=== PATIENT | female | born 1990 | race Caucasian/White ===

== ENCOUNTER 2021-04-08 14:40 | Emergency (ER) | payer OTHER, SELFPAY ==
--- NOTE | ~2021-04-08 | CT_ITS ---
EXAMINATION: CT HEAD WITHOUT CONTRAST CLINICAL INFORMATION: Headache and hypertension. Evaluate for bleed. COMPARISON: None TECHNIQUE: Contiguous axial imaging was performed from the skull base to vertex without intravenous administration of contrast. This CT examination was performed using dose optimization techniques as appropriate, variously including the following: *Automated exposure control *Adjustment of mA and/or kV according to patient size (this includes techniques or standardized protocols for targeted exams where dose is matched to indication/reason for exam; i.e. extremities or head) *Use of iterative reconstruction technique DLP: 675 mGy-cm FINDINGS: There is a region of encephalomalacia involving the medial aspect of the left parietoccipital lobe, and there appear to be a few punctate foci of calcification, likely dystrophic calcifications, at the periphery of this chronic abnormality. Otherwise, the calderon-white matter differentiation is well preserved. No evidence of an acute major vascular territory infarction. No intracranial hemorrhage, extra-axial fluid collection, focal mass effect or midline shift. The ventricles have normal size and configuration; no hydrocephalus. The brainstem and cerebellum have a normal appearance. The cerebellar tonsils are in normal position. The calvarium is intact. The mastoid air cells and middle ear cavities are well aerated. There are mucous retention cysts of the maxillary and left sphenoid sinuses. No air-fluid levels within paranasal sinuses. The orbits, globes and temporomandibular joints are unremarkable. CT/CT head/brain wo con IMPRESSION: * No hemorrhage or other acute intracranial pathology. * Findings consistent with old infarction in the left ZIP[employer]TER territory. * Incidentally noted are mucous retention cysts within the maxillary and left sphenoid sinuses.
[2021-04-08 14:53] VITALS: BP 210/113; PULSE 72; RESP 16; TEMP 36.7; O2SAT 96; BMI 41.9
--- NOTE | 2021-04-08 16:25 | ECG_ITS ---
Test Reason : HEADACHE Blood Pressure : / mmHG Vent. Rate : 065 BPM Atrial Rate : 065 BPM P-R Int : 166 ms QRS Dur : 106 ms QT Int : 436 ms P-R-T Axes : 040 020 -02 degrees QTc Int : 453 ms Normal sinus rhythm Normal ECG No previous ECGs available Referred By: Yohan Rodriguez Electronically Signed By:YU LEYVA
--- NOTE | 2021-04-08 16:28 | ED_ITS ---
HPI - Headache General Chief Complaint: Headache Stated Complaint: severe head pain, rt arm numb Time Seen by Provider: 04/08/21 16:25 Source: patient Mode of arrival: ambulatory Limitations: no limitations History of Present Illness HPI Narrative: 30-year-old female came in for evaluation of headache. 30-year-old female with history of 3 of border line hypertension, patient used to be on hypertension medication that was discontinued by her PCP after lost its weight, patient described headache as pressure inside her head started this morning while was going out with her family in the morning, patient ate break fast with no relief of her headache patient tried to drink coffee with no effect, patient describes headache as severe 7/10 constant since it started, pain can be relieved by applying pressure on her forehead with her hand, otherwise no aggravating factor, no photophobia, no neck stiffness. Mild nausea but no vomiting. Patient also reported that yesterday she had bright red blood per rectum usually is known to have hemorrhoid, and patient stained her underwear overnight with bright red blood, this morning patient had a bowel movement did not see blood in the stool this morning. Related Data Previous Rx's Medication Instructions Recorded amlodipine 2.5 mg tablet 2.5 mg PO DAILY #30 tab 04/08/21 Allergies Allergy/AdvReac Type Severity Reaction Status Date / Time acetaminophen [From VICODIN] Allergy Unknown UNK Unverified 05/05/20 18:05 codeine [CODEINE] Allergy Unknown UNK Unverified 05/05/20 18:05 hydrocodone [Vicodin] Allergy Unknown Verified 11/10/18 00:00 Sulfa (Sulfonamide Allergy Unknown anaphylaxis Verified 11/10/18 00:00 Antibiotics) Codeine Phosphate Allergy Unknown Uncoded 11/10/18 00:00 DTap vaccine Allergy Unknown Uncoded 11/10/18 00:00 From VICODIN Allergy Unknown UNK Uncoded 05/05/20 18:05 Review of Systems Review of Systems: All other systems are reviewed and are negative Constitutional: Reports as per HPI and Reports no additional constitutional complaints Eyes: Reports as per HPI and Reports no additional eye complaints Reports system reviewed and no additional complaints, except as documented Cardiovascular: Reports as per HPI and Reports no additional cardiovascular complaints Respiratory: Reports as per HPI and Reports no additional respiratory complaints Gastrointestinal: Reports as per HPI and Reports no additional gastrointestinal complaints Genitourinary: Reports no additional female genitourinary complaints Musculoskeletal: Reports no additional musculoskeletal complaints Skin/Breast: Reports system reviewed and no additional complaints, except as docu Psychiatric: Reports no additional psychiatric complaints Endocrine: Reports no additional endocrine complaints Hematologic/Lymphatic: Reports no additional hematologic/lymphatic complaints Allergic/Immunologic: Reports no additional allergic/immunologic complaints Reports system reviewed and no additional complaints, except as documented and Reports Abnormal speech present [facility] Past Medical History Medical History Hypertension Social History Social History Advance Directives: No Advance Directives Information Provided: No Physical Exam Vital Signs: Vital Signs: Last Vital Signs Temp 98.1 F 04/08/21 16:52 Pulse 64 04/08/21 16:52 Resp 16 04/08/21 16:52 BP 154/75 H 04/08/21 16:52 Pulse Ox 98 04/08/21 16:52 Body Mass Index 41.9 Vital signs have been reviewed as appeared to be correct. Blood pressure elevated. Heart rate normal. Respiration rate normal. Temperature normal. Oxygen saturation normal. Appearance: Alert. Oriented X3. No acute distress. Head: Normal external exam. Normocephalic. Atraumatic. No Connolly signs noted. No raccoon eyes noted Eyes: PERRLA. EOMI. Conjunctiva and sclera normal. Eyelids normal. ENT: TM's Normal. Pharynx normal. Uvula midline. Moist mucous membranes. No trismus noted. No drooling noted. No muffled voice noted. Neck: Normal inspection. Neck supple. FROM. No adenopathy. Thyroid Normal. No meningeal signs. No neck mass noted. CVS: Normal heart rate and rhythm. Heart sound normal. No murmurs noted. Pulses normal throughout. Respiratory: No respiratory distress. Painless inspiration. Breath sounds no rmal. No wheezes/rales/rhonchi noted. Chest nontender. No accessory muscle usage noted or decreased air movement noted. Abdomen: Soft and nontender. Bowel sounds normal in all 4 quadrants. No disten tion noted. No organomegaly noted. No visible injury noted. Back: No CVA tenderness. Full range of motion noted. Skin: Skin warm and dry. Normal skin color. Normal skin turgor. No rashes/lesions/lacerations noted. Extremities: No lower extremity edema. Extremities exhibit normal range of mo tion. Extremities nontender. Neuro: Oriented X 3. Cranial nerve exam: II-XII are grossly intact No motor deficit. No sensory deficit. Reflexes normal. NIH Stroke Scale Level of Consciousness: Alert Level of Consciousness Questions: Answers both questions correctly Level of Consciousness Commands: Performs both tasks correctly Best Gaze: Normal Visual: No visual loss Facial Palsy: Normal Motor Arm (Right): No drift Motor Arm (Left): No drift Motor Leg (Right): No drift Motor Leg (Left): No drift Limb Ataxia: Absent Sensory: Normal Best Language: No aphasia Dysarthia: Normal Extinction and Inattention: No abnormality Score: 0 Course Course Course Narrative: Assessment and plan. 30-year-old female came in for evaluation for headache, patient found to be hypertensive while in the emergency department (patient used to be on antihypertensive medication but was discontinued by her primary doctor at some point), patient also stated that she has been going through stressful events in her life and her family that might contribute to her symptoms also. CT of the head showed patient had an old cerebral infarction. Patient's symptoms and headache is unremarkable, no sign of acute stroke with a NIH score of 0 MDM - Headache Lab Data Attestation: I reviewed the patient's lab results. Result diagrams: 04/08/21 16:51 04/08/21 16:51 Labs: Lab Results 04/08/21 04/08/21 04/08/21 Range/Units 16:51 16:51 16:51 WBC 10.3 (4.8-10.8) X10*3/uL RBC 4.51 (4.20-5.50) X10*6/uL Hgb 11.1 L (12.0-16.0) g/dl Hct 35.3 L (37-47) % MCV 78.3 L (80-98) fL MCH 24.6 L (27.0-33.0) pg MCHC 31.4 (31.0-35.0) g/dl RDW 14.6 (11.0-16.0) % Plt Count 410 H (160-400) X10*3/uL MPV 9.3 L (9.4-12.3) fL Immature Gran % (Auto) 0.7 H (0.0-0.4) % Neut % (Auto) 70.3 (45-73) % Lymph % (Auto) 20.2 (20-40) % [place] % (Auto) 6.0 (2-11) % Eos % (Auto) 2.5 (0-4) % Baso % (Auto) 0.3 (0-2) % Lymph # (Auto) 2.1 (1.2-4.9) X10*3/uL [place] # (Auto) 0.6 (0.1-1.2) X10*3/uL Eos # (Auto) 0.3 (0.0-0.4) X10*3/uL Baso # (Auto) 0.0 (0.0-0.2) X10*3/uL Abs Immat Gran (auto) 0.07 H (0.00-0.03) X10*3/uL Absolute Neuts (auto) 7.3 (2.0-8.3) X10*3/uL Absolute Nucleated RBC 0.000 (0.0-0.012) X10*3/uL Nucleated RBC % (auto) 0.0 (0.0-0.2) /100WBC Sodium 140 (135-145) mmol/L Potassium 4.3 (3.3-5.1) mmol/L Chloride 106 (96-108) mmol/L Carbon Dioxide 25 (22-29) mmol/L Anion Gap 13 (12-20) BUN 12 (9-16) mg/dL Creatinine 0.72 (0.5-1.4) mg/dL Estim Creat Clear Calc 146.5 Estimated GFR > 60 Random Glucose 90 (60-115) mg/dL Calcium 8.8 (8.4-10.2) mg/dL Troponin I High Sens < 3.5 (<3.5-17.0) ng/L Urine Color Urine Appearance Urine pH (5.0-8.0) Ur Specific [place] (1.005-1.025) Urine Protein (NEG-TRACE) MG/DL Urine Glucose (UA) (NEG) MG/DL Urine Ketones (NEG) MG/DL Urine Blood (NEG) Urine Nitrite (NEG) Ur Leukocyte Esterase (NEG) Urine Test (NEGATIVE) Stool Occult Blood (NEGATIVE) 04/08/21 04/08/2104/08/21 Range/Units 17:18 17:18 17:18 WBC (4.8-10.8) X10*3/uL RBC (4.20-5.50) X10*6/uL Hgb (12.0-16.0) g/dl Hct (37-47) % MCV (80-98) fL MCH (27.0-33.0) pg MCHC (31.0-35.0) g/dl RDW (11.0-16.0) % Plt Count (160-400) X10*3/uL MPV (9.4-12.3) fL Immature Gran % (Auto) (0.0-0.4) % Neut % (Auto) (45-73) % Lymph % (Auto) (20-40) % [place] % (Auto) (2-11) % Eos % (Auto) (0-4) % Baso % (Auto) (0-2) % Lymph # (Auto) (1.2-4.9) X10*3/uL [place] # (Auto) (0.1-1.2) X10*3/uL Eos # (Auto) (0.0-0.4) X10*3/uL Baso # (Auto) (0.0-0.2) X10*3/uL Abs Immat Gran (auto) (0.00-0.03) X10*3/uL Absolute Neuts (auto) (2.0-8.3) X10*3/uL Absolute Nucleated RBC (0.0-0.012) X10*3/uL Nucleated RBC % (auto) (0.0-0.2) /100WBC Sodium (135-145) mmol/L Potassium (3.3-5.1) mmol/L Chloride (96-108) mmol/L Carbon Dioxide (22-29) mmol/L Anion Gap (12-20) BUN (9-16) mg/dL Creatinine (0.5-1.4) mg/dL Estim Creat Clear Calc Estimated GFR Random Glucose (60-115) mg/dL Calcium (8.4-10.2) mg/dL Troponin I High Sens (<3.5-17.0) ng/L Urine Color YELLOW Urine Appearance CLEAR Urine pH 6.0 (5.0-8.0) Ur Specific [place] 1.015 (1.005-1.025) Urine Protein NEG (NEG-TRACE) MG/DL Urine Glucose (UA) NEG (NEG) MG/DL Urine Ketones NEG (NEG) MG/DL Urine Blood NEG (NEG) Urine Nitrite NEG (NEG) Ur Leukocyte Esterase NEG (NEG) Urine Test NEGATIVE (NEGATIVE) Stool Occult Blood NEGATIVE (NEGATIVE) Imaging Data CT scan - head: Radiologist's impression: *? No hemorrhage or other acute intracranial pathology. *? 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 *? Incidentally noted are mucous retention cysts within the maxillary and left sphenoid sinuses. ECG Data Interpretation: Normal sinus rhythm at 65 beats per minutes, normal axis deviation, normal intervals, no ST-T changes. Discharge Plan Discharge Clinical Impression: Headache, Hypertension Patient Disposition: Home, Self-Care Instructions: Hypertension (ED) Prescriptions: New amlodipine 2.5 mg tablet 2.5 mg PO DAILY Qty: 30 RF: 0 Referrals: Don Mg [Primary Care Provider] - 2 days Naye Bennett MD [Physician] - 2 days
[2021-04-08 16:37] VITALS: BP 183/105
[2021-04-08] MEDS: amLODIPine Besylate 2.5 MG TABLET PO (16:37)
[2021-04-08 16:52] VITALS: BP 154/75; PULSE 64; RESP 16; TEMP 36.7; O2SAT 98
[2021-04-08 16:55] LABS: MANUAL DIFF FLAG NO
[2021-04-08 16:56] LABS: Basophils Percent Auto 0.3 % (0-2); Eosinophils Absolute Auto 0.3 X10*3/uL (0.0-0.4); Eosinophils Percent Auto 2.5 % (0-4); Hematocrit 35.3 % (37-47); Hemoglobin 11.1 g/dl (12.0-16.0); Imm Gran Abs Auto 0.07 X10*3/uL (0.00-0.03); Imm Gran Pct Auto 0.7 % (0.0-0.4); Lymphocytes Absolute Auto 2.1 X10*3/uL (1.2-4.9); Lymphocytes Percent Auto 20.2 % (20-40); Mean Corpuscular HGB Conc 31.4 g/dl (31.0-35.0); Mean Corpuscular Hemoglobin 24.6 pg (27.0-33.0); Mean Corpuscular Volume 78.3 fL (80-98); Mean Platelet Volume 9.3 fL (9.4-12.3); Monocytes Absolute Auto 0.6 X10*3/uL (0.1-1.2); Neutrophils Absolute Auto 7.3 X10*3/uL (2.0-8.3); Neutrophils Percent Auto 70.3 % (45-73); Platelet Count 410 X10*3/uL (160-400); Red Blood Count 4.51 X10*6/uL (4.20-5.50); Red Cell Distribution Width 14.6 % (11.0-16.0); White Blood Count 10.3 X10*3/uL (4.8-10.8)
[2021-04-08 17:19] LABS: Anion Gap 13 (12-20); Blood Urea Nitrogen 12 mg/dL (9-16); Calcium 8.8 mg/dL (8.4-10.2); Carbon Dioxide 25 mmol/L (22-29); Chloride 106 mmol/L (96-108); Creatinine Clr Calc Pharmacy 146.5; Estimated Glomerular Filt Rate > 60; Glucose Random 90 mg/dL (60-115); Potassium 4.3 mmol/L (3.3-5.1); Sodium 140 mmol/L (135-145)
[2021-04-08 17:23] LABS: Troponin-I High Sensitivity < 3.5 ng/L (<3.5-17.0)
[2021-04-08 17:36] LABS: OBS Int Ctl Valid YES; OBS1 NEGATIVE (NEGATIVE)
[2021-04-08 17:37] LABS: Glucose Urine UA NEG (NEG); Leukocyte Esterase Urine NEG (NEG); Nitrite Urine NEG (NEG); Specific Gravity - Urine 1.015 (1.005-1.025); Urine Blood NEG (NEG); Urine Ketones NEG (NEG); Urine Protein NEG (NEG-TRACE)
[2021-04-08 17:39] LABS: Appearance Urine CLEAR; Color Urine YELLOW; UPreg QC Valid YES; Urine Pregnancy NEGATIVE (NEGATIVE)
[2021-04-08] MEDS: oxyCODONE HCl Immed Release 5 MG TABLET PO (19:32)
[2021-04-08 20:24] VITALS: BP 157/80; PULSE 59; RESP 18; O2SAT 98
== END 2021-04-08 20:55 | disposition home or self-care (01) ==
PROVIDERS: Emergency Provider Emergency Medicine; PCP Internal Medicine
DX: R51.9 Headache, unspecified (principal); I10 Essential (primary) hypertension; Z72.89 Other problems related to lifestyle; Z63.79 Other stressful life events affecting family and household
CPT/HCPCS: 36415; 70450; 80048; 81003; 81025; 82272; 84484; 85025; 93005; 99284

== ENCOUNTER 2021-04-13 18:30 | Emergency (ER) | payer OTHER, SELFPAY ==
--- NOTE | ~2021-04-13 | XR_ITS ---
EXAMINATION: XR CERVICAL SPINE CLINICAL INFORMATION: Radicular pain. Suspect possible stenosis. COMPARISON: None TECHNIQUE: 3 views of the cervical spine were obtained. FINDINGS: Bone alignment is normal. No fracture or dislocation is seen. Disc spaces are normal. Prevertebral soft tissues are normal. XR/XR cervical spine 2V IMPRESSION: Unremarkable examination.
[2021-04-13 18:35] VITALS: BP 158/104; PULSE 66; RESP 16; TEMP 36.9; O2SAT 98; BMI 43.5
[2021-04-13 20:32] VITALS: BP 138/71; PULSE 61; RESP 20; TEMP 37.2; O2SAT 100
--- NOTE | 2021-04-13 20:51 | PC.NURSE ---
client mcginnis x 4 with equal and non labored rr. Client speaking in clear and full sentences. Client following commands, neuro intact. Client appears in nad, seen last week for similar symptoms and received full work up. Client hypertensive and stats is on medications. right arm tingling is biggest symptom.
--- NOTE | 2021-04-13 22:05 | ED.NEUROSD ---
HPI - Neuro Symptoms/Deficit General Chief Complaint: Neuro Symptoms/Deficit Stated Complaint: headache, arm tingling Time Seen by Provider: 04/13/21 21:15 Source: patient Mode of arrival: ambulatory History of Present Illness HPI Narrative: 30-year-old female without significant past medical history presents with worsening numbness and tingling in the right upper extremity since Saturday and patient reports that this is exacerbated by excessive writing and repetitive movements of her right upper extremity. She is primarily concerned because she has continued to have headaches that are not associated with fever, chills, neck pain, but patient reports that she has not had the COVID-19 vaccine as she had COVID-19 infection in September/2020. In addition, patient states that she has had some noted weakness of the hand but otherwise denies any visual/auditory/speech dysfunction. Patient reports that the affect is primarily in the ring finger and 5th digit of the right hand and is most prominent distal to the elbow. Related Data Previous Rx's Medication Instructions Recorded amlodipine 2.5 mg tablet 2.5 mg PO DAILY #30 tab 04/08/21 Allergies Allergy/AdvReac Type Severity Reaction Status Date / Time acetaminophen [From VICODIN] Allergy Unknown UNK Unverified 05/05/20 18:05 codeine [CODEINE] Allergy Unknown UNK Unverified 05/05/20 18:05 hydrocodone [Vicodin] Allergy Unknown Verified 11/10/18 00:00 Sulfa (Sulfonamide Allergy Unknown anaphylaxis Verified 11/10/18 00:00 Antibiotics) Codeine Phosphate Allergy Unknown Uncoded 11/10/18 00:00 DTap vaccine Allergy Unknown Uncoded 11/10/18 00:00 From VICODIN Allergy Unknown UNK Uncoded 05/05/20 18:05 Review of Systems Review of Systems: Pertinent positives and negatives as stated in HPI 10 point review of systems is otherwise negative. PMFSH Past Medical History Source: nursing notes reviewed Medical History Hypertension Social History Social History Advance Directives: No Advance Directives Information Provided: No Physical Exam Vital Signs: Vital Signs: Last Vital Signs Temp 98.9 F 04/13/21 20:32 Pulse 61 04/13/21 20:32 Resp 20 04/13/21 20:32 BP 138/71 04/13/21 20:32 Pulse Ox 100 04/13/21 20:32 Body Mass Index 43.5 VITAL SIGNS: Reviewed. GENERAL: Well developed, well nourished, in no acute distress. HEAD: Normocephalic/atraumatic EYES: PERRLA, EOMI OROPHARYNX: no oral lesions noted, posterior pharynx clear NECK: Supple, no adenopathy, no midline cervical spine tenderness LUNGS: Normal breath sounds. No adventitious sounds or accessory muscle use. SpO2<100> CARDIOVASCULAR: Regular rate and rhythm without noted murmurs, no JVD or lower extremity edema. ABDOMEN: Soft, non-tender, non-distended with bowel sounds. MUSCULOSKELETAL: No tenderness, deformities, or effusions noted on gross inspection. EXTREMITIES: No cyanosis, clubbing or edema. SKIN: Inspection of the skin reveals no rashes, ulcerations, jaundice, pallor, or petechiae. NEUROLOGIC: Alert and oriented x 4. Strength and sensation to light touch were grossly intact x 4, no facial asymmetry, no pronator drift, cranial nerves 2-12 are grossly intact, cerebellar function intact Course Course Course Narrative: This is a 30-year-old female with history and clinical presentation most suggestive of radicular or isolated ulnar neuropathy given further questioning. I have reviewed the notes and lab work from Saturday. These alternative possibilities were discussed with the patient at bedside and will test further for evidence elevated inflammatory markers, COVID-19 positivity, and thyroid dysfunction. Patient's NIH score is 0 and low clinical suspicion for central etiology of patient's symptoms. Will provide Fioricet for headache and re-evaluate. Patient was reminded to continue to follow-up with neurology as she was provided with a referral on Saturday. On review of her blood pressure it is much improved when compared to prior. On review of all investigations there is minimal elevation of ESR/CRP and TSH is within normal limits. On re-evaluation patient reports that her headache has significantly improved and she is able to tolerate oral intake. She is otherwise recommended to continue with follow-up with Dr. Bennett and will be treated for suspected ulnar nerve neuropathy with recommendations for [id number] anti-inflammatories. MDM - Neuro Symptoms/Deficit Lab Data Labs: Lab Results 04/13/21 04/13/21 04/13/21 Range/Units 22:36 22:36 22:36 ESR 31 H (0-20) MM/HR C-Reactive Protein 1.18 H (< or = 0.50) mg/dL TSH 2.24 (0.32-4.0) uIU/mL COVID-19 (BRUNO) Negative (Negative) COVID-19 Clin Com See Note NIH Stroke Scale Internal: Initial- Upon Arrival Level of Consciousness: Alert Level of Consciousness Questions: Answers both questions correctly Level of Consciousness Commands: Performs both tasks correctly Best Gaze: Normal Visual: No visual loss Facial Palsy: Normal Motor Arm (Right): No drift Motor Arm (Left): No drift Motor Leg (Right): No drift Motor Leg (Left): No drift Limb Ataxia: Absent Sensory: Normal Best Language: No aphasia Dysarthia: Normal Extinction and Inattention: No abnormality Score: 0 Discharge Plan 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 Resume all prescribed home medications. 2. Follow-up with your primary care provider for re-evaluation and further outpatient management for suspected cubital tunnel syndrome. 3. Ibuprofen 400 mg, orally with milk or food, every 6 hours to improve inflammation. Also, discussed with your primary care provider possible physical therapy or braces typically used to treat this condition. 4. Please continue with the referral that you have been provided previously to follow-up with Dr. Bennett. 5. Tylenol 1000 mg, orally, every 6 hours as needed for headache. Do not exceed 4000 mg within 24 hours. Return to the ER for acute worsening of your symptoms. Prescriptions: No Action amlodipine 2.5 mg tablet 2.5 mg PO DAILY Qty: 30 RF: 0 Referrals: Physician,Unknown [Primary Care Provider] - 2 days
[2021-04-13] MEDS: Butalb/Acetamin/Caff 50/325/40 TABLET 1 TAB PO (22:24)
[2021-04-13 22:56] LABS: IDNOW Serial# 9DD0AD1C
[2021-04-13 22:57] LABS: COVID-19 Test Negative (Negative)
[2021-04-13 23:01] LABS: C Reactive Protein 1.18 mg/dL (< or = 0.50)
[2021-04-13 23:23] LABS: TSH reflex Free T4 2.24 uIU/mL (0.32-4.0)
[2021-04-14 00:03] LABS: Erythrocyte Sedimentation Rate 31 MM/HR (0-20)
[2021-04-14 01:02] VITALS: RESP 16
--- NOTE | 2021-04-14 01:05 | PC.NURSE ---
pt a&o, no n/v, no sign of distress at this time. Reviewed and educated on discharge instructions. pt able to walk with a steady gait. No signs of dizziness and lightheartedness.
== END 2021-04-14 01:07 | disposition home or self-care (01) ==
PROVIDERS: Emergency Provider Student in an Organized Health Care Education/Training Program
DX: G56.21 Lesion of ulnar nerve, right upper limb (principal); R51.9 Headache, unspecified; I10 Essential (primary) hypertension; Z20.822 Contact with and (suspected) exposure to COVID-19
CPT/HCPCS: 36415; 72040; 84443; 85652; 86140; 87635; 99283; 99284

== ENCOUNTER 2021-04-22 10:45 | Emergency (ER) | payer OTHER, SELFPAY ==
--- NOTE | ~2021-04-22 | XR_ITS ---
EXAMINATION: XR KNEE, RIGHT CLINICAL INFORMATION: Fall. Pain. COMPARISON: None TECHNIQUE: Four views of the right knee. FINDINGS: Bones and soft tissues are normal. No fracture or joint effusion. Alignment is anatomic. Joint spaces are well maintained. No abnormal soft tissue calcification. XR/XR knee RT 4V IMPRESSION: Normal right knee.
[2021-04-22 11:56] VITALS: BP 170/95; PULSE 68; RESP 18; TEMP 36.3; O2SAT 99; BMI 41.9
[2021-04-22] MEDS: oxyCODONE HCl Immed Release 5 MG TABLET PO (12:13)
--- NOTE | 2021-04-22 13:02 | ED.LOWEXIN ---
HPI - Extremity Injury (Lower) General Chief Complaint: Extremity Injury, Lower Stated Complaint: fall Time Seen by Provider: 04/22/21 11:58 Source: patient Mode of arrival: ambulatory Limitations: no limitations History of Present Illness MD complaint: knee injury Onset (ago): day(s) (Yesterday) Injury: Right: knee Type of Injury: other (Patient reports she fell in her left leg went backwards in her right leg went forward) Place: home Severity: severe Severity scale (1-10): >10 Relieving factors: nothing Exacerbating factors: weight bearing, movement and palpation Context: fall Associated symptoms: snap/pop sensation, swelling and unable to bear weight Other symptoms: none Treatments prior to arrival: cold therapy, heart therapy and other (Motrin and Tylenol no symptomatic relief) Related Data Previous Rx's Medication Instructions Recorded amlodipine 2.5 mg tablet 2.5 mg PO DAILY #30 tab 04/08/21 lidocaine HCl 4 % topical cream 1 appl TOPICAL BID PRN #120 g 04/22/21 (Aspercreme (lidocaine HCl)) oxycodone 5 mg tablet 5 mg PO BID PRN #10 tab 04/22/21 Allergies Allergy/AdvReac Type Severity Reaction Status Date / Time acetaminophen [From VICODIN] Allergy Unknown UNK Unverified 05/05/20 18:05 codeine [CODEINE] Allergy Unknown UNK Unverified 05/05/20 18:05 hydrocodone [Vicodin] Allergy Unknown Unknown Verified 04/22/21 12:00 Sulfa (Sulfonamide Allergy Unknown anaphylaxis Verified 11/10/18 00:00 Antibiotics) Codeine Phosphate Allergy Unknown Unknown Uncoded 04/22/21 12:00 DTap vaccine Allergy Unknown Unknown Uncoded 04/22/21 12:00 From VICODIN Allergy Unknown UNK Uncoded 05/05/20 18:05 Review of Systems Review of Systems: Constitutional : No changes in activity, No lethargy, No recent prior head injury, No agitation, No increased fussiness ENT/Mouth : No Ear Pain, No Nasal discharge/drainage Eyes: No Eye Pain, No Swelling, No Redness, No Foreign Body, No Vision Changes Cardiovascular : No Chest Pain, No SOB Respiratory : No Cough Gastrointestinal : No Nausea, No Vomiting, No abdominal Pain Genitourinary : No Dysuria, No Urinary Frequency, No Urinary Incontinence, No Urgency, No Flank Pain Musculoskeletal : + joint pain, No neck stiffness, No back pain/injury Skin : No lacerations Neuro : No unsteady gait, No Paresthesias, No Loss of Consciousness, No altered mental status, No Headache Yes all other systems are reviewed and are negative [facility] Past Medical History Attestation statement: The following information was validated with the patient. Medical History Hypertension Social History Social History Alcohol intake: unknown Patient Tobacco Use Status: Tobacco use Unknown Advance Directives: No Advance Directives Information Provided: No Patient : No Physical Exam Vital Signs: Vital Signs: Last Vital Signs Temp 97.4 F 04/22/21 11:56 Pulse 68 04/22/21 11:56 Resp 18 04/22/21 13:11 BP 170/95 H 04/22/21 11:56 Pulse Ox 99 04/22/21 11:56 Body Mass Index 41.9 vital signs have been reviewed as normal and appeared to be correct. Blood pressure hypertensive 170/95 Heart rate normal. Respiration rate normal. Temperature normal. Oxygen saturation normal. Appearance: Alert. Oriented X3. No acute distress. Head: Normal external exam. Normocephalic. Atraumatic. Eyes: PERRLA. EOMI. Conjunctiva and sclera normal. Eyelids normal. ENT: Pharynx normal. Uvula midline. Moist mucous membranes. Neck: Normal inspection. Neck supple. FROM. No adenopathy. No meningeal signs. CVS: Normal heart rate and rhythm. Pulses normal throughout. Respiratory: No respiratory distress. Painless inspiration. Back: Full range of motion noted. Skin: Skin warm and dry. Normal skin color. Normal skin turgor. No rashes/lesions/lacerations noted. Extremities: Patient with moderate to severe tenderness to right knee at the medial aspect and she keeps it extended unable to flex it due to pain per patient. No obvious ligamentous laxity is noted on the medial and lateral aspects. No obvious deformities or signs of infection noted. Gait not tested due to pain per patient. Otherwise all other extremities exhibit normal range of motion and nontender. Neuro: Oriented X 3. No motor deficit. No sensory deficit. Reflexes normal. No focal neuro deficits noted. Vascular: + radial pulses/+ 2 distal pedal pulses/+2 dorsalis pedis b/l. Normal cap refill. No cyanosis noted to upper extremity nails and lower extremity toes nails. Course Course Course Narrative: 30-year-old female presenting to the ED after she had a mechanical fall where she slipped and fell on water at her home and her left knee went forward in her right knee went backward and since then has been having pain to her right knee where she is unable to bend it and ambulate due to pain. On exam no obvious ligamentous laxity although patient does not allow me to perform of thorough exam due to pain. Although no obvious deformities. No muscle injury noted. X-ray obtained and negative for any acute processes. I consulted with orthopedic physician assistant curator [facility] who recommended an outpatient MRI and follow up with them within the next 1-[address] her in a knee immobilizer and crutches and instructed patient to elevate and apply cold compresses as tolerated and to return if any new or worsening symptoms therefore explained to the patient she understands agrees this plan. MDM - Extremity Injury (Lower) Medical Records Attestation: I reviewed the patient's medical records. Imaging Data Right knee x-ray: Attestation: I personally reviewed and interpreted this imaging study as follows: Radiologist's impression: FINDINGS: Bones and soft tissues are normal. No fracture or joint effusion. Alignment is anatomic. Joint spaces are well maintained. No abnormal soft tissue calcification.? XR/XR knee RT 4V IMPRESSION: Normal right knee. Procedures Orthopedic Splinting/Casting Injury #1: Side: right Lower Extremity Injury Location: knee Lower Extremity Immobilizer: knee immobilizer Other Orthopedic Equipment: crutches Discharge Plan Discharge Clinical Impression: Fall, Right knee sprain Patient Disposition: Home, Self-Care Instructions: Knee Sprain (ED), Crutch Instructions (ED), Knee Immobilizer (ED) Prescriptions: New lidocaine HCl [Aspercreme (lidocaine HCl)] 4 % cream 1 appl topical BID PRN (Reason: pain) Qty: 120 RF: 0 oxycodone 5 mg tablet 5 mg PO BID PRN (Reason: pain) Qty: 10 RF: 0 No Action amlodipine 2.5 mg tablet 2.5 mg PO DAILY Qty: 30 RF: 0 Referrals: Zurdo Morgan MD [Physician] - 04/25/21 (To make a follow-up appointment within 1 week) Stand Alone Forms: Work/School Release Print Language: [place]
[2021-04-22 13:11] VITALS: RESP 18
== END 2021-04-22 13:41 | disposition home or self-care (01) ==
PROVIDERS: Emergency Provider Student in an Organized Health Care Education/Training Program; PCP Internal Medicine
DX: S83.91XA Sprain of unspecified site of right knee, initial encounter (principal); W01.0XXA Fall on same level from slipping, tripping and stumbling without subsequent striking against object, initial encounter; Y93.9 Activity, unspecified; Y92.019 Unspecified place in single-family (private) house as the place of occurrence of the external cause; Y99.9 Unspecified external cause status
CPT/HCPCS: 73564; 99283

== ENCOUNTER 2021-04-27 09:29 | Outpatient (REF) | payer OTHER, SELFPAY ==
--- NOTE | ~2021-04-27 | XR_ITS ---
EXAMINATION: SUNRISE VIEW OF THE PATELLA CLINICAL INFORMATION: Pain and unspecified kidney COMPARISON: None TECHNIQUE: [place] view of the patella XR/XR knee RT 1V IMPRESSION: There is mild lateral patellar tilt with subtle lateral patellofemoral joint space narrowing compared to the medial patellofemoral joint space.
== END 2021-04-27 09:30 | disposition home or self-care (01) ==
LOC: HO.HOSX 09:29
PROVIDERS: Visit Provider Physician Assistant
DX: S83.91XA Sprain of unspecified site of right knee, initial encounter (principal)
CPT/HCPCS: 73560; 99202

== ENCOUNTER 2021-05-03 18:15 | Emergency (ER) | payer OTHER, SELFPAY ==
--- NOTE | ~2021-05-03 | US_ITS ---
EXAMINATION: US VENOUS ULTRASOUND WITH DOPPLER LOWER EXTREMITY, RIGHT CLINICAL INFORMATION: Right lower extremity edema and pain COMPARISON: None TECHNIQUE: Ultrasound of the deep veins is performed from the hip to the calf with compression sonography and color and pulse Doppler assessment. Spectral analysis with color-flow imaging is performed. FINDINGS: There is normal venous compression and respiratory variation and augmented flow. The visualized common femoral vein, superficial femoral vein, profunda femoral vein, popliteal vein, and the trifurcation region shows no evidence of deep venous thrombosis. There is no significant popliteal fossa cyst. The contralateral left common femoral vein appears normal. If the patient's symptoms persist, followup ultrasound in 5 days 7 days might be of value to exclude proximal propagation from a non-visualized calf vein. US/US venous duplex LE RT IMPRESSION: No DVT demonstrated in the right lower extremity.
[2021-05-03 20:18] VITALS: BP 206/104; PULSE 69; RESP 17; TEMP 36.5; O2SAT 100; BMI 43.5
[2021-05-03 20:34] VITALS: BP 178/98; PULSE 64; RESP 18; TEMP 36.9; O2SAT 100
[2021-05-03 20:45] LABS: MANUAL DIFF FLAG NO
[2021-05-03 20:48] LABS: Basophils Percent Auto 0.3 % (0-2); Eosinophils Absolute Auto 0.2 X10*3/uL (0.0-0.4); Eosinophils Percent Auto 1.9 % (0-4); Hematocrit 33.7 % (37-47); Hemoglobin 10.9 g/dl (12.0-16.0); Imm Gran Abs Auto 0.04 X10*3/uL (0.00-0.03); Imm Gran Pct Auto 0.4 % (0.0-0.4); Lymphocytes Percent Auto 28.2 % (20-40); Mean Corpuscular HGB Conc 32.3 g/dl (31.0-35.0); Mean Corpuscular Hemoglobin 25.1 pg (27.0-33.0); Mean Corpuscular Volume 77.5 fL (80-98); Mean Platelet Volume 9.6 fL (9.4-12.3); Monocytes Absolute Auto 0.6 X10*3/uL (0.1-1.2); Monocytes Percent Auto 5.3 % (2-11); Neutrophils Absolute Auto 6.9 X10*3/uL (2.0-8.3); Neutrophils Percent Auto 63.9 % (45-73); Platelet Count 418 X10*3/uL (160-400); Red Blood Count 4.35 X10*6/uL (4.20-5.50); Red Cell Distribution Width 14.3 % (11.0-16.0); White Blood Count 10.7 X10*3/uL (4.8-10.8)
[2021-05-03 21:07] LABS: Anion Gap 9 (12-20); Blood Urea Nitrogen 10 mg/dL (9-16); Calcium 8.8 mg/dL (8.4-10.2); Carbon Dioxide 29 mmol/L (22-29); Chloride 105 mmol/L (96-108); Creatinine Clr Calc Pharmacy 143.7; Estimated Glomerular Filt Rate > 60; Glucose Random 80 mg/dL (60-115); Potassium 3.7 mmol/L (3.3-5.1); Sodium 139 mmol/L (135-145)
--- NOTE | 2021-05-03 21:25 | ED_ITS ---
HPI - General Adult General Chief complaint: General Medical Stated complaint: Right knee pain ? Infection S/P fall 2 wks ago Time Seen by Provider: 05/03/21 18:36 Source: patient Mode of arrival: ambulatory Limitations: no limitations History of Present Illness HPI narrative: 30-year-old female he seen here on April 13 after a fall with sprain to her right knee. She was placed in a knee immobilizer at that time and was referred to follow up with Orthopedics. She did have initial x-rays which were unremarkable. She saw orthopedics on April 27 and it was recommended she have an MRI. The patient is pending insurance authorization. For the last few days she has noticed increasing pain to the back of the knee and down the leg with swelling. She also feels like it is warm to touch. No fevers or chi lls. Taking Tylenol with continued symptoms. No previous history of DVT Related Data Previous Rx's Medication Instructions Recorded amlodipine 2.5 mg tablet 2.5 mg PO DAILY #30 tab 04/08/21 lidocaine HCl 4 % topical cream 1 appl TOPICAL BID PRN #120 g 04/22/21 (Aspercreme (lidocaine HCl)) oxycodone 5 mg tablet 5 mg PO BID PRN #10 tab 04/22/21 oxycodone 5 mg tablet 5 mg PO Q8H PRN #8 tab 05/03/21 Allergies Allergy/AdvReac Type Severity Reaction Status Date / Time Sulfa (Sulfonamide Allergy Severe anaphylaxis Verified 05/03/21 20:18 Antibiotics) acetaminophen [From VICODIN] Allergy Intermediate Rash Verified 05/03/21 20:18 codeine [CODEINE] Allergy Intermediate Rash Verified 05/03/21 20:18 hydrocodone [Vicodin] Allergy Intermediate Rash Verified 05/03/21 20:18 Codeine Phosphate Allergy Unknown Rash Uncoded 05/03/21 20:18 DTap vaccine Allergy Unknown Unknown Uncoded 04/22/21 12:00 From VICODIN Allergy Unknown Rash Uncoded 05/03/21 20:18 Review of Systems Review of Systems: Yes all other systems are reviewed and are negative Constitutional: Constitutional: Reports no additional constitutional complaints, Denies body ache(s), Denies chills, Denies fever(s), Denies headache(s) and Denies weakness Eyes: Eyes: Reports no additional eye complaints and Denies change in vision ENT: Reports system reviewed and no additional complaints, except as d ocumented, Denies dizziness, Denies headache(s), Denies nasal congestion, Denies nasal discharge and Denies neck pain Cardiovascular: Cardiovascular: Reports no additional cardiovascular complaints, Denies chest pain, Denies leg edema and Denies dyspnea Respiratory: Respiratory: Reports no additional respiratory complaints, Denies cough and Denies dyspnea Gastrointestinal: Gastrointestinal: Reports no additional gastrointestinal complaints, Denies abdominal pain, Denies diarrhea, Denies nausea and Denies vomiting Genitourinary: Genitourinary: Reports no additional female genitourinary complaints and Denies urinary incontinence Musculoskeletal: Musculoskeletal: Reports no additional musculoskeletal complaints, Denies back pain, Reports arthralgias, Reports joint swelling, Reports limited range of motion, Denies neck pain, Denies numbness and Denies tingling Integumentary/Breasts: Skin/Breast: Reports system reviewed and no additional complaints, except as docu, Reports swelling, Reports erythema and Denies rash Neurologic: Reports system reviewed and no additional complaints, except as documented, Denies Abnormal speech present, Denies dizziness, Denies headache(s), Denies numbness, Denies tingling and Denies weakness PMFSH Past Medical History Attestation statement: The following information was validated with the patient. Source: old records reviewed and nursing notes reviewed Medical History Hypertension Surgical History Delivery by section History of tonsillectomy Social History Social History Alcohol intake: unknown Patient Tobacco Use Status: Tobacco use Unknown Advance Directives: No Advance Directives Information Provided: No Patient : No Physical Exam Vital Signs: Vital Signs: Last Vital Signs Temp 98.4 F 05/03/21 20:34 Pulse 64 05/03/21 20:34 Resp 18 05/03/21 20:34 BP 178/98 H 05/03/21 20:34 Pulse Ox 100 05/03/21 20:34 Body Mass Index 43.5 Const: General: cooperative, healthy appearing, comfortable and no acute distress Orientation/consciousness: patient oriented x3 Limitations: no limitations HENMT: Head: Yes normal to inspection Ears: hearing grossly normal bilate rally General nose exam: Normal external nose present Face and sinus: Yes normal facial exam Mouth: Normal oral and palatal mucosa present Throat: Yes posterior oropharynx normal Eyes: General: appearance normal, both eyes and all related structures Pupils: Equal, round and reactive pupils present Neck: Neck: Yes normal visual inspection Chest: Chest palpation & inspection: normal inspection of the chest Resp: Effort & Inspection: normal respiratory effort Auscultation: clear to auscultation bilaterally Cardio: Rate: regular rate Rhythm: regular rhythm Peripheral pulses: Peripheral pulses 2+ throughout GI: Inspection: Yes normal to inspection Palpation (GI): Soft to palpation and nontender Auscultation: normal bowel sounds Back/Spine/Pelvis: Thoracic/Lumbar Spine: thoracic and lumbar spine normal to inspection Skin: General skin exam: no rashes or lesions noted Neuro: General: patient oriented x3, no focal motor deficits and normal sensation to monofilament Cranial nerves: Yes Equal, round and reactive pupils present Cognition (Neuro): normal cognition Speech: No Abnormal speech present Gait exam (Neuro): Normal gait present Motor exam (neuro): 5/5 motor strength present throughout Extrem: Other: To the right knee there is tenderness to both anterior and posterior aspect. There is some mild erythema over the knee but the patient is able to flex and extend the knee. She does have some scant edema noted to the right lower extremity extending over the ankle with some mild tenderness the right posterior calf. She has ligamental laxity of the medial ligament with a lot of pain over the site on exam General: Yes normal to inspection Course Course Course Narrative: Twisting injury to the right knee several weeks ago now with increasing pain over the last few days more and the posterior knee and down the calf with some edema and tingling and hot sensation. Labs ordered from triage. Will check ultrasound to rule out DVT 2129-ultrasound shows no evidence of DVT. Low concern for septic joint with full range of motion. Labs unremarkable. Will refer patient back to Orthopedics for follow-up. Reviewed worrisome signs and symptoms of when to return to the emergency department. Comfortable discharge home. Medical Decision Making Medical Records Medical records reviewed: Yes I reviewed the patient's medical records. Lab Data Lab results reviewed: Yes I reviewed the patient's lab results. Result diagrams: 05/03/21 20:42 05/03/21 20:42 Labs: Lab Results 05/03/21 05/03/21 Range/Units 20:42 20:42 WBC 10.7 (4.8-10.8) X10*3/uL RBC 4.35 (4.20-5.50) X10*6/uL Hgb 10.9 L (12.0-16.0) g/dl Hct 33.7 L (37-47) % MCV 77.5 L (80-98) fL MCH 25.1 L (27.0-33.0) pg MCHC 32.3 (31.0-35.0) g/dl RDW 14.3 (11.0-16.0) % Plt Count 418 H (160-400) X10*3/uL MPV 9.6 (9.4-12.3) fL Immature Gran % (Auto) 0.4 (0.0-0.4) % Neut % (Auto) 63.9 (45-73) % Lymph % (Auto) 28.2 (20-40) % Atlantic % (Auto) 5.3 (2-11) % Eos % (Auto) 1.9 (0-4) % Baso % (Auto) 0.3 (0-2) % Lymph # (Auto) 3.0 (1.2-4.9) X10*3/uL [place] # (Auto) 0.6 (0.1-1.2) X10*3/uL Eos # (Auto) 0.2 (0.0-0.4) X10*3/uL Baso # (Auto) 0.0 (0.0-0.2) X10*3/uL Abs Immat Gran (auto) 0.04 H (0.00-0.03) X10*3/uL Absolute Neuts (auto) 6.9 (2.0-8.3) X10*3/uL Absolute Nucleated RBC 0.000 (0.0-0.012) X10*3/uL Nucleated RBC % (auto) 0.0 (0.0-0.2) /100WBC Sodium 139 (135-145) mmol/L Potassium 3.7 (3.3-5.1) mmol/L Chloride 105 (96-108) mmol/L Carbon Dioxide 29 (22-29) mmol/L Anion Gap 9 L (12-20) BUN 10 (9-16) mg/dL Creatinine 0.75 (0.5-1.4) mg/dL Estim Creat Clear Calc 143.7 Estimated GFR > 60 Random Glucose 80 (60-115) mg/dL Calcium 8.8 (8.4-10.2) mg/dL Imaging Data Venous US: Attestation: I personally reviewed and interpreted this imaging study as follows: Radiologist's impression: TECHNIQUE: Ultrasound of the deep veins is performed from the hip to the calf with compression sonography and color and pulse Doppler assessment. Spectral analysis with color-flow imaging is performed. FINDINGS: There is normal venous compression and respiratory variation and augmented flow. The visualized common femoral vein, superficial femoral vein, profunda femoral vein, popliteal vein, and the trifurcation region shows no evidence of deep venous thrombosis. ? There is no significant popliteal fossa cyst. The contralateral left common femoral vein appears normal. If the patient's symptoms persist, followup ultrasound in 5 days 7 days might be of value to exclude proximal propagation from a non-visualized calf vein. US/US venous duplex LE RT IMPRESSION: No DVT demonstrated in the right lower extremity. Discharge Plan Discharge Clinical Impression: Right knee sprain Patient Disposition: Home, Self-Care Instructions: Knee Sprain (ED) Additional Instructions: Your ultrasound shows no evidence of a blood clot Continue to use the splint [facility] tomorrow Prescriptions: New oxycodone 5 mg tablet 5 mg PO Q8H PRN (Reason: pain) Qty: 8 RF: 0 No Action amlodipine 2.5 mg tablet 2.5 mg PO DAILY Qty: 30 RF: 0 lidocaine HCl [Aspercreme (lidocaine HCl)] 4 % cream 1 appl topical BID PRN (Reason: pain) Qty: 120 RF: 0 oxycodone 5 mg tablet 5 mg PO BID PRN (Reason: pain) Qty: 10 RF: 0 Referrals: Yogesh Aguiar MD [Physician] - 2 days
== END 2021-05-03 22:21 | disposition home or self-care (01) ==
PROVIDERS: Emergency Provider Emergency Medicine; PCP Internal Medicine
DX: S83.91XA Sprain of unspecified site of right knee, initial encounter (principal); M25.561 Pain in right knee; R60.0 Localized edema; X58.XXXA Exposure to other specified factors, initial encounter; Y93.9 Activity, unspecified; Y92.9 Unspecified place or not applicable; Y99.9 Unspecified external cause status
CPT/HCPCS: 29505; 36415; 80048; 85025; 93971; 99284

== ENCOUNTER 2021-05-12 18:50 | Outpatient (REF) | payer OTHER, SELFPAY ==
--- NOTE | ~2021-05-12 | MR_ITS ---
EXAMINATION: MR KNEE WITHOUT CONTRAST, RIGHT CLINICAL INFORMATION: Right knee pain, swelling, weakness, decreased range of motion and difficulty weightbearing. Fall on 04/21/2021. COMPARISON: Right knee radiographs dated 04/27/2021 and 04/22/2021. TECHNIQUE: MRI of the knee without contrast was performed using routine sequences on a high-field scanner. FINDINGS: MENISCI: Medial Meniscus: Intact. Lateral Meniscus: Minimal focal inner margin fraying of the lateral meniscal body. LIGAMENTS: Cruciate: Intact Collateral: Prominent thickening and abnormal signal associated with the proximal medial collateral ligament with adjacent soft tissue edema, consistent with a grade 2 sprain. EXTENSOR MECHANISM: Intact. ARTICULAR CARTILAGE/BONE: Patellofemoral Compartment: Normal. Medial Compartment: Normal. Lateral Compartment: Normal. JOINT FLUID AND BURSAE: Trace joint effusion. MR/MR knee RT wo con IMPRESSION: 1. Grade 2 sprain of the medial collateral ligament with adjacent soft tissue edema. 2. Minimal focal inner margin fraying of the lateral meniscal body. 3. Trace joint effusion.
== END 2021-05-12 18:51 | disposition home or self-care (01) ==
LOC: HO.MRI 18:50
PROVIDERS: PCP Internal Medicine; Visit Provider Physician Assistant
DX: S83.91XA Sprain of unspecified site of right knee, initial encounter (principal)
CPT/HCPCS: 73721

== ENCOUNTER → 2021-05-18 13:45 | Outpatient (BNVA) | payer OTHER, SELFPAY | PROVIDERS: Visit Provider Physician Assistant | DX: S83.411D Sprain of medial collateral ligament of right knee, subsequent encounter (principal) | CPT/HCPCS: 99212 ==

== ENCOUNTER 2021-06-10 11:16 | Emergency (ER) | payer OTHER, SELFPAY ==
[2021-06-10 11:37] VITALS: BP 164/111; PULSE 79; RESP 18; TEMP 36.8; O2SAT 96; BMI 43.5
--- NOTE | 2021-06-10 12:32 | ED_ITS ---
HPI - General Adult General Chief complaint: General Medical Stated complaint: sore throat Time Seen by Provider: 06/10/21 12:31 Source: patient Mode of arrival: ambulatory Limitations: no limitations History of Present Illness HPI narrative: Patient reports that she woke up 2 days ago with sore throat. Patient denies any subjective fevers. Patient does not have a vaccine against COVID or flu. No other symptoms like SOB, wheezing, dyspnea, dysphagia, odynophagia or dyspepsia. No nausea or vomiting. Mild nasal congestion. No cough no chest pain. Patient denies any body aches Related Data Previous Rx's Medication Instructions Recorded amlodipine 2.5 mg tablet 2.5 mg PO DAILY #30 tab 04/08/21 lidocaine HCl 4 % topical cream 1 appl TOPICAL BID PRN #120 g 04/22/21 (Aspercreme (lidocaine HCl)) oxycodone 5 mg tablet 5 mg PO BID PRN #10 tab 04/22/21 oxycodone 5 mg tablet 5 mg PO Q8H PRN #8 tab 05/03/21 naproxen 500 mg tablet 500 mg PO BID PRN 30 Days #60 tab 05/11/21 amoxicillin 500 mg tablet 500 mg PO BID 10 Days #20 tab 06/10/21 ibuprofen 600 mg tablet 600 mg PO Q8H PRN #20 tab 06/10/21 Allergies Allergy/AdvReac Type Severity Reaction Status Date / Time Sulfa (Sulfonamide Allergy Severe anaphylaxis Verified 06/10/21 11:37 Antibiotics) acetaminophen [From VICODIN] Allergy Intermediate Rash Verified 06/10/21 11:37 codeine [CODEINE] Allergy Intermediate Rash Verified 06/10/21 11:37 hydrocodone [Vicodin] Allergy Intermediate Rash Verified 06/10/21 11:37 Codeine Phosphate Allergy Unknown Rash Uncoded 05/03/21 20:18 DTap vaccine Allergy Unknown Unknown Uncoded 04/22/21 12:00 From VICODIN Allergy Unknown Rash Uncoded 05/03/21 20:18 Review of Systems Review of Systems: Constitutional : No Weight loss, No Fever, No Chills, No Night Sweats, No Fatigue, No Malaise ENT/Mouth : No Hearing loss, No Ear Pain, Nasal Congestion, No Sinus Pain, No Hoarseness, sore throat, No Rhinorrhea, No Swallowing Difficulty Eyes: No Eye Pain, No Swelling, No Redness, No Foreign Body, No Discharge, No Vision Changes Cardiovascular : No Chest Pain, No SOB, No Dyspnea on Exertion, No Orthopnea, No Edema, No Palpitations Respiratory : No Cough, No Sputum, No Wheezing, No Smoke Exposure, No Dyspnea Gastrointestinal : No Nausea, No Vomiting, No Diarrhea, No Constipation, No abdominal Pain, No Hematochezia, No Melena Genitourinary : no irregular bleeding, No Dysuria, No Urinary Frequency, No Hematuria, No Urinary Incontinence, No Urgency, No Flank Pain, No Urinary Flow Changes, No Hesitancy Musculoskeletal : No joint pain, No Myalgias, No Joint Swelling Skin : No Skin Lesions, No rash Neuro : No Weakness, No Numbness, No Paresthesias, No Loss of Consciousness, No Dizziness, No Headache Psych : No Anxiety/Panic, No Depression, No SI/HI/AH/VH, No Social Issues, Yes all other systems are reviewed and are negative PMFSH Past Medical History Medical History Hypertension Surgical History Delivery by section History of tonsillectomy Social History Social History (Updated 05/18/21 @ 14:08 by Genna Monroe) Alcohol intake: unknown Patient Tobacco Use Status: Tobacco use Unknown Advance Directives: No Patient : No Current occupational status: unemployed Current occupation: rt handed Physical Exam Vital Signs: Vital Signs: Last Vital Signs Temp 98.0 F 06/10/21 14:56 Pulse 69 06/10/21 14:56 Resp 18 06/10/21 14:56 BP 181/104 H 06/10/21 14:56 Pulse Ox 98 06/10/21 14:56 Body Mass Index 43.5 Const: General: healthy appearing, no acute distress and well developed Nutritional Appearance: well nourished Orientation/consciousness: patient oriented x3 HENMT: Head: Yes normal to inspection, Yes normocephalic and Yes atraumatic Ears: hearing grossly normal bilaterally and TM's normal bilaterally Face and sinus: Yes normal facial exam Mouth: Normal oral and palatal mucosa present Throat: Yes posterior oropharynx normal and Yes uvula midline Eyes: General: appearance normal, both eyes and all related structures Neck: Neck: Yes normal visual inspection, Yes full ROM and Yes trachea midline Thyroid: Thyroid normal Resp: Effort & Inspection: normal respiratory effort and able to speak in complete sentences Auscultation: clear to auscultation bilaterally Cardio: Rate: regular rate Rhythm: regular rhythm GI: Inspection: Yes normal to inspection and No distended Palpation (GI): No hepatosplenomegaly present Auscultation: normal bowel sounds Skin: General skin exam: elasticity normal, turgor normal and dry skin Neuro: General: patient oriented x3 Course Course Course Narrative: 30-year-old female is here today for complains of sore throat and congestion. Patient reports that symptoms started 2 days ago. No ill contacts with anyone with food or COVID. Patient does not have a COVID or flu vaccine yet. Patient denies any other respiratory symptoms. Will swap her for COVID, flu, RSV and strep. Patient is afebrile denies shortness of breath or respiratory distress. Lung sounds clear Reevaluation(s) Reevaluation #1: Swab negative for COVID, RSV, flu. Throat swab positive for strep A. Will order amoxicillin. Patient will be sent home on amoxicillin. Medical Decision Making Lab Data Labs: Lab Results 06/10/21 06/10/21 Range/Units 12:46 12:47 Coronavirus (PCR) NEGATIVE (Negative) Influenza Type A (PCR) NEGATIVE (Negative) Influenza Type B (PCR) NEGATIVE (Negative) RSV RNA Qual (PCR) NEGATIVE (Negative) S. pyogenes GrpA ERIKA Positive A (Negative) Discharge Plan Discharge Clinical Impression: Sore throat Patient Disposition: Home, Self-Care Instructions: Pharyngitis (ED) Additional Instructions: You were seen here today for sore throat and congestion. Your nasal swab was negative for COVID, RSV, flu. Your throat swab was positive for strep. You were given 1st dose of antibiotic. Please make sure you finish all of the antibiotics. You will be treated for 10 days. You will need to see your primary care physician for follow-up. You may return to emergency department if symptoms will get worse or if you experience any additional concerning s ymptoms. Prescriptions: New ibuprofen 600 mg tablet 600 mg PO Q8H PRN (Reason: fever or pain) Qty: 20 RF: 0 amoxicillin 500 mg tablet 500 mg PO BID 10 Days Qty: 20 RF: 0 No Action naproxen 500 mg tablet 500 mg PO BID PRN (Reason: pain) 30 Days Qty: 60 RF: 0 amlodipine 2.5 mg tablet 2.5 mg PO DAILY Qty: 30 RF: 0 oxycodone 5 mg tablet 5 mg PO Q8H PRN (Reason: pain) Qty: 8 RF: 0 lidocaine HCl [Aspercreme (lidocaine HCl)] 4 % cream 1 appl topical BID PRN (Reason: pain) Qty: 120 RF: 0 oxycodone 5 mg tablet 5 mg PO BID PRN (Reason: pain) Qty: 10 RF: 0 Referrals: [facility]Dn [facility] [Primary Care Provider] - 2 days Stand Alone Forms: Work/School Release Interventions: ED Discharge Assessment Last Done: 06/10/21 15:08 Discharge Date/Time: 06/10/21 15:08
[2021-06-10 13:22] LABS: IDNOW Serial# 08D9AD1C; Strep A Nucleic Acid Positive (Negative)
[2021-06-10 13:54] LABS: Influenza A PCR NEGATIVE (Negative); Influenza B PCR NEGATIVE (Negative); Resp Syncy Virus RNA Qual PCR NEGATIVE (Negative); SARS COV2 PCR INHOUSE NEGATIVE (Negative)
[2021-06-10] MEDS: Amoxicillin 500 MG CAPSULE PO (14:36)
[2021-06-10 14:56] VITALS: BP 181/104; PULSE 69; RESP 18; TEMP 36.7; O2SAT 98
== END 2021-06-10 15:08 | disposition home or self-care (01) ==
PROVIDERS: Nurse Practitioner Family; Emergency Provider Emergency Medicine; PCP Internal Medicine
DX: J02.8 Acute pharyngitis due to other specified organisms (principal); Z20.822 Contact with and (suspected) exposure to COVID-19; Z79.899 Other long term (current) drug therapy
CPT/HCPCS: 0241U; 36415; 87651; 99283; 99284

== ENCOUNTER 2021-07-02 19:18 | Emergency (ER) | payer OTHER, SELFPAY ==
--- NOTE | ~2021-07-02 | CT_ITS ---
EXAMINATION: CT HEAD WITHOUT CONTRAST CLINICAL INFORMATION: Severe headache. Right arm weakness. COMPARISON: CT head 04/08/2021 TECHNIQUE: Contiguous axial imaging was performed from the skull base to vertex without intravenous administration of contrast. Coronal and sagittal reformatted images are performed at the CT scanner This CT examination was performed using dose optimization techniques as appropriate, variously including the following: *Automated exposure control *Adjustment of mA and/or kV according to patient size (this includes techniques or standardized protocols for targeted exams where dose is matched to indication/reason for exam; i.e. extremities or head) *Use of iterative reconstruction technique DLP: 622 mGy-cm FINDINGS: There is no evidence of acute intracranial hemorrhage or acute territorial infarction. Stable old chronic infarct in the left occipital lobe. This is unchanged since CAT scan of 04/08/2021. No abnormal mass effect or midline shift is seen. Berry to white matter differentiation is well preserved. No extra-axial fluid collections are identified. The ventricles are normal in size. There is no abnormal attenuation within the brain parenchyma. The osseous structures and soft tissues are normal. Sinus mucosal disease of the ethmoid and inferior frontal sinuses. There is significant opacification of the inferior left sphenoid sinus. Significant lobular mucosal thickening in the inferior maxillary sinuses bilateral. Mastoid air cells and middle ear cavities are normally aerated. CT/CT head/brain wo con IMPRESSION: 1. No acute intracranial abnormality. Chronic old infarct left occipital lobe. 2. Sinus disease.
--- NOTE | ~2021-07-02 | XR_ITS ---
EXAMINATION: XR CHEST CLINICAL INFORMATION: Cough. Congestion. COMPARISON: None TECHNIQUE: 2 views of the chest were obtained. 8:54 PM FINDINGS: No significant abnormality is noted involving the heart, lungs, mediastinum, bony thorax or soft tissues. XR/XR chest 2V IMPRESSION: Unremarkable examination.
[2021-07-02 19:22] VITALS: BP 153/97; PULSE 76; RESP 18; TEMP 37.1; O2SAT 98; BMI 41.9
[2021-07-02 20:14] LABS: Influenza A PCR NEGATIVE (Negative); Influenza B PCR NEGATIVE (Negative); Resp Syncy Virus RNA Qual PCR NEGATIVE (Negative); SARS COV2 PCR INHOUSE NEGATIVE (Negative)
--- NOTE | 2021-07-02 20:28 | ED_ITS ---
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 She reports being seen here several times for headaches and had a CT scan that showed evidence of an old stroke. She reports ongoing issues with her right upper extremity, including weakness. She is right-hand dominant. She reports intermittent headaches all over her entire head that come and go and are 7/10 in severity. She has not been able to ?take care of herself ?because she is take care of her 2 young children. She is due to see Neurology at the end of this month. She has been taking Tylenol for the headaches with no improvement. She admits to increased stress. She denies any neck pain, photophobia, fevers. No new trauma but she reports a history of a concussion 2 years ago and has had intermittent headaches since then. She also reports recently being treated for strep throat in the middle of May, completed antibiotics with resolution of her symptoms. Few days ago she started having a productive cough and feeling unwell again. She has some sinus pressure and green nasal discharge. She is n ot vaccinated for COVID-19. She denies fever or chills difficulty breathing. MD complaint: Headache and chest congestion. Onset (ago): unknown Location: head and chest Radiation: non-radiation Severity: moderate Severity scale (1-10): 7 Quality: stabbing and aching Pain Consistency: intermittent Relieving factors: none Exacerbating factors: other (Stress) Associated symptoms: cough and headaches Treatments prior to arrival: none Related Data Previous Rx's Medication Instructions Recorded amlodipine 2.5 mg tablet 2.5 mg PO DAILY #30 tab 04/08/21 lidocaine HCl 4 % topical cream 1 appl TOPICAL BID PRN #120 g 04/22/21 (Aspercreme (lidocaine HCl)) oxycodone 5 mg tablet 5 mg PO BID PRN #10 tab 04/22/21 oxycodone 5 mg tablet 5 mg PO Q8H PRN #8 tab 05/03/21 amoxicillin 500 mg tablet 500 mg PO BID 10 Days #20 tab 06/10/21 ibuprofen 600 mg tablet 600 mg PO Q8H PRN #20 tab 06/10/21 naproxen 500 mg tablet 500 mg PO BID PRN #60 tab 06/12/21 amlodipine 10 mg tablet (Norvasc) 10 mg PO DAILY #30 tab 07/02/21 amoxicillin 875 mg-potassium 1 tab PO BID #20 tab 07/02/21 clavulanate 125 mg tablet (Augmentin) [id number]-[id number]-[id number] 1 cap PO Q8H PRN #10 cap 07/02/21 50 mg-300 mg-40 mg capsule (Fioricet) Allergies Allergy/AdvReac Type Severity Reaction Status Date / Time Sulfa (Sulfonamide Allergy Severe anaphylaxis Verified 06/10/21 11:37 Antibiotics) acetaminophen [From VICODIN] Allergy Intermediate Rash Verified 06/10/21 11:37 codeine [CODEINE] Allergy Intermediate Rash Verified 06/10/21 11:37 hydrocodone [Vicodin] Allergy Intermediate Rash Verified 06/10/21 11:37 Codeine Phosphate Allergy Unknown Rash Uncoded 05/03/21 20:18 DTap vaccine Allergy Unknown Unknown Uncoded 04/22/21 12:00 From VICODIN Allergy Unknown Rash Uncoded 05/03/21 20:18 Review of Systems Review of Systems: Constitutional: No Fever, No Chills ENT/Mouth: No sore throat, No Rhinorrhea, No Swallowing Difficulty Eyes: No Eye Pain, No photophobia, no vision changes Cardiovascular: No Chest Pain, No SOB, No Orthopnea, No Edema Respiratory: + Cough, + Sputum, No Wheezing, No dyspnea Gastrointestinal: No Nausea, No Vomiting, No Diarrhea, No abdominal Pain Genitourinary: No Dysuria, No Urinary Frequency, No Hematuria Musculoskeletal: No joint pain, No Myalgias Skin: No Skin Lesions, No rash Neuro: + Weakness (RUE), No Numbness, No Dizziness, + Headache Psych: + Anxiety/Panic, + Depression Heme/Lymph: No Bruising, No Lymphadenopathy PMFSH Past Medical History Medical History Hypertension Surgical History Delivery by section History of tonsillectomy Social History Social History (Updated 05/18/21 @ 14:08 by Genna Cigaran) Alcohol intake: unknown Patient Tobacco Use Status: Tobacco use Unknown Advance Directives: No Advance Directives Information Provided: No Current occupational status: unemployed Current occupation: rt handed Physical Exam Vital Signs: Vital Signs: Last Vital Signs Temp 98.7 F 07/02/21 19:22 Pulse 69 07/02/21 22:45 Resp 16 07/02/21 22:40 BP 182/99 H 07/02/21 22:45 Pulse Ox 99 07/02/21 22:40 Body Mass Index 41.9 Appearance: Alert. Oriented X3. No acute distress. Eyes: Pupils equal, round and reactive to light. ENT: Pharynx normal, no tonsillar swelling or exudate. Neck: Normal inspection. Neck supple. CVS: Normal heart rate and rhythm. Pulses normal. Respiratory: No respiratory distress. Breath sounds normal. Congested cough noted. Lungs are clear. Abdomen: Soft and nontender. +BS x4 Skin: Skin warm and dry. Normal skin color. Normal skin turgor. No rashes. Extremities: No lower extremity edema. Neuro: Oriented X 3. No motor deficit. No sensory deficit. Equal vitreo retinal surgeon strength, no pronator drift, speaking in clear, complete sentences. Nonfocal. 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 She has no fever, chills, neck pain. No meningeal signs. She has an appoint with Neurology at the end of the month. He has no new weakness, numbness, tingling. NIH is 0 at this time. Will get repeat head CT given ongoing headaches and reports of ongoing right upper extremity weakness. Will treat headache with IM Toradol and Fioricet. Will repeat strep throat to ensure medication and check chest x-ray to rule out pneumonia. Reevaluation(s) Reevaluation #1: CT head is unchanged from prior. Chest x-ray is clear. Her blood pressure after taking the Fioricet 1 up to 180 systolic. Her headache is slightly better. She reports her blood pressure has been elevated 160s to 180s at home. She is on Norvasc 5 mg daily she has been trying to get a hold of her primary care doctor to go up on the dose but has been unable to the an appointment. Will plan to increase the Norvasc to 10 mg per day and have her follow-up with her primary care doctor for further management. Will also treat her with Augmentin for acute bronchitis and possible sinusitis. She is in agreement with plan and is stable for discharge home. Medical Decision Making Lab Data Labs: Lab Results 07/02/21 07/02/21 Range/Units 19:26 20:36 Influenza Type A (PCR) NEGATIVE (Negative) Influenza Type B (PCR) NEGATIVE (Negative) RSV RNA Qual (PCR) NEGATIVE (Negative) SARS-CoV-2 RNA (RT-PCR) NEGATIVE (Negative) S. pyogenes GrpA ERIKA Negative (Negative) Critical Care Time Critical Care Time Critical Care Time: No Discharge Plan Discharge Clinical Impression: Bronchitis Headache Qualifiers: Headache type: unspecified Headache chronicity pattern: episodic headache Intractability: not intractable Qualified Code(s): R51.9 - Headache, unspecified Patient Disposition: Home, Self-Care Instructions: Acute Bronchitis (ED), Acute Headache (ED) Additional Instructions: Your CT scan of your head was unchanged from prior. Your chest x-ray was clear. Take the prescribed antibiotic for acute bronchitis. Recommend [id number] cold and flu medications as needed for congestion and cough. Take the prescribed Fioricet medication as needed for headaches. Follow-up with neurology as scheduled at the end of the month. Recommend following up with her primary care doctor for further evaluation management. If you develop new or worsening symptoms call 911 or come back to the ER for further evaluation. Prescriptions: New amoxicillin-pot clavulanate [Augmentin] 875-125 mg tablet 1 tab PO BID Qty: 20 RF: 0 chfvnkmubv-emusxwqmvkwip-uiyn [Fioricet] 50-300-40 mg capsule 1 cap PO Q8H PRN (Reason: pain) Qty: 10 RF: 0 amlodipine [Norvasc] 10 mg tablet 10 mg PO DAILY Qty: 30 RF: 0 No Action naproxen 500 mg tablet 500 mg PO BID PRN (Reason: for pain) Qty: 60 RF: 0 amlodipine 2.5 mg tablet 2.5 mg PO DAILY Qty: 30 RF: 0 oxycodone 5 mg tablet 5 mg PO Q8H PRN (Reason: pain) Qty: 8 RF: 0 lidocaine HCl [Aspercreme (lidocaine HCl)] 4 % cream 1 appl topical BID PRN (Reason: pain) Qty: 120 RF: 0 oxycodone 5 mg tablet 5 mg PO BID PRN (Reason: pain) Qty: 10 RF: 0 ibuprofen 600 mg tablet 600 mg PO Q8H PRN (Reason: fever or pain) Qty: 20 RF: 0 amoxicillin 500 mg tablet 500 mg PO BID 10 Days Qty: 20 RF: 0
[2021-07-02 20:37] VITALS: RESP 16
[2021-07-02 20:49] LABS: IDNOW Serial# 9DD0AD1C; Strep A Nucleic Acid Negative (Negative)
[2021-07-02] MEDS: Ketorolac Tromethamine 15 MG/ML VIAL 30 MG IM (20:51)
[2021-07-02] MEDS: Butalb/Acetamin/Caff 50/325/40 TABLET 1 TAB PO (21:14)
[2021-07-02 22:40] VITALS: BP 182/99; PULSE 69; RESP 16; O2SAT 99
--- NOTE | 2021-07-02 22:41 | PC.NURSE ---
BP 182/99 Provider notified
[2021-07-02 22:45] VITALS: BP 182/99; PULSE 69
[2021-07-02] MEDS: amLODIPine Besylate 5 MG TABLET PO (22:45)
== END 2021-07-02 23:11 | disposition home or self-care (01) ==
PROVIDERS: Physician Assistant; Emergency Provider Student in an Organized Health Care Education/Training Program; PCP Internal Medicine
DX: R51.9 Headache, unspecified (principal); J20.9 Acute bronchitis, unspecified; I10 Essential (primary) hypertension; Z86.73 Personal history of transient ischemic attack (TIA), and cerebral infarction without residual deficits; Z79.899 Other long term (current) drug therapy; Z20.822 Contact with and (suspected) exposure to COVID-19
CPT/HCPCS: 0241U; 36415; 70450; 71046; 87651; 96372; 99284; J1885

== ENCOUNTER 2021-08-25 07:59 | Outpatient (REF) | payer OTHER, SELFPAY ==
--- NOTE | ~2021-08-25 | CT_ITS ---
EXAMINATION: CT ANGIOGRAM BRAIN, HEAD CLINICAL INFORMATION: Chronic daily headaches. COMPARISON: Head CT 07/02/2021. TECHNIQUE: Test bolus sequences followed by intravenous administration 75 mL of Omnipaque 350 intravenous contrast. Helical imaging was performed in the axial plane from the skull base to the vertex. Delayed postcontrast imaging of the head was also performed. The data was processed at the instrument technologist workstation for generation of MIP sequences. Three-dimensional volume rendered reformatted images were also generated at an offline 3-D workstation. The degree of stenosis determined by NASCET criteria. This CT examination was performed using dose optimization techniques as appropriate, variously including the following: *Automated exposure control *Adjustment of mA and/or kV according to patient size (this includes techniques or standardized protocols for targeted exams where dose is matched to indication/reason for exam; i.e. extremities or head) *Use of iterative reconstruction technique FINDINGS: No significant arterial stenoses and no acute arterial occlusions intracranially. No aneurysms and no high flow vascular malformations. Venous system is patent. There is no pathologic enhancement intracranially. Chronic hypoattenuation associated with a few small foci of increased density at the left parieto-occipital lobe junction remains unchanged when compared to head CT studies dated back to 04/08/2021. While this may reflect a chronic infarct, in light of the patient's symptoms, MRI of the brain with and without IV contrast is recommended to exclude alternative etiologies. There is no intracranial hemorrhage, hydrocephalus, extra-axial surface collection, midline shift, or other herniation pattern. Berry to white matter differentiation is diffusely maintained without evidence of an evolved acute territorial infarct. The basilar cisterns are preserved. No significant soft tissue abnormality. No acute osseous abnormality. Large retention cysts within the maxillary sinuses bilaterally and a retention cyst within the left sphenoid sinus. CT/CT angio head IMPRESSION: - Chronic hypoattenuation associated with a few small foci of increased density at the left parieto-occipital lobe junction remains unchanged when compared to head CT studies dated back to 04/08/2021. While this may reflect a chronic infarct, in light of the patient's symptoms, MRI of the brain with and without IV contrast is recommended to exclude alternative etiologies. - Intracranial arterial vasculature is unremarkable. - Large retention cysts within the maxillary sinuses bilaterally and a retention cyst within the left sphenoid sinus.
[2021-08-25] MEDS: iohexoL 350 MG/ML 100 ML INFUS..BTL IV (09:39)
== END 2021-08-25 08:00 | disposition home or self-care (01) ==
LOC: HO.CT 07:59
PROVIDERS: PCP Internal Medicine; Visit Provider Psychiatry & Neurology Neurology
DX: R51.9 Headache, unspecified (principal)
CPT/HCPCS: 70496; Q9967

== ENCOUNTER 2021-08-29 10:05 | Emergency (ER) | payer OTHER, SELFPAY ==
[2021-08-29 10:15] VITALS: BP 142/80; PULSE 72; O2SAT 97
[2021-08-29 10:30] VITALS: BP 170/100; PULSE 67; RESP 18; TEMP 36; O2SAT 99; BMI 45.1
[2021-08-29] MEDS: Ondansetron ODT 4 MG TAB.RAPDIS TRANSLINGU (11:52)
--- NOTE | 2021-08-29 14:37 | ED.HA ---
HPI - Headache General Chief Complaint: Headache Stated Complaint: MIGRAINE X'S 2 DAYS Time Seen by Provider: 08/29/21 14:18 Source: patient and old records reviewed History of Present Illness HPI Narrative: Patient with a history of headache. She states she has been having headaches daily for the past 3 months but much worse since yesterday. She has been worked up by her PCP as well as Neurology. So far she has had a plain CT and CT angiography which showed no causative pathology. No recent illnesses. She states over the past few days she had 1 episode of feeling dizzy as if the room was spinning which lasted 15 minutes. It started after she bent over at the store. Resolved spontaneously. She has no history of vertigo. She states she has been taking her blood pressure at home and systolic ranges between 140 and 180. She takes amlodipine for this but apparently it has not been helping. She is seeing her PCP and having her medications adjusted for this. No recent traumas No recent changes in diet or activity. Positive increase home stressors in that she has a disabled child. She was recently started on topiramate by Neurology but it is not improved her headaches. No specific neck pain. No fevers. She has not vaccinated against COVID. No sick contacts that she knows of. Related Data Previous Rx's Medication Instructions Recorded amlodipine 2.5 mg tablet 2.5 mg PO DAILY #30 tab 04/08/21 lidocaine HCl 4 % topical cream 1 appl TOPICAL BID PRN #120 g 04/22/21 (Aspercreme (lidocaine HCl)) oxycodone 5 mg tablet 5 mg PO BID PRN #10 tab 04/22/21 oxycodone 5 mg tablet 5 mg PO Q8H PRN #8 tab 05/03/21 amoxicillin 500 mg tablet 500 mg PO BID 10 Days #20 tab 06/10/21 ibuprofen 600 mg tablet 600 mg PO Q8H PRN #20 tab 06/10/21 naproxen 500 mg tablet 500 mg PO BID PRN #60 tab 06/12/21 amlodipine 10 mg tablet (Norvasc) 10 mg PO DAILY #30 tab 07/02/21 amoxicillin 875 mg-potassium 1 tab PO BID #20 tab 07/02/21 clavulanate 125 mg tablet (Augmentin) [id number]-cjshufcafvscc-klbldwxq 1 cap PO Q8H PRN #10 cap 07/02/21 50 mg-300 mg-40 mg capsule (Fioricet) Allergies Allergy/AdvReac Type Severity Reaction Status Date / Time Sulfa (Sulfonamide Allergy Severe anaphylaxis Verified 06/10/21 11:37 Antibiotics) acetaminophen [From VICODIN] Allergy Intermediate Rash Verified 06/10/21 11:37 codeine [CODEINE] Allergy Intermediate Rash Verified 06/10/21 11:37 hydrocodone [Vicodin] Allergy Intermediate Rash Verified 06/10/21 11:37 Codeine Phosphate Allergy Unknown Rash Uncoded 05/03/21 20:18 DTap vaccine Allergy Unknown Unknown Uncoded 04/22/21 12:00 From VICODIN Allergy Unknown Rash Uncoded 05/03/21 20:18 Review of Systems Constitutional: Comments: No fevers chills Eyes: Comments: Occasional blurred vision. No diplopia Cardiovascular: Comments: No chest pain Respiratory: Comments: No dyspnea or cough Gastrointestinal: Comments: No nausea vomiting diarrhea or abdominal pain Neurologic: Comments: No focal weakness. Right leg paresthesia yesterday. [facility] Past Medical History Medical History Hypertension Surgical History Delivery by section History of tonsillectomy Social History Social History (Updated 05/18/21 @ 14:08 by Genna Monroe [facility]) Alcohol intake: unknown Patient Tobacco Use Status: Tobacco use Unknown Advance Directives: No Advance Directives Information Provided: Yes Patient : No Current occupational status: unemployed Current occupation: rt handed Physical Exam Vital Signs: Vital Signs: Last Vital Signs Temp 97.6 F 08/29/21 14:47 Pulse 57 08/29/21 14:47 Resp 18 08/29/21 14:47 BP 143/78 H 08/29/21 14:47 Pulse Ox 99 08/29/21 14:47 BMI result Body Mass Index 45.1 Hypertensive. Patient states this is typical rating for her. Const: Other: Awake alert no acute distress HENMT: Other: Normocephalic atraumatic. Head nontender Eyes: Other: Pupils equal round reactive to light. Extraocular muscles intact. Funduscopic exam normal. No photophobia Neck: Other: No meningismus Resp: Other: No respiratory distress Skin: Other: Warm pink and dry without rash Neuro: Other: Awake alert and oriented x3. Pupils equal round reactive to light. No nystagmus. 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 Ambulatory without difficulty. Course Course Course Narrative: Review of old records shows recent CT scan without aneurysm or mass. It is possible that her headache is secondary to hypertension. Otherwise migraine or tension headache are likely. Will treat with another dose of amlodipine. Also IV fluids, Reglan, Toradol. 3:52 p.m.. Patient is feeling better after treatment. Stable for discharge home. She has a follow-up with her PCP in 2 days to readdress her blood pressure. In the meantime will continue current medication MDM - Headache Lab Data Labs: Lab Results 08/29/21 Range/Units 14:49 COVID-19 (BRUNO) Negative (Negative) COVID-19 Clin Com See Note Discharge Plan Discharge Clinical Impression: Headache, Hypertension Patient Disposition: Home, Self-Care Instructions: Acute Headache (ED), Chronic Hypertension (ED) Additional Instructions: See your doctor in 2 days as scheduled. Prescriptions: No Action naproxen 500 mg tablet 500 mg PO BID PRN (Reason: for pain) Qty: 60 RF: 0 amlodipine 2.5 mg tablet 2.5 mg PO DAILY Qty: 30 RF: 0 oxycodone 5 mg tablet 5 mg PO Q8H PRN (Reason: pain) Qty: 8 RF: 0 lidocaine HCl [Aspercreme (lidocaine HCl)] 4 % cream 1 appl topical BID PRN (Reason: pain) Qty: 120 RF: 0 oxycodone 5 mg tablet 5 mg PO BID PRN (Reason: pain) Qty: 10 RF: 0 ibuprofen 600 mg tablet 600 mg PO Q8H PRN (Reason: fever or pain) Qty: 20 RF: 0 amoxicillin 500 mg tablet 500 mg PO BID 10 Days Qty: 20 RF: 0 amoxicillin-pot clavulanate [Augmentin] 875-125 mg tablet 1 tab PO BID Qty: 20 RF: 0 tckhkrkwjs-unsrwzgladvpb-twly [Fioricet] 50-300-40 mg capsule 1 cap PO Q8H PRN (Reason: pain) Qty: 10 RF: 0 amlodipine [Norvasc] 10 mg tablet 10 mg PO DAILY Qty: 30 RF: 0
[2021-08-29 14:47] VITALS: BP 143/78; PULSE 57; RESP 18; TEMP 36.4; O2SAT 99
[2021-08-29] MEDS: Ketorolac Tromethamine 30 MG/ML VIAL IVPUSH (14:52)
[2021-08-29] MEDS: amLODIPine Besylate 10 MG TABLET PO (14:52)
[2021-08-29] MEDS: Metoclopramide HCl 10 MG/2 ML VIAL IVPUSH (14:52)
[2021-08-29] MEDS: 0.9 % Sodium Chloride 1,000 ML 999 ML IV (14:54)
[2021-08-29 15:09] LABS: IDNOW Serial# 9DD0AD1C
[2021-08-29 15:10] LABS: COVID-19 Test Negative (Negative)
[2021-08-29 16:07] VITALS: BP 130/85; PULSE 57; O2SAT 98
--- NOTE | 2021-08-29 16:12 | PC.NURSE ---
pt alert and oriented, vss, she reports 8/10 headache, pt medically cleared for discharge. she reports 8/10 headache, no other complaints.
== END 2021-08-29 16:21 | disposition home or self-care (01) ==
PROVIDERS: Emergency Provider Emergency Medicine; PCP Internal Medicine
DX: G43.909 Migraine, unspecified, not intractable, without status migrainosus (principal); I10 Essential (primary) hypertension; Z20.822 Contact with and (suspected) exposure to COVID-19; Z79.899 Other long term (current) drug therapy
CPT/HCPCS: 87635; 96361; 96374; 96375; 99284; 99285; J1885; J2765

== ENCOUNTER 2022-02-08 11:57 | Emergency (ER) | payer OTHER, SELFPAY ==
--- NOTE | ~2022-02-08 | XR_ITS ---
EXAMINATION: XR CHEST CLINICAL INFORMATION: Chest pain COMPARISON: 07/02/2021 TECHNIQUE: Frontal view of the chest was obtained. FINDINGS: No acute finding. No failure or infiltrate. There is no effusion. Cannot exclude a nodular density in the left midlung. Measuring 5 mm. The cardiac silhouette is comparable to previous. The hilar regions are comparable. XR/XR chest 1V IMPRESSION: No acute finding. Cannot exclude and must consider a nodular density in left midlung zone. Recommend CT to fully evaluate. This may be done on an outpatient basis
[2022-02-08 12:55] VITALS: BP 159/94; PULSE 68; RESP 18; TEMP 36.9; O2SAT 98; BMI 45.1
--- NOTE | 2022-02-08 15:07 | ECG_ITS ---
Test Reason : sob Blood Pressure : / mmHG Vent. Rate : 073 BPM Atrial Rate : 073 BPM P-R Int : 164 ms QRS Dur : 110 ms QT Int : 422 ms P-R-T Axes : 047 011 020 degrees QTc Int : 464 ms Normal sinus rhythm Normal ECG When compared with ECG of 08-APR-2021 16:45, No significant change was found Referred By: Yen Hawthorne Electronically Signed By:CAT RYAN MD
--- NOTE | 2022-02-08 15:10 | ED.GENADULT ---
HPI - General Adult General Chief complaint: General Medical Stated complaint: severe headache, back pain, sob Time Seen by Provider: 02/08/22 15:04 History of Present Illness HPI narrative: patient 31-year-old female presents today with having a generalized headache that is been ongoing. Also complaining of pain to the right scapular area. It is a nagging. It is sharp. It is not associated with respiration. Denies any diet history of diabetes, hypertension, mi, family history of SD. no history of smoking. No coughing or congestion or upper respiratory symptoms. Patient not immunized for COVID. Patient complained that her thyroid may be off as she is gaining weight. Denies being on control pills. No history of blood clots. No travel history. No family history of clots. No orthopedic surgery to the lower extremities. Patient from home. The pain is not made worse with deep breath. It is made worse with certain position. She denies any diaphoresis. She is from home. Also complaining of generalized malaise over the entire body. Patient says is slightly larger in size she is 5 ft 6 and not is 127 kg. Claims that she gained 15 lb within the last month. Is worried about the reason why she gain weight. Patient denies any changes in voice. Any change in sleep pattern. She is from home. Related Data Previous Rx's Medication Instructions Recorded amlodipine 2.5 mg tablet 2.5 mg PO DAILY #30 tabs 04/08/21 lidocaine HCl 4 % topical cream 1 appl topical BID PRN pain #120 04/22/21 (Aspercreme (lidocaine HCl)) grams oxycodone 5 mg tablet 5 mg PO BID PRN pain #10 tabs 04/22/21 oxycodone 5 mg tablet 5 mg PO Q8H PRN pain #8 tabs 05/03/21 amoxicillin 500 mg tablet 500 mg PO BID 10 days #20 tabs 06/10/21 ibuprofen 600 mg tablet 600 mg PO Q8H PRN fever or pain 06/10/21 #20 tabs naproxen 500 mg tablet 500 mg PO BID PRN for pain #60 tabs 06/12/21 amlodipine 10 mg tablet (Norvasc) 10 mg PO DAILY #30 tabs 07/02/21 amoxicillin 875 mg-potassium 1 tab PO BID #20 tabs 07/02/21 clavulanate 125 mg tablet (Augmentin) [id number]-xiglifyikjakq-kycryata 1 cap PO Q8H PRN pain #10 caps 07/02/21 50 mg-300 mg-40 mg capsule (Fioricet) Allergies Allergy/AdvReac Type Severity Reaction Status Date / Time Sulfa (Sulfonamide Allergy Severe anaphylaxis Verified 06/10/21 11:37 Antibiotics) acetaminophen [From VICODIN] Allergy Intermediate Rash Verified 06/10/21 11:37 codeine [CODEINE] Allergy Intermediate Rash Verified 06/10/21 11:37 hydrocodone [Vicodin] Allergy Intermediate Rash Verified 06/10/21 11:37 Codeine Phosphate Allergy Unknown Rash Uncoded 05/03/21 20:18 DTap vaccine Allergy Unknown Unknown Uncoded 04/22/21 12:00 From VICODIN Allergy Unknown Rash Uncoded 05/03/21 20:18 Review of Systems Review of Systems: No fever no chills no cough no congestion or upper respiratory symptoms Yes all other systems are reviewed and are negative [facility] Past Medical History Attestation statement: The following information was validated with the patient. Medical History Hypertension Surgical History Delivery by section History of tonsillectomy Social History Social History (Updated 05/18/21 @ 14:08 by Genna Monroe [facility]) Alcohol intake: unknown Patient Tobacco Use Status: Never used Tobacco Advance Directives: No Advance Directives Information Provided: No Current occupational status: unemployed Current occupation: rt handed Physical Exam ED Vital Signs: Vital Signs - 24 hr 02/08/22 12:55 02/08/22 15:33 Temperature 98.5 F 98.3 F Pulse Rate 68 64 Respiratory Rate 18 16 Blood Pressure 159/94 H 158/82 H Pulse Oximetry 98 97 Oxygen Delivery Method Room Air Room Air BMI result Body Mass Index 45.1 Appearance: Alert. Oriented X3. No acute distress. Eyes: Pupils equal, round and reactive to light. ENT: Pharynx normal. Neck: Normal inspection. Neck supple. No lymph nodes noted. No crepitus CVS: Normal heart rate and rhythm. Pulses normal. Normal S1 and S2 Respiratory: No respiratory distress. Breath sounds normal. No Wheezing. No rales Abdomen: Soft and nontender. No rigidity. No distention. good BS x4 Skin: Skin warm and dry. Normal skin color. Normal skin turgor. Extremities: No lower extremity edema. Neurovascular intact to all extremities. No Lacerations. No Rash Neuro: Oriented X 3. No motor deficit. No sensory deficit. Moving all extermities. No slurred speech Medical Decision Making MDM Narrative Medical decision making narrative: Patient's chest x-ray showed a question nodule. Will require follow-up on an outpatient basis. This finding was discussed with patient. Patient's EKG showed a sinus pattern heart rate was 70 HI QRS QT within normal limits is no acute ST segment elevation. Cardiac enzyme was negative. In light of patient's 31 year age. Atypical history for ACS. No cardiac risk factor on likely secondary to ACS. Heart score is less than 3. Patient had a atypical history for PE. Patient's D-dimer was negative. Making PE unlikely. Patient's TSH was normal. No evidence for hypo or hyperthyroid. Patient well-appearing. Will have patient follow-up on an outpatient basis. Explained to patient's CT scan of the chest needed on an outpatient basis for the nodule. She is in stable condition. Will discharge home. Lab Data Result diagrams: 02/08/22 15:31 02/08/22 15:31 Labs: Lab Results 02/08/22 02/08/22 02/08/22 Range/Units 15:31 15:31 15:31 WBC 11.4 H (4.8-10.8) X10*3/uL RBC 4.63 (4.20-5.50) X10*6/uL Hgb 11.5 L (12.0-16.0) g/dl Hct 35.9 L (37.0-47.0) % MCV 77.5 L (80.0-98.0) fL MCH 24.8 L (27.0-33.0) pg MCHC 32.0 (31.0-35.0) g/dl RDW 14.1 (11.0-16.0) % Plt Count 468 H (160-400) X10*3/uL MPV 9.3 L (9.4-12.3) fL Immature Gran % (Auto) 0.9 H (0.0-0.4) % Neut % (Auto) 66.0 (45-73) % Lymph % (Auto) 25.1 (20-40) % Talbot % (Auto) 5.1 (2-11) % Eos % (Auto) 2.5 (0-4) % Baso % (Auto) 0.4 (0-2) % Lymph # (Auto) 2.9 (1.2-4.9) X10*3/uL Talbot # (Auto) 0.6 (0.1-1.2) X10*3/uL Eos # (Auto) 0.3 (0.0-0.4) X10*3/uL Baso # (Auto) 0.0 (0.0-0.2) X10*3/uL Abs Immat Gran (auto) 0.10 H (0.00-0.03) X10*3/uL Absolute Neuts (auto) 7.5 (2.0-8.3) x10*3/uL Absolute Nucleated RBC 0.000 (0.0-0.012) X10*3/uL Nucleated RBC % (auto) 0.0 (0.0-0.2) /100WBC D-Dimer High Sensitivty < 150 NG/ML Sodium 138 (135-145) mmol/L Potassium 4.6 D (3.3-5.1) mmol/L Chloride 105 (96-108) mmol/L Carbon Dioxide 25 (22-29) mmol/L Anion Gap 13 (12-20) BUN 11 (9-16) mg/dL Creatinine 0.73 (0.5-1.4) mg/dL Estim Creat Clear Calc 149.4 Estimated GFR > 60 Random Glucose 87 (60-115) mg/dL Calcium 9.1 (8.4-10.2) mg/dL Total Bilirubin 0.4 (0.0-1.0) mg/dL Direct Bilirubin < 0.2 (0.0-0.5) mg/dL AST 14 (5-31) U/L ALT 15 (0-31) U/L Alkaline Phosphatase 67 (39-117) U/L Troponin I High Sens (<3.5-17.0) ng/L Total Protein 7.4 (6.5-8.0) g/dL Albumin 4.3 (3.5-5.0) g/dL TSH (0.32-4.0) uIU/mL Beta HCG, Quant < 2 mIU/mL 02/08/22 02/08/22 Range/Units 15:31 15:31 WBC (4.8-10.8) X10*3/uL RBC (4.20-5.50) X10*6/uL Hgb (12.0-16.0) g/dl Hct (37.0-47.0) % MCV (80.0-98.0) fL MCH (27.0-33.0) pg MCHC (31.0-35.0) g/dl RDW (11.0-16.0) % Plt Count (160-400) X10*3/uL MPV (9.4-12.3) fL Immature Gran % (Auto) (0.0-0.4) % Neut % (Auto) (45-73) % Lymph % (Auto) (20-40) % Talbot % (Auto) (2-11) % Eos % (Auto) (0-4) % Baso % (Auto) (0-2) % Lymph # (Auto) (1.2-4.9) X10*3/uL Talbot # (Auto) (0.1-1.2) X10*3/uL Eos # (Auto) (0.0-0.4) X10*3/uL Baso # (Auto) (0.0-0.2) X10*3/uL Abs Immat Gran (auto) (0.00-0.03) X10*3/uL Absolute Neuts (auto) (2.0-8.3) x10*3/uL Absolute Nucleated RBC (0.0-0.012) X10*3/uL Nucleated RBC % (auto) (0.0-0.2) /100WBC D-Dimer High Sensitivty NG/ML Sodium (135-145) mmol/L Potassium (3.3-5.1) mmol/L Chloride (96-108) mmol/L Carbon Dioxide (22-29) mmol/L Anion Gap (12-20) BUN (9-16) mg/dL Creatinine (0.5-1.4) mg/dL Estim Creat Clear Calc Estimated GFR Random Glucose (60-115) mg/dL Calcium (8.4-10.2) mg/dL Total Bilirubin (0.0-1.0) mg/dL Direct Bilirubin (0.0-0.5) mg/dL AST (5-31) U/L ALT (0-31) U/L Alkaline Phosphatase (39-117) U/L Troponin I High Sens < 3.5 (<3.5-17.0) ng/L Total Protein (6.5-8.0) g/dL Albumin (3.5-5.0) g/dL TSH 1.95 (0.32-4.0) uIU/mL Beta HCG, Quant mIU/mL Discharge Plan Discharge Clinical Impression: Chest pain Patient Disposition: Home, Self-Care Instructions: Chest Pain (ED) Additional Instructions: A nodule was found in your lungs. A CT scan of the chest is needed to ensured it is only a nodule. Prescriptions: No Action naproxen 500 mg tablet 500 mg PO BID PRN (Reason: for pain) Qty: 60 0RF amlodipine 2.5 mg tablet 2.5 mg PO DAILY Qty: 30 0RF oxycodone 5 mg tablet 5 mg PO Q8H PRN (Reason: pain) Qty: 8 0RF lidocaine HCl [Aspercreme (lidocaine HCl)] 4 % cream 1 appl topical BID PRN (Reason: pain) Qty: 120 0RF oxycodone 5 mg tablet 5 mg PO BID PRN (Reason: pain) Qty: 10 0RF ibuprofen 600 mg tablet 600 mg PO Q8H PRN (Reason: fever or pain) Qty: 20 0RF amoxicillin 500 mg tablet 500 mg PO BID 10 Days Qty: 20 0RF amoxicillin-pot clavulanate [Augmentin] 875-125 mg tablet 1 tab PO BID Qty: 20 0RF xklwmkacpl-kananqnipsqvh-tgnk [Fioricet] 50-300-40 mg capsule 1 cap PO Q8H PRN (Reason: pain) Qty: 10 0RF amlodipine [Norvasc] 10 mg tablet 10 mg PO DAILY Qty: 30 0RF Referrals: Don Mg [Primary Care Provider] -
[2022-02-08 15:33] VITALS: BP 158/82; PULSE 64; RESP 16; TEMP 36.8; O2SAT 97
[2022-02-08 15:37] LABS: MANUAL DIFF FLAG NO
[2022-02-08 15:40] LABS: Basophils Percent Auto 0.4 % (0-2); Eosinophils Absolute Auto 0.3 X10*3/uL (0.0-0.4); Eosinophils Percent Auto 2.5 % (0-4); Hematocrit 35.9 % (37.0-47.0); Hemoglobin 11.5 g/dl (12.0-16.0); Imm Gran Pct Auto 0.9 % (0.0-0.4); Lymphocytes Absolute Auto 2.9 X10*3/uL (1.2-4.9); Lymphocytes Percent Auto 25.1 % (20-40); Mean Corpuscular Hemoglobin 24.8 pg (27.0-33.0); Mean Corpuscular Volume 77.5 fL (80.0-98.0); Mean Platelet Volume 9.3 fL (9.4-12.3); Monocytes Absolute Auto 0.6 X10*3/uL (0.1-1.2); Monocytes Percent Auto 5.1 % (2-11); Neutrophils Absolute Auto 7.5 x10*3/uL (2.0-8.3); Platelet Count 468 X10*3/uL (160-400); Red Blood Count 4.63 X10*6/uL (4.20-5.50); Red Cell Distribution Width 14.1 % (11.0-16.0); White Blood Count 11.4 X10*3/uL (4.8-10.8)
[2022-02-08 15:59] LABS: Alanine Aminotransferase 15 U/L (0-31); Albumin Level 4.3 g/dL (3.5-5.0); Alkaline Phosphatase 67 U/L (39-117); Anion Gap 13 (12-20); Aspartate Amino Transferase 14 U/L (5-31); Bilirubin Direct < 0.2 mg/dL (0.0-0.5); Bilirubin Total 0.4 mg/dL (0.0-1.0); Blood Urea Nitrogen 11 mg/dL (9-16); Calcium 9.1 mg/dL (8.4-10.2); Carbon Dioxide 25 mmol/L (22-29); Chloride 105 mmol/L (96-108); Creatinine Clr Calc Pharmacy 149.4; Estimated Glomerular Filt Rate > 60; Glucose Random 87 mg/dL (60-115); Potassium 4.6 mmol/L (3.3-5.1); Sodium 138 mmol/L (135-145); Total Protein 7.4 g/dL (6.5-8.0)
[2022-02-08 16:03] LABS: Troponin-I High Sensitivity < 3.5 ng/L (<3.5-17.0)
[2022-02-08 16:05] LABS: D Dimer High Sensitivity < 150 NG/ML; HCG Quantitative < 2 mIU/mL
[2022-02-08 16:17] LABS: TSH reflex Free T4 1.95 uIU/mL (0.32-4.0)
[2022-02-08] MEDS: 0.9 % Sodium Chloride 1,000 ML 999 ML IV (16:22)
[2022-02-08] MEDS: Acetaminophen 325 MG TABLET 975 MG PO (16:27)
== END 2022-02-08 17:26 | disposition home or self-care (01) ==
PROVIDERS: Emergency Provider Emergency Medicine Emergency Medical Services; PCP Internal Medicine
DX: R07.9 Chest pain, unspecified (principal); I10 Essential (primary) hypertension
CPT/HCPCS: 36415; 71045; 80048; 80076; 84443; 84484; 84702; 85025; 85379; 93005; 96361; 96374; 99284

== ENCOUNTER 2022-02-12 16:22 | Observation (INO) | payer OTHER, SELFPAY ==
--- NOTE | ~2022-02-12 | CT_ITS ---
EXAMINATION: CT HEAD WITHOUT CONTRAST (STROKE PROTOCOL) CLINICAL INFORMATION: Stroke protocol. Stroke. Left-sided weakness. COMPARISON: Previous head CT most recent June 2021 and CTA August 2021 TECHNIQUE: Contiguous axial imaging was performed from the skull base to vertex without intravenous administration of contrast. This CT examination was performed using dose optimization techniques as appropriate, variously including the following: *Automated exposure control *Adjustment of mA and/or kV according to patient size (this includes techniques or standardized protocols for targeted exams where dose is matched to indication/reason for exam; i.e. extremities or head) *Use of iterative reconstruction technique DLP: 627 mGy-cm FINDINGS: There is no evidence of an extra-axial collection. There is no evidence of intra-axial or extra-axial hemorrhage. The ventricles and extra-axial CSF spaces are appropriate. Berry-white matter differentiation is normal. There are old small infarcts in the left occipital and left posterior parietal lobes. Appearance unchanged from previous head CT June 2021. No mass mass effect or acute infarct is a. The calvarium appears intact. There is no pneumocephalus or orbital emphysema. There are large polyps or cysts in the maxillary sinuses. The visualized sinuses and middle ears and mastoid air cells are otherwise clear. CT/CT head for stroke IMPRESSION: No acute intracranial findings. Old small infarcts in the left posterior parietal and left occipital lobes that appear unchanged. This critical result was discussed with Dr. Rodriguez at 1638 hours on 02/12/2022. It was ascertained that the content and urgency of the report was understood at the time of direct communication.
--- NOTE | ~2022-02-12 | XR_ITS ---
EXAMINATION: XR CHEST CLINICAL INFORMATION: Chest pain COMPARISON: Chest x-ray 02/08/2022 TECHNIQUE: Frontal view of the chest was obtained. FINDINGS: Small 5 mm nodular density projecting over the left midlung, unchanged. Lungs are otherwise clear. No consolidation, pleural effusion, or pneumothorax. Cardiac silhouette is mildly enlarged. Normal mediastinal contour. No evidence of pulmonary edema. No acute osseous injury identified. XR/XR chest 1V IMPRESSION: 1. No acute pulmonary process. 2. Question 5 mm nodule or vessel view on end in the left midlung, unchanged. Finding can be further assessed with nonemergent low-dose noncontrast chest CT as previously suggested.
--- NOTE | ~2022-02-12 | MR_ITS ---
EXAMINATION: MR BRAIN WITHOUT CONTRAST CLINICAL INFORMATION: Left-sided weakness. COMPARISON: Head CT 02/12/2022. TECHNIQUE: Multiplanar, multisequence imaging of the brain was performed without intravenous contrast. FINDINGS: There is no acute infarction, hemorrhage, mass, or extra-axial fluid collection. Chronic infarcts are seen within the left parietal lobe and occipital lobe crossing the parieto-occipital junction. An additional chronic infarct is seen within the right frontal lobe. The ventricles are normal in size allowing for mild ex vacuo dilatation of the left occipital horn. There is no hydrocephalus. The major arterial flow voids are preserved at the skull base. The orbital contents appear normal. There is lobular paranasal sinus mucosal thickening. MR/MR head/brain wo con IMPRESSION: No acute intracranial abnormality identified. Chronic infarct seen within the left parietal and occipital lobe and smaller chronic infarct in the right frontal lobe.
--- NOTE | 2022-02-12 16:28 | ECG_ITS ---
Test Reason : weakness Blood Pressure : / mmHG Vent. Rate : 063 BPM Atrial Rate : 063 BPM P-R Int : 166 ms QRS Dur : 114 ms QT Int : 436 ms P-R-T Axes : 029 011 005 degrees QTc Int : 446 ms Normal sinus rhythm Normal ECG When compared with ECG of 08-FEB-2022 15:18, No significant change was found Referred By: Yohan Rodriguez Electronically Signed By:JAYANT DOWNS
--- NOTE | 2022-02-12 16:32 | ED_ITS ---
HPI - Neuro Symptoms/Deficit General Chief Complaint: Stroke Stated Complaint: STROKE ALERT, L SIDE WEAK PER EMS Time Seen by Provider: 02/12/22 16:27 Source: patient and EMS Mode of arrival: EMS Limitations: no limitations History of Present Illness HPI Narrative: 31-year-old female came in by EMS for evaluation of sudden onset tingling and numbness to left side of her face with weakness in the left upper extremity. Patient was cleaning the house when she had abrupt onset of numbness and tingling on the left side of her body, felt weak on the left side of her body and left side of her face. Patient decline using contraceptive pills or hormone replacement therapy, patient stated that she had previous 2 minor stroke with no residual neurological deficit. Symptoms started about 3:30 p.m. Patient is complaining of left upper extremity weakness stated that she get left-sided shoulder and chest pain with tingling of the left upper extremities if she try to raise her left upper extremities. Patient also is complaining of left-sided chest pain. Patient is somewhat a vague historian. Related Data Home Medications Medication Instructions Recorded Confirmed buspirone 5 mg tablet 1 tab PO BID 02/12/22 02/12/22 escitalopram oxalate 10 mg tablet 1.5 tab PO DAILY 02/12/22 02/12/22 fluticasone propionate 50 2 spray intranasal DAILY PRN ear 02/12/22 02/12/22 mcg/actuation nasal pressure spray,suspension lisinopril 5 mg tablet 1 tab PO DAILY 02/12/22 02/12/22 topiramate 25 mg tablet 1 tab PO BEDTIME 02/12/22 02/12/22 Previous Rx's Medication Instructions Recorded amlodipine 10 mg tablet (Norvasc) 10 mg PO DAILY #30 tabs 07/02/21 Allergies Allergy/AdvReac Type Severity Reaction Status Date / Time Sulfa (Sulfonamide Allergy Severe anaphylaxis Verified 06/10/21 11:37 Antibiotics) acetaminophen [From VICODIN] Allergy Intermediate Rash Verified 06/10/21 11:37 codeine [CODEINE] Allergy Intermediate Rash Verified 06/10/21 11:37 hydrocodone [Vicodin] Allergy Intermediate Rash Verified 06/10/21 11:37 Codeine Phosphate Allergy Unknown Rash Uncoded 05/03/21 20:18 DTap vaccine Allergy Unknown Unknown Uncoded 04/22/21 12:00 From VICODIN Allergy Unknown Rash Uncoded 05/03/21 20:18 Review of Systems Review of Systems: All other systems are reviewed and are negative Constitutional: Reports as per HPI and Reports no additional constitutional complaints Eyes: Reports as per HPI and Reports no additional eye complaints Reports system reviewed and no additional complaints, except as documented Cardiovascular: Reports as per HPI and Reports no additional cardiovascular complaints Respiratory: Reports as per HPI and Reports no additional respiratory complaints Gastrointestinal: Reports as per HPI and Reports no additional gastrointestinal complaints Genitourinary: Reports no additional female genitourinary complaints Musculoskeletal: Reports no additional musculoskeletal complaints Skin/Breast: Reports system reviewed and no additional complaints, except as docu Psychiatric: Reports no additional psychiatric complaints Endocrine: Reports no additional endocrine complaints Hematologic/Lymphatic: Reports no additional hematologic/lymphatic complaints Allergic/Immunologic: Reports no additional allergic/immunologic complaints Reports system reviewed and no additional complaints, except as documented and Reports Abnormal speech present [facility] Past Medical History Medical History Hypertension Surgical History Delivery by section History of tonsillectomy Social History Social History Alcohol intake: unknown Patient Tobacco Use Status: Never used Tobacco Advance Directives: No Advance Directives Information Provided: No Patient : No Current occupational status: unemployed Current occupation: rt handed Physical Exam Vital Signs: Vital Signs: Last Vital Signs Temp 98.4 F 02/12/22 16:38 Pulse 67 02/12/22 19:32 Resp 14 02/12/22 19:32 BP 159/84 H 02/12/22 19:32 Pulse Ox 98 02/12/22 19:32 O2 Del Method 02/12/22 19:32 BMI result Body Mass Index 47.2 Vital signs have been reviewed as appeared to be correct. Blood pressure normal. Heart rate normal. Respiration rate normal. Temperature normal. Oxygen saturation normal. Appearance: Alert. Oriented X3. No acute distress. Head: Normal external exam. Normocephalic. Atraumatic. No Connolly signs noted. No raccoon eyes noted Eyes: PERRLA. EOMI. Conjunctiva and sclera normal. Eyelids normal. ENT: TM's Normal. Pharynx normal. Uvula midline. Moist mucous membranes. No trismus noted. No drooling noted. No muffled voice noted. Neck: Normal inspection. Neck supple. FROM. No adenopathy. Thyroid Normal. No meningeal signs. No neck mass noted. CVS: Normal heart rate and rhythm. Heart sound normal. No murmurs noted. Pulses normal throughout. Respiratory: No respiratory distress. Painless inspiration. Breath sounds normal. No wheezes/rales/rhonchi noted. Chest nontender. No accessory muscle usage noted or decreased air movement noted. Abdomen: Soft and nontender. Bowel sounds normal in all 4 quadrants. No distention noted. No organomegaly noted. No visible injury noted. Back: No CVA tenderness. Full range of motion noted. Skin: Skin warm and dry. Normal skin color. Normal skin turgor. No rashes/lesions/lacerations noted. Extremities: No lower extremity edema. Extremities exhibit normal range of motion. Extremities nontender. Neuro: Oriented X 3. Cranial nerve exam: II-XII are grossly intact No motor deficit however slight left upper extremities pronator drip secondary to chest pain and tingling when she raises her left arm.. No sensory deficit. Reflexes normal. Course Course Course Narrative: 31-year-old female came in with sudden onset of left-sided weakness and tingling, due to vague history and exam of the patient had CT and MRI of the head which showed no acute stroke, patient's symptoms has resolved. Because the MRI showed chronic old stroke will admit the patient overnight for further neurological evaluation. Case discussed with Dr. Bennett over the phone and to admit the patient for further consultation in the a.m. [facility] - Neuro Symptoms/Deficit Medical Records Attestation: I reviewed the patient's medical records. Lab Data Attestation: I reviewed the patient's lab results. Result diagrams: 02/12/22 19:15 02/12/22 19:15 Labs: Lab Results 02/12/22 02/12/22 02/12/22 Range/Units 16:38 16:39 19:15 WBC 12.4 H (4.8-10.8) X10*3/uL RBC 4.68 (4.20-5.50) X10*6/uL Hgb 11.6 L (12.0-16.0) g/dl Hct 36.2 L (37.0-47.0) % MCV 77.4 L (80.0-98.0) fL MCH 24.8 L (27.0-33.0) pg MCHC 32.0 (31.0-35.0) g/dl RDW 14.2 (11.0-16.0) % Plt Count 406 H (160-400) X10*3/uL MPV 9.6 (9.4-12.3) fL Immature Gran % (Auto) 0.5 H (0.0-0.4) % Neut % (Auto) 75.5 H (45-73) % Lymph % (Auto) 19.1 L (20-40) % [place] % (Auto) 3.2 (2-11) % Eos % (Auto) 1.5 (0-4) % Baso % (Auto) 0.2 (0-2) % Lymph # (Auto) 2.4 (1.2-4.9) X10*3/uL [place] # (Auto) 0.4 (0.1-1.2) X10*3/uL Eos # (Auto) 0.2 (0.0-0.4) X10*3/uL Baso # (Auto) 0.0 (0.0-0.2) X10*3/uL Abs Immat Gran (auto) 0.06 H (0.00-0.03) X10*3/uL Absolute Neuts (auto) 9.4 H (2.0-8.3) x10*3/uL Absolute Nucleated RBC 0.000 (0.0-0.012) X10*3/uL Nucleated RBC % (auto) 0.0 (0.0-0.2) /100WBC PT (9.9-13.0) SEC Whole Blood PT 12.3 (11.1-13.5) sec INR (0.9-1.1) Whole Blood INR 1.0 (0.9-1.1) APTT (24.1-38.0) SEC Sodium (135-145) mmol/L Potassium (3.3-5.1) mmol/L Chloride (96-108) mmol/L Carbon Dioxide (22-29) mmol/L Anion Gap (12-20) BUN (9-16) mg/dL Creatinine (0.5-1.4) mg/dL Estim Creat Clear Calc Estimated GFR POC Glucose 76 (60-115) mg/dL Random Glucose (60-115) mg/dL Calcium (8.4-10.2) mg/dL Total Creatine Kinase (26-140) U/L Troponin I High Sens (<3.5-17.0) ng/L Beta HCG, Quant mIU/mL 02/12/22 02/12/22 02/12/22 Range/Units 19:15 19:15 19:15 WBC (4.8-10.8) X10*3/uL RBC (4.20-5.50) X10*6/uL Hgb (12.0-16.0) g/dl Hct (37.0-47.0) % MCV (80.0-98.0) fL MCH (27.0-33.0) pg MCHC (31.0-35.0) g/dl RDW (11.0-16.0) % Plt Count (160-400) X10*3/uL MPV (9.4-12.3) fL Immature Gran % (Auto) (0.0-0.4) % Neut % (Auto) (45-73) % Lymph % (Auto) (20-40) % [place] % (Auto) (2-11) % Eos % (Auto) (0-4) % Baso % (Auto) (0-2) % Lymph # (Auto) (1.2-4.9) X10*3/uL [place] # (Auto) (0.1-1.2) X10*3/uL Eos # (Auto) (0.0-0.4) X10*3/uL Baso # (Auto) (0.0-0.2) X10*3/uL Abs Immat Gran (auto) (0.00-0.03) X10*3/uL Absolute Neuts (auto) (2.0-8.3) x10*3/uL Absolute Nucleated RBC (0.0-0.012) X10*3/uL Nucleated RBC % (auto) (0.0-0.2) /100WBC PT 12.7 (9.9-13.0) SEC Whole Blood PT (11.1-13.5) sec INR 1.1 (0.9-1.1) Whole Blood INR (0.9-1.1) APTT 30.6 (24.1-38.0) SEC Sodium 139 (135-145) mmol/L Potassium 4.0 (3.3-5.1) mmol/L Chloride 104 (96-108) mmol/L Carbon Dioxide 25 (22-29) mmol/L Anion Gap 14 (12-20) BUN 11 (9-16) mg/dL Creatinine 0.77 (0.5-1.4) mg/dL Estim Creat Clear Calc 145.5 Estimated GFR > 60 POC Glucose (60-115) mg/dL Random Glucose 85 (60-115) mg/dL Calcium 9.0 (8.4-10.2) mg/dL Total Creatine Kinase 180 H (26-140) U/L Troponin I High Sens < 3.5 (<3.5-17.0) ng/L Beta HCG, Quant < 2 mIU/mL Imaging Data Chest x-ray: Attestation: I personally reviewed and interpreted this imaging study as follows: Radiologist's impression: 1. No acute pulmonary process. 2. Question 5 mm nodule or vessel view on end in the left midlung, unchanged. Finding can be further assessed with nonemergent low-dose noncontrast chest CT as previously suggested. ? CT scan - head: Attestation: I personally reviewed and interpreted this imaging study as follows: Radiologist's impression: No acute intracranial findings. Old small infarcts in the left posterior parietal and left occipital lobes that appear unchanged. ? MRI - head: Attestation: I personally reviewed and interpreted this imaging study as follows: Radiologist's impression: No acute intracranial abnormality identified. Chronic infarct seen within the left parietal and occipital lobe and smaller chronic infarct in the right frontal lobe. ECG Data Attestation: I personally reviewed and interpreted this ECG as follows: Interpretation: Normal sinus rhythm at 63 beats per minute, normal intervals, no ST-T changes. NIH Stroke Scale Internal: Initial- Upon Arrival Time: 16:42 Level of Consciousness: Alert Level of Consciousness Questions: Answers both questions correctly Level of Consciousness Commands: Performs both tasks correctly Best Gaze: Normal Visual: No visual loss Facial Palsy: Minor paralyis Motor Arm (Right): No drift Motor Arm (Left): Drift Motor Leg (Right): No drift Motor Leg (Left): No drift Limb Ataxia: Absent Sensory: Mild to moderate sensory loss Best Language: No aphasia Dysarthia: Normal Extinction and Inattention: No abnormality Score: 3 Discharge Plan Discharge Clinical Impression: Transient cerebral ischemia Patient Disposition: Admitted As Inpatient
[2022-02-12 16:38] VITALS: BP 153/87; BP 160/100; PULSE 68; PULSE 80; RESP 16; TEMP 36.9; O2SAT 98; BMI 47.2
[2022-02-12 16:46] LABS: Prothrombin Time Whole Bld POC 12.3 sec (11.1-13.5)
[2022-02-12 16:47] LABS: Glucose, Whole Blood 76 mg/dL (60-115)
[2022-02-12 19:22] LABS: MANUAL DIFF FLAG NO
[2022-02-12 19:32] VITALS: BP 159/84; PULSE 67; RESP 14; O2SAT 98
[2022-02-12 19:32] LABS: Basophils Percent Auto 0.2 % (0-2); Eosinophils Absolute Auto 0.2 X10*3/uL (0.0-0.4); Eosinophils Percent Auto 1.5 % (0-4); Hematocrit 36.2 % (37.0-47.0); Hemoglobin 11.6 g/dl (12.0-16.0); Imm Gran Abs Auto 0.06 X10*3/uL (0.00-0.03); Imm Gran Pct Auto 0.5 % (0.0-0.4); Lymphocytes Absolute Auto 2.4 X10*3/uL (1.2-4.9); Lymphocytes Percent Auto 19.1 % (20-40); Mean Corpuscular Hemoglobin 24.8 pg (27.0-33.0); Mean Corpuscular Volume 77.4 fL (80.0-98.0); Mean Platelet Volume 9.6 fL (9.4-12.3); Monocytes Absolute Auto 0.4 X10*3/uL (0.1-1.2); Monocytes Percent Auto 3.2 % (2-11); Neutrophils Absolute Auto 9.4 x10*3/uL (2.0-8.3); Neutrophils Percent Auto 75.5 % (45-73); Platelet Count 406 X10*3/uL (160-400); Red Blood Count 4.68 X10*6/uL (4.20-5.50); Red Cell Distribution Width 14.2 % (11.0-16.0); White Blood Count 12.4 X10*3/uL (4.8-10.8)
[2022-02-12 19:37] LABS: INTERNATIONAL NORM RATIO 1.1 (0.9-1.1); Prothrombin Time 12.7 SEC (9.9-13.0)
[2022-02-12 19:39] LABS: Partial Thromboplastin Time 30.6 SEC (24.1-38.0)
[2022-02-12 19:41] LABS: Anion Gap 14 (12-20); Blood Urea Nitrogen 11 mg/dL (9-16); Carbon Dioxide 25 mmol/L (22-29); Chloride 104 mmol/L (96-108); Creatinine Clr Calc Pharmacy 145.5; Estimated Glomerular Filt Rate > 60; Glucose Random 85 mg/dL (60-115); Sodium 139 mmol/L (135-145)
[2022-02-12 19:45] LABS: Troponin-I High Sensitivity < 3.5 ng/L (<3.5-17.0)
[2022-02-12 20:42] LABS: HCG Quantitative < 2 mIU/mL
--- NOTE | 2022-02-12 20:42 | PHA.MEDREC ---
Pharmacy Consult ? Medication Reconciliation Pharmacy has completed the medication reconciliation.
[2022-02-12 20:47] LABS: Stroke Lab Use COMPLETE
[2022-02-12 21:32] VITALS: BP 147/88; PULSE 63; RESP 16; TEMP 36.5; O2SAT 97
--- NOTE | 2022-02-12 21:59 | PM.IMHP ---
History of Present Illness Date of Service: 02/12/22 Chief Complaint: Left Upper and lower extremity numbness This is a 31-year-old female past medical history of CVA and hypertension who presents to the hospital with left extremities numbness and tingling as well as face tingling and heavy speech. Patient reports that while she was cleaning her room and putting way laundry she all of a sudden developed dizziness, left leg and arm numbness tingling as well as headache, patient reports that she felt like her face was also tingling, had heavy tongue and had difficulty talking, this lasted few hours and resolved spontaneously. Patient also reports intermittent tachycardia and shortness of breath for the past 3 weeks, as well as sharp stabbing pain in the chest mostly on the right side, intermittent for the past 3 weeks, lasting few days, resolving spontaneously, not associated with exertion. Patient reports she had a history of stroke x2 with no residual deficits. On arrival to the ED patient hemodynamically stable with no significant abnormal vitals Labs are significant for WBC count of 12.4, hemoglobin of 11.6, hematocrit 36.2, BMP unremarkable, troponin negative, BNP negative, EKG showed normal sinus rhythm with no significant abnormality Chest x-ray shows a 5 mm nodule or vessel view on and of the mid left mid lung patient reports that she is aware of this, this is unchanged. No acute pulmonary process Brain MRI showed no acute intracranial abnormality, chronic infarcts seen within the left parietal and occipital lobe and smaller chronic infarct in the right frontal lobe Given patient's history of CVA she is being admitted for observation with neurology consult Review of Systems Review of Systems: Yes all other systems are reviewed and are negative [facility] Medical History Hypertension Family History (Updated 02/13/22 @ 05:45 by Sean Robles MD) Other No family history of cerebrovascular accident (CVA) Surgical History Delivery by section History of tonsillectomy Social History Alcohol intake: unknown Patient Tobacco Use Status: Never used Tobacco Advance Directives: No Advance Directives Information Provided: No Patient : No Current occupational status: unemployed Current occupation: rt handed Meds Allergies Allergy/AdvReac Type Severity Reaction Status Date / Time Sulfa (Sulfonamide Allergy Severe anaphylaxis Verified 06/10/21 11:37 Antibiotics) acetaminophen [From VICODIN] Allergy Intermediate Rash Verified 06/10/21 11:37 codeine [CODEINE] Allergy Intermediate Rash Verified 06/10/21 11:37 hydrocodone [Vicodin] Allergy Intermediate Rash Verified 06/10/21 11:37 Codeine Phosphate Allergy Unknown Rash Uncoded 05/03/21 20:18 DTap vaccine Allergy Unknown Unknown Uncoded 04/22/21 12:00 From VICODIN Allergy Unknown Rash Uncoded 05/03/21 20:18 Active Medications: Current Medications Acetaminophen (Acetaminophen 325 Mg Tablet) 650 mg PO Q6H PRN PRN Reason: Pain, Mild (Pain Scale 1-3) Aspirin (Aspirin 81 Mg Tab.Chew) 81 mg PO DAILY NAYA Atorvastatin Calcium (Atorvastatin Calcium 40 Mg Tablet) 40 mg PO BEDTIME NAYA Docusate Sodium (Docusate Sodium 100 Mg Capsule) 100 mg PO DAILY PRN PRN Reason: Constipation Ondansetron HCl (Ondansetron Hcl 4 Mg/2 Ml Vial) 4 mg IVPUSH Q8H PRN PRN Reason: Nausea and Vomiting Sodium Chloride (0.9 % Sodium Chloride Flush 3 Ml Syringe) 3 ml IVFLUSH [facility] Home Medications Medication Instructions Recorded Confirmed Last Taken Type buspirone 5 mg tablet 1 tab PO BID 02/12/22 02/12/22 02/11/22 History escitalopram oxalate 10 mg tablet 1.5 tab PO DAILY 02/12/22 02/12/22 02/11/22 History fluticasone propionate 50 2 spray intranasal DAILY PRN ear 02/12/22 02/12/22 02/11/22 History mcg/actuation nasal pressure spray,suspension lisinopril 5 mg tablet 1 tab PO DAILY 02/12/22 02/12/22 02/11/22 History topiramate 25 mg tablet 1 tab PO BEDTIME 02/12/22 02/12/22 02/11/22 History Physical Exam Vital Signs and Narrative: Vital Signs: Last Vital Signs Temp 97.7 F 02/12/22 21:32 Pulse 63 02/12/22 21:32 Resp 16 02/12/22 21:32 BP 147/88 H 02/12/22 21:32 Pulse Ox 97 02/12/22 21:32 O2 Del Method 02/12/22 21:32 BMI result Body Mass Index 47.2 Const: General: cooperative and no acute distress Orientation/consciousness: patient oriented x3 Eyes: General: appearance normal, both eyes and all related structures Resp: Effort & Inspection: normal respiratory effort Auscultation: clear to auscultation bilaterally Cardio: Rate: regular rate Rhythm: regular rhythm GI: Palpation (GI): Soft to palpation Auscultation: normal bowel sounds Skin: General skin exam: no rashes or lesions noted Neuro: Other: No neurological deficits, strength 5/5 in all extremities no visual defects General: patient oriented x3 Cognition (Neuro): normal cognition Extrem: General: Yes normal to inspection and Yes no pedal edema Results Labs CBC and Chem 7: 02/12/22 19:15 02/12/22 19:15 Labs: Laboratory Results - last 24 hr 02/12/22 02/12/22 02/12/22 16:38 16:39 19:15 MCV 77.4 L MCH 24.8 L MCHC 32.0 RDW 14.2 Plt Count 406 H MPV 9.6 Immature Gran % (Auto) 0.5 H Neut % (Auto) 75.5 H Lymph % (Auto) 19.1 L [place] % (Auto) 3.2 Eos % (Auto) 1.5 Baso % (Auto) 0.2 Lymph # (Auto) 2.4 [place] # (Auto) 0.4 Eos # (Auto) 0.2 Baso # (Auto) 0.0 Abs Immat Gran (auto) 0.06 H Absolute Neuts (auto) 9.4 H Absolute Nucleated RBC 0.000 Nucleated RBC % (auto) 0.0 PT Whole Blood PT 12.3 INR Whole Blood INR 1.0 APTT Anion Gap Estim Creat Clear Calc Estimated GFR POC Glucose 76 Random Glucose Calcium Total Creatine Kinase Troponin I High Sens Beta HCG, Quant 02/12/22 02/12/22 02/12/22 19:15 19:15 19:15 MCV MCH MCHC RDW Plt Count MPV Immature Gran % (Auto) Neut % (Auto) Lymph % (Auto) [place] % (Auto) Eos % (Auto) Baso % (Auto) Lymph # (Auto) [place] # (Auto) Eos # (Auto) Baso # (Auto) Abs Immat Gran (auto) Absolute Neuts (auto) Absolute Nucleated RBC Nucleated RBC % (auto) PT 12.7 Whole Blood PT INR 1.1 Whole Blood INR APTT 30.6 Anion Gap 14 Estim Creat Clear Calc 145.5 Estimated GFR > 60 POC Glucose Random Glucose 85 Calcium 9.0 Total Creatine Kinase 180 H Troponin I High Sens < 3.5 Beta HCG, Quant < 2 Imaging Radiologist's Impressions: Impressions Head CT 02/12/22 16:32 IMPRESSION: No acute intracranial findings. Old small infarcts in the left posterior parietal and left occipital lobes that appear unchanged. This critical result was discussed with Dr. Rodriguez at 1638 hours on 02/12/2022. It was ascertained that the content and urgency of the report was understood at the time of direct communication. Brain MRI 02/12/22 17:25 IMPRESSION: No acute intracranial abnormality identified. Chronic infarct seen within the left parietal and occipital lobe and smaller chronic infarct in the right frontal lobe. Chest X-Ray 02/12/22 18:42 IMPRESSION: 1. No acute pulmonary process. 2. Question 5 mm nodule or vessel view on end in the left midlung, unchanged. Finding can be further assessed with nonemergent low-dose noncontrast chest CT as previously suggested. Assessment and Plan (1) Transient cerebral ischemia: Status: Acute (2) Palpitations: Status: Acute (3) Shortness of breath: Status: Acute Plan This is a 31-year-old female with past medical history of CVA presents to the hospital with TIA like symptoms # TIA - presenting with numbness of the left upper and lower extremity, facial numbness and tingling - MRI negative but showed chronic multiple strokes - patient being admitted under observation, neurology consult, lipid panel, echocardiogram will be ordered - monitor on telemetry # palpitations - AFib? In the multiple CVA in the past -will admit to telemetry # shortness of breath - chest x-ray negative, BNP negative, no evidence of radiographic abnormality except a 5 mm nodule that was present previously and has not changed - patient has no history of smoking - possibly related to palpitations? - monitor # hypertension - stable - continue home meds DVT prophylaxis: Early ambulation Quality Stroke Does the patient have a stroke diagnosis?: No VTE Prior VTE?: No VTE Risk Level:: Medical - low VTE Device Contraindication: Treatment Not Indicated VTE Drug Contraindication: Treatment Not Indicated
[2022-02-12 22:20] LABS: B Type Natriuretic Peptide 14 pg/mL (<100)
[2022-02-12] MEDS: Atorvastatin Calcium 40 MG TABLET PO (22:35)
--- NOTE | 2022-02-12 22:38 | PC.NURSE ---
Pt given atorvastatan per OCT. Pt refused Aspirin stating that the last time she took it she had a bleed internally. Swallow evaluation done prior to medication administration. Pt passed with no complications. Completed at 22:30
[2022-02-12 22:39] VITALS: BP 138/89; PULSE 65; RESP 16; O2SAT 97
[2022-02-12 23:01] LABS: COVID-19 Test Negative (Negative)
[2022-02-13] VITALS (9 sets, daily range): BP systolic 122–165; BP diastolic 53–95; PULSE 56–72; RESP 13–20; TEMP 36.4–36.5; O2SAT 94–98
[2022-02-13 06:24] LABS: MANUAL DIFF FLAG NO
[2022-02-13 06:26] LABS: Basophils Percent Auto 0.4 % (0-2); Eosinophils Absolute Auto 0.2 X10*3/uL (0.0-0.4); Eosinophils Percent Auto 2.6 % (0-4); Hematocrit 34.7 % (37.0-47.0); Hemoglobin 11.4 g/dl (12.0-16.0); Imm Gran Abs Auto 0.06 X10*3/uL (0.00-0.03); Imm Gran Pct Auto 0.7 % (0.0-0.4); Lymphocytes Absolute Auto 2.6 X10*3/uL (1.2-4.9); Lymphocytes Percent Auto 28.5 % (20-40); Mean Corpuscular HGB Conc 32.9 g/dl (31.0-35.0); Mean Corpuscular Hemoglobin 25.2 pg (27.0-33.0); Mean Corpuscular Volume 76.8 fL (80.0-98.0); Mean Platelet Volume 9.3 fL (9.4-12.3); Monocytes Absolute Auto 0.4 X10*3/uL (0.1-1.2); Monocytes Percent Auto 4.8 % (2-11); Neutrophils Absolute Auto 5.7 x10*3/uL (2.0-8.3); Platelet Count 398 X10*3/uL (160-400); Red Blood Count 4.52 X10*6/uL (4.20-5.50); Red Cell Distribution Width 14.1 % (11.0-16.0); White Blood Count 9.1 X10*3/uL (4.8-10.8)
[2022-02-13 06:47] LABS: Anion Gap 13 (12-20); Blood Urea Nitrogen 12 mg/dL (9-16); Calcium 8.7 mg/dL (8.4-10.2); Carbon Dioxide 24 mmol/L (22-29); Chloride 105 mmol/L (96-108); Creatinine Clr Calc Pharmacy 160.1; Estimated Glomerular Filt Rate > 60; Glucose Random 90 mg/dL (60-115); Sodium 138 mmol/L (135-145)
[2022-02-13 06:48] LABS: Cholesterol 204 mg/dL; HDL Cholesterol 30 mg/dL; LDL Cholesterol Calculated 138 mg/dl; Triglycerides 181 mg/dL
[2022-02-13] MEDS: Escitalopram Oxalate 5 MG TABLET 15 MG PO (08:03)
[2022-02-13] MEDS: busPIRone HCl 5 MG TABLET PO ×2 (08:05→20:03)
[2022-02-13] MEDS: amLODIPine Besylate 10 MG TABLET PO (08:05)
[2022-02-13] MEDS: 0.9 % Sodium Chloride Flush 3 ML SYRINGE IVFLUSH ×2 (08:06→17:28)
--- NOTE | 2022-02-13 08:10 | PC.NURSE ---
Pt alert and oriented, skin warm and dry. Lungs clear diminished in base. Neuros intact, denies dizziness, nausea . Complaining of 10/10 pain in head, neck, and upper back intermittent for weeks, also has SOB and chest tightning/pressure while walking. Tingling on left side. Pt refusing ASA due to tear in esophagus. Awaiting for Lisinapil from Pharmacy.
--- NOTE | 2022-02-13 08:59 | MHC.CM.PN ---
PT REPORTS SHE LIVES WITH HER MOTHER, STEP-FATHER, BROTHER AND HER CHILDREN SHE REPORTS SHE IS FULLY INDEPENDENT AND USES NO DME OR HOME SERVICES PT REPORTS SHE HAS A HCP NAMING HER MOTHER, SHALONDA ([phone]) HER AGENT-COPY REQUESTED PT REPORTS SHE IS NOT COVID-19 VACCINATED PCP: DARVIN LOYA OBSERVATION NOTICE DELIVERED, COPY SENT TO [facility] CURRENT DC PLAN IS HOME FAMILY TO TRANSPORT
[2022-02-13] MEDS: lisinopriL 5 MG TABLET PO (09:53)
[2022-02-13] MEDS: ondansetron HCL 4 MG/2 ML VIAL IVPUSH (11:26)
[2022-02-13] MEDS: Acetaminophen 325 MG TABLET 650 MG PO ×2 (11:27→18:40)
--- NOTE | 2022-02-13 11:31 | PC.NURSE ---
Pt complaining of 10/10 head pain, nausea and vomiting. PRN Tylenol given, zofran
--- NOTE | 2022-02-13 11:40 | P.CNNE_ITS ---
History of Present Illness Data of Consult Service Date: 02/13/22 Primary Care Provider: DARVIN CHAN MD HPI Reason for consult: left sided numbness, ? stroke This is a 31-year-old female past medical history of CVAPossibly with mild chronic static encephalopathy and hypertension who Has been followed by Dr. Bennett for chronic headache,presents to the hospital with Shortness of breath And transientleft extremities numbness and tingling as well as face tingling and heavy speech.? Patient reports that while she was cleaning her room and putting way laundry she all of a sudden developed dizziness, left leg and arm numbness tingling as well as headache, patient reports that she felt like her face was also tingling, had heavy tongue and had difficulty talking, this lasted few hours and resolved spontaneously.? Patient also reports intermittent tachycardia and shortness of breath for the past 3 weeks, as well as sharp stabbing pain in the chest mostly on the right side, intermittent for the past 3 weeks, lasting few days, resolving spontaneously, not associated with exertion.? Patient rep orts she had a history of stroke x2 with no residual deficits.MRI of the brain was negative for any acute findings. Old strokes in the left posterior quadrant and right frontal area. Review of Systems Review of Systems: All other systems are reviewed and are negative Constitutional: Reports as per HPI and Reports no additional constitutional complaints Eyes: Reports as per HPI and Reports no additional eye complaints Reports system reviewed and no additional complaints, except as documented Cardiovascular: Reports as per HPI and Reports no additional cardiovascular complaints Respiratory: Reports as per HPI and Reports no additional respiratory complaints Gastrointestinal: Reports as per HPI and Reports no additional gastrointestinal complaints Genitourinary: Reports no additional female genitourinary complaints Musculoskeletal: Reports no additional musculoskeletal complaints Skin/Breast: Reports system reviewed and no additional complaints, except as docu Psychiatric: Reports no additional psychiatric complaints Endocrine: Reports no additional endocrine complaints Hematologic/Lymphatic: Reports no additional hematologic/lymphatic complaints Allergic/Immunologic: Reports no additional allergic/immunologic complaints Reports system reviewed and no additional complaints, except as documented and Reports Abnormal speech present Yes all other systems are reviewed and are n egative PMFSH Past Medical History Medical History Hypertension Family History Family History (Updated 02/13/22 @ 05:45 by Sean Robles MD) Other No family history of cerebrovascular accident (CVA) Surgical History Surgical History Delivery by section History of tonsillectomy Social History Social History Alcohol intake: unknown Patient Tobacco Use Status: Never used Tobacco Advance Directives: No Advance Directives Information Provided: No Patient : No service: No Current occupational status: unemployed Current occupation: rt handed Meds Allergies Allergy/AdvReac Type Severity Reaction Status Date / Time Sulfa (Sulfonamide Allergy Severe anaphylaxis Verified 06/10/21 11:37 Antibiotics) acetaminophen [From VICODIN] Allergy Intermediate Rash Verified 06/10/21 11:37 codeine [CODEINE] Allergy Intermediate Rash Verified 06/10/21 11:37 hydrocodone [Vicodin] Allergy Intermediate Rash Verified 06/10/21 11:37 Codeine Phosphate Allergy Unknown Rash Uncoded 05/03/21 20:18 DTap vaccine Allergy Unknown Unknown Uncoded 04/22/21 12:00 From VICODIN Allergy Unknown Rash Uncoded 05/03/21 20:18 Active Medications: Current Medications Acetaminophen (Acetaminophen 325 Mg Tablet) 650 mg PO Q6H PRN PRN Reason: Pain, Mild (Pain Scale 1-3) Last Admin: 02/13/22 11:27 Dose: 650 mg Amlodipine Besylate (Amlodipine Besylate 10 Mg Tablet) 10 mg PO DAILY [facility]; Protocol Last Admin: 02/13/22 08:05 Dose: 10 mg Aspirin (Aspirin 81 Mg Tab.Chew) 81 mg PO DAILY [facility] Last Admin: 02/13/22 08:04 Dose: Not Given Atorvastatin Calcium (Atorvastatin Calcium 40 Mg Tablet) 40 mg PO BEDTIME [facility] Last Admin: 02/12/22 22:35 Dose: 40 mg Buspirone HCl (Buspirone Hcl 5 Mg Tablet) 5 mg PO BID [facility] Last Admin: 02/13/22 08:05 Dose: 5 mg Docusate Sodium (Docusate Sodium 100 Mg Capsule) 100 mg PO DAILY PRN PRN Reason: Constipation Escitalopram Oxalate (Escitalopram Oxalate 5 Mg Tablet) 15 mg PO DAILY [facility] Last Admin: 02/13/22 08:03 Dose: 15 mg Fluticasone Propionate (Fluticasone Propionate Nasal 16 Gm [place]) 2 spray NOSTRIL-B DAILY PRN PRN Reason: ear pressure Lisinopril (Lisinopril 5 Mg Tablet) 5 mg PO DAILY [facility]; Protocol Last Admin: 02/13/22 09:53 Dose: 5 mg Ondansetron HCl (Ondansetron Hcl 4 Mg/2 Ml Vial) 4 mg IVPUSH Q8H PRN PRN Reason: Nausea and Vomiting Last Admin: 02/13/22 11:26 Dose: 4 mg Sodium Chloride (0.9 % Sodium Chloride Flush 3 Ml Syringe) [facility] Last Admin: 02/13/22 08:06 Dose: 3 ml Topiramate (Topiramate 25 Mg Tablet) 25 mg PO BEDTIME [facility] Home Medications Medication Instructions Recorded Confirmed Last Taken Type buspirone 5 mg tablet 1 tab PO BID 02/12/22 02/12/22 02/11/22 History escitalopram oxalate 10 mg tablet 1.5 tab PO DAILY 02/12/22 02/12/22 02/11/22 History fluticasone propionate 50 2 spray intranasal DAILY PRN ear 02/12/22 02/12/22 02/11/22 History mcg/actuation nasal pressure spray,suspension lisinopril 5 mg tablet 1 tab PO DAILY 02/12/22 02/12/22 02/11/22 History topiramate 25 mg tablet 1 tab PO BEDTIME 02/12/22 02/12/22 02/11/22 History Physical Exam Vital Signs: Vital Signs: Last Vital Signs Temp 97.7 F 02/13/22 07:11 Pulse 71 02/13/22 07:11 Resp 13 02/13/22 07:11 BP 165/95 H 02/13/22 07:11 Pulse Ox 97 02/13/22 07:11 O2 Del Method 02/13/22 07:11 BMI result Body Mass Index 47.2 Const: General: cooperative and no acute distress Orien tation/consciousness: patient oriented x3 Eyes: General: appearance normal, both eyes and all related structures Resp: Effort & Inspection: normal respiratory effort Auscultation: clear to auscultation bilaterally Cardio: Rate: regular rate Rhythm: regular rhythm GI: Palpation (GI): Soft to palpation Auscultation: normal bowel sounds Skin: General skin exam: no rashes or lesions noted Neuro: Other: No neurological deficits, strength 5/5 in all extremities no visual defects General: patient oriented x3 Cognition (Neuro): normal cognition Extrem: General: Yes normal to inspection and Yes no pedal edema Results Labs CBC & Chem 7: 02/13/22 06:01 02/13/22 06:01 Labs: Short CBC 02/12/22 02/13/22 Range/Units 19:15 06:01 WBC 12.4 H 9.1 (4.8-10.8) X10*3/uL Hgb 11.6 L 11.4 L (12.0-16.0) g/dl Hct 36.2 L 34.7 L (37.0-47.0) % Plt Count 406 H 398 (160-400) X10*3/uL BMP 02/12/22 02/13/22 19:15 06:01 Sodium 139 138 Potassium 4.0 4.0 Chloride 104 105 Carbon Dioxide 25 24 BUN 11 12 Creatinine 0.77 0.70 Calcium 9.0 8.7 Cardiac Enzymes 02/12/22 Range/Units 19:15 Total Creatine Kinase 180 H (26-140) U/L Assessment and Plan (1) Transient cerebral ischemia: Status: Acute No clear symptoms suggestive of TIA. She has chronic headaches some elements of anxiety and shortness of breath. MRI of brain normal. Noo further neurological workup is necessary. Outpatient followup with Dr. Bennett for her headaches (2) Palpitations: Status: Acute (3) Shortness of breath: Status: Acute (4) History of CVA (cerebrovascular accident): Status: Acute These are remote possibility in the period Plan This is a 31-year-old female with past medical history of CVA presents to the hospital with TIA like symptoms # TIA - presenting with numbness of the left upper and lower extremity, facial numbness and tingling - MRI negative but showed chronic multiple strokes - patient being admitted under observation, neurology consult, lipid panel, ech ocardiogram will be ordered - monitor on telemetry # palpitations - AFib? In the multiple CVA in the past -will admit to telemetry # shortness of breath - chest x-ray negative, BNP negative, no evidence of radiographic abnormality except a 5 mm nodule that was present previously and has not changed - patient has no history of smoking - possibly related to palpitations? - monitor # hypertension - stable - continue home meds DVT prophylaxis: Early ambulation Procedures Date of Service Date of Service: 02/13/22
--- NOTE | 2022-02-13 14:02 | MHC.STROKE ---
Addendum entered by Jennifer Stewart RN 02/13/22 16:13: I SPOKE WITH DR EMMANUEL AND HE REVIEWED DR. PICKETT'S OFFICE NOTES AND CLARIFIED THAT THE PRIOR STROKES ARE FROM . I DID RELAY THIS TO THE PATIENT BECAUSE SHE DID NOT KNOW WHEN SHE HAD A PRIOR STROKE. I ALSO RELAYED THIS INFORMATION TO DR. CAMPUZANO. Original Note: 02/12/22 1621 EMS PRE-NOTIFIED STROKE ALERT , ARRIVED AT 1622. EXAMINED BY DR SIMONS AND THEN DIRECT TO CT. NO BLEED, PRIOR STROKES NOTED. NIHSS = 3, I MET WITH THE PATIENT AND SHE PASSED SWALLOW SCREEN PRIOR TO PO, I HAD PREPARED HER FOR MRI IMAGING AND EXPLAINED WHY. STROKE EDUCATION PROVIDED. SHE WAS VERY ANXIOUS SHE MENTIONED THAT SHE HAS MIGRAINES AND THAT SOMETIMES SHE GETS A SIMILAR FEELING. 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 SEEN BY DR EMMANUEL TODAY. SEE HIS NOTE. ? PAF, I WILL CONTINUE TO FOLLOW.
--- NOTE | 2022-02-13 15:16 | HO.PM.IMPN ---
Subjective Subjective Date of Service: 02/13/22 Interval History: numbness Review of Systems seems improving Physical Exam Vital Signs: Vital Signs: Last Vital Signs Temp 97.7 F 02/13/22 12:10 Pulse 56 02/13/22 12:10 Resp 14 02/13/22 12:10 BP 122/71 02/13/22 12:10 Pulse Ox 97 02/13/22 12:10 O2 Del Method 02/13/22 12:10 BMI result Body Mass Index 47.2 Appearance: Alert.? Oriented X3.? not in distress.? Eyes: Pupils equal, round and reactive to light.? Sclera nonicteric.? ENT: Pharynx normal.? Moist mucous membranes. cvs: rrr, [id number] , no murmur res: clear to auscultation ,no rhonchii or wheezing abd: no rebound or guarding ,nt, bs present. ext pulses present , no cyanosis. neuro: moves all extermites neuro exam unchanged from yesterday. Objective Data Active Medications Acetaminophen (Acetaminophen 325 Mg Tablet) 650 mg PO Q6H PRN PRN Reason: Pain, Mild (Pain Scale 1-3) Last Admin: 02/13/22 11:27 Dose: 650 mg Documented By: BECCA Amlodipine Besylate (Amlodipine Besylate 10 Mg Tablet) 10 mg PO DAILY [facility]; Protocol Last Admin: 02/13/22 08:05 Dose: 10 mg Documented By: BECCA Aspirin (Aspirin 81 Mg Tab.Chew) 81 mg PO DAILY [facility] Last Admin: 02/13/22 08:04 Dose: Not Given Documented By: BECCA Non-Admin Reason: Patient Refused Atorvastatin Calcium (Atorvastatin Calcium 40 Mg Tablet) 40 mg PO BEDTIME [facility] Last Admin: 02/12/22 22:35 Dose: 40 mg Documented By: MAGUE Buspirone HCl (Buspirone Hcl 5 Mg Tablet) 5 mg PO BID [facility] Last Admin: 02/13/22 08:05 Dose: 5 mg Documented By: BECCA Docusate Sodium (Docusate Sodium 100 Mg Capsule) 100 mg PO DAILY PRN PRN Reason: Constipation Escitalopram Oxalate (Escitalopram Oxalate 5 Mg Tablet) 15 mg PO DAILY [facility] Last Admin: 02/13/22 08:03 Dose: 15 mg Documented By: BECCA Fluticasone Propionate (Fluticasone Propionate Nasal 16 Gm [place]) 2 spray NOSTRIL-B DAILY PRN PRN Reason: ear pressure Lisinopril (Lisinopril 5 Mg Tablet) 5 mg PO DAILY [facility]; Protocol Last Admin: 02/13/22 09:53 Dose: 5 mg Documented By: BECCA Ondansetron HCl (Ondansetron Hcl 4 Mg/2 Ml Vial) 4 mg IVPUSH Q8H PRN PRN Reason: Nausea and Vomiting Last Admin: 02/13/22 11:26 Dose: 4 mg Documented By: BECCA Sodium Chloride (0.9 % Sodium Chloride Flush 3 Ml Syringe) 3 ml IVFLUSH QSHIFT [facility] Last Admin: 02/13/22 08:06 Dose: 3 ml Documented By: BECCA Topiramate (Topiramate 25 Mg Tablet) 25 mg PO BEDTIME [facility] Labs CBC & Chem 7: 02/13/22 06:01 02/13/22 06:01 Labs: Laboratory Results - last 24 hr 02/12/22 02/12/22 02/12/22 16:38 16:39 19:15 MCV 77.4 L MCH 24.8 L MCHC 32.0 RDW 14.2 Plt Count 406 H MPV 9.6 Immature Gran % (Auto) 0.5 H Neut % (Auto) 75.5 H Lymph % (Auto) 19.1 L [place] % (Auto) 3.2 Eos % (Auto) 1.5 Baso % (Auto) 0.2 Lymph # (Auto) 2.4 [place] # (Auto) 0.4 Eos # (Auto) 0.2 Baso # (Auto) 0.0 Abs Immat Gran (auto) 0.06 H Absolute Neuts (auto) 9.4 H Absolute Nucleated RBC 0.000 Nucleated RBC % (auto) 0.0 PT Whole Blood PT 12.3 INR Whole Blood INR 1.0 APTT Anion Gap Estim Creat Clear Calc Estimated GFR POC Glucose 76 Random Glucose Calcium Total Creatine Kinase Troponin I High Sens B-Natriuretic Peptide Triglycerides Cholesterol LDL Cholesterol, Calc HDL Cholesterol Beta HCG, Quant COVID-19 ([facility]O) COVID-19 Clin Com 02/12/22 02/12/22 02/12/22 19:15 19:15 19:15 MCV MCH MCHC RDW Plt Count MPV Immature Gran % (Auto) Neut % (Auto) Lymph % (Auto) [place] % (Auto) Eos % (Auto) Baso % (Auto) Lymph # (Auto) [place] # (Auto) Eos # (Auto) Baso # (Auto) Abs Immat Gran (auto) Absolute Neuts (auto) Absolute Nucleated RBC Nucleated RBC % (auto) PT 12.7 Whole Blood PT INR 1.1 Whole Blood INR APTT 30.6 Anion Gap 14 Estim Creat Clear Calc 145.5 Estimated GFR > 60 POC Glucose Random Glucose 85 Calcium 9.0 Total Creatine Kinase 180 H Troponin I High Sens < 3.5 B-Natriuretic Peptide 14 Triglycerides Cholesterol LDL Cholesterol, Calc HDL Cholesterol Beta HCG, Quant < 2 COVID-19 ([facility]) COVID-19 Clin Com 02/12/22 02/13/22 02/13/22 22:42 06:01 06:01 MCV 76.8 L MCH 25.2 L MCHC 32.9 RDW 14.1 Plt Count 398 MPV 9.3 L Immature Gran % (Auto) 0.7 H Neut % (Auto) 63.0 Lymph % (Auto) 28.5 [place] % (Auto) 4.8 Eos % (Auto) 2.6 Baso % (Auto) 0.4 Lymph # (Auto) 2.6 [place] # (Auto) 0.4 Eos # (Auto) 0.2 Baso # (Auto) 0.0 Abs Immat Gran (auto) 0.06 H Absolute Neuts (auto) 5.7 Absolute Nucleated RBC 0.000 Nucleated RBC % (auto) 0.0 PT Whole Blood PT INR Whole Blood INR APTT Anion Gap 13 Estim Creat Clear Calc 160.1 Estimated GFR > 60 POC Glucose Random Glucose 90 Calcium 8.7 Total Creatine Kinase Troponin I High Sens B-Natriuretic Peptide Triglycerides Cholesterol LDL Cholesterol, Calc HDL Cholesterol Beta HCG, Quant COVID-19 ([facility]) Negative COVID-19 Clin Com See Note 02/13/22 06:02 MCV MCH MCHC RDW Plt Count MPV Immature Gran % (Auto) Neut % (Auto) Lymph % (Auto) [place] % (Auto) Eos % (Auto) Baso % (Auto) Lymph # (Auto) [place] # (Auto) Eos # (Auto) Baso # (Auto) Abs Immat Gran (auto) Absolute Neuts (auto) Absolute Nucleated RBC Nucleated RBC % (auto) PT Whole Blood PT INR Whole Blood INR APTT Anion Gap Estim Creat Clear Calc Estimated GFR POC Glucose Random Glucose Calcium Total Creatine Kinase Troponin I High Sens B-Natriuretic Peptide Triglycerides 181 Cholesterol 204 LDL Cholesterol, Calc 138 HDL Cholesterol 30 Beta HCG, Quant COVID-19 ([facility]) COVID-19 Clin Com Assessment and Plan (1) Palpitations: Status: Acute (2) History of CVA (cerebrovascular accident): Status: Acute Plan day2 31-year-old female with past medical history of CVA presents to the hospital with TIA like symptoms TIA - presenting with numbness of the left upper and lower extremity, facial numbness and tingling - MRI negative but showed chronic multiple strokes lipid panel, echocardiogram , carotid dupplex neuro eval - monitor on telemetry palpitations ekg -seems nsr ? In the multiple CVA in the past will admit to telemetry shortness of breath-improved,mostly excersional - chest x-ray negative, BNP negative, no evidence of radiographic abnormality except a 5 mm nodule that was present previously and has not changed ddimer 02/08 seems <150 echo added - patient has no history of smoking denies any sob today hypertension - stable - continue home meds morbid obesity: Encouraged to cut down calories and weight loss advised. DVT prophylaxis:? Early ambulation Quality Stroke Does the patient have a stroke diagnosis?: No VTE Prior VTE?: No VTE Risk Level:: Medical - low VTE Device Contraindication: Treatment Not Indicated VTE Drug Contraindication: Treatment Not Indicated
--- NOTE | 2022-02-13 15:54 | PC.NURSE ---
PATIENT HAD A LATE LUNCH AT 100 % OF MEAL.
[2022-02-13] MEDS: Enoxaparin Sodium 40 MG/0.4 ML SYRINGE SUBCUT (17:28)
--- NOTE | 2022-02-13 17:32 | PC.NURSE ---
medicated per provider order, 20G IV L AC flushed and patent. pt transferred to ED overflow.
--- NOTE | 2022-02-13 19:48 | PC.NURSE ---
Addendum entered by Mely Paez 02/14/22 07:08: Report given to RAULITO Solis Addendum entered by Mely Paez 02/13/22 19:48: pt is alert and oriented. resting in bed. no signs of acute distress notice. on continuous cardiac monitoring. Original Note: report received from RAULITO Gonzalez
[2022-02-13] MEDS: Topiramate 25 MG TABLET PO (20:02)
[2022-02-13] MEDS: Atorvastatin Calcium 40 MG TABLET PO (20:03)
[2022-02-14 05:44] VITALS: BP 128/79; PULSE 95; RESP 12; TEMP 36.5; O2SAT 95
--- NOTE | 2022-02-14 07:00 | CA_ITS ---
Transthoracic Echocardiogram Patient (Last, First, Middle): Gabriela Bolivar, Gender: Female Date of : 1990 Age: 31 Procedure Date: 02/14/2022 Procedure Type: Transthoracic Echocardiogram Location: ER Height: 167.64 cm Weight: 132.45 kg BSA: 2.35 m2 Heart Rate: bpm BP: 165 / 95 mmHg Image Processing Engineer: SB Referring MD: Sean Robles MD Symptoms: CVA Study Quality: Adequate ECG Rhythm: Sinus Conclusions: - The left ventricular systolic function is normal. The calculated ejection fraction is 65% by biplane method. - Bubble study is of suboptimal quality and cannot exclude PFO (based on available image quality, no bubbles crossover). - No obvious valvular pathology seen on this study. Findings Left Ventricle Normal left ventricular cavity size. There is normal left ventricular wall thickness. The left ventricular systolic function is normal. The calculated ejection fraction is 65% by biplane method. There is no evidence of regional wall motion abnormalities. Diastolic function is normal for age. There is mild septal asymmetric hypertrophy. LV peak GLS -16.8% (minimally reduced). Right Ventricle Normal right ventricular cavity size and systolic function. Atria Both atria are normal in size. Bubble study is of suboptimal quality and cannot exclude PFO. Aortic Valve The aortic valve was not well visualized. There is no aortic valve stenosis. There is no aortic valve regurgitation. Mitral Valve The mitral valve appears normal. There is trace mitral valve regurgitation. There is no mitral valve stenosis. Pulmonic Valve The pulmonic valve is likely normal. Tricuspid Valve Normal tricuspid valve structure. There is no tricuspid valve regurgitation. The pulmonary artery systolic pressure is normal. Great Vessels The asc aorta is normal in size. Venous The inferior vena cava is normal in size and collapses greater than 50% with inspiration. Pericardium/Pleural There is no evidence of pericardial effusion. Prior Study Comparison No prior study available for comparison. Recommendations, Care & Conclusions No obvious valvular pathology seen on this study. Consider a ELLE if clinically appropriate. Measurements 2D Linear Measurements IVSd: 1.11 0.6-0.9/0.6-1.0 cm LVIDd: 6.41 3.9-5.3/4.2-5.9 cm LVIDd Index: 2.73 2.4-3.2/2.2-3.1 cm/m2 LVIDs: 3.78 2.0-3.6 cm LVPWd: 0.84 0.7-1.1 cm LA Diam: 4.90 2.7-3.8/3.0-4.0 cm LAIDs Index: 2.09 1.5-2.3 cm/m2 LV Mass: 334.61 67-162/88-224 g LV Mass Index: 142.39 43-95/49-115 g/m2 LVOT Diam: 2.30 3.0+(-)1.3 cm 2D Systolic Function EF 4C: 67.60 >55% EF 2C: 64.00 >55% EF BiP: 65.40 >55% Mitral Valve MV Pk E: 0.91 MV PK A: 0.47 MV Decel Time: 215.00 E/A: 2.00 E'Lateral: 9.14 E'Medial: 8.59 E/E' Med: 10.60 E/E' Lat: 10.00 PHT: 63.00 MVA PHT: 3.49 Decel Gregg: 4.25 Aortic Valve AoV Pk Robert: 1.49 AoV Mn Robert: 1.02 AoV VTI: 0.30 AoV Pk Grad: 9.00 Aov Mn Grad: 5.00 BENEDICT Cont.VTI: 2.66 LVOT LVOT Pk Robert: 0.84 LVOT Mn Robert: 0.63 LVOT VTI: 0.19 LVOT Pk Grad: 3.00 LVOT Mn Grad: 2.00 LVOT Diam: 2.30 LVOT Area: 4.15 Diastolic Function MV Pk E: 0.91 MV Pk A: 0.47 E/A: 2.00 E'Medial: 8.59 E/E' Med: 10.60 E' Laterial: 9.14 E/E' Lat: 10.00 Right Ventricle TAPSE (mm): 25.90 TVS' Robert: 13.50 Tricuspid Valve RA Press: 3.00 Great Vessels Aorta Sinus of Valsalva: 3.10 2.0-3.5 cm Ao Asc: 3.20 2.1-3.4 cm Ao Arch: 3.40 Pulmonary Valve PV Pk Robert: 0.80 Peak PV Grad: 3.00 Updated in Other Vendor System with Status of Final Mike Weinberg MD electronically signed on 02/14/2022 1:06:28 PM with status of Final
[2022-02-14] MEDS: amLODIPine Besylate 10 MG TABLET PO (08:48)
[2022-02-14] MEDS: busPIRone HCl 5 MG TABLET PO (08:49)
[2022-02-14] MEDS: lisinopriL 5 MG TABLET PO (08:50)
[2022-02-14] MEDS: Escitalopram Oxalate 5 MG TABLET 15 MG PO (08:50)
[2022-02-14] MEDS: 0.9 % Sodium Chloride Flush 3 ML SYRINGE IVFLUSH (08:52)
--- NOTE | 2022-02-14 10:14 | PC.NURSE ---
Report received at shift change from Mely CABEZAS. Patient is resting comfortably on stretcher. Alert and oriented. Reports feeling improved with minimal numbness and tingling noted off and on. Denies difficulty moving extremities or heaviness. Respirations regular and even. Skin PWD. Patient ate breakfast and additional crackers. Able to sit up and eat/drink independently. Remains on surveillance system monitor. Patient is asking for information about current plan. Will continue to monitor.
--- NOTE | 2022-02-14 12:45 | PC.NURSE ---
Walked patient per Dr. Moraes order. Patient ambulated well, hospitalist aware.
[2022-02-14] MEDS: Ketorolac Tromethamine 15 MG/ML VIAL IVPUSH (13:21)
--- NOTE | 2022-02-14 14:40 | P.DS_ITS ---
DS: Providers Provider Date of Service: 02/14/22 Date of admission: 02/12/22 21:54 Primary care physician: DON MG MD Consults: 02/12/22 21:54 Consult to Neurology Routine Consulting Provider: [facility] Reason for consultation: TIA Has provider been notified: Yes DS: Diagnosis Discharge Diagnosis (1) Transient cerebral ischemia: Status: Acute (2) Palpitations: Status: Acute (3) Shortness of breath: Status: Acute (4) History of CVA (cerebrovascular accident): Status: Acute DS: Summary Hospital Course Hospital Course: 31-year-old female past medical history of CVA and hypertension who presents to the hospital with left extremities numbness and tingling as well as face tingling and heavy speech.? Patient reports that while she was cleaning her room and putting way laundry she all of a sudden developed dizziness, left leg and arm numbness tingling as well as headache, patient reports that she felt like her face was also tingling, had heavy tongue and had difficulty talking, this lasted few hours and resolved spontaneously.? Patient also reports intermittent tachycardia and shortness of breath for the past 3 weeks, as well as sharp stabbing pain in the chest mostly on the right side, intermittent for the past 3 weeks, lasting few days, resolving spontaneously, not associated with exertion.? Patient reports she had a history of stroke x2 with no residual deficits. On arrival to the ED patient hemodynamically stable with no significant abnormal vitals Labs are significant for WBC count of 12.4, hemoglobin of 11.6, hematocrit 36.2, BMP unremarkable, troponin negative, BNP negative, EKG showed normal sinus rhythm with no significant abnormality Chest x-ray shows a 5 mm nodule or vessel view on and of the mid left mid lung patient reports that she is aware of this, this is unchanged.? No acute pulmonary process Brain MRI showed no acute intracranial abnormality, chronic infarcts seen within the left parietal and occipital lobe and smaller chronic infarct in the right frontal lobe. hospital course: Patient was initially admitted for left upper extremity numbness/patient numbness, with anxiety, palpitations and somewhat short of breath: Patient was admitted for TIA Workup including CT scan, MRI-no acute changes. Seen by Neurology possible above symptoms related to anxiety and possible related to morbid obesity . Patient has chronic strokes on MRI: Patient refuses aspirin-says her stomach get upset, discussed with neuro -no need to add antiplatlets agent since no acute event on ct/mri. Patient monitored on telemetry-which seems to be fine, no events. In addition also had echo completed: Which seems fine as below: Conclusions: - The left ventricular systolic function is normal.? The ? calculated ejection fraction is 65% by biplane method. ? - Bubble study is of suboptimal quality and cannot exclude PFO ? (based on available image quality, no bubbles crossover).? - No obvious valvular pathology seen on this study.? Currently patient is symptomatic, walked with the staff without and palpitations or any symptoms. Further management out patiently with PCP patient is advised to follow up with PCP in a week time. Above management discussed with the patient in detail length she understand and in agreement with the above plan, time spent 50 minutes and 50% time spent on counseling. Significant findings: As above. Procedures performed: None. Treatment and response: As above. Complications: None. Time Spent with Patient Time attestation: Total time spent providing and/or coordinating discharge services: Discharge coordination time: Greater than 30 minutes Quality: Safe Use of Opioids Does Pt have an Active Cancer Diagnosis on the Problem List?: No Quality: Stroke Does the patient have a stroke diagnosis?: No Physical Exam Vital Signs: Vital Signs: Last Vital Signs Temp 97.7 F 02/14/22 05:44 Pulse 95 02/14/22 05:44 Resp 12 02/14/22 05:44 BP 128/79 02/14/22 05:44 Pulse Ox 95 02/14/22 05:44 O2 Del Method 02/14/22 05:44 O2 Flow Rate 96 02/13/22 15:20 BMI result Body Mass Index 47.2 Appearance: Alert.? Oriented X3.? not in distress.? Eyes: Pupils equal, round and reactive to light.? Sclera nonicteric.? ENT: Pharynx normal.? Moist mucous membranes. cvs: rrr, [id number] , no murmur res: clear to auscultation ,no rhonchii or wheezing abd: no rebound or guarding ,nt, bs present. ext pulses present , no cyanosis. neuro: moves all extermites axo3. DS: Data Additional Comments Additional comments: 06/02/12/22 02/12/22 ? 16:38 16:39 19:15 MCV ? ? ?77.4 L MCH ? ? ?24.8 L MCHC ? ? ?32.0 RDW ? ? ?14.2 Plt Count ? ? ?406 H MPV ? ? ?9.6 Immature Gran % (Auto) ? ? ?0.5 H Neut % (Auto) ? ? ?75.5 H Lymph % (Auto) ? ? ?19.1 L [place] % (Auto) ? ? ?3.2 Eos % (Auto) ? ? ?1.5 Baso % (Auto) ? ? ?0.2 Lymph # (Auto) ? ? ?2.4 [place] # (Auto) ? ? ?0.4 Eos # (Auto) ? ? ?0.2 Baso # (Auto) ? ? ?0.0 Abs Immat Gran (auto) ? ? ?0.06 H Absolute Neuts (auto) ? ? ?9.4 H Absolute Nucleated RBC ? ? ?0.000 Nucleated RBC % (auto) ? ? ?0.0 PT ? ? ? Whole Blood PT ?12.3 ? ? INR ? ? ? Whole Blood INR ?1.0 ? ? APTT ? ? ? Anion Gap ? ? ? Estim Creat Clear Calc ? ? ? Estimated GFR ? ? ? POC Glucose ? ?76 ? Random Glucose ? ? ? Calcium ? ? ? Total Creatine Kinase ? ? ? Troponin I High Sens ? ? ? B-Natriuretic Peptide ? ? ? Triglycerides ? ? ? Cholesterol ? ? ? LDL Cholesterol, Calc ? ? ? HDL Cholesterol ? ? ? Beta HCG, Quant ?B ? ? COVID-19 (BRUNO) ? ? ? COVID-19 Clin Com ? 02/12/22 02/12/22 02/12/22 ? 19:15 19:15 19:15 MCV ? ? ? MCH ? ? ? MCHC ? ? ? RDW ? ? ? Plt Count ? ? ? MPV ? ? ? Immature Gran % (Auto) ? ? ? Neut % (Auto) ? ? ? Lymph % (Auto) ? ? ? [place] % (Auto) ? ? ? Eos % (Auto) ? ? ? Baso % (Auto) ? ? ? Lymph # (Auto) ? ? ? [place] # (Auto) ? ? ? Eos # (Auto) ? ? ? Baso # (Auto) ? ? ? Abs Immat Gran (auto) ? ? ? Absolute Neuts (auto) ? ? ? Absolute Nucleated RBC ? ? ? Nucleated RBC % (auto) ? ? ? PT ?12.7 ? ? Whole Blood PT ? ? ? INR ?1.1 ? ? Whole Blood INR ? ? ? APTT ?30.6 ? ? Anion Gap ? ?14 ? Estim Creat Clear Calc ? ?145.5 ? Estimated GFR ? ?> 60 ? POC Glucose ? ? ? Random Glucose ? ?85 ? Calcium ? ?9.0 ? Total Creatine Kinase ? ?180 H ? Troponin I High Sens ? ? ?< 3.5 B-Natriuretic Peptide ? ? ?14 Triglycerides ? ? ? Cholesterol ? ? ? LDL Cholesterol, Calc ? ? ? HDL Cholesterol ? ? ? Beta HCG, Quant ? ?< 2 ? COVID-19 (BRUNO) ? ? ? COVID-19 Clin Com ? 02/12/22 02/13/22 02/13/22 ? 22:42 06:01 06:01 MCV ? ?76.8 L ? MCH ? ?25.2 L ? MCHC ? ?32.9 ? RDW ? ?14.1 ? Plt Count ? ?398 ? MPV ? ?9.3 L ? Immature Gran % (Auto) ? ?0.7 H ? Neut % (Auto) ? ?63.0 ? Lymph % (Auto) ? ?28.5 ? [place] % (Auto) ? ?4.8 ? Eos % (Auto) ? ?2.6 ? Baso % (Auto) ? ?0.4 ? Lymph # (Auto) ? ?2.6 ? [place] # (Auto)B ? ?0.4 ? Eos # (Auto) ? ?0.2 ? Baso # (Auto) ? ?0.0 ? Abs Immat Gran (auto) ? ?0.06 H ? Absolute Neuts (auto) ? ?5.7 ? Absolute Nucleated RBC ? ?0.000 ? Nucleated RBC % (auto) ? ?0.0 ? PT ? ? ? Whole Blood PT ? ? ? INR ? ? ? Whole Blood INR ? ? ? APTT ? ? ? Anion Gap ? ? ?13 Estim Creat Clear Calc ? ? ?160.1 Estimated GFR ? ? ?> 60 POC Glucose ? ? ? Random Glucose ? ? ?90 Calcium ? ? ?8.7 Total Creatine Kinase ? ? ? Troponin I High Sens ? ? ? B-Natriuretic Peptide ? ? ? Triglycerides ? ? ? Cholesterol ? ? ? LDL Cholesterol, Calc ? ? ? HDL Cholesterol ? ? ? Beta HCG, Quant ? ? ? COVID-19 (BRUNO) ?Negative ? ? COVID-19 Clin Com ?See Note ? ? ? 02/13/22 ? 06:02 MCV ? MCH ? MCHC ? RDW ? Plt Count ? MPV ? Immature Gran % (Auto) ? Neut % (Auto) ? Lymph % (Auto) ? [place] % (Auto) ? Eos % (Auto) ? Baso % (Auto) ? Lymph # (Auto) ? [place] # (Auto) ? Eos # (Auto) ? Baso # (Auto) ? Abs Immat Gran (auto) ? Absolute Neuts (auto) ? Absolute Nucleated RBC ? Nucleated RBC % (auto) ? PT ? Whole Blood PT ? INR ? Whole Blood INR ? APTT ? Anion Gap ? Estim Creat Clear Calc ? Estimated GFR ? POC Glucose ? Random Glucose ? Calcium ? Total Creatine Kinase ? Troponin I High Sens ? B-Natriuretic Peptide ? Triglycerides ?181 Cholesterol ?204 LDL Cholesterol, Calc ?138 HDL Cholesterol ?30 Beta HCG, Quant ? COVID-19 ([facility]O) ? COVID-19 Clin Com ? ?MR/MR head/brain wo con IMPRESSION: No acute intracranial abnormality identified. Chronic infarct seen within the left parietal and occipital lobe and smaller chronic infarct in the right frontal lobe. CT/CT head for stroke IMPRESSION: No acute intracranial findings. Old small infarcts in the left posterior parietal and left occipital lobes that appear unchanged. ? This critical result was discussed with Dr. Rodriguez at 1638 hours on 02/12/2022. It was ascertained that the content and urgency of the report was understood at the time of direct communication. Discharge Plan Discharge Patient Disposition: Home, Self-Care Discharge Diagnosis: extermities numbness Referrals: Don Mg [Primary Care Provider] - 1 Week Discharge Medications: Continued amlodipine [Norvasc] 10 mg tablet 10 mg PO DAILY Qty: 30 0RF buspirone 5 mg tablet 1 tab PO BID topiramate 25 mg tablet 1 tab PO BEDTIME lisinopril 5 mg tablet 1 tab PO DAILY fluticasone propionate 50 mcg/actuation spray,suspension 2 spray intranasal DAILY PRN (Reason: ear pressure) escitalopram oxalate 10 mg tablet 1.5 tab PO DAILY Discharge Orders: Discharge Order (Routine); Ordered 02/14/22 Ordered By: Jl Moraes Diet: Low fat, low cholesterol Activity on Discharge: As tolerated Stand Alone Forms: Patient Portal Discharge page Care Plan Goals: Patient came with upper extremity numbness-workup including set CT scan and MRI reviewed by Neurology -no acute events, also heart echo was done which is mostly seems fine. Patient telemetry seems fine also, patient was advised to encouraged to lose weight and consider outpatient bariatric evaluation. Follow-up with Dr. ram Neurology out patiently for headaches. Patient is improved now, advised to follow-up with PCP, consider outpatient bariatric evaluation also. Health Concerns: As above. Plan of Treatment: As above. Assessment: As above.
== END 2022-02-14 15:04 | disposition home or self-care (01) ==
LOC: HO.ED 20:18 → HO.EDOVER 22:02
PROVIDERS: Admitting Provider Internal Medicine; Emergency Provider Emergency Medicine; PCP Internal Medicine; Visit Provider Internal Medicine
DX: G45.9 Transient cerebral ischemic attack, unspecified (principal); R00.2 Palpitations; R20.0 Anesthesia of skin; I10 Essential (primary) hypertension; F41.9 Anxiety disorder, unspecified; E66.01 Morbid (severe) obesity due to excess calories; Z71.3 Dietary counseling and surveillance; Z68.42 Body mass index [BMI] 45.0-49.9, adult; G93.49 Other encephalopathy; R51.9 Headache, unspecified; G89.29 Other chronic pain; Z79.899 Other long term (current) drug therapy; Z20.822 Contact with and (suspected) exposure to COVID-19
CPT/HCPCS: 36415; 70450; 70551; 71045; 80048; 80061; 82550; 82947; 83880; 84484; 84702; 85025; 85610; 85730; 87635; 93005; 93306; 97161; 99219; 99285; J1650; J1885; J2405

== ENCOUNTER 2022-03-31 14:01 | Emergency (ER) | payer OTHER, SELFPAY ==
--- NOTE | 2022-03-31 | ECG_ITS ---
Test Reason : SOB Blood Pressure : / mmHG Vent. Rate : 072 BPM Atrial Rate : 072 BPM P-R Int : 160 ms QRS Dur : 110 ms QT Int : 392 ms P-R-T Axes : 031 000 017 degrees QTc Int : 429 ms Normal sinus rhythm Normal ECG When compared with ECG of 12-FEB-2022 16:40, No significant change was found Referred By: Praneeth Wan Electronically Signed By:YU LEYVA
--- NOTE | ~2022-03-31 | XR_ITS ---
EXAMINATION: XR CHEST CLINICAL INFORMATION: Shortness of breath. Cough. COMPARISON: Chest x-ray 02/12/2022 TECHNIQUE: Frontal view of the chest was obtained. 2:53 PM FINDINGS: No significant abnormality is noted involving the heart, lungs, mediastinum, bony thorax or soft tissues. XR/XR chest 1V IMPRESSION: Unremarkable examination.
[2022-03-31 14:33] VITALS: BP 126/75; PULSE 77; RESP 20; TEMP 36.5; O2SAT 98; BMI 43.8
--- NOTE | 2022-03-31 19:00 | ED_ITS ---
HPI - General Adult General Chief complaint: General Medical Stated complaint: diff. breathing/pain in L foot Time Seen by Provider: 03/31/22 19:00 Source: patient Mode of arrival: ambulatory Limitations: no limitations History of Present Illness HPI narrative: 31-year-old female who presents emergency department for evaluation of cough times 2 weeks, chest pain, shortness of breath, palpitations and numbness of her left leg. The patient states she has had a nonproductive cough approximately 2 weeks, she states is gotten worse over the past week. She states she saw her PCP 2 weeks prior and was and was given an albuterol inhaler which is not improved her symptoms. She states that she has a persistent cough which is nonproductive, she states that she feels short of breath and has dyspnea on exertion. She is also complaining of chest pain, she points to her sternum when asked close the pain, she describes this as a fluttering sensation. She states she is being worked up for palpitations and is going to see a access clerk. She denied fever, chills, rhinorrhea, sore throat, nausea, vomiting. She states she did have 1 or 2 episodes of diarrhea. She states that today she had numbness and tingling of her left lower extremity and she had a warm sensation in her leg. States these symptoms resolved. The patient does have a history of CVA in the past. She was recently hospitalized from 02/12/2022 until 02/14/2022 for left arm and left leg numbness/tingling with difficulty talking, palpitations and shortness of breath. Patient had a CT scan an MRI with no acute changes, patient did have a chronic infarct seen in the left parietal and occipital lobes and small chronic infarcts in the right frontal lobe on the MRI. The patient did have a neurology consult and was felt that her symptoms may be related to her anxiety or possibly related to her obesity, they recommended starting her on aspirin but she refused this therapy MD complaint: Cough Onset (ago): week(s) (2) Related Data Home Medications Medication Instructions Recorded Confirmed escitalopram oxalate 10 mg tablet 1.5 tab PO DAILY 02/12/22 02/12/22 fluticasone propionate 50 2 spray intranasal DAILY PRN ear 02/12/22 02/12/22 mcg/actuation nasal pressure spray,suspension lisinopril 5 mg tablet 1 tab PO DAILY 02/12/22 02/12/22 topiramate 25 mg tablet 1 tab PO BEDTIME 02/12/22 02/12/22 Previous Rx's Medication Instructions Recorded amlodipine 10 mg tablet (Norvasc) 10 mg PO DAILY #30 tabs 07/02/21 atorvastatin 20 mg tablet 20 mg PO DAILY #30 tabs 02/14/22 azithromycin 250 mg tablet See Rx Instructions PO .COMPLEX #6 03/31/22 (Zithromax Z-Santos) tabs prednisone 20 mg tablet 60 mg PO DAILY 5 days #15 tabs 03/31/22 Allergies Allergy/AdvReac Type Severity Reaction Status Date / Time Sulfa (Sulfonamide Allergy Severe anaphylaxis Verified 06/10/21 11:37 Antibiotics) codeine [CODEINE] Allergy Intermediate Rash Verified 06/10/21 11:37 hydrocodone [Vicodin] Allergy Intermediate Rash Verified 06/10/21 11:37 Codeine Phosphate Allergy Unknown Rash Uncoded 05/03/21 20:18 DTap vaccine Allergy Unknown Unknown Uncoded 04/22/21 12:00 From VICODIN Allergy Unknown Rash Uncoded 05/03/21 20:18 Review of Systems Review of Systems: Yes all other systems are reviewed and are negative [facility] Past Medical History [facility] Narrative: Past medical history: Hypertension, seasonal allergies, CVA, social history: She denies tobacco , she occasionally drinks alcohol, she denies drug use. Medical History Hypertension Surgical History Delivery by section History of tonsillectomy Family History Family History Other No family history of cerebrovascular accident (CVA) Social History Social History Alcohol intake: unknown Patient Tobacco Use Status: Never used Tobacco Advance Directives: No Advance Directives Information Provided: No service: No Current occupational status: unemployed Current occupation: rt handed Physical Exam ED Vital Signs: Vital Signs - 24 hr 03/31/22 14:33 Temperature 97.7 F Pulse Rate 77 Respiratory Rate 20 Blood Pressure 126/75 Pulse Oximetry 98 Oxygen Delivery Method Room Air BMI result Body Mass Index 43.8 Const Other: Awake, alert, female patient, very pleasant cooperative, the patient had a persistent, nonproductive sign cough throughout my entire interview, she has an elevated BMI of 43.9 HENMT Head: Yes normal to inspection, Yes normocephalic and Yes atraumatic Ears: external ears normal General nose exam: Normal external nose present Face and sinus: Yes normal facial exam Mouth: Normal oral and palatal mucosa present Throat: Yes posterior oropharynx normal Eyes General: appearance normal, both eyes and all related structures Pupils: Equal, round and reactive pupils present Neck Neck: Yes normal visual inspection, Yes no lymphadenopathy, Yes trachea midline and Yes supple Chest Chest palpation & inspection: normal inspection of the chest and normal palpation of entire chest wall Resp Effort & Inspection: normal respiratory effort and able to speak in complete sentences Auscultation: clear to auscultation bilaterally Cardio Rate: regular rate Rhythm: regular rhythm Heart sounds: S1 normal heart sound present, S2 normal heart sound present and no murmurs GI Inspection: Yes normal to inspection Palpation (GI): Soft to palpation, nontender and no guarding Auscultation: normal bowel sounds General: Yes no CVA tenderness Back/Spine/Pelvis Back: no CVA tenderness Skin General skin exam: no rashes or lesions noted Neuro Cranial nerves: Yes CN's II-XII intact bilaterally and Yes Equal, round and reactive pupils present Cognition (Neuro): normal cognition Motor exam (neuro): 5/5 motor strength present throughout Extrem General: Yes normal to inspection Psych Appearance: grossly normal Speech and movement: Normal speech and movement present Affect: normal affect Attitude: cooperative Thought process: Normal thought process present Thought content: Normal thought content present Course Course Course Narrative: 31-year-old female who presents emergency department for evaluation of persistent, nonproductive cough x2 weeks, palpitations, chest pain and intermittent numbness of her right lower extremity. Vital signs were normal. The patient's lung exam was clear to auscultation with no wheezing or rales. The patient's neurologic exam was normal. At this time a concerned the patient may have an atypical bacterial infection verses a viral infection causing her cough and her shortness of breath. Patient does have a history of strokes but I do not think that her leg symptoms are consistent with a stroke at this time specially since her oxygen was normal. I did discuss this with her. Patient will be treated with Zithromax Z-Santos, prednisone 60 mg once a day for 5 days advised to continue taking her inhaler. She was given printed and verbal ins tructions discharged home. Discharge Plan Discharge Clinical Impression: Bronchitis, Left leg numbness Patient Disposition: Home, Self-Care Instructions: Acute Bronchitis (ED) Additional Instructions: Your cough may be secondary to an atypical bacterial infection or a virus. I am going to start you on an antibiotic and steroids to see if this improves her symptoms. Take Zithromax (azithromycin) Z-Santos as prescribed. Day 1 take 2 pills, each day after that take 1 pill for total of 5 days. This medication states in your system for 7-10 days and continues to work despite only taking it for 5 days. Take prednisone 20 mg pills, 3 pills once a day for 5 days. While you are taking prednisone, do not take any NSAIDs (Motrin, Advil, ibuprofen, Aleve, naproxen). Follow-up with your doctor in 2 days. Please return to the emergency department if your symptoms get worse or if you develop any symptoms that are concerning to you. Prescriptions: New azithromycin [Zithromax Z-Santos] 250 mg tablet See Rx Instructions .ROUTE .COMPLEX Qty: 6 0RF Rx Instructions: take 500 mg today (day 1), then 250 mg for 4 days (days 2-5) prednisone 20 mg tablet 60 mg PO DAILY 5 Days Qty: 15 0RF No Action amlodipine [Norvasc] 10 mg tablet 10 mg PO DAILY Qty: 30 0RF topiramate 25 mg tablet 1 tab PO BEDTIME lisinopril 5 mg tablet 1 tab PO DAILY fluticasone propionate 50 mcg/actuation spray,suspension 2 spray intranasal DAILY PRN (Reason: ear pressure) escitalopram oxalate 10 mg tablet 1.5 tab PO DAILY atorvastatin 20 mg tablet 20 mg PO DAILY Qty: 30 0RF
== END 2022-03-31 21:12 | disposition home or self-care (01) ==
PROVIDERS: Emergency Provider Emergency Medicine Emergency Medical Services
DX: J40 Bronchitis, not specified as acute or chronic (principal); R20.0 Anesthesia of skin; I10 Essential (primary) hypertension; Z86.73 Personal history of transient ischemic attack (TIA), and cerebral infarction without residual deficits; Z79.02 Long term (current) use of antithrombotics/antiplatelets; Z79.899 Other long term (current) drug therapy
CPT/HCPCS: 71045; 93005; 99283

== ENCOUNTER 2022-04-23 11:47 | Emergency (ER) | payer OTHER, SELFPAY ==
--- NOTE | ~2022-04-23 | XR_ITS ---
EXAMINATION: X-RAY LUMBAR SPINE X-RAY SACRUM AND COCCYX CLINICAL INFORMATION: Pain, fall COMPARISON: None TECHNIQUE: Lumbar spine 3 views. Sacrum and coccyx 3 views. FINDINGS: Lumbar spine: Normal posterior alignment. Vertebral body heights are maintained. No evidence of acute vertebral body compression deformity/fracture.. Disc spaces are maintained. Paraspinal musculature appears unremarkable. Nonobstructive bowel gas pattern. Sacrum and coccyx: Mild gas and stool projected over portions of the sacrum and coccyx on the frontal projections, limiting evaluation. No diastases of the SI joints or symphysis pubis. Partially imaged hips, with normal alignment. In the visualized sacrum, including the lateral view, no visible acute fracture or malalignment. Visualized pelvic bones appear intact. XR/XR lumbar spine 2-3V IMPRESSION: 1. No radiographic evidence of acute fracture or malalignment of the lumbar spine. 2. No radiographically evident acute sacrum or coccygeal fracture, evaluation limited on the frontal projections.
--- NOTE | ~2022-04-23 | XR_ITS ---
EXAMINATION: X-RAY LUMBAR SPINE X-RAY SACRUM AND COCCYX CLINICAL INFORMATION: Pain, fall COMPARISON: None TECHNIQUE: Lumbar spine 3 views. Sacrum and coccyx 3 views. FINDINGS: Lumbar spine: Normal posterior alignment. Vertebral body heights are maintained. No evidence of acute vertebral body compression deformity/fracture.. Disc spaces are maintained. Paraspinal musculature appears unremarkable. Nonobstructive bowel gas pattern. Sacrum and coccyx: Mild gas and stool projected over portions of the sacrum and coccyx on the frontal projections, limiting evaluation. No diastases of the SI joints or symphysis pubis. Partially imaged hips, with normal alignment. In the visualized sacrum, including the lateral view, no visible acute fracture or malalignment. Visualized pelvic bones appear intact. XR/XR sacrum coccyx min 2V IMPRESSION: 1. No radiographic evidence of acute fracture or malalignment of the lumbar spine. 2. No radiographically evident acute sacrum or coccygeal fracture, evaluation limited on the frontal projections.
[2022-04-23 11:51] VITALS: BP 119/87; PULSE 60; O2SAT 100
[2022-04-23 12:29] VITALS: BP 132/73; PULSE 60; RESP 16; TEMP 36.8; O2SAT 98; BMI 45.1
--- NOTE | 2022-04-23 12:48 | ED.FALL ---
HPI - Fall General Chief Complaint: Fall Stated Complaint: FALL DOWN 3 STEPS,NAUSEA,BUTTOCK/LOW BACK PAIN Time Seen by Provider: 04/23/22 11:52 Source: patient Mode of arrival: EMS Limitations: no limitations History of Present Illness HPI Narrative: patient presents emergency department for evaluation after a mechanical slip and fall. She was going down the stairs which were wet due to the rain, and she slipped, subsequently falling down 3 stairs. She landed on her left buttock/ back. She is currently having pain to the left lower back radiating into the buttock denies any numbness or tingling to the extremity. Denies any numbness or tingling to perineum/ genitalia. Denies any bladder bowel dysfunction. Denies recent fevers, chills, urinary frequency/ urgency. denies any prior back surgeries, immunosuppressant conditions, or IV drug usage. Related Data Home Medications Medication Instructions Recorded Confirmed escitalopram oxalate 10 mg tablet 1.5 tab PO DAILY 02/12/22 02/12/22 fluticasone propionate 50 2 spray intranasal DAILY PRN ear 02/12/22 02/12/22 mcg/actuation nasal pressure spray,suspension lisinopril 5 mg tablet 1 tab PO DAILY 02/12/22 02/12/22 topiramate 25 mg tablet 1 tab PO BEDTIME 02/12/22 02/12/22 Previous Rx's Medication Instructions Recorded amlodipine 10 mg tablet (Norvasc) 10 mg PO DAILY #30 tabs 07/02/21 atorvastatin 20 mg tablet 20 mg PO DAILY #30 tabs 02/14/22 azithromycin 250 mg tablet See Rx Instructions PO .COMPLEX #6 03/31/22 (Zithromax Z-Santos) tabs prednisone 20 mg tablet 60 mg PO DAILY 5 days #15 tabs 03/31/22 cyclobenzaprine 10 mg tablet 10 mg PO BEDTIME PRN muscle spasm 04/23/22 #10 tabs lidocaine 5 % topical patch 2 patch topical DAILY #30 ea 04/23/22 (Lidoderm) Allergies Allergy/AdvReac Type Severity Reaction Status Date / Time Sulfa (Sulfonamide Allergy Severe anaphylaxis Verified 06/10/21 11:37 Antibiotics) codeine [CODEINE] Allergy Intermediate Rash Verified 06/10/21 11:37 hydrocodone [Vicodin] Allergy Intermediate Rash Verified 06/10/21 11:37 Codeine Phosphate Allergy Unknown Rash Uncoded 05/03/21 20:18 DTap vaccine Allergy Unknown Unknown Uncoded 04/22/21 12:00 From VICODIN Allergy Unknown Rash Uncoded 05/03/21 20:18 Review of Systems Review of Systems: Constitutional: No weight loss, fever, chills, weakness or fatigue. Skin: No rash or itching. Cardiovascular: No chest pain, chest pressure or chest discomfort. No palpitations or pedal edema. Respiratory: No shortness of breath, cough or sputum production. Gastrointestinal: No nausea, vomiting or diarrhea. No abdominal pain . Genitourinary: No burning micturition. No urinary frequency or incontinence. Neurologic: No headache, dizziness, syncope, unilateral weakness, ataxia, numbness or tingling in the extremities. No change in bowel or bladder control. Musculoskeletal: + Back pain as noted in HPI. No joint pain or stiffness. Hematologic: No bleeding or bruising. Yes all other systems are reviewed and are negative PMFSH Past Medical History Attestation statement: The following information was validated with the patient. Source: old records reviewed Medical History Hypertension Surgical History Delivery by section History of tonsillectomy Family History Family History Other No family history of cerebrovascular accident (CVA) Social History Social History Alcohol intake: unknown Patient Tobacco Use Status: Never used Tobacco Advance Directives: No Advance Directives Information Provided: No service: No Current occupational status: unemployed Current occupation: rt handed Physical Exam Vital Signs: Vital Signs: Last Vital Signs Temp 98.3 F 04/23/22 12:29 Pulse 60 04/23/22 12:29 Resp 16 04/23/22 12:29 BP 132/73 04/23/22 12:29 Pulse Ox 98 04/23/22 12:29 O2 Del Method 04/23/22 12:29 BMI result Body Mass Index 45.1 Vital signs have been reviewed as normal and appeared to be correct. Blood pressure normal.? Heart rate normal.? Respiration rate normal. Temperature normal.? Oxygen saturation normal. Appearance: Alert.?Oriented to person, place and time. No acute distress.?Normal affect. Eyes: Pupils equal, round and reactive to light.? ENT: Pharynx normal.?? Neck: Normal inspection.? Neck supple.?? CVS: Heart sounds normal. Normal heart rate and rhythm.? Pulses normal; bilateral radial pulses 2+, bilateral posterior tibial/dorsalis pedis pulses 2+.? Respiratory: No respiratory distress.? Lung sounds clear to auscultation bilaterally?? Abdomen: Soft and non-tender. Normoactive bowel sounds. No pulsatile mass.?? Skin: Skin warm and dry.? Normal skin color.? Normal skin turgor.?? Extremities: No lower extremity edema.? No calf ttp? Back: + mild Left paraspinal muscular tenderness from lumbar region to coccyx. No CVA tenderness. No midline spinal tenderness, step-off's, or deformity. Full ROM intact in bilateral lower extremities. Straight leg test negative on right; Straight leg test positive on left. No rashes, lesions, areas of induration or fluctuance, or signs of infection noted. Neuro: Moves all extremities spontaneously. 5/5 strength in hip extension/flexion, abduction, adduction. Sensation to light touch intact bilaterally. Patellar and Achilles reflex 2+ bilaterally. No ataxia, gait normal and steady.. No focal neuro deficits. Course Course Course Narrative: patient is a 31-year-old female with a past medical history of TIA, CVA, presents to the emergency department for evaluation of traumatic back pain after mechanical slip and fall today. There is no obvious deformity upon exam. Has full range of motion to the left hip, this does however exacerbate her pain. XR of the lumbar and sacrum reveals no acute fracture dislocation. Has tenderness upon palpation of the paraspinal muscles and into the buttock. Pain is most consistent with muscular pain, although cannot completely exclude herniated disc. On neurological exam there are no deficits. Not consistent with spinal fracture, spinal infection, AAA, epidural abscess, or dissection. No high risk past medical history including incontinence, fever, immunosuppression, recent surgery or lumbar puncture, coagulopathy, significant trauma, recent unintentional weight loss, pulsatile mass, history of cancer, history of TB, history of IV drug use that would warrant MRI or CT. On exam no concern for cauda equina syndrome. Plan for discharge home with Prescription for Lidoderm patch, cyclobenzaprine to use as needed if Tylenol is not helpful, rest, gentle stretching and exercise over the next few days, and follow-up with primary care provider, and patient agreed with plan. ambulatory with steady gait out of the emergency department. MDM - Fall Medical Records Attestation: I reviewed the patient's medical records. Discharge Plan Discharge Clinical Impression: Lumbar strain Patient Disposition: Home, Self-Care Instructions: Low Back Strain (ED), Lower Back Exercises (ED) Additional Instructions: As we discussed avoid the use of NSAIDs as these have given you problems with bleeding in the past You can take Tylenol 500 mg, 2 tablets (1,000mg) every 4-6 hours as needed for pain, but not to exceed 3 doses daily (3,000mg).? Use Lidoderm patches to areas of most pain, leave on for 12 hours and then removed from 12 hours. Do not use any heating pad directly over the Lidoderm patches. You have additionally been given a prescription for cyclobenzaprine, this is a muscle relaxer, it may make you drowsy, do not drive, drink alcohol, go to work or operate any machinery while taking this medication. Use this as needed at bedtime for pain despite the use of Tylenol/Lidoderm Please contact your primary care provider to arrange for a follow-up visit for further evaluation and treatment. You may return to the emergency department any new or worsening symptoms or concerns. Prescriptions: New lidocaine [Lidoderm] 5 % adhesive patch,medicated 2 patch topical DAILY Qty: 30 0RF Rx Instructions: leave on most painful area for up to 12 hrs cyclobenzaprine 10 mg tablet 10 mg PO BEDTIME PRN (Reason: muscle spasm) Qty: 10 0RF No Action azithromycin [Zithromax Z-Santos] 250 mg tablet See Rx Instructions .ROUTE .COMPLEX Qty: 6 0RF Rx Instructions: take 500 mg today (day 1), then 250 mg for 4 days (days 2-5) prednisone 20 mg tablet 60 mg PO DAILY 5 Days Qty: 15 0RF amlodipine [Norvasc] 10 mg tablet 10 mg PO DAILY Qty: 30 0RF topiramate 25 mg tablet 1 tab PO BEDTIME lisinopril 5 mg tablet 1 tab PO DAILY fluticasone propionate 50 mcg/actuation spray,suspension 2 spray intranasal DAILY PRN (Reason: ear pressure) escitalopram oxalate 10 mg tablet 1.5 tab PO DAILY atorvastatin 20 mg tablet 20 mg PO DAILY Qty: 30 0RF Referrals: Jade Mg MD [Primary Care Provider] - Interventions: ED Discharge Assessment Last Done: 04/23/22 13:12 Discharge Date/Time: 04/23/22 13:12
== END 2022-04-23 13:12 | disposition home or self-care (01) ==
PROVIDERS: Emergency Provider Emergency Medicine; PCP Internal Medicine
DX: S39.012A Strain of muscle, fascia and tendon of lower back, initial encounter (principal); W10.8XXA Fall (on) (from) other stairs and steps, initial encounter; Y93.89 Activity, other specified; Y92.9 Unspecified place or not applicable; Y99.9 Unspecified external cause status
CPT/HCPCS: 72100; 72220; 99282; 99283

== ENCOUNTER 2022-06-20 08:38 | Emergency (ER) | payer OTHER, SELFPAY ==
--- NOTE | 2022-06-20 08:40 | ECG_ITS ---
Test Reason : chest pain Blood Pressure : / mmHG Vent. Rate : 067 BPM Atrial Rate : 067 BPM P-R Int : 164 ms QRS Dur : 112 ms QT Int : 428 ms P-R-T Axes : 032 -04 005 degrees QTc Int : 452 ms Normal sinus rhythm Incomplete left bundle branch block Minimal voltage criteria for LVH, may be normal variant ( R in aVL ) Borderline ECG When compared with ECG of 31-MAR-2022 18:55, No significant change was found Referred By: Generic ED Physician Electronically Signed By:LOLITA FLANAGAN MD
[2022-06-20 09:00] LABS: MANUAL DIFF FLAG NO
[2022-06-20 09:01] LABS: Basophils Percent Auto 0.3 % (0-2); Eosinophils Absolute Auto 0.2 X10*3/uL (0.0-0.4); Eosinophils Percent Auto 2.4 % (0-4); Hematocrit 36.9 % (37.0-47.0); Hemoglobin 11.8 g/dl (12.0-16.0); Imm Gran Abs Auto 0.09 X10*3/uL (0.00-0.03); Imm Gran Pct Auto 0.9 % (0.0-0.4); Lymphocytes Absolute Auto 2.3 X10*3/uL (1.2-4.9); Lymphocytes Percent Auto 22.8 % (20-40); Mean Corpuscular Hemoglobin 25.4 pg (27.0-33.0); Mean Corpuscular Volume 79.4 fL (80.0-98.0); Mean Platelet Volume 9.1 fL (9.4-12.3); Monocytes Absolute Auto 0.4 X10*3/uL (0.1-1.2); Monocytes Percent Auto 4.4 % (2-11); Neutrophils Percent Auto 69.2 % (45-73); Platelet Count 449 X10*3/uL (160-400); Red Blood Count 4.65 X10*6/uL (4.20-5.50); Red Cell Distribution Width 13.5 % (11.0-16.0); White Blood Count 10.1 X10*3/uL (4.8-10.8)
[2022-06-20 09:17] LABS: Anion Gap 16 (12-20); Blood Urea Nitrogen 15 mg/dL (9-16); Calcium 8.8 mg/dL (8.4-10.2); Carbon Dioxide 25 mmol/L (22-29); Chloride 102 mmol/L (96-108); Estimated Glomerular Filt Rate > 60; Glucose Random 97 mg/dL (60-115); Sodium 139 mmol/L (135-145)
[2022-06-20 09:25] LABS: Troponin-I High Sensitivity < 3.5 ng/L (<3.5-17.0)
[2022-06-20 09:37] VITALS: BP 135/90; PULSE 66; RESP 16; TEMP 36.3; O2SAT 95; BMI 42.3
== END 2022-06-20 17:20 | disposition left against medical advice (07) ==
PROVIDERS: Emergency Provider Emergency Medicine; PCP Internal Medicine
DX: R07.89 Other chest pain (principal); R60.0 Localized edema; Z79.899 Other long term (current) drug therapy
CPT/HCPCS: 36415; 80048; 84484; 85025; 93005; 99281; 99283

== ENCOUNTER 2022-06-30 10:46 | Emergency (ER) | payer OTHER, SELFPAY ==
--- NOTE | ~2022-06-30 | CT_ITS ---
EXAMINATION: CT ABDOMEN AND PELVIS WITHOUT CONTRAST CLINICAL INFORMATION: Right lower quadrant pain. Rule out appendicitis. Patient states abdominal pressure. COMPARISON: None. TECHNIQUE: Multidetector volumetric imaging was performed from the superior aspect of the liver through the pubic symphysis. Sagittal and coronal reformatted images were obtained on the technologist workstation. This CT examination was performed using dose optimization techniques as appropriate, variously including the following: *Automated exposure control *Adjustment of mA and/or kV according to patient size (this includes techniques or standardized protocols for targeted exams where dose is matched to indication/reason for exam; i.e. extremities or head) *Use of iterative reconstruction technique DLP: 1101 mGy-cm. FINDINGS: LUNG BASES: Posterior left hemidiaphragmatic defect with herniation of fat seen, consistent with a Bochdalek type hernia. The visualized lung bases are otherwise unremarkable. LIVER, GALLBLADDER, AND BILIARY TREE: The liver is enlarged, measuring 20.5 cm longitudinally. Liver is normal in shape and attenuation. No focal hepatic lesion on noncontrast imaging. No biliary ductal dilatation is present. The gallbladder is unremarkable with no evidence of radiopaque gallstones, gallbladder wall thickening, or obvious pericholecystic inflammatory changes. PANCREAS: Unremarkable on noncontrast imaging. SPLEEN: Unremarkable. ADRENAL GLANDS: Unremarkable on noncontrast imaging. KIDNEYS AND URETERS: The kidneys are normal in size, shape, and attenuation. No hydronephrosis, hydroureter, or calculi seen. No perinephric stranding. BLADDER: Decompressed and suboptimally assessed, but grossly unremarkable. Incidentally noted is a fibrous urachal remnant extending up to the umbilicus.. PELVIC VISCERA: Unremarkable. GASTROINTESTINAL TRACT: The small and large bowel are unremarkable. The appendix is retrocecal in location and normal nonspecific mildly prominent but subcentimeter sized right lower quadrant mesenteric lymph nodes are seen.. ABDOMINAL WALL: Small fat-containing umbilical hernia is noted. LYMPH NODES, VASCULAR: Unremarkable. OSSEOUS STRUCTURES: Minimal anterior vertebral spurring is seen in the lower thoracic spine . No suspicious bone findings. CT/CT abdomen pelvis wo IV con IMPRESSION: 1. No acute intra-abdominal or pelvic findings seen to explain the patient's right lower quadrant pain. Specifically, no evidence of acute appendicitis. 2. Mild hepatomegaly. 3. Small fat-containing umbilical hernia.
[2022-06-30 10:59] VITALS: BP 154/92; PULSE 77; RESP 16; TEMP 36.3; O2SAT 98; BMI 44.4
[2022-06-30 11:31] LABS: MANUAL DIFF FLAG NO
[2022-06-30 11:32] LABS: Basophils Absolute Auto 0.1 X10*3/uL (0.0-0.2); Basophils Percent Auto 0.4 % (0-2); Eosinophils Absolute Auto 0.2 X10*3/uL (0.0-0.4); Eosinophils Percent Auto 1.6 % (0-4); Hematocrit 37.3 % (37.0-47.0); Hemoglobin 11.8 g/dl (12.0-16.0); Imm Gran Abs Auto 0.12 X10*3/uL (0.00-0.03); Lymphocytes Absolute Auto 2.5 X10*3/uL (1.2-4.9); Lymphocytes Percent Auto 20.3 % (20-40); Mean Corpuscular HGB Conc 31.6 g/dl (31.0-35.0); Mean Corpuscular Hemoglobin 25.1 pg (27.0-33.0); Mean Corpuscular Volume 79.2 fL (80.0-98.0); Mean Platelet Volume 9.4 fL (9.4-12.3); Monocytes Absolute Auto 0.5 X10*3/uL (0.1-1.2); Neutrophils Absolute Auto 9.1 x10*3/uL (2.0-8.3); Neutrophils Percent Auto 72.7 % (45-73); Platelet Count 459 X10*3/uL (160-400); Red Blood Count 4.71 X10*6/uL (4.20-5.50); Red Cell Distribution Width 13.5 % (11.0-16.0); White Blood Count 12.5 X10*3/uL (4.8-10.8)
[2022-06-30 11:33] LABS: Appearance Urine Clear; Color Urine Yellow; Glucose Urine UA Negative (Negative); Leukocyte Esterase Urine Negative (Negative); Nitrite Urine Negative (Negative); PH 5.5 (5.0-9.0); Specific Gravity - Urine 1.025 (1.005-1.025); Urine Blood Negative (Negative); Urine Ketones Negative (Negative); Urine Protein Negative (Neg-Trace)
[2022-06-30 11:47] LABS: Alanine Aminotransferase 19 U/L (0-31); Albumin Level 4.2 g/dL (3.5-5.0); Alkaline Phosphatase 68 U/L (39-117); Anion Gap 15 (12-20); Aspartate Amino Transferase 16 U/L (5-31); Bilirubin Total 0.5 mg/dL (0.0-1.0); Blood Urea Nitrogen 12 mg/dL (9-16); Carbon Dioxide 23 mmol/L (22-29); Chloride 104 mmol/L (96-108); Creatinine Clr Calc Pharmacy 163.5; Estimated Glomerular Filt Rate > 60; Glucose Random 90 mg/dL (60-115); Potassium 4.3 mmol/L (3.3-5.1); Sodium 138 mmol/L (135-145); Total Protein 7.3 g/dL (6.5-8.0)
--- NOTE | 2022-06-30 12:05 | ED_ITS ---
HPI - Abdominal Pain General Chief Complaint: Abdominal Pain Stated Complaint: abd pain Time Seen by Provider: 06/30/22 11:55 Source: patient Mode of arrival: ambulatory Limitations: no limitations History of Present Illness HPI narrative: 31-year-old female came in for evaluation for right lower quadrant abdominal pain started about a week ago. Pain is localized toes the right side of the abdomen that is been constant, pain is associated with decreased p.o. intake, feel nauseous but no vomiting, normal bowel movements, pain is worsening with urination. No fever or chills. Past surgical history is and tubal ligation. Related Data Home Medications Medication Instructions Recorded Confirmed escitalopram oxalate 10 mg tablet 1.5 tab PO DAILY 02/12/22 02/12/22 fluticasone propionate 50 2 spray intranasal DAILY PRN ear 02/12/22 02/12/22 mcg/actuation nasal pressure spray,suspension lisinopril 5 mg tablet 1 tab PO DAILY 02/12/22 02/12/22 topiramate 25 mg tablet 1 tab PO BEDTIME 02/12/22 02/12/22 Previous Rx's Medication Instructions Recorded amlodipine 10 mg tablet (Norvasc) 10 mg PO DAILY #30 tabs 07/02/21 atorvastatin 20 mg tablet 20 mg PO DAILY #30 tabs 02/14/22 azithromycin 250 mg tablet See Rx Instructions PO .COMPLEX #6 03/31/22 (Zithromax Z-Santos) tabs prednisone 20 mg tablet 60 mg PO DAILY 5 days #15 tabs 03/31/22 cyclobenzaprine 10 mg tablet 10 mg PO BEDTIME PRN muscle spasm 04/23/22 #10 tabs lidocaine 5 % topical patch 2 patch topical DAILY #30 ea 04/23/22 (Lidoderm) Allergies Allergy/AdvReac Type Severity Reaction Status Date / Time Sulfa (Sulfonamide Allergy Severe anaphylaxis Verified 06/30/22 11:01 Antibiotics) codeine [CODEINE] Allergy Intermediate Rash Verified 06/30/22 11:01 hydrocodone [Vicodin] Allergy Intermediate Rash Verified 06/30/22 11:01 Codeine Phosphate Allergy Unknown Rash Uncoded 06/30/22 11:01 DTap vaccine Allergy Unknown Unknown Uncoded 06/30/22 11:01 From VICODIN Allergy Unknown Rash Uncoded 06/30/22 11:01 Review of Systems Review of Systems All other systems are reviewed and are negative Constitutional: Reports as per HPI and Reports no additional constitutional complaints Eyes: Reports as per HPI and Reports no additional eye complaints Reports system reviewed and no additional complaints, except as documented Cardiovascular: Reports as per HPI and Reports no additional cardiovascular complaints Respiratory: Reports as per HPI and Reports no additional respiratory complaints Gastrointestinal: Reports as per HPI and Reports no additional gastrointestinal complaints Genitourinary: Reports no additional female genitourinary complaints Musculoskeletal: Reports no additional musculoskeletal complaints Skin/Breast: Reports system reviewed and no additional complaints, except as docu Psychiatric: Reports no additional psychiatric complaints Endocrine: Reports no additional endocrine complaints Hematologic/Lymphatic: Reports no additional hematologic/lymphatic complaints Allergic/Immunologic: Reports no additional allergic/immunologic complaints Reports system reviewed and no additional complaints, except as documented and Reports Abnormal speech present [facility] Past Medical History Medical History Hypertension Surgical History Delivery by section History of tonsillectomy Family History Family History Other No family history of cerebrovascular accident (CVA) Social History Social History Alcohol intake: unknown Patient Tobacco Use Status: Never used Tobacco Advance Directives: No Advance Directives Information Provided: No service: No Current occupational status: unemployed Current occupation: rt handed Physical Exam ED Vital Signs: Vital Signs - 24 hr 06/30/22 10:59 Temperature 97.4 F Pulse Rate 77 Respiratory Rate 16 Blood Pressure 154/92 H Pulse Oximetry 98 Oxygen Delivery Method Room Air BMI result Body Mass Index 44.4 Vital signs have been reviewed as appeared to be correct. Blood pressure normal. Heart rate normal. Respiration rate normal. Temperature normal. Oxygen saturation normal. Appearance: Alert. Oriented X3. No acute distress. Head: Normal external exam. Normocephalic. Atraumatic. No Connolly signs noted. No raccoon eyes noted Eyes: PERRLA. EOMI. Conjunctiva and sclera normal. Eyelids normal. ENT: TM's Normal. Pharynx normal. Uvula midline. Moist mucous membranes. No trismus noted. No drooling noted. No muffled voice noted. Neck: Normal inspection. Neck supple. FROM. No adenopathy. Thyroid Normal. No meningeal signs. No neck mass noted. CVS: Normal heart rate and rhythm. Heart sound normal. No murmurs noted. Pulses normal throughout. Respiratory: No respiratory distress. Painless inspiration. Breath sounds normal. No wheezes/rales/rhonchi noted. Chest nontender. No accessory muscle usage noted or decreased air movement noted. Abdomen: Obese, soft, right lower quadrant tenderness, no rebound, no guarding.. Bowel sounds normal in all 4 quadrants. No distention noted. No organomegaly noted. No visible injury noted. Back: No CVA tenderness. Full range of motion noted. Skin: Skin warm and dry. Normal skin color. Normal skin turgor. No rashes/lesions/lacerations noted. Extremities: No lower extremity edema. Extremities exhibit normal range of motion. Extremities nontender. Neuro: Oriented X 3. Cranial nerve exam: II-XII are grossly intact No motor deficit. No sensory deficit. Reflexes normal. Course Course Course Narrative: 28-year-old female with abdominal pain, leukocytosis and left shift, CT abdomen pelvis showed normal appendix otherwise unremarkable, patient was offered pain medication and IV hydration I wanted to do pelvic ultrasound on the patient the patient would like to leave because she is taking care of her children at home I explained to the patient the importance of having ultrasound to conclude the workup today patient is adamant to be discharged home. Patient fully understand the risk of leaving without complete workup for her abdominal pain and was instructed to return if the pain is worse. Patient will be signing against medical advise. MDM - Abdominal Pain Lab Data Attestation: I reviewed the patient's lab results. Result diagrams: 06/30/22 11:06/30/22 11: Labs: Lab Results 06/30/22 06/30/22 06/30/22 Range/Units 11:26 11: 11: WBC 12.5 H (4.8-10.8) X10*3/uL RBC 4.71 (4.20-5.50) X10*6/uL Hgb 11.8 L (12.0-16.0) g/dl Hct 37.3 (37.0-47.0) % MCV 79.2 L (80.0-98.0) fL MCH 25.1 L (27.0-33.0) pg MCHC 31.6 (31.0-35.0) g/dl RDW 13.5 (11.0-16.0) % Plt Count 459 H (160-400) X10*3/uL MPV 9.4 (9.4-12.3) fL Immature Gran % (Auto) 1.0 H (0.0-0.4) % Neut % (Auto) 72.7 (45-73) % Lymph % (Auto) 20.3 (20-40) % [place] % (Auto) 4.0 (2-11) % Eos % (Auto) 1.6 (0-4) % Baso % (Auto) 0.4 (0-2) % Lymph # (Auto) 2.5 (1.2-4.9) X10*3/uL [place] # (Auto) 0.5 (0.1-1.2) X10*3/uL Eos # (Auto) 0.2 (0.0-0.4) X10*3/uL Baso # (Auto) 0.1 (0.0-0.2) X10*3/uL Abs Immat Gran (auto) 0.12 H (0.00-0.03) X10*3/uL Absolute Neuts (auto) 9.1 H (2.0-8.3) x10*3/uL Absolute Nucleated RBC 0.000 (0.0-0.012) X10*3/uL Nucleated RBC % (auto) 0.0 (0.0-0.2) /100WBC Sodium 138 (135-145) mmol/L Potassium 4.3 (3.3-5.1) mmol/L Chloride 104 (96-108) mmol/L Carbon Dioxide 23 (22-29) mmol/L Anion Gap 15 (12-20) BUN 12 (9-16) mg/dL Creatinine 0.66 (0.5-1.4) mg/dL Estim Creat Clear Calc 163.5 Estimated GFR > 60 Random Glucose 90 (60-115) mg/dL Calcium 9.0 (8.4-10.2) mg/dL Total Bilirubin 0.5 (0.0-1.0) mg/dL AST 16 (5-31) U/L ALT 19 (0-31) U/L Alkaline Phosphatase 68 (39-117) U/L Total Protein 7.3 (6.5-8.0) g/dL Albumin 4.2 (3.5-5.0) g/dL Urine Color Yellow Urine Appearance Clear Urine pH 5.5 (5.0-9.0) Ur Specific [place] 1.025 (1.005-1.025) Urine Protein Negative (Neg-Trace) mg/dL Urine Glucose (UA) Negative (Negative) mg/dL Urine Ketones Negative (Negative) mg/dL Urine Blood Negative (Negative) Urine Nitrite Negative (Negative) Ur Leukocyte Esterase Negative (Negative) Urine Test (NEGATIVE) 06/30/22 Range/Units 11:26 WBC (4.8-10.8) X10*3/uL RBC (4.20-5.50) X10*6/uL Hgb (12.0-16.0) g/dl Hct (37.0-47.0) % MCV (80.0-98.0) fL MCH (27.0-33.0) pg MCHC (31.0-35.0) g/dl RDW (11.0-16.0) % Plt Count (160-400) X10*3/uL MPV (9.4-12.3) fL Immature Gran % (Auto) (0.0-0.4) % Neut % (Auto) (45-73) % Lymph % (Auto) (20-40) % [place] % (Auto) (2-11) % Eos % (Auto) (0-4) % Baso % (Auto) (0-2) % Lymph # (Auto) (1.2-4.9) X10*3/uL [place] # (Auto) (0.1-1.2) X10*3/uL Eos # (Auto) (0.0-0.4) X10*3/uL Baso # (Auto) (0.0-0.2) X10*3/uL Abs Immat Gran (auto) (0.00-0.03) X10*3/uL Absolute Neuts (auto) (2.0-8.3) x10*3/uL Absolute Nucleated RBC (0.0-0.012) X10*3/uL Nucleated RBC % (auto) (0.0-0.2) /100WBC Sodium (135-145) mmol/L Potassium (3.3-5.1) mmol/L Chloride (96-108) mmol/L Carbon Dioxide (22-29) mmol/L Anion Gap (12-20) BUN (9-16) mg/dL Creatinine (0.5-1.4) mg/dL Estim Creat Clear Calc Estimated GFR Random Glucose (60-115) mg/dL Calcium (8.4-10.2) mg/dL Total Bilirubin (0.0-1.0) mg/dL AST (5-31) U/L ALT (0-31) U/L Alkaline Phosphatase (39-117) U/L Total Protein (6.5-8.0) g/dL Albumin (3.5-5.0) g/dL Urine Color Urine Appearance Urine pH (5.0-9.0) Ur Specific [place] (1.005-1.025) Urine Protein (Neg-Trace) mg/dL Urine Glucose (UA) (Negative) mg/dL Urine Ketones (Negative) mg/dL Urine Blood (Negative) Urine Nitrite (Negative) Ur Leukocyte Esterase (Negative) Urine Test NEGATIVE (NEGATIVE) Imaging Data CT scan - abdomen: Attestation: I personally reviewed and interpreted this imaging study as follows: Radiologist's impression: 1.? No acute intra-abdominal or pelvic findings seen to explain the patient's right lower quadrant pain. Specifically, no evidence of acute appendicitis. 2.? Mild hepatomegaly. 3.? Small fat-containing umbilical hernia. ? Discharge Plan Discharge Clinical Impression: Abdominal pain Patient Disposition: Left Against Medical Advice Instructions: Abdominal Pain (ED) Additional Instructions: Return of the abdominal pain is not going away or getting worse or if he devel ops any other symptoms like nausea or vomiting. Prescriptions: No Action azithromycin [Zithromax Z-Santos] 250 mg tablet See Rx Instructions .ROUTE .COMPLEX Qty: 6 0RF Rx Instructions: take 500 mg today (day 1), then 250 mg for 4 days (days 2-5) prednisone 20 mg tablet 60 mg PO DAILY 5 Days Qty: 15 0RF lidocaine [Lidoderm] 5 % adhesive patch,medicated 2 patch topical DAILY Qty: 30 0RF Rx Instructions: leave on most painful area for up to 12 hrs cyclobenzaprine 10 mg tablet 10 mg PO BEDTIME PRN (Reason: muscle spasm) Qty: 10 0RF amlodipine [Norvasc] 10 mg tablet 10 mg PO DAILY Qty: 30 0RF topiramate 25 mg tablet 1 tab PO BEDTIME lisinopril 5 mg tablet 1 tab PO DAILY fluticasone propionate 50 mcg/actuation spray,suspension 2 spray intranasal DAILY PRN (Reason: ear pressure) escitalopram oxalate 10 mg tablet 1.5 tab PO DAILY atorvastatin 20 mg tablet 20 mg PO DAILY Qty: 30 0RF Referrals: Jade Mg MD [Primary Care Provider] -
[2022-06-30 12:12] LABS: UPreg QC Valid YES; Urine Pregnancy NEGATIVE (NEGATIVE)
--- NOTE | 2022-06-30 15:14 | PC.NURSE ---
Went in room patient requesting to go home states has to go home to take care of her children.
--- NOTE | 2022-06-30 15:35 | PC.NURSE ---
Went back in room to give discharge paperwork and patient was gone.
== END 2022-06-30 15:37 | disposition left against medical advice (07) ==
PROVIDERS: Emergency Provider Emergency Medicine; PCP Internal Medicine
DX: R10.31 Right lower quadrant pain (principal); D72.829 Elevated white blood cell count, unspecified; I10 Essential (primary) hypertension; E66.9 Obesity, unspecified; Z68.41 Body mass index [BMI] 40.0-44.9, adult; Z79.899 Other long term (current) drug therapy; Z79.02 Long term (current) use of antithrombotics/antiplatelets
CPT/HCPCS: 36415; 74176; 80053; 81003; 81025; 85025; 99282; 99284

== ENCOUNTER 2022-09-15 16:59 | Emergency (ER) | payer OTHER, SELFPAY ==
[2022-09-15 17:05] VITALS: BP 162/93; PULSE 70; RESP 20; TEMP 36.7; O2SAT 96; BMI 45.1
--- NOTE | 2022-09-15 17:06 | ED_ITS ---
HPI - General Adult General Chief complaint: Chest Pain Stated complaint: Headache/ SOB/ Chest Pain Source: patient Mode of arrival: ambulatory Limitations: no limitations History of Present Illness HPI narrative: Patient is a 31 year old assigned female at with a history of CVA presenting to the emergency department today with increased fatigue. Patient states that over the last 3 days she has had increased fatigue. Patient denies any current dizziness, lightheadedness, abdominal pain, nausea, vomiting, fever, chills, blurry vision, double vision, loss of vision, chest pain, difficulty breathing, shortness of breath, back pain, night sweats, pain with urination, increased urinary frequency, increased urinary urgency, blood in her urine or stool, syncope or a near syncopal episode, recent trauma or falls, bowel incontinence, bladder incontinence, bowel retention, bladder retention, or any other complaints at this time. Onset (ago): day(s) (3) Severity: mild Severity scale (1-10): 2 Relieving factors: none Exacerbating factors: none Associated symptoms: denies other symptoms Treatments prior to arrival: none Related Data Home Medications Medication Instructions Recorded Confirmed escitalopram oxalate 10 mg tablet 1.5 tab PO DAILY 02/12/22 02/12/22 fluticasone propionate 50 2 spray intranasal DAILY PRN ear 02/12/22 02/12/22 mcg/actuation nasal pressure spray,suspension lisinopril 5 mg tablet 1 tab PO DAILY 02/12/22 02/12/22 topiramate 25 mg tablet 1 tab PO BEDTIME 02/12/22 02/12/22 Previous Rx's Medication Instructions Recorded amlodipine 10 mg tablet (Norvasc) 10 mg PO DAILY #30 tabs 07/02/21 atorvastatin 20 mg tablet 20 mg PO DAILY #30 tabs 02/14/22 azithromycin 250 mg tablet See Rx Instructions PO .COMPLEX #6 03/31/22 (Zithromax Z-Santos) tabs prednisone 20 mg tablet 60 mg PO DAILY 5 days #15 tabs 03/31/22 cyclobenzaprine 10 mg tablet 10 mg PO BEDTIME PRN muscle spasm 04/23/22 #10 tabs lidocaine 5 % topical patch 2 patch topical DAILY #30 ea 04/23/22 (Lidoderm) Allergies Allergy/AdvReac Type Severity Reaction Status Date / Time Sulfa (Sulfonamide Allergy Severe anaphylaxis Verified 06/30/22 11:01 Antibiotics) codeine [CODEINE] Allergy Intermediate Rash Verified 06/30/22 11:01 hydrocodone [Vicodin] Allergy Intermediate Rash Verified 06/30/22 11:01 Codeine Phosphate Allergy Unknown Rash Uncoded 06/30/22 11:01 DTap vaccine Allergy Unknown Unknown Uncoded 06/30/22 11:01 From VICODIN Allergy Unknown Rash Uncoded 06/30/22 11:01 Review of Systems Constitutional: Constitutional: Reports no additional constitutional complaint s, Denies chills, Reports fatigue, Denies fever(s) and Denies night sweats Eyes: Eyes: Reports no additional eye complaints, Denies blurry vision, Denies change in vision, Denies diplopia, Denies eye discharge, Denies loss of vision and Denies eye pain ENT: Denies dizziness Cardiovascular: Cardiovascular: Reports no additional cardiovascular complaints, Denies chest pain, Denies lightheadedness, Denies Loss of Consciousness and Denies dyspnea Respiratory: Respiratory: Reports no additional respiratory complaints and Denies dyspnea Gastrointestinal: Gastrointestinal: Reports no additional gastrointestinal complaints, Denies abdominal pain, Denies melena, Denies hematochezia, Denies change in bowel habits and Denies change in stool character Genitourinary: Genitourinary: Denies hematuria, Denies urinary frequency, Denies dysuria, Denies urinary incontinence, Denies urinary hesitancy and Denies urinary urgency Musculoskeletal: Musculoskeletal: Reports no additional musculoskeletal complaints, Denies numbness and Denies tingling Neurologic: Denies dizziness, Denies loss of vision, Denies numbness and Denies tingling Psychiatric: Psychiatric: Reports no additional psychiatric complaints Endocrine: Endocrine: Reports no additional endocrine complaints and Reports fatigue Hematologic/Lymphatic: Hematologic/Lymphatic: Reports no additional hematologic/lymphatic complaints Allergic/Immunologic: Allergic/Immunologic: Reports no additional allergic/immunologic complaints PMFSH Past Medical History Attestation statement: The following information was validated with the patient. Source: old records reviewed and nursing notes reviewed Medical History Hypertension Surgical History Delivery by section History of tonsillectomy Family History Family History Other No family history of cerebrovascular accident (CVA) Social History Social History Alcohol intake: unknown Patient Tobacco Use Status: Never used Tobacco Advance Directives: No Advance Directives Information Provided: No service: No Current occupational status: unemployed Current occupation: rt handed Physical Exam ED Vital Signs: Vital Signs - 24 hr 09/15/22 17:05 Temperature 98.0 F Pulse Rate 70 Respiratory Rate 20 Blood Pressure 162/93 H Pulse Oximetry 96 Oxygen Delivery Method Room Air BMI result Body Mass Index 45.1 Const General: cooperative, no acute distress, alert and awake Nutritional Appearance: well nourished Orientation/consciousness: patient oriented x3 Limitations: no limitations HENMT Head: Yes normal to inspection and Yes atraumatic Ears: hearing grossly normal bilaterally and external ears normal General nose exam: Normal external nose present, no nasal discharge noted and no epistaxis Face and sinus: Yes normal facial exam, No abrasion and No laceration Mouth: Normal oral and palatal mucosa present, no drooling and no muffled voice Eyes General: appearance normal, both eyes and all related structures Periorbital: periorbital findings normal Eyelids: Yes eyelids normal Conjunctivae: conjunctivae normal Pupils: Equal, round and reactive pupils present EOM: EOMs intact bilaterally Neck Neck: Yes normal visual inspection, Yes full ROM and Yes no lymphadenopathy Chest Chest palpation & inspection: normal inspection of the chest Resp Effort & Inspection: normal respiratory effort and able to speak in complete sentences Auscultation: clear to auscultation bilaterally Cardio Rate: regular rate Rhythm: regular rhythm GI Inspection: Yes normal to inspection Palpation (GI): Soft to palpation, not firm, nontender, no guarding and not rigid Neuro General: patient oriented x3 and moves all extremities Cranial nerves: Yes Equal, round and reactive pupils present Cognition (Neuro): normal cognition Motor exam (neuro): 5/5 motor strength present throughout Sensory Exam: Normal double simultaneous stimulation for sensation Coordination: [id number] test normal Extrem General: Yes normal to inspection, Yes full ROM and Yes capillary refill normal Psych Appearance: grossly normal Mental Status: mental status grossly normal Affect: normal affect Attitude: cooperative Thought process: Normal thought process present Thought content: Normal thought content present Insight: Good insight present (Psych) Course Course Course Narrative: RME performed by Flaquita Haines PA-C. Patient is a 31 year old female presenting to the emergency department with palpitations and a headache. Patient states that over the last 3 days she has had worsening papiltations and shortness of breath. Labs, EKG, CXR, swabs, ordered. Patient placed back in the waiting room pending results and room availability. Medical Decision Making Medical Decision Making MDM Narrative: Patient is a 31 year old assigned female at with a history of CVA presenting to the emergency department today with increased fatigue. Patient's physical exam was unremarkable. Patient eloped from the department before having any testing completed. Differential Diagnosis Differential Diagnoses: The differential diagnosis associated with the presentation includes fatigue Discharge Plan Discharge Clinical Impression: Fatigue Patient Disposition: Elopement Prescriptions: No Action azithromycin [Zithromax Z-Santos] 250 mg tablet See Rx Instructions .ROUTE .COMPLEX Qty: 6 0RF Rx Instructions: take 500 mg today (day 1), then 250 mg for 4 days (days 2-5) prednisone 20 mg tablet 60 mg PO DAILY 5 Days Qty: 15 0RF lidocaine [Lidoderm] 5 % adhesive patch,medicated 2 patch topical DAILY Qty: 30 0RF Rx Instructions: leave on most painful area for up to 12 hrs cyclobenzaprine 10 mg tablet 10 mg PO BEDTIME PRN (Reason: muscle spasm) Qty: 10 0RF amlodipine [Norvasc] 10 mg tablet 10 mg PO DAILY Qty: 30 0RF topiramate 25 mg tablet 1 tab PO BEDTIME lisinopril 5 mg tablet 1 tab PO DAILY fluticasone propionate 50 mcg/actuation spray,suspension 2 spray intranasal DAILY PRN (Reason: ear pressure) escitalopram oxalate 10 mg tablet 1.5 tab PO DAILY atorvastatin 20 mg tablet 20 mg PO DAILY Qty: 30 0RF Discharge Date/Time: 09/15/22 18:21
== END 2022-09-15 18:21 | disposition left against medical advice (07) ==
PROVIDERS: Emergency Provider Internal Medicine; PCP Internal Medicine
DX: R53.83 Other fatigue (principal); I10 Essential (primary) hypertension; Z79.02 Long term (current) use of antithrombotics/antiplatelets; Z79.899 Other long term (current) drug therapy
CPT/HCPCS: 99281

== ENCOUNTER 2022-12-11 22:15 | Emergency (ER) | payer OTHER, SELFPAY ==
[2022-12-11 22:18] VITALS: BP 168/94; PULSE 68; RESP 16; TEMP 36.3; O2SAT 99; BMI 45.1
== END 2022-12-12 00:59 | disposition left against medical advice (07) ==
PROVIDERS: Emergency Provider Emergency Medicine; PCP Internal Medicine
DX: R10.30 Lower abdominal pain, unspecified (principal)
CPT/HCPCS: 99281

== ENCOUNTER 2023-01-15 10:39 | Emergency (ER) | payer OTHER, SELFPAY ==
[2023-01-15 10:47] VITALS: BP 136/88; BP 153/105; PULSE 67; RESP 18; O2SAT 95; O2SAT 99; BMI 46.6
--- NOTE | 2023-01-15 10:56 | PC.NURSE ---
arrived from home by ems. states she has had chronic health problems for years ( c sections 6 years ago that didn't heal properly., covid two times, an unknown heart problem, a gi tear with blood loss, anxiety, sob) denies chest pain, nsr on monitor.
[2023-01-15 10:57] VITALS: BP 136/88; PULSE 68; RESP 18; O2SAT 96
--- NOTE | 2023-01-15 13:08 | PC.NURSE ---
Patient heard overhead sepsis page for roommate. Patient became upset believing that sepsis was contagious and left
== END 2023-01-15 14:00 | disposition left against medical advice (07) ==
PROVIDERS: Emergency Provider Emergency Medicine
DX: R53.1 Weakness (principal)
CPT/HCPCS: 99283; 99284

== ENCOUNTER 2023-04-26 17:09 | Emergency (ER) | payer OTHER, SELFPAY ==
--- NOTE | ~2023-04-26 | XR_ITS ---
EXAMINATION: XR SHOULDER, RIGHT CLINICAL INFORMATION: Right shoulder pain. COMPARISON: None available. TECHNIQUE: AP external rotation, Grashey, scapular Y, and axillary views of the right shoulder. FINDINGS: Glenohumeral and acromioclavicular alignment is anatomic with normal joint space. No displaced fracture or dislocation. No abnormal soft tissue calcifications. XR/XR shoulder RT min 2V IMPRESSION: No acute abnormality.
[2023-04-26 17:14] VITALS: BP 127/89; PULSE 78; RESP 16; TEMP 37.1; O2SAT 96; BMI 47.7
--- NOTE | 2023-04-26 17:16 | ED.GENADULT ---
HPI - General Adult General Chief complaint: Extremity Injury, Upper Stated complaint: fall R side is bothersome Time Seen by Provider: 04/26/23 18:26 Source: patient and RN notes reviewed Mode of arrival: ambulatory Limitations: no limitations History of Present Illness HPI narrative: 32-year-old female presents for evaluation of right shoulder pain. She reports that she slipped and [facility] 2 days ago. The pain now radiates to her right hand she complains of numbness. She reports she was unable to see care to this point because ?my work and I am a single mother. ? Denies hitting her head or losing consciousness Denies any chest pain have patient rest Related Data Home Medications Medication Instructions Recorded Confirmed escitalopram oxalate 10 mg tablet 1.5 tab PO DAILY 02/12/22 02/12/22 fluticasone propionate 50 2 spray intranasal DAILY PRN ear 02/12/22 02/12/22 mcg/actuation nasal pressure spray,suspension lisinopril 5 mg tablet 1 tab PO DAILY 02/12/22 02/12/22 topiramate 25 mg tablet 1 tab PO BEDTIME 02/12/22 02/12/22 Previous Rx's Medication Instructions Recorded amlodipine 10 mg tablet (Norvasc) 10 mg PO DAILY #30 tabs 07/02/21 atorvastatin 20 mg tablet 20 mg PO DAILY #30 tabs 02/14/22 azithromycin 250 mg tablet See Rx Instructions PO .COMPLEX #6 03/31/22 (Zithromax Z-Santos) tabs prednisone 20 mg tablet 60 mg (3 x 20 mg) PO DAILY 5 days 03/31/22 #15 tabs cyclobenzaprine 10 mg tablet 10 mg PO BEDTIME PRN muscle spasm 04/23/22 #10 tabs lidocaine 5 % topical patch 2 patch topical DAILY #30 ea 04/23/22 (Lidoderm) acetaminophen 325 mg capsule 650 mg (2 x 325 mg) PO Q6H PRN 04/26/23 pain #20 caps methocarbamol 500 mg tablet 500 mg PO TID PRN muscle spasm #15 04/26/23 tabs Allergies Allergy/AdvReac Type Severity Reaction Status Date / Time Sulfa (Sulfonamide Allergy Severe anaphylaxis Verified 12/11/22 22:18 Antibiotics) codeine [CODEINE] Allergy Intermediate Rash Verified 12/11/22 22:18 hydrocodone [Vicodin] Allergy Intermediate Rash Verified 12/11/22 22:18 Codeine Phosphate Allergy Unknown Rash Uncoded 12/11/22 22:18 DTap vaccine Allergy Unknown Unknown Uncoded 12/11/22 22:18 From VICODIN Allergy Unknown Rash Uncoded 12/11/22 22:18 Review of Systems Constitutional: Constitutional: Denies fever(s) and Denies headache(s) ENT: Denies headache(s) and Denies neck pain Cardiovascular: Cardiovascular: Denies chest pain and Denies dyspnea Respiratory: Respiratory: Denies cough and Denies dyspnea Gastrointestinal: Gastrointestinal: Denies abdominal pain, Denies nausea and Denies vomiting Musculoskeletal: Musculoskeletal: Reports arthralgias, Reports joint swelling, Reports limited range of motion, Denies neck pain, Reports numbness and Reports radiating pain into limb Integumentary/Breasts: Skin/Breast: Denies erythema Neurologic: Denies headache(s) and Reports numbness PMFSH Past Medical History Medical History Hypertension Surgical History Delivery by section History of tonsillectomy Family History Family History Other No family history of cerebrovascular accident (CVA) Social History Social History Alcohol intake: never Patient Tobacco Use Status: Never used Tobacco service: No Current occupational status: unemployed Current occupation: rt handed Physical Exam ED Vital Signs: Vital Signs - 24 hr 04/26/23 17:14 Temperature 98.8 F Pulse Rate 78 Respiratory Rate 16 Blood Pressure 127/89 Pulse Oximetry 96 Oxygen Delivery Method Room Air BMI result Body Mass Index 47.7 Const General: healthy appearing, comfortable, no acute distress, alert and awake Nutritional Appearance: well nourished Orientation/consciousness: patient oriented x3 HENMT Head: Yes normocephalic and Yes atraumatic Eyes Eyelids: Yes eyelids normal Conjunctivae: conjunctivae normal Sclerae: sclerae normal Corneas: corneas normal Pupils: Equal, round and reactive pupils present EOM: EOMs intact bilaterally Neck Neck: Yes full ROM Resp Effort & Inspection: normal respiratory effort, able to speak in complete sentences and not labored Cardio Rate: regular rate Rhythm: regular rhythm Skin General skin exam: elasticity normal Neuro General: patient oriented x3 Cranial nerves: Yes Equal, round and reactive pupils present and Yes Bilaterally intact EOM present Cognition (Neuro): normal cognition Extrem Other: No significant edema, wounds or erythema to the right upper extremity/shoulder. The patient is tender to palpation to the right anterior shoulder including the bicipital groove. The no palpable deformity Course Course Course Narrative: RME- 32 year old female presents for evaluation of right shoulder pain after a fall 2 days ago. She landed on her right side and now has numbness to the right arm Medical Decision Making Medical Decision Making MDM Narrative: 32-year-old male presents for evaluation of right shoulder pain after a fall. She slipped and fell 2 days ago pulling at her right shoulder. She denies any nasal pain the area and on the fingers poor no chest pain or breath. X-ray of the right shoulder nausea for fracture or dislocation. We will treat with symptomatic care Differential Diagnosis Differential Diagnoses: The differential diagnosis associated with the presentation includes Shoulder sprain Dislocation Fracture radiculopathy Calcific tendinitis Independent Interpretation I performed an independent interpretation of an: Plain X-Ray (No obvious fracture of right shoulder) Radiology Impression Discussion of test interpretation with radiology: I have reviewed the radiologist's reading. (No acute fracture or dislocation) Discharge Plan Discharge Clinical Impression: Acute pain of right shoulder Patient Disposition: Home, Self-Care Instructions: Shoulder Pain (ED) Additional Instructions: Your x-ray did not show any concerning abnormalities. No fracture, dislocation or arthritis Use Tylenol as needed for pain. You may use methocarbamol as needed for muscle spasms. This may make you sleepy, do not drink alcohol or drive after taking it Prescriptions: New methocarbamol 500 mg tablet 500 mg PO TID PRN (Reason: muscle spasm) Qty: 15 0RF acetaminophen 325 mg capsule 650 mg PO Q6H PRN (Reason: pain) Qty: 20 0RF No Action azithromycin [Zithromax Z-Santos] 250 mg tablet See Rx Instructions .ROUTE .COMPLEX Qty: 6 0RF Rx Instructions: take 500 mg today (day 1), then 250 mg for 4 days (days 2-5) prednisone 20 mg tablet 60 mg PO DAILY 5 Days Qty: 15 0RF lidocaine [Lidoderm] 5 % adhesive patch,medicated 2 patch topical DAILY Qty: 30 0RF Rx Instructions: leave on most painful area for up to 12 hrs cyclobenzaprine 10 mg tablet 10 mg PO BEDTIME PRN (Reason: muscle spasm) Qty: 10 0RF amlodipine [Norvasc] 10 mg tablet 10 mg PO DAILY Qty: 30 0RF topiramate 25 mg tablet 1 tab PO BEDTIME lisinopril 5 mg tablet 1 tab PO DAILY fluticasone propionate 50 mcg/actuation spray,suspension 2 spray intranasal DAILY PRN (Reason: ear pressure) escitalopram oxalate 10 mg tablet 1.5 tab PO DAILY atorvastatin 20 mg tablet 20 mg PO DAILY Qty: 30 0RF
== END 2023-04-26 18:38 | disposition home or self-care (01) ==
PROVIDERS: Emergency Provider Emergency Medicine
DX: M25.511 Pain in right shoulder (principal); E66.9 Obesity, unspecified; Z68.42 Body mass index [BMI] 45.0-49.9, adult; Z79.899 Other long term (current) drug therapy
CPT/HCPCS: 73030; 99282; 99283

== ENCOUNTER 2023-06-30 23:49 | Emergency (ER) | payer OTHER, SELFPAY ==
--- NOTE | ~2023-06-30 | CT_ITS ---
EXAMINATION: CT ABDOMEN AND PELVIS WITHOUT CONTRAST CLINICAL INFORMATION: Abdominal pain. COMPARISON: None available. TECHNIQUE: Multidetector volumetric imaging was performed from the superior aspect of the liver through the pubic symphysis. Sagittal and coronal reformatted images were obtained on the technologist's workstation. This CT examination was performed using dose optimization techniques as appropriate, variously including the following: *Automated exposure control *Adjustment of mA and/or kV according to patient size (this includes techniques or standardized protocols for targeted exams where dose is matched to indication/reason for exam; i.e. extremities or head) *Use of iterative reconstruction technique DLP: 1236. mGy-cm FINDINGS: LUNG BASES: There is a small left diaphragmatic hernia containing fat. LIVER, GALLBLADDER, AND BILIARY TREE: The liver is normal in size, shape, and attenuation. No focal hepatic lesion or biliary ductal dilatation is present. The gallbladder is unremarkable with no evidence of radiopaque gallstones, gallbladder wall thickening, or obvious pericholecystic inflammatory changes. PANCREAS: Unremarkable. SPLEEN: Unremarkable. ADRENAL GLANDS: Unremarkable. KIDNEYS AND URETERS: The kidneys are normal in size, shape, and attenuation. No hydronephrosis, hydroureter, or calculi seen. No perinephric stranding. BLADDER: Unremarkable. GASTROINTESTINAL TRACT: The small and large bowel are unremarkable. The appendix is unremarkable. ABDOMINAL WALL: There is a small umbilical hernia containing fat. LYMPH NODES: Normal. VASCULAR: Unremarkable. PELVIC VISCERA: Unremarkable. OSSEOUS STRUCTURES: Unremarkable. CT/CT abdomen pelvis wo IV con IMPRESSION: No acute intra-abdominal process. Fleischner guidelines were followed.
[2023-06-30 23:57] VITALS: BP 130/77; PULSE 70; RESP 16; TEMP 36.6; O2SAT 98
[2023-07-01 00:02] VITALS: BP 136/78; PULSE 70; O2SAT 99; BMI 45.2
[2023-07-01 01:08] LABS: MANUAL DIFF FLAG NO
[2023-07-01 01:09] LABS: Basophils Percent Auto 0.3 % (0-2); Eosinophils Absolute Auto 0.2 X10*3/uL (0.0-0.4); Eosinophils Percent Auto 1.7 % (0-4); Hematocrit 35.4 % (37.0-47.0); Hemoglobin 11.7 g/dl (12.0-16.0); Imm Gran Abs Auto 0.08 X10*3/uL (0.00-0.03); Imm Gran Pct Auto 0.6 % (0.0-0.4); Lymphocytes Percent Auto 22.1 % (20-40); Mean Corpuscular HGB Conc 33.1 g/dl (31.0-35.0); Mean Corpuscular Hemoglobin 26.1 pg (27.0-33.0); Mean Corpuscular Volume 78.8 fL (80.0-98.0); Mean Platelet Volume 9.7 fL (9.4-12.3); Monocytes Absolute Auto 0.6 X10*3/uL (0.1-1.2); Monocytes Percent Auto 4.8 % (2-11); Neutrophils Absolute Auto 9.4 x10*3/uL (2.0-8.3); Neutrophils Percent Auto 70.5 % (45-73); Platelet Count 426 X10*3/uL (160-400); Red Blood Count 4.49 X10*6/uL (4.20-5.50); Red Cell Distribution Width 14.2 % (11.0-16.0); White Blood Count 13.3 X10*3/uL (4.8-10.8)
--- NOTE | 2023-07-01 01:10 | ED_ITS ---
HPI - Abdominal Pain General Chief Complaint: Abdominal Pain Stated Complaint: abd pain Time Seen by Provider: 07/01/23 01:01 Source: patient and EMS Mode of arrival: EMS Limitations: no limitations History of Present Illness HPI narrative: 32-year-old female came in for evaluation of left lower quadrant abdominal pain. Left lower quadrant abdominal pain started few months ago comes in as intermittent waxing and waning pain to the left lower quadrant area described as severe comes and goes no clear aggravating or relieving factor, no nausea, no vomiting, no dysuria, no frequency urination, no hematuria, normal bowel movement. Patient had pain 3 hours ago that was described as severe 10/10 lasted for about 15 minutes now it is about 4/10. Patient scheduled by her PCP for CT abdomen and pelvis as an outpatient as a workup for this pain. Related Data Home Medications Medication Instructions Recorded Confirmed escitalopram oxalate 10 mg tablet 1.5 tab PO DAILY 02/12/22 02/12/22 fluticasone propionate 50 2 spray intranasal DAILY PRN ear 02/12/22 02/12/22 mcg/actuation nasal pressure spray,suspension lisinopril 5 mg tablet 1 tab PO DAILY 02/12/22 02/12/22 topiramate 25 mg tablet 1 tab PO BEDTIME 02/12/22 02/12/22 Previous Rx's Medication Instructions Recorded amlodipine 10 mg tablet (Norvasc) 10 mg PO DAILY #30 tabs 07/02/21 atorvastatin 20 mg tablet 20 mg PO DAILY #30 tabs 02/14/22 azithromycin 250 mg tablet See Rx Instructions PO .COMPLEX #6 03/31/22 (Zithromax Z-Santos) tabs prednisone 20 mg tablet 60 mg (3 x 20 mg) PO DAILY 5 days 03/31/22 #15 tabs cyclobenzaprine 10 mg tablet 10 mg PO BEDTIME PRN muscle spasm 04/23/22 #10 tabs lidocaine 5 % topical patch 2 patch topical DAILY #30 ea 04/23/22 (Lidoderm) acetaminophen 325 mg capsule 650 mg (2 x 325 mg) PO Q6H PRN 04/26/23 pain #20 caps methocarbamol 500 mg tablet 500 mg PO TID PRN muscle spasm #15 04/26/23 tabs Allergies Allergy/AdvReac Type Severity Reaction Status Date / Time Sulfa (Sulfonamide Allergy Severe anaphylaxis Verified 12/11/22 22:18 Antibiotics) codeine [CODEINE] Allergy Intermediate Rash Verified 12/11/22 22:18 hydrocodone [Vicodin] Allergy Intermediate Rash Verified 12/11/22 22:18 Codeine Phosphate Allergy Unknown Rash Uncoded 12/11/22 22:18 DTap vaccine Allergy Unknown Unknown Uncoded 12/11/22 22:18 From VICODIN Allergy Unknown Rash Uncoded 12/11/22 22:18 Review of Systems Review of Systems All other systems are reviewed and are negative Constitutional: Reports as per HPI and Reports no additional constitutional complaints Eyes: Reports as per HPI and Reports no additional eye complaints Reports system reviewed and no additional complaints, except as documented Cardiovascular: Reports as per HPI and Reports no additional cardiovascular complaints Respiratory: Reports as per HPI and Reports no additional respiratory complaints Gastrointestinal: Reports as per HPI and Reports no additional gastrointestinal complaints Genitourinary: Reports no additional female genitourinary complaints Musculoskeletal: Reports no additional musculoskeletal complaints Skin/Breast: Reports system reviewed and no additional complaints, except as docu Psychiatric: Reports no additional psychiatric complaints Endocrine: Reports no additional endocrine complaints Hematologic/Lymphatic: Reports no additional hematologic/lymphatic complaints Allergic/Immunologic: Reports no additional allergic/immunologic complaints Reports system reviewed and no additional complaints, except as documented and Reports Abnormal speech present [facility] Past Medical History Medical History Hypertension Surgical History History of tonsillectomy Delivery by section Family History Family History Other No family history of cerebrovascular accident (CVA) Social History Social History Alcohol intake: never Patient Tobacco Use Status: Never used Tobacco Smoked in Last 30 Days: No Use of substances other than those prescribed or required for medical reasons: No Advance Directives: No Advance Directives Information Provided: Yes Patient : No service: No Current occupational status: unemployed Current occupation: rt handed Physical Exam ED Vital Signs: Vital Signs - 24 hr 06/30/23 23:57 Temperature 97.9 F Pulse Rate 70 Respiratory Rate 16 Blood Pressure 130/77 Pulse Oximetry 98 Oxygen Delivery Method Room Air BMI result Body Mass Index 45.2 Vital signs have been reviewed and appear to be correct. Blood pressure elevated. Heart rate normal. Respiratory rate normal. Temperature normal. Oxygen saturation normal. Appearance: Alert. Oriented X3. No acute distress. Head: Normal external exam. Normocephalic. Atraumatic. No Connolly signs noted. No raccoon eyes noted Eyes: PERRLA. EOMI. Conjunctiva and sclera normal. Eyelids normal. ENT: TM's Normal. Pharynx normal. Uvula midline. Moist mucous membranes. No trismus noted. No drooling noted. No muffled voice noted. Neck: Normal inspection. Neck supple. FROM. No adenopathy. Thyroid Normal. No meningeal signs. No neck mass noted. CVS: Normal heart rate and rhythm. Heart sound normal. No murmurs noted. Pulses normal throughout. Respiratory: No respiratory distress. Painless inspiration. Breath sounds normal. No wheezes/rales/rhonchi noted. Chest nontender. No accessory muscle usage noted or decreased air movement noted. Abdomen: Soft and nontender. Bowel sounds normal in all 4 quadrants. No distention noted. No organomegaly noted. No visible injury noted. Back: No CVA tenderness. Full range of motion noted. Skin: Skin warm and dry. Normal skin color. Normal skin turgor. No rashes/lesions/lacerations noted. Extremities: No lower extremity edema. Extremities exhibit normal range of motion. Extremities nontender. Neuro: Oriented X 3. Cranial nerve exam: II-XII are grossly intact No motor deficit. No sensory deficit. Reflexes normal. Course Reevaluation(s) Reevaluation #1: Intermittent left chronic abdominal pain of unclear etiology, patient has unremarkable abdomen CT, leukocytosis could be stress related. Findings were discussed with the patient patient understand that she needs to follow up with broke worker if the symptoms persist. Time: 03:20 Medical Decision Making Differential Diagnosis Differential Diagnoses: The differential diagnosis associated with the presentation includes ( Ureteric stone, acute appendicitis, colitis, diverticulitis, pancreatitis, gallbladder disease, UTI, , electrolyte abnormality, severe anemia.) Admission/Observation Consideration of admission/observation: Escalation of care including admission/observation considered Lab Data MDM Lab Attestation statement: I reviewed the patient's lab results. 07/01/23 01:01 07/01/23 01:01 Labs: Lab Results 07/01/23 07/01/23 Range/Units 01:01 01:24 WBC 13.3 H (4.8-10.8) X10*3/uL RBC 4.49 (4.20-5.50) X10*6/uL Hgb 11.7 L (12.0-16.0) g/dl Hct 35.4 L (37.0-47.0) % MCV 78.8 L (80.0-98.0) fL MCH 26.1 L (27.0-33.0) pg MCHC 33.1 (31.0-35.0) g/dl RDW 14.2 (11.0-16.0) % Plt Count 426 H (160-400) X10*3/uL MPV 9.7 (9.4-12.3) fL Immature Gran % (Auto) 0.6 H (0.0-0.4) % Neut % (Auto) 70.5 (45-73) % Lymph % (Auto) 22.1 (20-40) % [place] % (Auto) 4.8 (2-11) % Eos % (Auto) 1.7 (0-4) % Baso % (Auto) 0.3 (0-2) % Lymph # (Auto) 3.0 (1.2-4.9) X10*3/uL [place] # (Auto) 0.6 (0.1-1.2) X10*3/uL Eos # (Auto) 0.2 (0.0-0.4) X10*3/uL Baso # (Auto) 0.0 (0.0-0.2) X10*3/uL Abs Immat Gran (auto) 0.08 H (0.00-0.03) X10*3/uL Absolute Neuts (auto) 9.4 H (2.0-8.3) x10*3/uL Absolute Nucleated RBC 0.000 (0.0-0.012) X10*3/uL Nucleated RBC % (auto) 0.0 (0.0-0.2) /100WBC Sodium 138 (135-145) mmol/L Potassium 3.7 (3.3-5.1) mmol/L Chloride 104 (96-108) mmol/L Carbon Dioxide 26 (22-29) mmol/L Anion Gap 12 (12-20) BUN 12 (9-16) mg/dL Creatinine 0.80 (0.5-1.4) mg/dL Estim Creat Clear Calc 135.1 Estimated GFR > 60 Random Glucose 110 (60-115) mg/dL Lactic Acid 1.0 (0.5-2.0) mmol/L Calcium 8.6 (8.4-10.2) mg/dL Total Bilirubin 0.3 (0.0-1.0) mg/dL AST 18 (5-31) U/L ALT 12 (0-31) U/L Alkaline Phosphatase 61 (39-117) U/L Total Protein 7.4 (6.5-8.0) g/dL Albumin 3.8 (3.5-5.0) g/dL Lipase 22 (8-78) U/L Urine Color Yellow Urine Appearance Clear Urine pH 6.5 (5.0-9.0) Ur Specific [place] 1.025 (1.005-1.025) Urine Protein Negative (Neg-Trace) mg/dL Urine Glucose (UA) Negative (Negative) mg/dL Urine Ketones Negative (Negative) mg/dL Urine Blood Negative (Negative) Urine Nitrite Negative (Negative) Ur Leukocyte Esterase Negative (Negative) Urine Test NEGATIVE (NEGATIVE) Independent Interpretation I performed an independent interpretation of an: CT Scan ( Abdomen and pelvis: No acute intra-abdominal pathology.) Radiology Impression Discussion of test interpretation with radiology: I have reviewed the radiologist's reading. Medications Administered Discontinued Medications Generic Name Dose Route Start Last Admin Trade Name Freq PRN Reason Stop Dose Admin Sodium Chloride 1,000 mls @ 999 mls/hr 07/01/23 01:10 07/01/23 02:38 Ns IV 07/01/23 02:10 Infused .Q1H1M ONE Infusion Morphine Sulfate 1 mg 07/01/23 01:10 07/01/23 01:32 Morphine Sulfate 2 Mg/Ml Cartridge IVPUSH 07/01/23 01:11 1 mg ONCE ONE Administration Protocol Discharge Plan Discharge Clinical Impression: Abdominal pain Patient Disposition: Home, Self-Care Instructions: Abdominal Pain (ED) Prescriptions: No Action azithromycin [Zithromax Z-Santos] 250 mg tablet See Rx Instructions .ROUTE .COMPLEX Qty: 6 0RF Rx Instructions: take 500 mg today (day 1), then 250 mg for 4 days (days 2-5) prednisone 20 mg tablet 60 mg PO DAILY 5 Days Qty: 15 0RF lidocaine [Lidoderm] 5 % adhesive patch,medicated 2 patch topical DAILY Qty: 30 0RF Rx Instructions: leave on most painful area for up to 12 hrs cyclobenzaprine 10 mg tablet 10 mg PO BEDTIME PRN (Reason: muscle spasm) Qty: 10 0RF amlodipine [Norvasc] 10 mg tablet 10 mg PO DAILY Qty: 30 0RF topiramate 25 mg tablet 1 tab PO BEDTIME lisinopril 5 mg tablet 1 tab PO DAILY fluticasone propionate 50 mcg/actuation spray,suspension 2 spray intranasal DAILY PRN (Reason: ear pressure) escitalopram oxalate 10 mg tablet 1.5 tab PO DAILY atorvastatin 20 mg tablet 20 mg PO DAILY Qty: 30 0RF methocarbamol 500 mg tablet 500 mg PO TID PRN (Reason: muscle spasm) Qty: 15 0RF acetaminophen 325 mg capsule 650 mg PO Q6H PRN (Reason: pain) Qty: 20 0RF Referrals: Marie Jauregui MD [Physician] -
[2023-07-01] MEDS: 0.9 % Sodium Chloride 1,000 ML 999 ML IV (01:21)
[2023-07-01 01:25] LABS: Alanine Aminotransferase 12 U/L (0-31); Albumin Level 3.8 g/dL (3.5-5.0); Alkaline Phosphatase 61 U/L (39-117); Anion Gap 12 (12-20); Aspartate Amino Transferase 18 U/L (5-31); Bilirubin Total 0.3 mg/dL (0.0-1.0); Blood Urea Nitrogen 12 mg/dL (9-16); Calcium 8.6 mg/dL (8.4-10.2); Carbon Dioxide 26 mmol/L (22-29); Chloride 104 mmol/L (96-108); Creatinine Clr Calc Pharmacy 135.1; Estimated Glomerular Filt Rate > 60; Glucose Random 110 mg/dL (60-115); Lipase 22 U/L (8-78); Potassium 3.7 mmol/L (3.3-5.1); Sodium 138 mmol/L (135-145); Total Protein 7.4 g/dL (6.5-8.0)
[2023-07-01] MEDS: Morphine Sulfate 2 MG/ML CARTRIDGE 1 MG IVPUSH (01:32)
--- NOTE | 2023-07-01 01:35 | PC.NURSE ---
pt assessed, reported 10/10 abd pain, medicated per MAR will cont to monitor
[2023-07-01 01:43] LABS: Appearance Urine Clear; Color Urine Yellow; Glucose Urine UA Negative (Negative); Leukocyte Esterase Urine Negative (Negative); Nitrite Urine Negative (Negative); PH 6.5 (5.0-9.0); Specific Gravity - Urine 1.025 (1.005-1.025); Urine Blood Negative (Negative); Urine Ketones Negative (Negative); Urine Protein Negative (Neg-Trace)
[2023-07-01 01:44] LABS: UPreg QC Valid YES; Urine Pregnancy NEGATIVE (NEGATIVE)
[2023-07-01 03:41] VITALS: BP 124/65; PULSE 66; RESP 16; TEMP 36.6; O2SAT 95
--- NOTE | 2023-07-01 04:03 | PC.NURSE ---
pt assessed at d/c, denies any abd pain, ambulatory gait steady
== END 2023-07-01 04:05 | disposition home or self-care (01) ==
PROVIDERS: Emergency Provider Emergency Medicine
DX: R10.32 Left lower quadrant pain (principal); I10 Essential (primary) hypertension; D72.829 Elevated white blood cell count, unspecified
CPT/HCPCS: 36415; 74176; 80053; 81003; 81025; 83605; 83690; 85025; 96361; 96374; 99284; J2270

== ENCOUNTER → 2023-07-22 10:59 | Outpatient (BNV) | payer OTHER, SELFPAY | PROVIDERS: Visit Provider Internal Medicine | DX: D75.839 Thrombocytosis, unspecified (principal); D64.9 Anemia, unspecified | CPT/HCPCS: 99204; 99214 ==

== ENCOUNTER 2023-09-04 11:58 | Emergency (ER) | payer OTHER, SELFPAY ==
--- NOTE | ~2023-09-04 | CT_ITS ---
EXAMINATION: CT HEAD WITHOUT CONTRAST CLINICAL INFORMATION: Left-sided headache and hypertension. COMPARISON: CT brain 02/12/2022. TECHNIQUE: Contiguous axial imaging was performed from the skull base to vertex without intravenous administration of contrast. This CT examination was performed using dose optimization techniques as appropriate, variously including the following: *Automated exposure control *Adjustment of mA and/or kV according to patient size (this includes techniques or standardized protocols for targeted exams where dose is matched to indication/reason for exam; i.e. extremities or head) *Use of iterative reconstruction technique DLP: 591 mGy-cm FINDINGS: There is no acute intra-axial, extra-axial bleed, masses or midline shift. There is no acute infarction in evolution. There is a small old infarct left posterior parietal region, stable. No acute edema. The lateral ventricles are symmetrical in size and configuration without enlargement. Bone windows reveal no calvarial abnormality. There is no scalp soft tissue abnormality. Bilateral paranasal sinuses and mastoid air cells are well-aerated. Except for small polyps or retention cyst bilateral maxillary sinuses. CT/CT head/brain wo IV con IMPRESSION: No acute intracranial process seen. 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
[2023-09-04 12:16] VITALS: BP 152/117; PULSE 76; RESP 20; TEMP 36.4; O2SAT 97; BMI 49.7
--- NOTE | 2023-09-04 12:16 | ED.GENADULT ---
HPI - General Adult General Chief complaint: Headache Stated complaint: L Side Head Pressure Wants to Sleep Time Seen by Provider: 09/04/23 15:10 History of Present Illness HPI narrative: 32-year-old female history of hypertension, esophageal tear, migraine headaches, anemia TIA, stroke who presents emergency department for evaluation of left-sided head pressure. The patient states that the headache started 3 days prior, a came on gradually and initially was intermittent. She states that yesterday the left-sided pressure became constant at around 10:00. She states that the pressure is constant and is 8/10 at its worst, associated with photophobia and phonophobia, no visual change. She states she does feel off balance but has no difficulty walking. She denied numbness or weakness she had associated nausea with no vomiting. She states she does have migraine headaches but this feels different than her migraine headache the patient was hospitalized in 02/13/2022 for left-sided weakness in at that time had an MRI which did not reveal a cause for weakness. MRI did reveal following: chronic infarct seen within the left parietal and occipital lobe and smaller chronic infarct in the right frontal lobe . Discharge diagnosis was TIA with history of CVA. Related Data Home Medications Medication Instructions Recorded Confirmed escitalopram oxalate 10 mg tablet 1.5 tab PO DAILY 02/12/22 07/22/23 fluticasone propionate 50 2 spray intranasal DAILY PRN ear 02/12/22 07/22/23 mcg/actuation nasal pressure spray,suspension lisinopril 5 mg tablet 1 tab PO DAILY 02/12/22 07/22/23 topiramate 25 mg tablet 1 tab PO BEDTIME 02/12/22 07/22/23 Previous Rx's Medication Instructions Recorded amlodipine 10 mg tablet (Norvasc) 10 mg PO DAILY #30 tabs 07/02/21 atorvastatin 20 mg tablet 20 mg PO DAILY #30 tabs 02/14/22 cyclobenzaprine 10 mg tablet 10 mg PO BEDTIME PRN muscle spasm 04/23/22 #10 tabs lidocaine 5 % topical patch 2 patch topical DAILY #30 ea 04/23/22 (Lidoderm) acetaminophen 325 mg capsule 650 mg (2 x 325 mg) PO Q6H PRN 04/26/23 pain #20 caps ferrous sulfate 325 mg (65 mg 325 mg PO BID #60 tabs 07/22/23 iron) tablet metoclopramide HCl 10 mg tablet 10 mg PO Q6H PRN nausea and 09/04/23 (Reglan) vomiting #14 tabs oxycodone 5 mg tablet 5 mg PO Q6H PRN pain #10 tabs 09/04/23 Allergies Allergy/AdvReac Type Severity Reaction Status Date / Time Sulfa (Sulfonamide Allergy Severe anaphylaxis Verified 09/04/23 12:20 Antibiotics) codeine [CODEINE] Allergy Intermediate Rash Verified 09/04/23 12:20 hydrocodone [Vicodin] Allergy Intermediate Rash Verified 09/04/23 12:20 Codeine Phosphate Allergy Unknown Rash Uncoded 07/22/23 11:15 DTap vaccine Allergy Unknown Unknown Uncoded 07/22/23 11:15 From VICODIN Allergy Unknown Rash Uncoded 07/22/23 11:15 Review of Systems Review of Systems: Yes all other systems are reviewed and are negative [facility] Past Medical History [facility] Narrative: Social history: She denies tobacco, alcohol and drug use Onset Date is defined in the Problem List Problems that require an onset date and time if occurred within 24 hrs of arrival to the ED Aortic Dissection and Rupture; Neurologic impairment; Cardiopulmonary Arrest; Endotracheal Intubation; Insertion or Replacement of Mechanical Circulatory Assist Device Medical History Hypertension Surgical History History of tonsillectomy Delivery by section Family History Family History Other No family history of cerebrovascular accident (CVA) Social History Social History Alcohol intake: never Patient Tobacco Use Status: Never used Tobacco Advance Directives: No Advance Directives Information Provided: No service: No Current occupational status: unemployed Current occupation: rt handed Physical Exam ED Vital Signs: Vital Signs - 24 hr 09/04/23 12:16 09/04/23 14:35 09/04/23 16:47 Temperature 97.6 F 98.1 F 98.2 F Pulse Rate 76 73 59 Respiratory Rate 20 22 H 16 Blood Pressure 152/117 H 156/91 H 146/90 H Pulse Oximetry 97 96 97 Oxygen Delivery Method Room Air Room Air Room Air BMI result Body Mass Index 49.7 Vital signs revealed an elevated blood pressure of 152/117 Exam General: Awake, alert in no distress, elevated BMI 49.7 Head: Normocephalic, atraumatic patient does have tenderness palpation of her left temporal area of her scalp but no tenderness palpation of the right EENT: PERRL, Lids normal, sclera normal, conjunctiva normal, nose normal , ears normal, throat without erythema or exudates Neck: Supple, no adenopathy, no trachea midline or C-spine tenderness Lung: breath sounds symmetric, no wheezing, rales or rhonchi Chest: symmetric movement, nontender Heart: regular rate and rhythm, normal S1, S2 no murmurs or rubs Abdomen: soft, non-tender, nondistended, normal bowel sounds Back: no vertebral tenderness, no CVAT Extremities: no deformities, moves all extremities symmetrically Skin: no rashes, no lesion, normal color and warmth Neuro: General: Awake, alert, oriented to person, Speech: normal speech Cranial nerves: cranial nerves 2 through 12 intact Strength: moves all extremities symmetrically 5/5 strength bilaterally Cerebellar: Normal [id number]-to-finger rapid finger movement and heel to barry Gait: Patient able to walk in the room without any difficulty Psych: Pleasant, cooperative Course Course Course Narrative: RME:?32 yo female here w/ left sided headache, nausea, photophobia x2 days. described as pressure sensation. worse with sitting. taking tylenol at home w/o relief. reports increased fatigue over last 2 days. denies sick contacts. denies scalp tenderness or jaw claudication. hx of headaches, this feels different. hypertensive in triage- took amlodipine this morning. denies chest pain, vision changes, or SOB. exam nonfocal. no temporal aa tenderness. ambulating w/ steady gait. plan for basic labs, serology, head ct Full HPI, ROS and PE to be performed by the primary ED provider. Medications Administered Discontinued Medications Generic Name Dose Route Start Last Admin Trade Name Freq PRN Reason Stop Dose Admin Diphenhydramine HCl 50 mg 09/04/23 15:52 09/04/23 16:27 Diphenhydramine Hcl 50 Mg/Ml Vial IVPUSH 09/04/23 15:53 50 mg ONCE STA Administration Sodium Chloride 1,000 mls @ 999 mls/hr 09/04/23 15:52 09/04/23 16:20 Ns IV 09/04/23 16:52 999 mls/hr .Q1H1M STA Administration Morphine Sulfate 4 mg 09/04/23 15:52 09/04/23 16:27 Morphine Sulfate 4 Mg/Ml Cartridge IVPUSH 09/04/23 15:53 4 mg ONCE STA Administration Protocol Medical Decision Making Medical Decision Making [facility] Narrative: 32-year-old female history of hypertension, esophageal tear, migraine headaches, anemia TIA, stroke who presents emergency department for evaluation of left-sided head pressure, came on gradually 3 days prior initially intermittent but now constant since yesterday more, pain is 8/10 associated with photophobia and phonophobia with no associated numbness or weakness. Patient reports pain is different than her usual migraine. Vital signs did reveal an elevated blood pressure otherwise unremarkable. Physical examination did reveal tenderness palpation over her left temporal area with no right temporal area tenderness. Neurologic exam was normal Following evaluation was ordered: CBC, BMP, ESR, CRP, COVID-19, influenza, CT scan of the head without IV contrast 16:25 My interpretation patient's laboratory evaluation is as follows: Elevated platelet count 170,000. No anemia BNP was normal COVID-[address] scan of the brain did not reveal any acute bleed or new infarct but there was an old left posterior parietal region see on previous MRI in January of 2022. This time I suspect the patient's symptoms are consistent with a migraine different from her usual migraine syndrome. Patient was treated with morphine 4 mg IV, Benadryl 50 mg IV and regular and 10 mg IV was also ordered to get normal saline IV x1 L 17:39 Patient only got minimal relief of her with the above medications therefore she was given a 2nd dose of morphine 4 mg IV Patient's ESR was slightly elevated 24 and CRP was also slightly elevated at 0.85, this is reassuring suggested she has not have giant cell arteritis Patient will be discharged home with prescriptions for Reglan and oxycodone to treat her for migraine-like headache Differential Diagnosis Differential Diagnoses: The differential diagnosis associated with the presentation includes Differential diagnosis includes was not limited to stroke, intracranial bleed, migraine, nonspecific headache, giant cell arteritis Admission/Observation Consideration of admission/observation: Escalation of care including admission/observation considered Lab Data [facility] Lab Attestation statement: I reviewed the patient's lab results. 09/04/23 12:48 09/04/23 12:48 Labs: Lab Results 09/04/23 09/04/23 Range/Units 12:48 16:20 WBC 10.3 (4.8-10.8) X10*3/uL RBC 5.00 (4.20-5.50) X10*6/uL Hgb 12.8 (12.0-16.0) g/dl Hct 39.3 (37.0-47.0) % MCV 78.6 L (80.0-98.0) fL MCH 25.6 L (27.0-33.0) pg MCHC 32.6 (31.0-35.0) g/dl RDW 13.5 (11.0-16.0) % Plt Count 470 H (160-400) X10*3/uL MPV 9.1 L (9.4-12.3) fL Immature Gran % (Auto) 0.6 H (0.0-0.4) % Neut % (Auto) 68.3 (45-73) % Lymph % (Auto) 24.3 (20-40) % [place] % (Auto) 4.1 (2-11) % Eos % (Auto) 2.3 (0-4) % Baso % (Auto) 0.4 (0-2) % Lymph # (Auto) 2.5 (1.2-4.9) X10*3/uL [place] # (Auto) 0.4 (0.1-1.2) X10*3/uL Eos # (Auto) 0.2 (0.0-0.4) X10*3/uL Baso # (Auto) 0.0 (0.0-0.2) X10*3/uL Abs Immat Gran (auto) 0.06 H (0.00-0.03) X10*3/uL Absolute Neuts (auto) 7.0 (2.0-8.3) x10*3/uL Absolute Nucleated RBC 0.000 (0.0-0.012) X10*3/uL Nucleated RBC % (auto) 0.0 (0.0-0.2) /100WBC ESR 28 H (0-20) MM/HR Sodium 139 (135-145) mmol/L Potassium 3.5 (3.3-5.1) mmol/L Chloride 104 (96-108) mmol/L Carbon Dioxide 27 (22-29) mmol/L Anion Gap 12 (12-20) BUN 8 L (9-16) mg/dL Creatinine 0.75 (0.5-1.4) mg/dL Estim Creat Clear Calc 152.7 Estimated GFR > 60 Random Glucose 89 (60-115) mg/dL Calcium 8.8 (8.4-10.2) mg/dL Magnesium 1.8 (1.6-2.6) mg/dL C-Reactive Protein 0.85 H (< or = 0.50) mg/dL COVID-19 (BRUNO) Negative (Negative) COVID-19 Clin Com See Note Influenza Type A (ERIKA) Negative (Negative) Influenza Type B (ERIKA) Negative (Negative) Influenza A & B Note See Note Radiology Impression Discussion of test interpretation with radiology: I have reviewed the radiologist's reading. Radiologist Impression: CT brain 02/12/2022. FINDINGS: There is no acute intra-axial, extra-axial bleed, masses or midline shift. There is no acute infarction in evolution. There is a small old infarct left posterior parietal region, stable. No acute edema. The lateral ventricles are symmetrical in size and configuration without enlargement. Bone windows reveal no calvarial abnormality. There is no scalp soft tissue abnormality. Bilateral paranasal sinuses and mastoid air cells are well-aerated. Except for small polyps or retention cyst bilateral maxillary sinuses. IMPRESSION: No acute intracranial process seen. 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 Dictated By: Ángel Carias MD Prescription Management I considered prescription management with: Pain Medication Chronic Conditions Patient?s care impacted by: Hypertension Discharge Plan Discharge Clinical Impression: Headache Qualifiers: Headache chronicity pattern: acute headache Patient Disposition: Home, Self-Care Additional Instructions: The CT scan of your brain did not reveal any findings to explain your left-sided headache.. The CT scan did reveal small old strokes which were seen on your previous MRI in January of 2022 and these findings are not related to the headache that your having today. Your blood work was unremarkable, your inflammatory markers (ESR and CRP) these were only slightly elevated suggests that you do not have is serous inflammatory process causing her left-sided headache At this time I believe that the headache is a form of a migraine headache different than your usual migraines I want you to take the following 4 medication together every 6 hours as needed for headache: Reglan (metoclopramide) 10 mg Benadryl (diphenhydramine) 25 mg, 2 pills Tylenol 500 mg, 2 pills Oxycodone 5 mg, 1 pill Follow-up with your doctor in 2 days. Please return to the emergency department if your symptoms get worse or if you develop any symptoms that are concerning to you. Prescriptions: New metoclopramide HCl [Reglan] 10 mg tablet 10 mg PO Q6H PRN (Reason: nausea and vomiting) Qty: 14 0RF oxycodone 5 mg tablet 5 mg PO Q6H PRN (Reason: pain) Qty: 10 0RF Rx Instructions: Patient may request partial refill; Partial Fill upon patient request. No Action lidocaine [Lidoderm] 5 % adhesive patch,medicated 2 patch topical DAILY Qty: 30 0RF Rx Instructions: leave on most painful area for up to 12 hrs cyclobenzaprine 10 mg tablet 10 mg PO BEDTIME PRN (Reason: muscle spasm) Qty: 10 0RF amlodipine [Norvasc] 10 mg tablet 10 mg PO DAILY Qty: 30 0RF topiramate 25 mg tablet 1 tab PO BEDTIME lisinopril 5 mg tablet 1 tab PO DAILY fluticasone propionate 50 mcg/actuation spray,suspension 2 spray intranasal DAILY PRN (Reason: ear pressure) escitalopram oxalate 10 mg tablet 1.5 tab PO DAILY atorvastatin 20 mg tablet 20 mg PO DAILY Qty: 30 0RF acetaminophen 325 mg capsule 650 mg PO Q6H PRN (Reason: pain) Qty: 20 0RF ferrous sulfate 325 mg (65 mg iron) Tablet 325 mg PO BID Qty: 60 1RF
[2023-09-04 12:52] LABS: MANUAL DIFF FLAG NO
[2023-09-04 12:53] LABS: Basophils Percent Auto 0.4 % (0-2); Eosinophils Absolute Auto 0.2 X10*3/uL (0.0-0.4); Eosinophils Percent Auto 2.3 % (0-4); Hematocrit 39.3 % (37.0-47.0); Hemoglobin 12.8 g/dl (12.0-16.0); Imm Gran Abs Auto 0.06 X10*3/uL (0.00-0.03); Imm Gran Pct Auto 0.6 % (0.0-0.4); Lymphocytes Absolute Auto 2.5 X10*3/uL (1.2-4.9); Lymphocytes Percent Auto 24.3 % (20-40); Mean Corpuscular HGB Conc 32.6 g/dl (31.0-35.0); Mean Corpuscular Hemoglobin 25.6 pg (27.0-33.0); Mean Corpuscular Volume 78.6 fL (80.0-98.0); Mean Platelet Volume 9.1 fL (9.4-12.3); Monocytes Absolute Auto 0.4 X10*3/uL (0.1-1.2); Monocytes Percent Auto 4.1 % (2-11); Neutrophils Percent Auto 68.3 % (45-73); Platelet Count 470 X10*3/uL (160-400); Red Cell Distribution Width 13.5 % (11.0-16.0); White Blood Count 10.3 X10*3/uL (4.8-10.8)
[2023-09-04 13:08] LABS: Anion Gap 12 (12-20); Blood Urea Nitrogen 8 mg/dL (9-16); COVID-19 Test Negative (Negative); Calcium 8.8 mg/dL (8.4-10.2); Carbon Dioxide 27 mmol/L (22-29); Chloride 104 mmol/L (96-108); Creatinine Clr Calc Pharmacy 152.7; Estimated Glomerular Filt Rate > 60; Glucose Random 89 mg/dL (60-115); IDNOW Serial# 9DB6401D; Magnesium 1.8 mg/dL (1.6-2.6); Potassium 3.5 mmol/L (3.3-5.1); Sodium 139 mmol/L (135-145)
[2023-09-04 13:11] LABS: IDNOW Serial# 6674DD1D; Influenza A Negative (Negative); Influenza B2 Negative (Negative)
[2023-09-04 14:35] VITALS: BP 156/91; PULSE 73; RESP 22; TEMP 36.7; O2SAT 96
[2023-09-04] MEDS: 0.9 % Sodium Chloride 1,000 ML 999 ML IV (16:20)
[2023-09-04 16:22] LABS: C Reactive Protein 0.85 mg/dL (< or = 0.50)
[2023-09-04] MEDS: diphenhydrAMINE HCL 50 MG/ML VIAL IVPUSH (16:27)
[2023-09-04] MEDS: Morphine Sulfate 4 MG/ML CARTRIDGE IVPUSH ×2 (16:27→18:14)
[2023-09-04 16:47] VITALS: BP 146/90; PULSE 59; RESP 16; TEMP 36.8; O2SAT 97
[2023-09-04 17:28] LABS: Erythrocyte Sedimentation Rate 28 MM/HR (0-20)
--- NOTE | 2023-09-04 18:18 | PC.NURSE ---
medicated per the MAR for pain prior to discharge. patient informed RN they had a ride coming to pick them up d/t being medicated prior to discharge with morphine.
== END 2023-09-04 18:19 | disposition home or self-care (01) ==
PROVIDERS: Physician Assistant Medical; Emergency Provider Emergency Medicine Emergency Medical Services
DX: R51.9 Headache, unspecified (principal); Z11.52 Encounter for screening for COVID-19; Z86.73 Personal history of transient ischemic attack (TIA), and cerebral infarction without residual deficits
CPT/HCPCS: 70450; 80048; 83735; 85025; 85652; 86140; 87502; 87635; 96374; 96375; 96376; 99283; 99284; J1200; J2270

== ENCOUNTER 2023-10-23 10:19 | Emergency (ER) | payer OTHER, SELFPAY ==
[2023-10-23 10:50] VITALS: BP 117/113; PULSE 72; RESP 20; TEMP 37; O2SAT 97; BMI 50.2
[2023-10-23 13:44] VITALS: BP 150/88; PULSE 65; RESP 14; TEMP 36.8; O2SAT 99
--- NOTE | 2023-10-23 14:10 | ED.HA ---
HPI - Headache General Chief Complaint: Headache Stated Complaint: Migraine Time Seen by Provider: 10/23/23 13:13 Source: patient Mode of arrival: ambulatory Limitations: no limitations History of Present Illness HPI Narrative: patient with a known history of migraine headache on topamax who presents with frontal headache and ear popping. Patient denies fever. patient is concerned because her BP has been running high MD elicited complaint: headache Onset (ago): week(s) Onset description: gradually Location: frontal Severity: moderate Quality & Timing: aching and throbbing Associated symptoms: nausea Related Data Home Medications Medication Instructions Recorded Confirmed escitalopram oxalate 10 mg tablet 1.5 tab PO DAILY 02/12/22 10/22/23 fluticasone propionate 50 2 spray intranasal DAILY PRN ear 02/12/22 10/22/23 mcg/actuation nasal pressure spray,suspension lisinopril 5 mg tablet 1 tab PO DAILY 02/12/22 10/22/23 topiramate 100 mg tablet 100 mg PO BEDTIME 10/22/23 10/22/23 Previous Rx's Medication Instructions Recorded amlodipine 10 mg tablet (Norvasc) 10 mg PO DAILY #30 tabs 07/02/21 atorvastatin 20 mg tablet 20 mg PO DAILY #30 tabs 02/14/22 cyclobenzaprine 10 mg tablet 10 mg PO BEDTIME PRN muscle spasm 04/23/22 #10 tabs lidocaine 5 % topical patch 2 patch topical DAILY #30 ea 04/23/22 (Lidoderm) acetaminophen 325 mg capsule 650 mg (2 x 325 mg) PO Q6H PRN 04/26/23 pain #20 caps ferrous sulfate 325 mg (65 mg 325 mg PO BID #60 tabs 07/22/23 iron) tablet fluticasone furoate 27.5 2 spray intranasal DAILY #6.6 mL 10/23/23 mcg/actuation nasal spray,suspension (Flonase Sensimist) naproxen 500 mg tablet (Naprosyn) 500 mg PO BID #20 tabs 10/23/23 Allergies Allergy/AdvReac Type Severity Reaction Status Date / Time Sulfa (Sulfonamide Allergy Severe anaphylaxis Verified 10/23/23 10:55 Antibiotics) codeine [CODEINE] Allergy Intermediate Rash Verified 10/23/23 10:55 hydrocodone [Vicodin] Allergy Intermediate Rash Verified 10/23/23 10:55 Codeine Phosphate Allergy Unknown Rash Uncoded 10/22/23 10:35 DTap vaccine Allergy Unknown Unknown Uncoded 10/22/23 10:35 From VICODIN Allergy Unknown Rash Uncoded 10/22/23 10:35 Review of Systems Review of Systems: Yes all other systems are reviewed and are negative Neurologic: Denies Sensory deficit (Neuro) [facility] Past Medical History Medical History Hypertension Surgical History History of tonsillectomy Delivery by section Family History Family History Other No family history of cerebrovascular accident (CVA) Social History Social History Alcohol intake: never Patient Tobacco Use Status: Never used Tobacco Smoked in Last 30 Days: No Use of substances other than those prescribed or required for medical reasons: No Advance Directives: No Advance Directives Information Provided: No Patient : No service: No Current occupational status: unemployed Current occupation: rt handed Physical Exam Vital Signs: Vital Signs: Last Vital Signs Temp 98.2 F 10/23/23 13:44 Pulse 65 10/23/23 13:44 Resp 14 10/23/23 13:44 BP 150/88 H 10/23/23 13:44 Pulse Ox 99 10/23/23 13:44 O2 Del Method Room Air 10/23/23 13:44 BMI result Body Mass Index 50.2 Const: Other: obese female in no acute distress Orientation/consciousness: oriented to person and patient oriented x3 Limitations: no limitations HEENT: Other: right TM with fluid Head: Yes normal to inspection Ears: external ears normal General nose exam: Normal external nose present Mouth: Normal oral and palatal mucosa present and oropharynx normal Throat: Yes posterior oropharynx normal Eyes: General: appearance normal, both eyes and all related structures Neck: Other: supple Neck: Yes normal visual inspection Chest: Chest palpation & inspection: normal inspection of the chest Resp: Auscultation: clear to auscultation bilaterally Cardio: Jugular venous distension: no JVD Rate: regular rate Rhythm: regular rhythm Heart sounds: S1 normal heart sound present and S2 normal heart sound present GI: Inspection: Yes normal to inspection Palpation (GI): Soft to palpation, nontender and No hepatosplenomegaly present Auscultation: normal bowel sounds : General: Yes no CVA tenderness Back/Spine/Pelvis: Back: no CVA tenderness Skin: General skin exam: no rashes or lesions noted Neuro: General: oriented to person and patient oriented x3 Cranial nerves: Yes CN's II-XII intact bilaterally Motor exam (neuro): 5/5 motor strength present throughout Sensory Exam: No Sensory deficit (Neuro) Extrem: General: Yes normal to inspection Psych: Appearance: grossly normal Course Reevaluation(s) Reevaluation #1: patient has an issue with her child will dc home without her labs Time: 14:37 Medications Administered Discontinued Medications Generic Name Dose Route Start Last Admin Trade Name Freq PRN Reason Stop Dose Admin Droperidol 0.625 mg 10/23/23 13:23 10/23/23 14:15 Droperidol 5 Mg/2 Ml Vial IVPUSH 10/23/23 13:24 0.625 mg ONCE ONE Administration Ketorolac Tromethamine 30 mg 10/23/23 13:23 10/23/23 14:16 Ketorolac Tromethamine 30 Mg/Ml Vial IVPUSH 10/23/23 13:24 30 mg ONCE ONE Administration Medical Decision Making Differential Diagnosis Differential Diagnoses: The differential diagnosis associated with the presentation includes (migraine, headache, ) Lab Data 10/23/23 14:31 10/23/23 14:31 Tests considered The following testing was considered but not selected: Ct of brain considered but patient is nonfocal Chronic Conditions Patient?s care impacted by: Hypertension Discharge Plan Discharge Clinical Impression: Headache, Migraine Patient Disposition: Home, Self-Care Instructions: Migraine Headache (ED) Prescriptions: New naproxen [Naprosyn] 500 mg tablet 500 mg PO BID Qty: 20 0RF Flonase Sensimist 27.5 mcg/actuation spray,suspension 2 spray intranasal DAILY Qty: 6.6 0RF Rx Instructions: into each nostril No Action lidocaine [Lidoderm] 5 % adhesive patch,medicated 2 patch topical DAILY Qty: 30 0RF Rx Instructions: leave on most painful area for up to 12 hrs cyclobenzaprine 10 mg tablet 10 mg PO BEDTIME PRN (Reason: muscle spasm) Qty: 10 0RF amlodipine [Norvasc] 10 mg tablet 10 mg PO DAILY Qty: 30 0RF lisinopril 5 mg tablet 1 tab PO DAILY fluticasone propionate 50 mcg/actuation spray,suspension 2 spray intranasal DAILY PRN (Reason: ear pressure) escitalopram oxalate 10 mg tablet 1.5 tab PO DAILY atorvastatin 20 mg tablet 20 mg PO DAILY Qty: 30 0RF acetaminophen 325 mg capsule 650 mg PO Q6H PRN (Reason: pain) Qty: 20 0RF ferrous sulfate 325 mg (65 mg iron) Tablet 325 mg PO BID Qty: 60 1RF topiramate 100 mg Tablet 100 mg PO BEDTIME Referrals: Physician,None [Primary Care Provider] - 5 days
[2023-10-23] MEDS: droPERidol 5 MG/2 ML VIAL 0.625 MG IVPUSH (14:15)
[2023-10-23] MEDS: Ketorolac Tromethamine 30 MG/ML VIAL IVPUSH (14:16)
--- NOTE | 2023-10-23 14:29 | PC.NURSE ---
Patient admitted to ER for constant unrelenting headache, patient states shes a difficult stick, very anxious about needle sticks, IV placed in L hand with tolerance, pain meds given as ordered, patient resting comfortably at this time.
[2023-10-23 14:34] LABS: MANUAL DIFF FLAG NO
[2023-10-23 14:42] LABS: Basophils Percent Auto 0.3 % (0-2); Eosinophils Absolute Auto 0.2 X10*3/uL (0.0-0.4); Eosinophils Percent Auto 2.1 % (0-4); Hematocrit 36.2 % (37.0-47.0); Imm Gran Abs Auto 0.11 X10*3/uL (0.00-0.03); Lymphocytes Absolute Auto 2.4 X10*3/uL (1.2-4.9); Lymphocytes Percent Auto 21.6 % (20-40); Mean Corpuscular HGB Conc 33.1 g/dl (31.0-35.0); Mean Corpuscular Hemoglobin 26.4 pg (27.0-33.0); Mean Corpuscular Volume 79.7 fL (80.0-98.0); Mean Platelet Volume 9.2 fL (9.4-12.3); Monocytes Absolute Auto 0.4 X10*3/uL (0.1-1.2); Monocytes Percent Auto 3.6 % (2-11); Neutrophils Absolute Auto 7.8 x10*3/uL (2.0-8.3); Neutrophils Percent Auto 71.4 % (45-73); Platelet Count 449 X10*3/uL (160-400); Red Blood Count 4.54 X10*6/uL (4.20-5.50); Red Cell Distribution Width 14.1 % (11.0-16.0)
--- NOTE | 2023-10-23 14:43 | PC.NURSE ---
Patient informed nursing that she had to leave emergently as her daughter's school called and informed her that her daughter escaped from school. Patient insisting on leaving, provider made aware, d/c paperwork given and reviewed with patient, advised to return if symptoms progress.
[2023-10-23 14:49] LABS: Anion Gap 11 (12-20); Blood Urea Nitrogen 9 mg/dL (9-16); Calcium 8.8 mg/dL (8.4-10.2); Carbon Dioxide 28 mmol/L (22-29); Chloride 106 mmol/L (96-108); Creatinine Clr Calc Pharmacy 167.7; Estimated Glomerular Filt Rate > 60; Glucose Random 124 mg/dL (60-115); Potassium 3.6 mmol/L (3.3-5.1); Sodium 141 mmol/L (135-145)
== END 2023-10-23 14:46 | disposition home or self-care (01) ==
PROVIDERS: Emergency Provider Emergency Medicine
DX: G43.909 Migraine, unspecified, not intractable, without status migrainosus (principal); I10 Essential (primary) hypertension; Z79.899 Other long term (current) drug therapy
CPT/HCPCS: 36415; 80048; 85025; 96374; 96375; 99284; J1790; J1885

== ENCOUNTER 2023-11-26 09:08 | Emergency (ER) | payer OTHER, SELFPAY ==
--- NOTE | ~2023-11-26 | XR_ITS ---
EXAMINATION: XR WRIST, RIGHT CLINICAL INFORMATION: Pain, injury COMPARISON: None available. TECHNIQUE: Four views of the right wrist. FINDINGS: The bones and soft tissues are normal. No fracture. Alignment is anatomic with normal joint spaces. No erosions or abnormal soft tissue calcifications. XR/XR wrist RT min 3V IMPRESSION: Normal right wrist. No acute fracture or malalignment.
--- NOTE | ~2023-11-26 | XR_ITS ---
EXAMINATION: XR LUMBOSACRAL SPINE CLINICAL INFORMATION: Midline tenderness COMPARISON: Previous x-ray April 2022 TECHNIQUE: Three views of the lumbosacral spine. FINDINGS: The vertebral bodies and posterior elements are normal. The disc spaces are preserved and the vertebral alignment is normal. The paraspinal soft tissues are normal. XR/XR lumbar spine 2-3V IMPRESSION: Unremarkable examination.
[2023-11-26 09:29] VITALS: BP 165/104; PULSE 74; RESP 18; TEMP 36.8; O2SAT 95; BMI 50.7
--- NOTE | 2023-11-26 10:41 | ED_ITS ---
HPI - Extremity Problem General Chief complaint: Extremity Injury, Upper Stated complaint: R wrist pain/Back pain Time Seen by Provider: 11/26/23 10:40 Source: patient Mode of arrival: ambulatory Limitations: no limitations History of Present Illness HPI Narrative: 33 y/o right -handed dominant female with history of CVA, thrombocytopathy presents for evaluation of R wrist pain and lower back pain radiating down leg after fall 11/20/2023. She had a mechanical fall while cleaning her childrens' room and fell on outstretched right hand while twisting her back. Reports pain with wrist flexion and extension with full range of motion. Has shooting pain with paresthesias up her right upper extremity with movement and of wrist. Reports bump on right wrist that appeared a few days before the fall and has been pain to touch. Bump has appeared and reappeared. Lower back pain is worse with movement and illicits paresthesias down right lower extremity. No limitation to lateral bending, rotation, or flexion/extension of the spinal column. Denies urinary retention. Has been using tylenol for pain relief at home. MD Complaint: extremity pain Onset (ago): day(s) Pain Consistency: constant Location: right, upper extremity and lower extremity Severity scale (1-10): 8 Quality: stabbing Radiation: distal Relieving factors: rest Exacerbating factors: walking Associated symptoms: denies other symptoms Related Data Home Medications ?Medication ?Instructions ?Recorded ?Confirmed escitalopram oxalate 10 mg tablet 1.5 tab PO DAILY 02/12/22 10/22/23 fluticasone propionate 50 2 spray intranasal DAILY PRN ear 02/12/22 10/22/23 mcg/actuation nasal pressure spray,suspension lisinopril 5 mg tablet 1 tab PO DAILY 02/12/22 10/22/23 topiramate 100 mg tablet 100 mg PO BEDTIME 10/22/23 10/22/23 Previous Rx's ?Medication ?Instructions ?Recorded amlodipine 10 mg tablet (Norvasc) 10 mg PO DAILY #30 tabs 07/02/21 atorvastatin 20 mg tablet 20 mg PO DAILY #30 tabs 02/14/22 cyclobenzaprine 10 mg tablet 10 mg PO BEDTIME PRN muscle spasm 04/23/22 #10 tabs lidocaine 5 % topical patch 2 patch topical DAILY #30 ea 04/23/22 (Lidoderm) acetaminophen 325 mg capsule 650 mg (2 x 325 mg) PO Q6H PRN 04/26/23 pain #20 caps ferrous sulfate 325 mg (65 mg 325 mg PO BID #60 tabs 07/22/23 iron) tablet fluticasone furoate 27.5 2 spray intranasal DAILY #6.6 mL 10/23/23 mcg/actuation nasal spray,suspension (Flonase Sensimist) naproxen 500 mg tablet (Naprosyn) 500 mg PO BID #20 tabs 10/23/23 cyclobenzaprine 10 mg tablet 10 mg PO TID PRN muscle spasm #10 11/26/23 tabs Allergies Allergy/AdvReac Type Severity Reaction Status Date / Time Sulfa (Sulfonamide Allergy Severe anaphylaxis Verified 11/26/23 09:33 Antibiotics) codeine [CODEINE] Allergy Intermediate Rash Verified 11/26/23 09:33 hydrocodone [Vicodin] Allergy Intermediate Rash Verified 11/26/23 09:33 Codeine Phosphate Allergy Unknown Rash Uncoded 11/26/23 09:33 DTap vaccine Allergy Unknown Unknown Uncoded 11/26/23 09:33 From VICODIN Allergy Unknown Rash Uncoded 11/26/23 09:33 Review of Systems Review of Systems: Yes all other systems are reviewed and are negative PMFSH Past Medical History Medical History Hypertension Surgical History History of tonsillectomy Delivery by section Family History Family History Other No family history of cerebrovascular accident (CVA) Social History Social History Alcohol intake: never Patient Tobacco Use Status: Never used Tobacco Smoked in Last 30 Days: No Use of substances other than those prescribed or required for medical reasons: No Advance Directives: No Advance Directives Information Provided: Yes service: No Current occupational status: unemployed Current occupation: rt handed Physical Exam Vital Signs: Vital Signs: Last Vital Signs Temp 97.6 F 11/26/23 11:47 Pulse 62 11/26/23 11:47 Resp 20 11/26/23 11:47 BP 156/80 H 11/26/23 11:47 Pulse Ox 98 11/26/23 11:47 O2 Del Method Room Air 11/26/23 11:47 BMI result Body Mass Index 50.7 Appearance: Alert. Oriented X3. No acute distress. Head: normocephalic, atraumatic. Neck: Normal inspection. Neck supple. Full range of motion. CVS: Normal heart rate and rhythm. Pulses normal. Respiratory: No respiratory distress. Breath sounds normal. Abdomen: Soft and nontender. Back: Midline tenderness at T12/L1 region. Small lateral ecchymosis at T12/L1 region. Full range of motion with lateral bending, rotation, flexion and extension. Pain with movement. Skin: Skin warm and dry. Normal skin color. Normal skin turgor. No rashes. Extremities: Compressible mass on right wrist, proximal 2nd carpal.No lower extremity edema. No joint swelling. +SLR on right side, illicits paresthesias from right lumbar region down right lower extremity Neuro/psych: Oriented X 3. Medications Administered Discontinued Medications Generic Name Dose Route Start Last Admin Trade Name Himanshuq PRN Reason Stop Dose Admin Acetaminophen 975 mg 11/26/23 11:03 11/26/23 11:40 Acetaminophen 325 Mg Tablet PO 11/26/23 11:04 975 mg ONCE ONE Administration Medical Decision Making Medical Decision Making MDM Narrative: 33 y/o right -handed dominant female with history of CVA, thrombocytopathy presents for evaluation of R wrist pain and lower back pain radiating down leg after fall 11/20/2023. On exam, she has full range of motion of upper and lower extremities. She has pain with palpation of midline at T12/L1 region with paraspinous spasms. Reports paresthesias of right upper and lower extremities. Ordered x-rays of wrist and lumbar spine. Wrist x-ray is unremarkable and without fracture. Lumbar spine x-ray Bump on right wrist is likely due to ganglion cyst. Mass is compressible and nonpainful to touch. Low clinical suspicion for cauda equina considering intent neuro sensation and urinary continence. No red flag symptoms for back pain. Symptoms are most likely muscular in nature. She has some radicular pain that is most likely due to the traumatic nature of injury. Recommend immobilization, rest, warm compresses, and acetaminophen at home. Differential Diagnosis Differential Diagnoses: The differential diagnosis associated with the pr esentation includes wrist fracture, lumbar sprain/strain, herniated disc, lumbar radiculopathy, cauda equina, cervical radiculopathy Independent Interpretation I performed an independent interpretation of an: Plain X-Ray Interpretation: EXAMINATION: XR WRIST, RIGHT CLINICAL INFORMATION: Pain, injury COMPARISON: None available. TECHNIQUE: Four views of the right wrist. FINDINGS: The bones and soft tissues are normal. No fracture. Alignment is anatomic with normal joint spaces. No erosions or abnormal soft tissue calcifications. XR/XR wrist RT min 3V IMPRESSION: Normal right wrist. No acute fracture or malalignment. Radiology Impression Discussion of test interpretation with radiology: I have reviewed the radiologist's reading. External Record Review External record reviewed: Prior outpatient labs Prescription Management I considered prescription management with: Pain Medication Chronic Conditions Patient?s care impacted by: Other (morbid obesity) Critical Care Time Critical Care Time Critical Care Time: No Discharge Plan Discharge Clinical Impression: Sprain and strain of wrist Back contusion Qualifiers: Encounter type: initial encounter Laterality: right Qualified Code(s): S20.221A - Contusion of right back wall of thorax, initial encounter Patient Disposition: Home, Self-Care Instructions: Contusion in Adults (ED), Wrist Sprain (ED) Additional Instructions: your wrist x-ray was normal wear the provided splint for support and immobilization take tylenol 1,000 every 6-8 hours as needed for pain rest and ice your wrist often take the prescribed muscle relaxer for you back recommend laying on a heating pad 3 times per day for 20 minutes. follow up with your doctor If you develop new or worsening symptoms call 911 or come back to the ER for f urther evaluation. Prescriptions: New cyclobenzaprine 10 mg tablet 10 mg PO TID PRN (Reason: muscle spasm) Qty: 10 0RF No Action lidocaine [Lidoderm] 5 % adhesive patch,medicated 2 patch topical DAILY Qty: 30 0RF Rx Instructions: leave on most painful area for up to 12 hrs cyclobenzaprine 10 mg tablet 10 mg PO BEDTIME PRN (Reason: muscle spasm) Qty: 10 0RF amlodipine [Norvasc] 10 mg tablet 10 mg PO DAILY Qty: 30 0RF lisinopril 5 mg tablet 1 tab PO DAILY fluticasone propionate 50 mcg/actuation spray,suspension 2 spray intranasal DAILY PRN (Reason: ear pressure) escitalopram oxalate 10 mg tablet 1.5 tab PO DAILY atorvastatin 20 mg tablet 20 mg PO DAILY Qty: 30 0RF acetaminophen 325 mg capsule 650 mg PO Q6H PRN (Reason: pain) Qty: 20 0RF ferrous sulfate 325 mg (65 mg iron) Tablet 325 mg PO BID Qty: 60 1RF topiramate 100 mg Tablet 100 mg PO BEDTIME naproxen [Naprosyn] 500 mg tablet 500 mg PO BID Qty: 20 0RF Flonase Sensimist 27.5 mcg/actuation spray,suspension 2 spray intranasal DAILY Qty: 6.6 0RF Rx Instructions: into each nostril Referrals: [facility] [place] [facility] [place] Group] [facility] [place] [facility] [[place] Group] Print Language: Turkish
[2023-11-26] MEDS: Acetaminophen 325 MG TABLET 975 MG PO (11:40)
[2023-11-26 11:47] VITALS: BP 156/80; PULSE 62; RESP 20; TEMP 36.4; O2SAT 98
[2023-11-26 13:14] VITALS: BP 156/80; PULSE 62; RESP 20; TEMP 36.4; O2SAT 98
== END 2023-11-26 13:08 | disposition home or self-care (01) ==
PROVIDERS: Emergency Provider Emergency Medicine
DX: S63.501A Unspecified sprain of right wrist, initial encounter (principal); S20.221A Contusion of right back wall of thorax, initial encounter; W18.39XA Other fall on same level, initial encounter; Y93.89 Activity, other specified; Y92.89 Other specified places as the place of occurrence of the external cause; Y99.9 Unspecified external cause status; M25.531 Pain in right wrist; R20.2 Paresthesia of skin; I10 Essential (primary) hypertension; M54.50 Low back pain, unspecified; Z86.73 Personal history of transient ischemic attack (TIA), and cerebral infarction without residual deficits
CPT/HCPCS: 72100; 73110; 99283; 99284

== ENCOUNTER 2024-02-19 12:06 | Emergency (ER) | payer OTHER, SELFPAY ==
--- NOTE | ~2024-02-19 | XR_ITS ---
EXAMINATION: XR CERVICAL SPINE CLINICAL INFORMATION: Neck pain. COMPARISON: 04/13/2021 TECHNIQUE: 4 views of the cervical spine were obtained. FINDINGS: The cervical spine is imaged through the C6 vertebral body. There is relative straightening of the cervical lordosis. Vertebral body heights and intervertebral disc spaces are maintained. Lateral masses are symmetric. Prevertebral soft tissues are within normal limits. XR/XR cervical spine 2V IMPRESSION: No acute abnormality.
--- NOTE | ~2024-02-19 | CT_ITS ---
EXAMINATION: CT HEAD WITHOUT CONTRAST CLINICAL INFORMATION: Headache. COMPARISON: 09/04/2023 TECHNIQUE: Contiguous axial imaging was performed from the skull base to vertex without intravenous administration of contrast. This CT examination was performed using dose optimization techniques as appropriate, variously including the following: *Automated exposure control *Adjustment of mA and/or kV according to patient size (this includes techniques or standardized protocols for targeted exams where dose is matched to indication/reason for exam; i.e. extremities or head) *Use of iterative reconstruction technique DLP: 651 mGy-cm FINDINGS: Stable serpiginous hypoattenuation within the left posterior parietal region as well as in the right frontal region. This has been previously characterized as chronic infarcts. There is no evidence of acute intracranial hemorrhage or large territorial infarction. No mass effect or midline shift is seen. Berry to white matter differentiation is preserved. No extra-axial fluid collections are identified. No hydrocephalus. The osseous structures and soft tissues are intact. Bilateral maxillary sinus and left sphenoid sinus mucus retention cysts. Mastoid air cells are clear. CT/CT head/brain wo IV con IMPRESSION: No acute intracranial pathology.
[2024-02-19 12:30] VITALS: BP 215/115; PULSE 98; RESP 20; TEMP 36.9; O2SAT 99; BMI 49.6
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
[2024-02-19 13:16] LABS: IDNOW Serial# 58CA691E; Strep A Nucleic Acid Positive (Negative)
[2024-02-19 15:18] VITALS: PULSE 90; RESP 18; TEMP 37.1; O2SAT 99
[2024-02-19 15:30] VITALS: BP 00/00; PULSE 90; RESP 18; TEMP 37.1; O2SAT 99
== END 2024-02-19 15:31 | disposition home or self-care (01) ==
PROVIDERS: Physician Assistant; Emergency Provider Emergency Medicine
DX: S06.0X0A Concussion without loss of consciousness, initial encounter (principal); V43.52XA Car driver injured in collision with other type car in traffic accident, initial encounter; Y93.9 Activity, unspecified; Y92.410 Unspecified street and highway as the place of occurrence of the external cause; Y99.9 Unspecified external cause status; R51.9 Headache, unspecified; I10 Essential (primary) hypertension; M54.2 Cervicalgia; J02.0 Streptococcal pharyngitis; R13.10 Dysphagia, unspecified
CPT/HCPCS: 70450; 72040; 87651; 99282; 99284

== ENCOUNTER 2024-04-14 16:47 | Emergency (ER) | payer OTHER, SELFPAY | END 2024-04-14 17:11 | disposition left against medical advice (07) | LOC: HO.ED 17:06 | PROVIDERS: Emergency Provider Emergency Medicine | DX: R05.9 Cough, unspecified (principal); R53.1 Weakness ==

== ENCOUNTER 2024-08-03 20:29 | Emergency (ER) | payer OTHER, SELFPAY ==
[2024-08-03 20:40] VITALS: BP 193/108; PULSE 90; RESP 16; TEMP 37.2; O2SAT 96; BMI 46.6
--- NOTE | 2024-08-03 20:43 | ED_ITS ---
HPI - General Adult General Chief complaint: Dental/Oral Stated complaint: facial/ear pain Time Seen by Provider: 08/03/24 22:46 Source: patient Limitations: no limitations History of Present Illness ED Provider: Ilda wang PA-C HPI narrative: 33-year-old morbidly obese female with a history of CVA, TIA, thrombocytopathy, hypertension, presents with left-sided dental pain x3 weeks. Patient states part of her filling dislodged from 1 of her left lower molars. Since, she has had progressive pain around the site. The pain has become extreme and is now radiating to the left ear. Patient has followed up with her dentist, she is currently on antibiotics. The patient was supposed to have had the extraction last month, however her blood pressure has been poorly controlled, her oral surgeon we will not perform the procedure until she gets her blood pressure under control. Patient also inquired about pain medication from her oral surgeon's office, she explained she was having referred pain to her ear. She indicates that she was advised to seek medical attention to be sure that the ?ear pain?, was not from an ear infection. Related Data Home Medications ?Medication ?Instructions ?Recorded ?Confirmed escitalopram oxalate 10 mg tablet 1.5 tab PO DAILY 02/12/22 10/22/23 fluticasone propionate 50 2 spray intranasal DAILY PRN ear 02/12/22 10/22/23 mcg/actuation nasal pressure spray,suspension lisinopril 5 mg tablet 1 tab PO DAILY 02/12/22 10/22/23 topiramate 100 mg tablet 100 mg PO BEDTIME 10/22/23 10/22/23 Previous Rx's ?Medication ?Instructions ?Recorded amlodipine 10 mg tablet (Norvasc) 10 mg PO DAILY #30 tabs 07/02/21 atorvastatin 20 mg tablet 20 mg PO DAILY #30 tabs 02/14/22 cyclobenzaprine 10 mg tablet 10 mg PO BEDTIME PRN muscle spasm 04/23/22 #10 tabs lidocaine 5 % topical patch 2 patch topical DAILY #30 ea 04/23/22 (Lidoderm) acetaminophen 325 mg capsule 650 mg (2 x 325 mg) PO Q6H PRN 04/26/23 pain #20 caps ferrous sulfate 325 mg (65 mg 325 mg PO BID #60 tabs 07/22/23 iron) tablet fluticasone furoate 27.5 2 spray intranasal DAILY #6.6 mL 10/23/23 mcg/actuation nasal spray,suspension (Flonase Sensimist) naproxen 500 mg tablet (Naprosyn) 500 mg PO BID #20 tabs 10/23/23 cyclobenzaprine 10 mg tablet 10 mg PO TID PRN muscle spasm #10 11/26/23 tabs amoxicillin 875 mg-potassium 1 tab PO BID 7 days #14 tabs 02/19/24 clavulanate 125 mg tablet oxycodone 5 mg tablet 5 mg PO Q8H PRN pain #10 tabs 08/04/24 Allergies Allergy/AdvReac Type Severity Reaction Status Date / Time Sulfa (Sulfonamide Allergy Severe anaphylaxis Verified 08/03/24 20:45 Antibiotics) codeine [CODEINE] Allergy Intermediate Rash Verified 08/03/24 20:45 hydrocodone [Vicodin] Allergy Intermediate Rash Verified 08/03/24 20:45 Codeine Phosphate Allergy Unknown Rash Uncoded 08/03/24 20:45 DTap vaccine Allergy Unknown Unknown Uncoded 08/03/24 20:45 From VICODIN Allergy Unknown Rash Uncoded 08/03/24 20:45 Review of Systems 2 Review of Systems: Yes all other systems are reviewed and are negative Constitutional: Constitutional: Denies fatigue and Denies fever(s) ENT: Denies otalgia and Reports mouth pain Cardiovascular: Cardiovascular: Denies chest pain and Denies dyspnea Respiratory: Respiratory: Denies dyspnea Endocrine: Endocrine: Denies fatigue PMFSH Past Medical History Attestation statement: The following information was validated with the patient. Medical History Hypertension Surgical History History of tonsillectomy Delivery by section Family History Family History Other No family history of cerebrovascular accident (CVA) Social History Social History Alcohol intake: never Patient Tobacco Use Status: Never used Tobacco Advance Directives: No Advance Directives Information Provided: Yes Do you have a plan to hurt others: No Plan service: No Current occupational status: unemployed Current occupation: rt handed Physical Exam ED Vital Signs: Vital Signs - 24 hr 08/03/24 20:40 08/03/24 22:30 Temperature 98.9 F 98.7 F Pulse Rate 90 84 Respiratory Rate 16 14 Blood Pressure 193/108 H 145/106 H Pulse Oximetry 96 98 Oxygen Delivery Method Room Air Room Air BMI result Body Mass Index 46.6 Const Other: Alert, appears older than stated age Orientation/consciousness: patient oriented x3 HENMT Other: Left TM is translucent, without overlying erythema or exudate, no erythema or exudate noted in the external ear canal, no tragal tenderness. Tooth 17. Has a filling that is partially fractured, some erythema noted along the gum tooth margin, no active purulence from the site . No sublingual fluctuance, no swelling inferior to the jawline, no trismus no drooling Resp Other: Nonlabored respirations Cardio Other: Normal peripheral perfusion Skin Other: Warm dry no rash Neuro General: patient oriented x3, no focal motor deficits and CN's II-XI intact bilaterally Psych Other: Calm cooperative Course Course Course Narrative: This is an RME done by ETHAN Gant: Additional HPI, ROS, PE not included below will be deferred to primary provider. 33 year old female presents w/ tooth pain ( on amoxicillin) w/ radiation to L ear. Pain is severe 10/10. Taking tylenol w/o relief. Cant take asa or ibuprofen she states. Reports chills, diarrhea, fatigue, malaise, myalgias. Medical Decision Making Medical Decision Making [facility] Narrative: 33-year-old morbidly obese female with a history of CVA, TIA, thrombocytopathy, hypertension, presents with left-sided dental pain x3 weeks. Patient states part of her filling dislodged from 1 of her left lower molars. Since, she has had progressive pain around the site. The pain has become extreme and is now radiating to the left ear. Patient has followed up with her dentist, she is currently on antibiotics. The patient was supposed to have had the extraction last month, however her blood pressure has been poorly controlled, her oral surgeon we will not perform the procedure until she gets her blood pressure under control. Patient also inquired about pain medication from her oral surgeon's office, she explained she was having referred pain to her ear. She indicates that she was advised to seek medical attention to be sure that the ?ear pain?, was not from an ear infection. Problem: Blood dyscrasis, History: Per patient I have considered the following differential diagnoses: Dental abscess, Marvin angina, otitis media Plan: Patient is probably developing a dental abscess given the filling is partially fractured. She is on antibiotics. There was no evidence Marvin's angina on exam. There was also no evidence of otitis media on exam. The patient is having referred pain from her dental infection. We will give the patient a 1 time dose of Decadron for the inflammation, she can not take NSAIDs secondary to gastric injury. We will send with a short script for oxycodone for her pain. I am also advising that she use Tylenol in between the dosing of the oxycodone. Screening labs were obtained from triage. No indication for imaging at this time. I have independently reviewed the following tests: Labs: Slight leukocytosis, not anemic, no electrolyte abnormality noted Lab Data 08/03/24 21:02 08/03/24 21:02 Labs: Lab Results 08/03/24 08/03/24 Range/Units 21:02 21:03 WBC 12.1 H (4.8-10.8) X10*3/uL RBC 4.65 (4.20-5.50) X10*6/uL Hgb 11.7 L (12.0-16.0) g/dl Hct 35.2 L (37.0-47.0) % MCV 75.7 L (80.0-98.0) fL MCH 25.2 L (27.0-33.0) pg MCHC 33.2 (31.0-35.0) g/dl RDW 14.3 (11.0-16.0) % Plt Count 472 H (160-400) X10*3/uL MPV 8.9 L (9.4-12.3) fL Immature Gran % (Auto) 0.8 H (0.0-0.4) % Neut % (Auto) 81.1 H (45-73) % Lymph % (Auto) 11.8 L (20-40) % [place] % (Auto) 4.8 (2-11) % Eos % (Auto) 1.2 (0-4) % Baso % (Auto) 0.3 (0-2) % Lymph # (Auto) 1.4 (1.2-4.9) X10*3/uL [place] # (Auto) 0.6 (0.1-1.2) X10*3/uL Eos # (Auto) 0.1 (0.0-0.4) X10*3/uL Baso # (Auto) 0.0 (0.0-0.2) X10*3/uL Abs Immat Gran (auto) 0.10 H (0.00-0.03) X10*3/uL Absolute Neuts (auto) 9.8 H (2.0-8.3) x10*3/uL Absolute Nucleated RBC 0.000 (0.0-0.012) X10*3/uL Nucleated RBC % (auto) 0.0 (0.0-0.2) /100WBC ESR 36 H (0-20) MM/HR Sodium 137 (135-145) mmol/L Potassium 3.5 (3.3-5.1) mmol/L Chloride 104 (96-108) mmol/L Carbon Dioxide 25 (22-29) mmol/L Anion Gap 12 (12-20) BUN 17 H (9-16) mg/dL Creatinine 0.71 (0.5-1.4) mg/dL Estim Creat Clear Calc 153.5 Estimated GFR > 60 Random Glucose 102 (60-115) mg/dL Calcium 8.7 (8.4-10.2) mg/dL Magnesium 2.0 (1.6-2.6) mg/dL Total Bilirubin 0.4 (0.0-1.0) mg/dL AST 22 (5-31) U/L ALT 18 (0-31) U/L Alkaline Phosphatase 69 (39-117) U/L C-Reactive Protein 1.90 H (< or = 0.50) mg/dL Total Protein 7.9 (6.5-8.0) g/dL Albumin 4.3 (3.5-5.0) g/dL COVID-19 (BRUNO) Positive A (Negative) COVID-19 Clin Com See Note Discharge Plan Discharge Clinical Impression: Abscess, dental Patient Disposition: Home, Self-Care Instructions: Dental Abscess (ED) Additional Instructions: Follow up with your dentist. Use the oxycodone as needed for pain. You can alternate with the use of [id number] Tylenol 1000 mg taken every 8 hours. You were also given a 1 time dose of a steroid called Decadron, this will help with the inflammation as well. To note, there was no evidence of a middle ear infection on your exam tonight. You are having referred pain to the ear, from your dental infection. Prescriptions: New oxycodone 5 mg tablet 5 mg PO Q8H PRN (Reason: pain) Qty: 10 0RF Rx Instructions: Partial Fill upon patient request. No Action lidocaine [Lidoderm] 5 % adhesive patch,medicated 2 patch topical DAILY Qty: 30 0RF Rx Instructions: leave on most painful area for up to 12 hrs cyclobenzaprine 10 mg tablet 10 mg PO BEDTIME PRN (Reason: muscle spasm) Qty: 10 0RF amlodipine [Norvasc] 10 mg tablet 10 mg PO DAILY Qty: 30 0RF lisinopril 5 mg tablet 1 tab PO DAILY fluticasone propionate 50 mcg/actuation spray,suspension 2 spray intranasal DAILY PRN (Reason: ear pressure) escitalopram oxalate 10 mg tablet 1.5 tab PO DAILY atorvastatin 20 mg tablet 20 mg PO DAILY Qty: 30 0RF acetaminophen 325 mg capsule 650 mg PO Q6H PRN (Reason: pain) Qty: 20 0RF ferrous sulfate 325 mg (65 mg iron) Tablet 325 mg PO BID Qty: 60 1RF topiramate 100 mg Tablet 100 mg PO BEDTIME naproxen [Naprosyn] 500 mg tablet 500 mg PO BID Qty: 20 0RF Flonase Sensimist 27.5 mcg/actuation spray,suspension 2 spray intranasal DAILY Qty: 6.6 0RF Rx Instructions: into each nostril amoxicillin-pot clavulanate 875-125 mg tablet 1 tab PO BID 7 Days Qty: 14 0RF cyclobenzaprine 10 mg tablet 10 mg PO TID PRN (Reason: muscle spasm) Qty: 10 0RF Print Language: Swiss
[2024-08-03 21:08] LABS: MANUAL DIFF FLAG NO
[2024-08-03 21:10] LABS: Basophils Percent Auto 0.3 % (0-2); Eosinophils Absolute Auto 0.1 X10*3/uL (0.0-0.4); Eosinophils Percent Auto 1.2 % (0-4); Hematocrit 35.2 % (37.0-47.0); Hemoglobin 11.7 g/dl (12.0-16.0); Imm Gran Pct Auto 0.8 % (0.0-0.4); Lymphocytes Absolute Auto 1.4 X10*3/uL (1.2-4.9); Lymphocytes Percent Auto 11.8 % (20-40); Mean Corpuscular HGB Conc 33.2 g/dl (31.0-35.0); Mean Corpuscular Hemoglobin 25.2 pg (27.0-33.0); Mean Corpuscular Volume 75.7 fL (80.0-98.0); Mean Platelet Volume 8.9 fL (9.4-12.3); Monocytes Absolute Auto 0.6 X10*3/uL (0.1-1.2); Monocytes Percent Auto 4.8 % (2-11); Neutrophils Absolute Auto 9.8 x10*3/uL (2.0-8.3); Neutrophils Percent Auto 81.1 % (45-73); Platelet Count 472 X10*3/uL (160-400); Red Blood Count 4.65 X10*6/uL (4.20-5.50); Red Cell Distribution Width 14.3 % (11.0-16.0); White Blood Count 12.1 X10*3/uL (4.8-10.8)
[2024-08-03 21:20] LABS: COVID-19 Test Positive (Negative); IDNOW Serial# 55D5AD1C
[2024-08-03 21:25] LABS: Alanine Aminotransferase 18 U/L (0-31); Albumin Level 4.3 g/dL (3.5-5.0); Alkaline Phosphatase 69 U/L (39-117); Anion Gap 12 (12-20); Aspartate Amino Transferase 22 U/L (5-31); Bilirubin Total 0.4 mg/dL (0.0-1.0); Blood Urea Nitrogen 17 mg/dL (9-16); Calcium 8.7 mg/dL (8.4-10.2); Carbon Dioxide 25 mmol/L (22-29); Chloride 104 mmol/L (96-108); Creatinine Clr Calc Pharmacy 153.5; Estimated Glomerular Filt Rate > 60; Glucose Random 102 mg/dL (60-115); Potassium 3.5 mmol/L (3.3-5.1); Sodium 137 mmol/L (135-145); Total Protein 7.9 g/dL (6.5-8.0)
[2024-08-03 21:52] LABS: Erythrocyte Sedimentation Rate 36 MM/HR (0-20)
[2024-08-03 22:30] VITALS: BP 145/106; PULSE 84; RESP 14; TEMP 37.1; O2SAT 98
[2024-08-04] VITALS: BP 144/76; PULSE 80; RESP 20; TEMP 37.1; O2SAT 96
[2024-08-04] MEDS: dexAMETHasone 2 MG TABLET 10 MG PO (00:37)
[2024-08-04 00:41] VITALS: BP 144/76; PULSE 80; RESP 20; TEMP 37.1; O2SAT 96
== END 2024-08-04 00:41 | disposition home or self-care (01) ==
PROVIDERS: Physician Assistant; Emergency Provider Emergency Medicine
DX: K04.7 Periapical abscess without sinus (principal); Z79.899 Other long term (current) drug therapy; Z86.73 Personal history of transient ischemic attack (TIA), and cerebral infarction without residual deficits; Z11.52 Encounter for screening for COVID-19
CPT/HCPCS: 36415; 80053; 83735; 85025; 85652; 86140; 87635; 99283; J8540

== ENCOUNTER 2024-10-11 19:33 | Emergency (ER) | payer OTHER, SELFPAY ==
[2024-10-11 19:40] VITALS: BP 181/117; PULSE 85; RESP 18; TEMP 36.8; O2SAT 96; BMI 48.1
--- NOTE | 2024-10-11 19:40 | ED_ITS ---
HPI - Dental/Oral General Chief complaint: Dental/Oral Stated complaint: severe pain from cracked tooth L side swollen Time Seen by Provider: 10/11/24 21:04 Source: patient Mode of arrival: ambulatory Limitations: no limitations History of Present Illness ED Provider: Dr. Dayana Hernandez HPI Narrative: Patient comes to the emergency room complaining of dental pain that is been present for 4 days. Patient states that she does not have a primary care physician, patient does take amlodipine that was prescribed several months ago and she still has a few more months of amlodipine left. Patient does not take any other hypertension medications. States that this is due to lack of a primary care physician. Also, patient states that in April of 2024, patient was supposed to get a molar pulled. But due to uncontrolled hypertension, they had to cancel the procedure. Patient states that the pain keeps getting worse. Patient denies fever chills, denies trouble swallowing. Related Data Home Medications ?Medication ?Instructions ?Recorded ?Confirmed escitalopram oxalate 10 mg tablet 1.5 tab PO DAILY 02/12/22 10/22/23 fluticasone propionate 50 2 spray intranasal DAILY PRN ear 02/12/22 10/22/23 mcg/actuation nasal pressure spray,suspension lisinopril 5 mg tablet 1 tab PO DAILY 02/12/22 10/22/23 topiramate 100 mg tablet 100 mg PO BEDTIME 10/22/23 10/22/23 Previous Rx's ?Medication ?Instructions ?Recorded amlodipine 10 mg tablet (Norvasc) 10 mg PO DAILY #30 tabs 07/02/21 atorvastatin 20 mg tablet 20 mg PO DAILY #30 tabs 02/14/22 cyclobenzaprine 10 mg tablet 10 mg PO BEDTIME PRN muscle spasm 04/23/22 #10 tabs lidocaine 5 % topical patch 2 patch topical DAILY #30 ea 04/23/22 (Lidoderm) acetaminophen 325 mg capsule 650 mg (2 x 325 mg) PO Q6H PRN 04/26/23 pain #20 caps ferrous sulfate 325 mg (65 mg 325 mg PO BID #60 tabs 07/22/23 iron) tablet fluticasone furoate 27.5 2 spray intranasal DAILY #6.6 mL 10/23/23 mcg/actuation nasal spray,suspension (Flonase Sensimist) naproxen 500 mg tablet (Naprosyn) 500 mg PO BID #20 tabs 10/23/23 cyclobenzaprine 10 mg tablet 10 mg PO TID PRN muscle spasm #10 11/26/23 tabs amoxicillin 875 mg-potassium 1 tab PO BID 7 days #14 tabs 02/19/24 clavulanate 125 mg tablet losartan 50 mg tablet 25 mg (1/2 x 50 mg) PO DAILY #90 10/12/24 tabs oxycodone 5 mg tablet 5 mg PO BID PRN pain #6 tabs 10/12/24 penicillin V potassium 500 mg 500 mg PO TID 10 days #30 tabs 10/12/24 tablet Allergies Allergy/AdvReac Type Severity Reaction Status Date / Time Sulfa (Sulfonamide Allergy Severe anaphylaxis Verified 10/11/24 19:46 Antibiotics) codeine [CODEINE] Allergy Intermediate Rash Verified 10/11/24 19:46 hydrocodone [Vicodin] Allergy Intermediate Rash Verified 10/11/24 19:46 Codeine Phosphate Allergy Unknown Rash Uncoded 08/03/24 20:45 DTap vaccine Allergy Unknown Unknown Uncoded 08/03/24 20:45 From VICODIN Allergy Unknown Rash Uncoded 08/03/24 20:45 Review of Systems 2 Review of Systems: Constitutional : No Weight loss, No Fever, No Chills, No Night Sweats, No Fatigue, No Malaise ENT/Mouth : Complaining of dental pain on the left side, No Hearing loss, No Ear Pain, No Nasal Congestion, No Sinus Pain, No Hoarseness, No sore throat, No Rhinorrhea, No Swallowing Difficulty Eyes: No Eye Pain, No Swelling, No Redness, No Foreign Body, No Discharge, No Vision Changes Cardiovascular : No Chest Pain, No SOB, No Dyspnea on Exertion, No Orthopnea, No Edema, No Palpitations, complaining of high blood pressure Respiratory : No Cough, No Sputum, No Wheezing, No Smoke Exposure, No Dyspnea Gastrointestinal : No Nausea, No Vomiting, No Diarrhea, No Constipation, No abdominal Pain, No Hematochezia, No Melena Genitourinary : no irregular bleeding, No Dysuria, No Urinary Frequency, No Hematuria, No Urinary Incontinence, No Urgency, No Flank Pain, No Urinary Flow Changes, No Hesitancy Musculoskeletal : No joint pain, No Myalgias, No Joint Swelling Skin : No Skin Lesions, No rash Neuro : No Weakness, No Numbness, No Paresthesias, No Loss of Consciousness, No Dizziness, No Headache Psych : No Anxiety/Panic, No Depression, No SI/HI/AH/VH, No Social Issues, Heme/Lymph: No Bruising, No Bleeding,No Lymphadenopathy Endocrine : No Polyuria, No Polydipsia, No Temperature Intolerance [facility] Past Medical History Medical History Hypertension Surgical History History of tonsillectomy Delivery by section Family History Family History Other No family history of cerebrovascular accident (CVA) Social History Social History Alcohol intake: never Patient Tobacco Use Status: Never used Tobacco Smoked in Last 30 Days: No Use of substances other than those prescribed or required for medical reasons: No Advance Directives: No Advance Directives Information Provided: Yes Do you have a plan to hurt others: No Plan Patient : No service: No Current occupational status: unemployed Current occupation: rt handed Physical Exam 2 Vital Signs: Vital Signs: Last Vital Signs Temp 98.3 F 10/11/24 23:00 Pulse 69 10/12/24 00:10 Resp 18 10/12/24 00:10 BP 170/86 H 10/12/24 00:10 Pulse Ox 95 10/11/24 23:00 O2 Del Method Room Air 10/12/24 00:10 BMI result Body Mass Index 48.1 Const: Other: Appearance: Alert. Oriented X3. No acute distress. Eyes: Pupils equal, round and reactive to light. ENT: Pharynx normal. Patient has poor dentition especially on the left mandibular side Neck: Normal inspection. Neck supple. No lymph nodes noted. No crepitus CVS: Normal heart rate and rhythm. Pulses normal. Normal S1 and S2 Respiratory: No respiratory distress. Breath sounds normal. No Wheezing. No rales Abdomen: Soft and nontender. No rigidity. No distention. Skin: Skin warm and dry. Normal skin color. Normal skin turgor. Extremities: No lower extremity edema. No Lacerations. No Rash Neuro: Oriented X 3. No motor deficit. No sensory deficit. Moving all extremities. No slurred speech. CN 2 through 12 grossly intact Psych: calm, cooperative, normal affect Course Course Course Narrative: This is an RME performed by Julio Gaxiola CNP: Additional HPI, ROS, PE not included below will be deferred to primary provider. Patient is a 34-year-old female presents emergency department for evaluation of dental pain. She states that she has a left lower molar where the previous filling that was in place had fractured, and she is due to have the tooth removed. However her dentist will not perform procedure she has uncontrolled hypertension current reading today 181/117. Unfortunately, she has not been able to establish care with her primary care doctor in order to have her hypertension treated. Pain has progressively worsened over the past 2 days, with a past 4 days pain is now radiating up the lateral side of her face into her head. Reports currently having a headache, she is hypertensive, despite compliance with her amlodipine. Medications Administered Discontinued Medications Generic Name Dose Route Start Last Admin Trade Name Freq PRN Reason Stop Dose Admin Hydrochlorothiazide 25 mg 10/11/24 21:43 10/11/24 21:53 Hydrochlorothiazide 25 Mg Tablet PO 10/11/24 21:44 25 mg ONCE ONE Administration Protocol Penicillin V Potassium 500 mg 10/11/24 21:43 10/11/24 21:53 Penicillin V Potassium 250 Mg Tablet PO 10/11/24 21:44 500 mg ONCE ONE Administration Medical Decision Making Medical Decision Making [facility] Narrative: My interpretation of EKG: Normal sinus rhythm, heart rate 66, no ST segment depression or elevation, no T-wave inversion, QTC 463 Patient's hematology and chemistry at baseline, troponin within normal limits. Patient was given p.o. hydrochlorothiazide. Patient's blood pressure 170s systolic. Patient asymptomatic. Patient given information to follow-up with the primary care physician. Differential Diagnosis Differential Diagnoses: The differential diagnosis associated with the presentation includes (Dental infection, hypertension due to pain. Chronic hypertension) Admission/Observation Consideration of admission/observation: Escalation of care including admission/observation considered (Given patient's vitals, observation was considered) Lab Data [facility] Lab Attestation statement: I reviewed the patient's lab results. 10/11/24 20:16 10/11/24 20:16 Labs: Lab Results 10/11/24 Range/Units 20:16 WBC 10.7 (4.8-10.8) X10*3/uL RBC 4.57 (4.20-5.50) X10*6/uL Hgb 11.8 L (12.0-16.0) g/dl Hct 34.7 L (37.0-47.0) % MCV 75.9 L (80.0-98.0) fL MCH 25.8 L (27.0-33.0) pg MCHC 34.0 (31.0-35.0) g/dl RDW 14.8 (11.0-16.0) % Plt Count 530 H (160-400) X10*3/uL MPV 8.8 L (9.4-12.3) fL Immature Gran % (Auto) 1.1 H (0.0-0.4) % Neut % (Auto) 63.3 (45-73) % Lymph % (Auto) 28.2 (20-40) % [place] % (Auto) 3.9 (2-11) % Eos % (Auto) 3.0 (0-4) % Baso % (Auto) 0.5 (0-2) % Lymph # (Auto) 3.0 (1.2-4.9) X10*3/uL [place] # (Auto) 0.4 (0.1-1.2) X10*3/uL Eos # (Auto) 0.3 (0.0-0.4) X10*3/uL Baso # (Auto) 0.1 (0.0-0.2) X10*3/uL Abs Immat Gran (auto) 0.12 H (0.00-0.03) X10*3/uL Absolute Neuts (auto) 6.8 (2.0-8.3) x10*3/uL Absolute Nucleated RBC 0.000 (0.0-0.012) X10*3/uL Nucleated RBC % (auto) 0.0 (0.0-0.2) /100WBC Sodium 140 (135-145) mmol/L Potassium 3.4 (3.3-5.1) mmol/L Chloride 107 (96-108) mmol/L Carbon Dioxide 22 (22-29) mmol/L Anion Gap 14 (12-20) BUN 12 (9-16) mg/dL Creatinine 0.72 (0.5-1.4) mg/dL Estim Creat Clear Calc 152.9 Estimated GFR > 60 Random Glucose 124 H (60-115) mg/dL Calcium 8.6 (8.4-10.2) mg/dL Total Bilirubin 0.3 (0.0-1.0) mg/dL AST 37 H (5-31) U/L ALT 54 H (0-31) U/L Alkaline Phosphatase 71 (39-117) U/L Troponin I High Sens 3.3 (<3.5-17.0) ng/L Total Protein 8.0 (6.5-8.0) g/dL Albumin 4.1 (3.5-5.0) g/dL Critical Care Time Critical Care Time Critical Care Time: Yes Total Critical Care Time: 35 Attestation: I have personally provided critical care time. Time includes review of lab data, radiology results, discussion with consultants, and monitoring for potential decompensation. Intervention performed as documented. Discharge Plan Discharge Clinical Impression: Pain, dental, Chronic hypertension Patient Disposition: Home, Self-Care Instructions: Chronic Hypertension (ED), Toothache (ED) Additional Instructions: Please follow-up with your primary care physician tomorrow. If you have any worsening or new symptoms, please return to the emergency room or call 911 Prescriptions: New penicillin V potassium 500 mg tablet 500 mg PO TID 10 Days Qty: 30 0RF oxycodone 5 mg tablet 5 mg PO BID PRN (Reason: pain) Qty: 6 0RF Rx Instructions: Partial Fill upon patient request. losartan 50 mg tablet 25 mg PO DAILY Qty: 90 0RF No Action lidocaine [Lidoderm] 5 % adhesive patch,medicated 2 patch topical DAILY Qty: 30 0RF Rx Instructions: leave on most painful area for up to 12 hrs cyclobenzaprine 10 mg tablet 10 mg PO BEDTIME PRN (Reason: muscle spasm) Qty: 10 0RF amlodipine [Norvasc] 10 mg tablet 10 mg PO DAILY Qty: 30 0RF lisinopril 5 mg tablet 1 tab PO DAILY fluticasone propionate 50 mcg/actuation spray,suspension 2 spray intranasal DAILY PRN (Reason: ear pressure) escitalopram oxalate 10 mg tablet 1.5 tab PO DAILY atorvastatin 20 mg tablet 20 mg PO DAILY Qty: 30 0RF acetaminophen 325 mg capsule 650 mg PO Q6H PRN (Reason: pain) Qty: 20 0RF ferrous sulfate 325 mg (65 mg iron) Tablet 325 mg PO BID Qty: 60 1RF topiramate 100 mg Tablet 100 mg PO BEDTIME naproxen [Naprosyn] 500 mg tablet 500 mg PO BID Qty: 20 0RF Flonase Sensimist 27.5 mcg/actuation spray,suspension 2 spray intranasal DAILY Qty: 6.6 0RF Rx Instructions: into each nostril amoxicillin-pot clavulanate 875-125 mg tablet 1 tab PO BID 7 Days Qty: 14 0RF cyclobenzaprine 10 mg tablet 10 mg PO TID PRN (Reason: muscle spasm) Qty: 10 0RF Print Language: Hebrew
[2024-10-11 20:23] LABS: MANUAL DIFF FLAG NO
[2024-10-11 20:25] LABS: Basophils Absolute Auto 0.1 X10*3/uL (0.0-0.2); Basophils Percent Auto 0.5 % (0-2); Eosinophils Absolute Auto 0.3 X10*3/uL (0.0-0.4); Hematocrit 34.7 % (37.0-47.0); Hemoglobin 11.8 g/dl (12.0-16.0); Imm Gran Abs Auto 0.12 X10*3/uL (0.00-0.03); Imm Gran Pct Auto 1.1 % (0.0-0.4); Lymphocytes Percent Auto 28.2 % (20-40); Mean Corpuscular Hemoglobin 25.8 pg (27.0-33.0); Mean Corpuscular Volume 75.9 fL (80.0-98.0); Mean Platelet Volume 8.8 fL (9.4-12.3); Monocytes Absolute Auto 0.4 X10*3/uL (0.1-1.2); Monocytes Percent Auto 3.9 % (2-11); Neutrophils Absolute Auto 6.8 x10*3/uL (2.0-8.3); Neutrophils Percent Auto 63.3 % (45-73); Platelet Count 530 X10*3/uL (160-400); Red Blood Count 4.57 X10*6/uL (4.20-5.50); Red Cell Distribution Width 14.8 % (11.0-16.0); White Blood Count 10.7 X10*3/uL (4.8-10.8)
[2024-10-11 20:48] LABS: Alanine Aminotransferase 54 U/L (0-31); Albumin Level 4.1 g/dL (3.5-5.0); Alkaline Phosphatase 71 U/L (39-117); Anion Gap 14 (12-20); Aspartate Amino Transferase 37 U/L (5-31); Bilirubin Total 0.3 mg/dL (0.0-1.0); Blood Urea Nitrogen 12 mg/dL (9-16); Calcium 8.6 mg/dL (8.4-10.2); Carbon Dioxide 22 mmol/L (22-29); Chloride 107 mmol/L (96-108); Creatinine Clr Calc Pharmacy 152.9; Estimated Glomerular Filt Rate > 60; Glucose Random 124 mg/dL (60-115); Potassium 3.4 mmol/L (3.3-5.1); Sodium 140 mmol/L (135-145)
[2024-10-11 21:14] VITALS: BP 177/90; PULSE 70; RESP 16; TEMP 36.7; O2SAT 98
--- NOTE | 2024-10-11 21:17 | PC.NURSE ---
Pt brought to [facility] for treatment, assumed care of pt at this time. A&Ox3 skin pwd respirations even unlabored. Endorsing worsening left lower dental pain x 3 days. Pt states she was supposed to have dental work done back in April but was unable to due to elevated BP. BP remains elevated pt endorsing 10/10 dental pain at this time. Awaiting primary provider [place], aware of plan of care.
[2024-10-11] MEDS: Penicillin V Potassium 250 MG TABLET 500 MG PO (21:53)
[2024-10-11] MEDS: hydroCHLOROthiazide 25 MG TABLET PO (21:53)
[2024-10-11 22:01] LABS: Troponin-I High Sensitivity 3.3 ng/L (<3.5-17.0)
--- NOTE | 2024-10-11 22:01 | ECG_ITS ---
Test Reason : HYPERTENSION Blood Pressure : */* mmHG Vent. Rate : 66 BPM Atrial Rate : 66 BPM P-R Int : 160 ms QRS Dur : 114 ms QT Int : 442 ms P-R-T Axes : 48 5 6 degrees QTcB Int : 463 ms Normal sinus rhythm Minimal voltage criteria for LVH, may be normal variant ( [place] product ) Borderline ECG When compared with ECG of 20-Jun-2022 08:45, No significant change was found Referred By: Dayana Hernandez Electronically Signed By: JAYANT DOWNS
[2024-10-11 23:00] VITALS: BP 177/84; PULSE 69; RESP 18; TEMP 36.8; O2SAT 95
--- NOTE | 2024-10-11 23:00 | PC.NURSE ---
Report given to Wandy CABEZAS pt exits my care at this time.
[2024-10-12 00:10] VITALS: BP 170/86; PULSE 69; RESP 18
--- NOTE | 2024-10-12 00:21 | PC.NURSE ---
verbal order from Dr Hernandez not to give the labetalol. plan is pt is going to be discharged.
[2024-10-12 00:31] VITALS: BP 170/86; PULSE 69; RESP 18; TEMP 37
[2024-10-12 00:33] VITALS: BP 170/86; PULSE 69
== END 2024-10-12 00:34 | disposition home or self-care (01) ==
PROVIDERS: Nurse Practitioner Family; Emergency Provider Emergency Medicine
DX: K08.89 Other specified disorders of teeth and supporting structures (principal); I10 Essential (primary) hypertension; R94.31 Abnormal electrocardiogram [ECG] [EKG]; Z79.899 Other long term (current) drug therapy
CPT/HCPCS: 36415; 80053; 84484; 85025; 93005; 99283; 99284

== ENCOUNTER → 2024-10-11 22:01 | Outpatient (BNV) | payer OTHER, SELFPAY | PROVIDERS: Emergency Provider Emergency Medicine; Visit Provider Internal Medicine | DX: I10 Essential (primary) hypertension (principal) | CPT/HCPCS: 93010 ==

== ENCOUNTER 2025-01-24 16:24 | Inpatient (IN) | payer OTHER, SELFPAY ==
--- NOTE | ~2025-01-24 | US_ITS ---
CLINICAL HISTORY: RUQ R flank pain US abdomen limited Comparison: None Findings: Pancreas is obscured by bowel gas. IVC not well visualized. The liver is enlarged, measuring 24.3 cm in length and demonstrates increased echogenicity. There is no intrahepatic bile duct dilatation. The common duct is 3 mm in diameter. The gallbladder contains sludge. No gallbladder wall thickening. There is no sonographic Olsen sign. The main portal vein is antegrade. The right kidney is 12.1 cm in length. No hydronephrosis. No ascites. IMPRESSION: 1. Sludge within the gallbladder. No sonographic evidence of cholecystitis. 2. Hepatomegaly with diffuse fatty infiltration. This document has been electronically signed by: Jerome Benjamin MD on 01/24/2025 18:33:11
--- NOTE | ~2025-01-24 | CT_ITS ---
CLINICAL HISTORY: ruq,portal vein abnormility? has coag.issue CT abdomen and pelvis with contrast Comparison: US - US ABDOMEN LIMITED - 01/24/25 17:11 EDT Findings: The lung bases are clear. Small fat containing left posterior diaphragmatic hernia. Both hemidiaphragms appears somewhat thickened and irregular. The gallbladder is within normal limits. No biliary ductal dilatation. No inflammatory stranding adjacent to the gallbladder. The liver is enlarged and demonstrates low attenuation suggestive of steatosis. The spleen, pancreas and adrenal glands are within normal limits. Enhancement of bilateral kidneys with no ureteral stones and no hydronephrosis or hydroureter. No perinephric stranding. No bowel obstruction, pneumoperitoneum, or pneumatosis. Normal appendix. No free fluid. Small fat containing umbilical hernia Pelvic contents unremarkable. Abdominal aorta is normal in size. No acute osseous process. IMPRESSION: 1. No acute findings. 2 nonacute findings as described.. This document has been electronically signed by: Sheri Turner MD on 01/24/2025 23:41:33
[2025-01-24 16:26] VITALS: BP 145/86; PULSE 74; RESP 18; TEMP 36.4; O2SAT 98; BMI 48.4
--- NOTE | 2025-01-24 16:26 | ED_ITS ---
HPI - Abdominal Pain General Chief Complaint: Abdominal Pain Stated Complaint: abd/back pain Time Seen by Provider: 01/24/25 18:47 Source: patient Limitations: no limitations History of Present Illness ED Provider: Ilda Fowler PA-C HPI narrative: 34-year-old female with a history of morbid obesity, thrombosed cytopathy, prior CVA and TIA, with a subtle transient right-sided weakness, who presents with abdominal pain x3 days. Pain over right upper quadrant with radiation to the back. Pt having post prandial severe pain. Associated poor PO intake, not wanting to eat. Denies nausea vomiting or fever. Related Data Home Medications ?Medication ?Instructions ?Recorded ?Confirmed escitalopram oxalate 10 mg tablet 1.5 tab PO DAILY 02/12/22 10/22/23 fluticasone propionate 50 2 spray intranasal DAILY PRN ear 02/12/22 10/22/23 mcg/actuation nasal pressure spray,suspension lisinopril 5 mg tablet 1 tab PO DAILY 02/12/22 10/22/23 topiramate 100 mg tablet 100 mg PO BEDTIME 10/22/23 10/22/23 Previous Rx's ?Medication ?Instructions ?Recorded amlodipine 10 mg tablet (Norvasc) 10 mg PO DAILY #30 tabs 07/02/21 atorvastatin 20 mg tablet 20 mg PO DAILY #30 tabs 02/14/22 cyclobenzaprine 10 mg tablet 10 mg PO BEDTIME PRN muscle spasm 04/23/22 #10 tabs lidocaine 5 % topical patch 2 patch topical DAILY #30 ea 04/23/22 (Lidoderm) acetaminophen 325 mg capsule 650 mg (2 x 325 mg) PO Q6H PRN 04/26/23 pain #20 caps ferrous sulfate 325 mg (65 mg 325 mg PO BID #60 tabs 07/22/23 iron) tablet fluticasone furoate 27.5 2 spray intranasal DAILY #6.6 mL 10/23/23 mcg/actuation nasal spray,suspension (Flonase Sensimist) naproxen 500 mg tablet (Naprosyn) 500 mg PO BID #20 tabs 10/23/23 cyclobenzaprine 10 mg tablet 10 mg PO TID PRN muscle spasm #10 11/26/23 tabs amoxicillin 875 mg-potassium 1 tab PO BID 7 days #14 tabs 02/19/24 clavulanate 125 mg tablet losartan 50 mg tablet 25 mg (1/2 x 50 mg) PO DAILY #90 10/12/24 tabs oxycodone 5 mg tablet 5 mg PO BID PRN pain #6 tabs 10/12/24 penicillin V potassium 500 mg 500 mg PO TID 10 days #30 tabs 10/12/24 tablet Allergies Allergy/AdvReac Type Severity Reaction Status Date / Time Sulfa (Sulfonamide Allergy Severe anaphylaxis Verified 01/24/25 16:27 Antibiotics) codeine [CODEINE] Allergy Intermediate Rash Verified 01/24/25 16:27 hydrocodone [Vicodin] Allergy Intermediate Rash Verified 01/24/25 16:27 Codeine Phosphate Allergy Unknown Rash Uncoded 01/24/25 16:27 DTap vaccine Allergy Unknown Unknown Uncoded 01/24/25 16:27 From VICODIN Allergy Unknown Rash Uncoded 01/24/25 16:27 Review of Systems Review of Systems Yes all other systems are reviewed and are negative Constitutional: Denies fatigue, Denies fever(s) and Reports poor appetite Cardiovascular: Denies chest pain and Denies dyspnea Respiratory: Denies dyspnea Gastrointestinal: Reports abdominal pain, Denies constipation, Denies diarrhea, Denies nausea and Denies vomiting Endocrine: Denies fatigue PMFSH Past Medical History Attestation statement: The following information was validated with the patient. Medical History Hypertension Surgical History History of tonsillectomy Delivery by section Family History Family History Other No family history of cerebrovascular accident (CVA) Social History Social History Alcohol intake: never Patient Tobacco Use Status: Never used Tobacco Advance Directives: No Advance Directives Information Provided: Yes Do you have a plan to hurt others: No Plan Patient : No service: No Current occupational status: unemployed Current occupation: rt handed Physical Exam ED Vital Signs: Vital Signs - 24 hr 01/24/25 16:26 01/24/25 22:22 01/25/25 00:00 Temperature 97.5 F 97.8 F Pulse Rate 74 64 Respiratory Rate 18 16 20 Blood Pressure 145/86 H 150/86 H Pulse Oximetry 98 96 Oxygen Delivery Method Room Air Room Air 01/25/25 00:39 Temperature Pulse Rate Respiratory Rate 20 Blood Pressure Pulse Oximetry Oxygen Delivery Method BMI result Body Mass Index 48.4 Const Other: Alert, appears older than stated age Orientation/consciousness: patient oriented x3 Resp Effort & Inspection: normal respiratory effort Cardio Other: Normal peripheral perfusion GI Other: Abdomen is soft, obese, mild to moderate tenderness epigastric and right upper quadrant with deep palpation, minimal involuntary guarding at times Skin Other: Warm dry no rash Neuro General: patient oriented x3, gait normal, no focal motor deficits and CN's II- XI intact bilaterally Psych Other: Cooperative Course Course Course Narrative: This is a Rapid Medical Exam performed in triage by Pauline Arciniega PA-C. Full HPI, ROS and PE to be performed by primary ED provider. 34 yo F w/PMHx CVA presenting to the ED c/o RUQ abd pain radiating R flank x3 days, constant pain. Eating worsens pain. Denies N/V/D, urinary sx PE: Abdomen is soft with RUQ and right CVA tenderness Plan: Labs, UA, US Consultations Consultation #1: per Dr. Estrella , he will admit Time: 00:36 Medical Decision Making Medical Decision Making MDM Narrative: 34-year-old female with a history of morbid obesity, thrombocytopathy, prior CVA and TIA, with a subtle transient right-sided weakness, who presents with abdominal pain x3 days. Pain over right upper quadrant with radiation to the back. Pt having post prandial severe pain. Associated poor PO intake, not wanting to eat. Denies nausea vomiting or fever. Problem: Obesity, coagulopathy History: Per patient I have considered the following differential diagnoses: Biliary colic, cholecystitis, gastritis, pancreatitis Plan: I am most concerned for biliary colic versus cholecystitis given distribution of discomfort in nature of symptoms, however it is odd that she does not develop nausea vomiting. Screening labs as well as LFTs were ordered from triage and an ultrasound of the right upper quadrant. Waiting on the read. We will be giving IVF and morphine. I have independently reviewed the following tests: Labs: US RUQ: The liver is enlarged, measuring 24.3 cm in length and demonstrates increased echogenicity. There is no intrahepatic bile duct dilatation. The common duct is 3 mm in diameter. The gallbladder contains sludge. No gallbladder wall thickening. There is no sonographic Olsen sign. The main portal vein is antegrade. The right kidney is 12.1 cm in length. No hydronephrosis. No ascites. IMPRESSION: 1. Sludge within the gallbladder. No sonographic evidence of cholecystitis. 2. Hepatomegaly with diffuse fatty infiltration. Given the patient's coagulopathy, I am ordering a CT scan of the abdomen to be sure I am not missing anything before I paged surgical service. Patient requiring additional pain medication CT abd/pevis: Findings: The lung bases are clear. Small fat containing left posterior diaphragmatic hernia. Both hemidiaphragms appears somewhat thickened and irregular. The gallbladder is within normal limits. No biliary ductal dilatation. No inflammatory stranding adjacent to the gallbladder. The liver is enlarged and demonstrates low attenuation suggestive of steatosis. The spleen, pancreas and adrenal glands are within normal limits. Enhancement of bilateral kidneys with no ureteral stones and no hydronephrosis or hydroureter. No perinephric stranding. No bowel obstruction, pneumoperitoneum, or pneumatosis. Normal appendix. No free fluid. Small fat containing umbilical hernia Pelvic contents unremarkable. Abdominal aorta is normal in size. No acute osseous process. IMPRESSION: 1. No acute findings. 2 nonacute findings as described.. Lab Data 01/24/25 16:54 01/24/25 16:54 Labs: Lab Results 01/24/25 01/24/25 01/24/25 Range/Units 16:13 16:54 16:55 WBC 12.9 H (4.8-10.8) X10*3/uL RBC 4.59 (4.20-5.50) X10*6/uL Hgb 11.8 L (12.0-16.0) g/dl Hct 36.1 L (37.0-47.0) % MCV 78.6 L (80.0-98.0) fL MCH 25.7 L (27.0-33.0) pg MCHC 32.7 (31.0-35.0) g/dl RDW 14.1 (11.0-16.0) % Plt Count 489 H (160-400) X10*3/uL MPV 9.2 L (9.4-12.3) fL Immature Gran % (Auto) 0.5 H (0.0-0.4) % Neut % (Auto) 68.5 (45-73) % Lymph % (Auto) 24.3 (20-40) % [place] % (Auto) 3.8 (2-11) % Eos % (Auto) 2.5 (0-4) % Baso % (Auto) 0.4 (0-2) % Lymph # (Auto) 3.1 (1.2-4.9) X10*3/uL [place] # (Auto) 0.5 (0.1-1.2) X10*3/uL Eos # (Auto) 0.3 (0.0-0.4) X10*3/uL Baso # (Auto) 0.1 (0.0-0.2) X10*3/uL Abs Immat Gran (auto) 0.06 H (0.00-0.03) X10*3/uL Absolute Neuts (auto) 8.9 H (2.0-8.3) x10*3/uL Absolute Nucleated RBC 0.000 (0.0-0.012) X10*3/uL Nucleated RBC % (auto) 0.0 (0.0-0.2) /100WBC Sodium 137 (135-145) mmol/L Potassium 3.6 (3.3-5.1) mmol/L Chloride 106 (96-108) mmol/L Carbon Dioxide 25 (22-29) mmol/L Anion Gap 10 L (12-20) BUN 14 (9-16) mg/dL Creatinine 0.71 (0.5-1.4) mg/dL Estim Creat Clear Calc 155.6 Estimated GFR > 60 Random Glucose 115 (60-115) mg/dL Calcium 8.6 (8.4-10.2) mg/dL Magnesium 1.9 (1.6-2.6) mg/dL Total Bilirubin 0.3 (0.0-1.0) mg/dL Direct Bilirubin 0.1 (0.0-0.5) mg/dL AST 21 (5-31) U/L ALT 22 (0-31) U/L Alkaline Phosphatase 72 (39-117) U/L Total Protein 7.2 (6.5-8.0) g/dL Albumin 4.2 (3.5-5.0) g/dL Lipase 20 (8-78) U/L Urine Color Yellow Urine Appearance Clear Urine pH 5.5 (5.0-9.0) Ur Specific [place] >= 1.030 H (1.005-1.025) Urine Protein Negative (Neg-Trace) mg/dL Urine Glucose (UA) Negative (Negative) mg/dL Urine Ketones Negative (Negative) mg/dL Urine Blood Negative (Negative) Urine Nitrite Negative (Negative) Ur Leukocyte Esterase Negative (Negative) Urine Test NEGATIVE (NEGATIVE) Medications Administered Discontinued Medications Generic Name Dose Route Start Last Admin Trade Name Freq PRN Reason Stop Dose Admin Hydromorphone HCl 1 mg 01/25/25 00:28 01/25/25 00:39 Hydromorphone Hcl 1 Mg/Ml Syringe IVPUSH 01/25/25 00:29 1 mg ONCE ONE Administration Protocol Sodium Chloride 1,000 mls @ 999 mls/hr 01/24/25 19:30 01/24/25 22:58 Ns IV 01/24/25 20:30 Infused .Q1H1M NAYA Infusion Iohexol 100 ml 01/24/25 22:47 01/24/25 22:47 Iohexol 350 Mg/Ml 100 Ml Infus..Btl IV 01/24/25 22:48 100 ml ONCE ONE Administration Morphine Sulfate 4 mg 01/24/25 19:19 01/24/25 19:31 Morphine Sulfate 4 Mg/Ml Cartridge IVPUSH 01/24/25 19:20 4 mg ONCE ONE Administration Protocol Morphine Sulfate 4 mg 01/24/25 21:46 01/24/25 22:22 Morphine Sulfate 4 Mg/Ml Cartridge IVPUSH 01/24/25 21:47 4 mg ONCE ONE Administration Protocol Discharge Plan Discharge Clinical Impression: Biliary colic Patient Disposition: Admitted As Inpatient Prescriptions: No Action lidocaine [Lidoderm] 5 % adhesive patch,medicated 2 patch topical DAILY Qty: 30 0RF Rx Instructions: leave on most painful area for up to 12 hrs cyclobenzaprine 10 mg tablet 10 mg PO BEDTIME PRN (Reason: muscle spasm) Qty: 10 0RF amlodipine [Norvasc] 10 mg tablet 10 mg PO DAILY Qty: 30 0RF lisinopril 5 mg tablet 1 tab PO DAILY fluticasone propionate 50 mcg/actuation spray,suspension 2 spray intranasal DAILY PRN (Reason: ear pressure) escitalopram oxalate 10 mg tablet 1.5 tab PO DAILY atorvastatin 20 mg tablet 20 mg PO DAILY Qty: 30 0RF acetaminophen 325 mg capsule 650 mg PO Q6H PRN (Reason: pain) Qty: 20 0RF ferrous sulfate 325 mg (65 mg iron) Tablet 325 mg PO BID Qty: 60 1RF topiramate 100 mg Tablet 100 mg PO BEDTIME naproxen [Naprosyn] 500 mg tablet 500 mg PO BID Qty: 20 0RF Flonase Sensimist 27.5 mcg/actuation spray,suspension 2 spray intranasal DAILY Qty: 6.6 0RF Rx Instructions: into each nostril amoxicillin-pot clavulanate 875-125 mg tablet 1 tab PO BID 7 Days Qty: 14 0RF penicillin V potassium 500 mg tablet 500 mg PO TID 10 Days Qty: 30 0RF oxycodone 5 mg tablet 5 mg PO BID PRN (Reason: pain) Qty: 6 0RF Rx Instructions: Partial Fill upon patient request. losartan 50 mg tablet 25 mg PO DAILY Qty: 90 0RF cyclobenzaprine 10 mg tablet 10 mg PO TID PRN (Reason: muscle spasm) Qty: 10 0RF Print Language: [place]
[2025-01-24 17:01] LABS: MANUAL DIFF FLAG NO
[2025-01-24 17:03] LABS: Basophils Absolute Auto 0.1 X10*3/uL (0.0-0.2); Basophils Percent Auto 0.4 % (0-2); Eosinophils Absolute Auto 0.3 X10*3/uL (0.0-0.4); Eosinophils Percent Auto 2.5 % (0-4); Hematocrit 36.1 % (37.0-47.0); Hemoglobin 11.8 g/dl (12.0-16.0); Imm Gran Abs Auto 0.06 X10*3/uL (0.00-0.03); Imm Gran Pct Auto 0.5 % (0.0-0.4); Lymphocytes Absolute Auto 3.1 X10*3/uL (1.2-4.9); Lymphocytes Percent Auto 24.3 % (20-40); Mean Corpuscular HGB Conc 32.7 g/dl (31.0-35.0); Mean Corpuscular Hemoglobin 25.7 pg (27.0-33.0); Mean Corpuscular Volume 78.6 fL (80.0-98.0); Mean Platelet Volume 9.2 fL (9.4-12.3); Monocytes Absolute Auto 0.5 X10*3/uL (0.1-1.2); Monocytes Percent Auto 3.8 % (2-11); Neutrophils Absolute Auto 8.9 x10*3/uL (2.0-8.3); Neutrophils Percent Auto 68.5 % (45-73); Platelet Count 489 X10*3/uL (160-400); Red Blood Count 4.59 X10*6/uL (4.20-5.50); Red Cell Distribution Width 14.1 % (11.0-16.0); White Blood Count 12.9 X10*3/uL (4.8-10.8)
[2025-01-24 17:04] LABS: Appearance Urine Clear; Color Urine Yellow; Glucose Urine UA Negative (Negative); Leukocyte Esterase Urine Negative (Negative); Nitrite Urine Negative (Negative); PH 5.5 (5.0-9.0); Specific Gravity - Urine >= 1.030 (1.005-1.025); Urine Blood Negative (Negative); Urine Ketones Negative (Negative); Urine Protein Negative (Neg-Trace)
[2025-01-24 17:17] LABS: Alanine Aminotransferase 22 U/L (0-31); Albumin Level 4.2 g/dL (3.5-5.0); Alkaline Phosphatase 72 U/L (39-117); Anion Gap 10 (12-20); Aspartate Amino Transferase 21 U/L (5-31); Bilirubin Direct 0.1 mg/dL (0.0-0.5); Bilirubin Total 0.3 mg/dL (0.0-1.0); Blood Urea Nitrogen 14 mg/dL (9-16); Calcium 8.6 mg/dL (8.4-10.2); Carbon Dioxide 25 mmol/L (22-29); Chloride 106 mmol/L (96-108); Creatinine Clr Calc Pharmacy 155.6; Estimated Glomerular Filt Rate > 60; Glucose Random 115 mg/dL (60-115); Lipase 20 U/L (8-78); Magnesium 1.9 mg/dL (1.6-2.6); Potassium 3.6 mmol/L (3.3-5.1); Sodium 137 mmol/L (135-145); Total Protein 7.2 g/dL (6.5-8.0)
[2025-01-24 17:26] LABS: UPreg QC Valid YES; Urine Pregnancy NEGATIVE (NEGATIVE)
[2025-01-24] MEDS: Morphine Sulfate 4 MG/ML CARTRIDGE IVPUSH ×2 (19:31→22:22)
[2025-01-24] MEDS: 0.9 % Sodium Chloride 1,000 ML 999 ML IV (19:33)
[2025-01-24 22:22] VITALS: RESP 16
[2025-01-24] MEDS: iohexoL 350 MG/ML 100 ML INFUS..BTL IV (22:47)
[2025-01-25] VITALS (23 sets, daily range): BP systolic 110–172; BP diastolic 55–91; PULSE 57–88; RESP 11–20; TEMP 36–37.2; O2SAT 94–98; BMI 50.1
--- NOTE | 2025-01-25 | ECG_ITS ---
Test Reason : preop Blood Pressure : */* mmHG Vent. Rate : 50 BPM Atrial Rate : 50 BPM P-R Int : 156 ms QRS Dur : 116 ms QT Int : 516 ms P-R-T Axes : 41 6 -8 degrees QTcB Int : 470 ms Sinus bradycardia Minimal voltage criteria for LVH, may be normal variant ( Sharan product ) Borderline ECG When compared with ECG of 11-Oct-2024 22:46, Nonspecific T wave abnormality now evident in Anterior leads Referred By: Gabriella Monahan Electronically Signed By: CAT RYAN MD
[2025-01-25] MEDS: HYDROmorphone HCl 1 MG/ML SYRINGE IVPUSH ×2 (00:39→04:06)
[2025-01-25] MEDS: Piperacillin Sodium/Tazobactam 3.375 GM in 0.9 % Sodium Chloride 50 ML IV ×3 (04:05→16:06)
[2025-01-25] MEDS: Enoxaparin Sodium 40 MG/0.4 ML SYRINGE SUBCUT (04:06)
[2025-01-25] MEDS: Lactated Ringers 1,000 ML 125 ML IVCONT (04:17)
--- NOTE | 2025-01-25 04:59 | P.CONHOSP_ITS ---
History of Present Illness Data of Consult Service Date: 01/25/25 Requesting physician: Zackery Estrella Primary Care Provider: Unknown Physician HPI Reason for consult: Preop clearance Patient is a 34-year-old female with past medical history esophageal tear with repair, dental abscess now healed, concussion 03/11, bronchitis, hypertension, morbid obesity, CVA 02/07, thrombocytosis, COVID, hyperlipidemia no longer taking statin, hypertension, depression/anxiety, allergic rhinitis, tubal ligation, C section X2, presents to the emergency department with 2 days of worsening right upper quadrant and back pain and frequent stooling but no nausea or vomiting. Patient was admitted by surgery for possible cholecystectomy in the a.m.. Hospitalist requested for consultation for preop clearance. Patient currently asymptomatic and pain is being controlled with IV narcotics. ECG ordered stat and is currently pending as pt is moving to the floor from ED upon consultation. No ECG could be found for evaluation. Patient states she had a stroke 01/2022 and can not remember any specific information regarding that. Patient states she has no current deficits, headache or visual changes. Pt states she no longer follows with neurology. Patient has lived with obesity for some time and is not currently on any GLP 1 medications and denies history of any gastric procedures. Patient denies history of diabetes. Patient also denies any history of thyroid disorder. Patient has stopped using alcohol after being diagnosed with a esophageal tear around the time she had COVID. Patient denies history of tobacco use, marijuana use or illicit drug use. Patient denies history of IV drug abuse. Patient has been told her platelets have been elevated for some time now. Patient was seen by Hematology October of 2023 noting patient has history of stroke in 2021. Genetic testing all came back negative. 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 One of patient's C-sections was an emergency procedure and patient was intubated for that. Patient stated she did tolerate anesthesia well without any complications. This was prior to patient's esophageal tear. Patient overall a fair historian with limited details regarding her past medical history. Lungs clear on auscultation and no murmur identified on exam. Patient does not currently have any open wounds. Review of Systems 2 Review of Systems: Patient currently denies any chest pain, nausea, vomiting or diarrhea. Patient has no issues in the past with constipation. Patient denies any shortness of breath at rest or with exertion. Patient has not had any fever, chills or night sweats. Yes all other systems are reviewed and are negative [facility] Medical History (Updated 01/25/25 @ 05:26 by FELIX Parson) Allergic rhinitis Depression with anxiety COVID Morbid obesity Hyperlipidemia Esophageal tear Right knee sprain MCL sprain of right knee Transient cerebral ischemia Thrombocytopathy Hypertension Cognitive capacity: Alert and orientated x3 Functional capacity: independent ambulation Patient : No (Urine HCG negative) Family History Other No family history of cerebrovascular accident (CVA) Pertinent family history: Mother age 58 living with diabetes and hypertension Father: Unknown Surgical History History of tonsillectomy Delivery by section Social History Household Members: Children and Friend(s) Housing: Other Housing Other:: on search for housing Do you presently have visiting nurse or other home services: No Alcohol intake: never Patient Tobacco Use Status: Never used Tobacco service: No Current occupational status: unemployed Current occupation: rt handed Ebola Risk: Travel/Contact With Anyone From Affected Area/s: No Has Patient Experienced Ebola Symptoms: No Meds Allergies Allergy/AdvReac Type Severity Reaction Status Date / Time Sulfa (Sulfonamide Allergy Severe anaphylaxis Verified 01/24/25 16:27 Antibiotics) codeine [CODEINE] Allergy Intermediate Rash Verified 01/24/25 16:27 hydrocodone [Vicodin] Allergy Intermediate Rash Verified 01/24/25 16:27 Codeine Phosphate Allergy Unknown Rash Uncoded 01/24/25 16:27 DTap vaccine Allergy Unknown Unknown Uncoded 01/24/25 16:27 From VICODIN Allergy Unknown Rash Uncoded 01/24/25 16:27 Active Medications: Current Medications Al Hydroxide/Mg Hydroxide (Magnesium Hydrox/Alum Hydrox 30 Ml Oral.Susp) 30 ml PO Q4H PRN PRN Reason: Heartburn Enoxaparin Sodium (Enoxaparin Sodium 40 Mg/0.4 Ml Syringe) 40 mg SUBCUT Q24H NAYA Last Admin: 01/25/25 04:06 Dose: 40 mg Hydromorphone HCl (Hydromorphone Hcl 0.5 Mg/0.5 Ml Syringe) 0.5 mg IVPUSH Q3H PRN; Protocol PRN Reason: Pain, Severe (Pain Scale 7-10) Lactated Ringer's (Lr) 1,000 mls @ 125 mls/hr IVCONT .Q8H [facility] Last Admin: 01/25/25 04:17 Dose: 125 mls/hr Acetaminophen (Ofirmev) 1,000 mg in 100 mls @ 400 mls/hr IV Q6H PRN PRN Reason: Pain, Mild (Pain Scale 1-3) Piperacillin Sod/Tazobactam (Sod 3.375 gm/ Sodium Chloride) 50 mls @ 100 mls/hr IV Q6H [facility] Last Infusion: 01/25/25 04:40 Dose: Infused Magnesium Hydroxide (Milk Of Magnesia 30 Ml Oral.Susp) 30 ml PO DAILY PRN PRN Reason: Constipation Melatonin (Melatonin 3 Mg Tablet) 6 mg PO BEDTIME PRN PRN Reason: Insomnia Ondansetron HCl (Ondansetron Hcl 4 Mg/2 Ml Vial) 4 mg IVPUSH QID PRN PRN Reason: Nausea Oxycodone HCl (Oxycodone Hcl Immed Release 5 Mg Tablet) 5 mg PO Q6H PRN PRN Reason: Pain, Moderate(Pain Scale 4-6) Sodium Chloride (0.9 % Sodium Chloride Flush 3 Ml Syringe) 3 ml IVFLUSH [facility] Home Medications ?Medication ?Instructions ?Recorded ?Confirmed ?Last Taken ?Type escitalopram oxalate 10 mg tablet 1.5 tab PO DAILY 02/12/22 10/22/23 02/11/22 History fluticasone propionate 50 2 spray intranasal DAILY PRN ear 02/12/22 10/22/23 02/11/22 History mcg/actuation nasal pressure spray,suspension lisinopril 5 mg tablet 1 tab PO DAILY 02/12/22 10/22/23 02/11/22 History topiramate 100 mg tablet 100 mg PO BEDTIME 10/22/23 10/22/23 Unknown History Physical Exam 2 Vital Signs and Narrative: Vital Signs: Last Vital Signs Temp 97.8 F 01/25/25 00:00 Pulse 58 01/25/25 04:17 Resp 18 01/25/25 04:17 BP 134/66 01/25/25 04:17 Pulse Ox 96 01/25/25 04:17 O2 Del Method Room Air 01/25/25 04:17 BMI result Body Mass Index 48.4 Alert and orientated X3, able to fair hx, fair historian Neuro: CN II-X11 intact, no deficits, visual acuity intact EYES: PERRLA, EOM intact, sclerae nonicteric, conjunctivae pink ENT: hearing intact, no issues with swallowing, uvula midline, lips moist, nares patent no epistaxis Cardiac: S1 S2 RRR, no murmur, no JVD, no edema in Lower ext Pulmonary: lungs clear to auscultation B Abdominal: BS active in all 4 quadrants, no guarding, mild tenderness RUQ, rebounding, obese MSK: strength 5/5 upper and lower extremities : no CVA tenderness no bladder distension Extremities: no edema in lower extremities, PT and DP pulses palpable +2 Psych: mood stable, judgement and insight good Skin: intact, tattoos lower ext Results Labs 01/24/25 16:54 01/24/25 16:54 Labs: Laboratory Results - last 24 hr 01/24/25 01/24/25 01/24/25 16:13 16:54 16:55 MCV 78.6 L MCH 25.7 L MCHC 32.7 RDW 14.1 Plt Count 489 H MPV 9.2 L Immature Gran % (Auto) 0.5 H Neut % (Auto) 68.5 Lymph % (Auto) 24.3 Rains % (Auto) 3.8 Eos % (Auto) 2.5 Baso % (Auto) 0.4 Lymph # (Auto) 3.1 Rains # (Auto) 0.5 Eos # (Auto) 0.3 Baso # (Auto) 0.1 Abs Immat Gran (auto) 0.06 H Absolute Neuts (auto) 8.9 H Absolute Nucleated RBC 0.000 Nucleated RBC % (auto) 0.0 Anion Gap 10 L Estim Creat Clear Calc 155.6 Estimated GFR > 60 Random Glucose 115 Calcium 8.6 Magnesium 1.9 Total Bilirubin 0.3 Direct Bilirubin 0.1 AST 21 ALT 22 Alkaline Phosphatase 72 Total Protein 7.2 Albumin 4.2 Lipase 20 Urine Color Yellow Urine Appearance Clear Urine pH 5.5 Ur Specific [place] >= 1.030 H Urine Protein Negative Urine Glucose (UA) Negative Urine Ketones Negative Urine Blood Negative Urine Nitrite Negative Ur Leukocyte Esterase Negative Urine Test NEGATIVE ECG Attestation: I personally reviewed and interpreted this ECG as follows: Prior ECG tracings: not available for review Imaging Radiologist's Impressions: ABD US IMPRESSION: 1. Sludge within the gallbladder. No sonographic evidence of cholecystitis. 2. Hepatomegaly with diffuse fatty infiltration. Findings: The lung bases are clear. Small fat containing left posterior diaphragmatic hernia. Both hemidiaphragms appears somewhat thickened and irregular. CT ABD The gallbladder is within normal limits. No biliary ductal dilatation. No inflammatory stranding adjacent to the gallbladder. The liver is enlarged and demonstrates low attenuation suggestive of steatosis. The spleen, pancreas and adrenal glands are within normal limits. Enhancement of bilateral kidneys with no ureteral stones and no hydronephrosis or hydroureter. No perinephric stranding. No bowel obstruction, pneumoperitoneum, or pneumatosis. Normal appendix. No free fluid. Small fat containing umbilical hernia Pelvic contents unremarkable. Abdominal aorta is normal in size. No acute osseous process. IMPRESSION: 1. No acute findings. 2 nonacute findings as described.. Assessment and Plan (1) Biliary colic: Status: Acute Plan Patient is a 34-year-old female with past medical history esophageal tear with repair, dental abscess healed, concussion (03/11), bronchitis, hypertension, morbid obesity, TIA, thrombocytosis, COVID, hyperlipidemia no longer taking statin, hypertension, depression/anxiety, allergic rhinitis, tubal ligation, C section X2 has been admitted by surgery for possible cholecystectomy. Hospitalist has been requested for consultation for preop clearance. Acute biliary colic -plan per surgery -patient currently asymptomatic Steatosis -Incidental finding on patient's CT of the abdomen -LFTs within normal limits -No history of alcohol abuse or alcohol use -Does not prevent the need for cholecystectomy if indicated -Patient should follow with GI as an outpatient -Avoid hepatic toxic medications Morbid obesity -Checking hemoglobin A1c has patient states she is not a diabetic -Checking lipid panel as patient states she no longer takes statin -TSH pending -Nutritional consult if indicated postoperatively -Patient states a lot of her time spent caring for her 2 children with ADHD and patient has limited time for exercise Bradycardia (58) -EKG ordered stat, pending -Day hospitalist will need to review EKG once completed and clear patient if possible for surgery -Telemetry -TSH pending, MG 1.9 HX of TIA/ CVA 01/2022 -Left parietal and occipital lobe, smaller chronic infarct in the right frontal lobe, was seen by neurology. Platelets were elevated then. Genetic testing negative. -No current physical deficits -BP controlled on current antihypertensives -ECHO from occurrence 01/2022 could not exclude PFO due to suboptimal quality but based on imaging quality available at the time, no bubbles seen crossing over. No evidence of valvular disorders seen. EF 65%. Thrombocytosis -Patient has been told her platelets are elevated and has not been referred to mica plate layer hand for further evaluation -This is not indicated for preop clearance as an elevated platelet count will not keep patient from having surgery if needed, today -Genetic workup was completed in October of 2023 and all testing was negative -Pt was followed by neurology in 2021 for CVA and noted the elevation of platelets, possible myeloproliferative disorder titled essential thrombocytosis History of esophageal tear -Patient believes this was many years prior related to her COVID infection -Pt reports the problem is resolved and fully healed. -Patient did require intervention but can not provide specifics -Patient has had no further complications since the original diagnosis -Consider PPI postoperatively -Consider GI clearance if needed as this could be a risk for intubation Depression/anxiety -Continue SSRI postoperatively -Patient denies any issues with suicidal ideations in the past -Patient is handling admission and need for possible surgery appropriately Currently patient's renal function and electrolytes are stable. UA negative for UTI. Pt is also a nonsmoker. In order for patient to be cleared for surgery, EKG will need to be completed and reviewed by hospitalist. Also review of labs currently pending will also be needed. Hospitalist will continue to follow. Overall current risk, prior to completing ECG/Labs review is considered moderate noting pt's medical/ surgical history to include CVA, hx of esophageal tear, morbid obesity and HTN. Further risk stratification may be needed after further review. Thank you for this consultation and hospitalist from the day shift will complete review this morning to inlcude recommendation for further consulation with GI and or Neuro. .
--- NOTE | 2025-01-25 06:37 | PC.NURSE ---
0525- noted patient admitted to room 353 from ED unit via stretcher, pt greeted and admission interventions all completed by dry pan charger. Vital signs by this [id number]% room air. patient ambulated with a steady gait, denied pain at this time, #20 angio at left AC and IVF LR running at 125ml/hr upon arrival. Hx cva with minimal right sided weakness per pt, HG equal and she stated some days there is weakness, it comes and goes . Abdomen round and tender with LBM 6/9. Skin, weight, belongings all done by admission nurse. call boo and bed controls explained and pt asked for curtains to be closed so she could nap. Charge day RN aware of need for an EKG that was ordered after pt left ED unit and day dry pan charger will follow thru with it. See admission for details.
--- NOTE | 2025-01-25 07:38 | PM.HPGS ---
History of Present Illness History of Present Illness Date of Service: 01/25/25 <Luis Alfredo Dawkins PA-C - Last Filed: 01/25/25 09:46> 01/25/25 <Zackery Estrella MD - Last Filed: 01/25/25 10:32> Chief complaint: acute cholecystitis, cholelithiasis <Luis Alfredo Dawkins PA-C - Last Filed: 01/25/25 09:46> Narrative: Gabriela Bolivar is a 34 year old female with history of morbid obesity, thrombosed cytopathy, prior CVA and TIA, with a subtle transient right-sided weakness, HTN, who presents with abdominal pain in the right upper quadrant for 3 days. patient states this pain has been intermittent for the past few months and if often happens after meals. Patient states that this pain is a 10/10 and has not gone away like with previous episodes. She endorses decreased appetite over the past 2 days. She also reports more frequent and higher volume recently Denies any nausea or vomiting. Denies fever, chills. To the emergency department on 01/24/2025, she is found to have leukocytosis, 12.9. No evidence of liver enzyme elevation. On CT scan, patient was found to have a gallbladder within normal limits without biliary ductal dilation. Abdominal ultrasound significant for gallbladder sludge, no evidence of wall thickening and no sonographic Olsen's sign. Patient was admitted for possible laparoscopic cholecystectomy. She was started on IV Zosyn and IV fluids. Hospitalist consult for preop clearance was also ordered. Patient states current medications include amlodipine and ?another med to help my blood pressure?. She states she has allergies to Vicodin and codeine. Surgical history includes 2 prior C-sections <Luis Alfredo Dawkins PA-C - Last Filed: 01/25/25 09:46> Review of Systems Review of Systems: Yes all other systems are reviewed and are negative <Luis Alfredo Dawkins PA-C - Last Filed: 01/25/25 09:46> Constitutional: Constitutional: Denies chills and Denies fever(s) <Luis Alfredo Dawkins PA-C - Last Filed: 01/25/25 09:46> Gastrointestinal: Gastrointestinal: Reports abdominal pain (RUQ), Reports change in stool character (More frequent stools), Denies nausea and Denies vomiting <Luis Alfredo Dawkins PA-C - Last Filed: 01/25/25 09:46> [facility] Past Medical History Medical History: Medical History (Updated 01/25/25 @ 05:26 by FELIX Parson) Allergic rhinitis Depression with anxiety COVID Morbid obesity Hyperlipidemia Esophageal tear Right knee sprain MCL sprain of right knee Transient cerebral ischemia Thrombocytopathy Hypertension <Luis Alfredo Dawkins PA-C - Last Filed: 01/25/25 09:46> Family History Family History: Family History Other No family history of cerebrovascular accident (CVA) <Luis Alfredo Dawkins PA-C - Last Filed: 01/25/25 09:46> Surgical History Surgical History: Surgical History History of tonsillectomy Delivery by section <Luis Alfredo Dawkins PA-C - Last Filed: 01/25/25 09:46> Social History Social History: Social History Household Members: Children and Friend(s) Housing: Other Housing Other:: on search for housing Do you presently have visiting nurse or other home services: No Alcohol intake: never Patient Tobacco Use Status: Never used Tobacco Have you been hit, kicked, punched, or otherwise hurt by someone within the past year? If so, by whom?: No Do you feel safe in your current relationship?: No Current Relationship Is there a partner from a previous relationship who is making you feel unsafe now?: No Are you made to feel afraid or neglected: No Advance Directives: No Advance Directives Information Provided: Yes Do you have a plan to hurt others: No Plan Recently lost weight without trying: No Nutrition Risks: No Nutritional Risk Patient : No (Urine HCG negative) : No Poor oral hygiene: No service: No Current occupational status: unemployed Current occupation: rt handed <Luis Alfredo Dawkins PA-C - Last Filed: 01/25/25 09:46> Travel History Ebola Risk: Travel/Contact With Anyone From Affected Area/s: No <Luis Alfredo Dawkins PA-C - Last Filed: 01/25/25 09:46> Has Patient Experienced Ebola Symptoms: No <Luis Alfredo Dawkins PA-C - Last Filed: 01/25/25 09:46> Meds Allergies/Adverse reactions: Allergies Allergy/AdvReac Type Severity Reaction Status Date / Time Sulfa (Sulfonamide Allergy Severe anaphylaxis Verified 01/24/25 16:27 Antibiotics) codeine [CODEINE] Allergy Intermediate Rash Verified 01/24/25 16:27 hydrocodone [Vicodin] Allergy Intermediate Rash Verified 01/24/25 16:27 Codeine Phosphate Allergy Unknown Rash Uncoded 01/24/25 16:27 DTap vaccine Allergy Unknown Unknown Uncoded 01/24/25 16:27 From VICODIN Allergy Unknown Rash Uncoded 01/24/25 16:27 <Luis Alfredo Dawkisn PA-C - Last Filed: 01/25/25 09:46> Active Medications: Current Medications Al Hydroxide/Mg Hydroxide (Magnesium Hydrox/Alum Hydrox 30 Ml Oral.Susp) 30 ml PO Q4H PRN PRN Reason: Heartburn Enoxaparin Sodium (Enoxaparin Sodium 40 Mg/0.4 Ml Syringe) 40 mg SUBCUT Q24H [facility] Last Admin: 01/25/25 04:06 Dose: 40 mg Hydromorphone HCl (Hydromorphone Hcl 0.5 Mg/0.5 Ml Syringe) 0.5 mg IVPUSH Q3H PRN; Protocol PRN Reason: Pain, Severe (Pain Scale 7-10) Lactated Ringer's (Lr) 1,000 mls @ 125 mls/hr IVCONT .Q8H [facility] Last Admin: 01/25/25 04:17 Dose: 125 mls/hr Acetaminophen (Ofirmev) 1,000 mg in 100 mls @ 400 mls/hr IV Q6H PRN PRN Reason: Pain, Mild (Pain Scale 1-3) Piperacillin Sod/Tazobactam (Sod 3.375 gm/ Sodium Chloride) 50 mls @ 100 mls/hr IV Q6H [facility] Last Infusion: 01/25/25 04:40 Dose: Infused Magnesium Hydroxide (Milk Of Magnesia 30 Ml Oral.Susp) 30 ml PO DAILY PRN PRN Reason: Constipation Melatonin (Melatonin 3 Mg Tablet) 6 mg PO BEDTIME PRN PRN Reason: Insomnia Ondansetron HCl (Ondansetron Hcl 4 Mg/2 Ml Vial) 4 mg IVPUSH QID PRN PRN Reason: Nausea Oxycodone HCl (Oxycodone Hcl Immed Release 5 Mg Tablet) 5 mg PO Q6H PRN PRN Reason: Pain, Moderate(Pain Scale 4-6) Sodium Chloride (0.9 % Sodium Chloride Flush 3 Ml Syringe) 3 ml IVFLUSH QSHIFT NAYA <EMMA Herrera Last Filed: 01/25/25 09:46> Home medications: Home Medications ?Medication ?Instructions ?Recorded ?Confirmed ?Last Taken ?Type escitalopram oxalate 10 mg tablet 1.5 tab PO DAILY 02/12/22 10/22/23 02/11/22 History fluticasone propionate 50 2 spray intranasal DAILY PRN ear 02/12/22 10/22/23 02/11/22 History mcg/actuation nasal pressure spray,suspension lisinopril 5 mg tablet 1 tab PO DAILY 02/12/22 10/22/23 02/11/22 History topiramate 100 mg tablet 100 mg PO BEDTIME 10/22/23 10/22/23 Unknown History <EMMA Herrera Last Filed: 01/25/25 09:46> Physical Exam Vital Signs: Vital Signs: Last Vital Signs Temp 97.4 F 01/25/25 07:20 Pulse 60 01/25/25 07:20 Resp 18 01/25/25 07:20 BP 124/64 01/25/25 07:20 Pulse Ox 95 01/25/25 07:20 O2 Del Method Room Air 01/25/25 07:20 BMI result Body Mass Index 50.1 <EMMA Herrera Last Filed: 01/25/25 09:46> Const: General: no acute distress <EMMA Herrera Last Filed: 01/25/25 09:46> Nutritional Appearance: obese <EMMA Herrera Last Filed: 01/25/25 09:46> Orientation/consciousness: patient oriented x3 <EMMA Herrera Last Filed: 01/25/25 09:46> GI: Other: Protuberant abdomen <EMMA Herrera Last Filed: 01/25/25 09:46> Inspection: No distended <EMMA Herrera Last Filed: 01/25/25 09:46> Palpation (GI): Soft to palpation, not firm, Tenderness to palpation present (GI) in the RUQ and Olsen's sign positive, no guarding and not rigid <Luis Alfredo Dawkins PA-C - Last Filed: 01/25/25 09:46> Neuro: General: patient oriented x3 <Luis Alfredo Dawkins PA-C - Last Filed: 01/25/25 09:46> Results Results Labs: Short CBC 01/24/25 Range/Units 16:54 WBC 12.9 H (4.8-10.8) X10*3/uL Hgb 11.8 L (12.0-16.0) g/dl Hct 36.1 L (37.0-47.0) % Plt Count 489 H (160-400) X10*3/uL BMP 01/24/25 16:54 Sodium 137 Potassium 3.6 Chloride 106 Carbon Dioxide 25 BUN 14 Creatinine 0.71 Calcium 8.6 Liver Function 01/24/25 Range/Units 16:54 Total Bilirubin 0.3 (0.0-1.0) mg/dL Direct Bilirubin 0.1 (0.0-0.5) mg/dL AST 21 (5-31) U/L ALT 22 (0-31) U/L Alkaline Phosphatase 72 (39-117) U/L Albumin 4.2 (3.5-5.0) g/dL Urine 01/24/25 01/24/25 Range/Units 16:13 16:55 Urine Color Yellow Urine Appearance Clear Urine pH 5.5 (5.0-9.0) Ur Specific [place] >= 1.030 H (1.005-1.025) Urine Protein Negative (Neg-Trace) mg/dL Urine Glucose (UA) Negative (Negative) mg/dL Urine Test NEGATIVE (NEGATIVE) <EMMA Herrera Last Filed: 01/25/25 09:46> Assessment and Plan (1) Biliary colic: Status: Acute <Luis Alfredo Dawkins PA-C - Last Filed: 01/25/25 09:46> Gabriela Bolivar is a 34 year old female with history of morbid obesity, thrombosed cytopathy, prior CVA and TIA, with a subtle transient right-sided weakness, HTN, who presents with abdominal pain in the right upper quadrant for 3 days. She has been having recurrent episodes of this pain for the past few months. Now patient is experiencing constant pain that is consistent even with pain medications. She currently he is denying any nausea or vomiting or fever/chills. On exam patient is tender in the right upper quadrant, positive Olsen sign. She is not distended, no guarding. Abdomen is soft. Patient found to have leukocytosis 12.9 when in the ED. there were no elevations in the patient's liver enzymes. Imaging was performed, CT does not suggest any acute pathology, no gallbladder wall thickening, no common bile duct dilation no surrounding inflammatory changes. On ultrasound patient was found to have sludge within the gallbladder. Given the patient's recurrent episodes of biliary colic, and acute presentation with associated elevations in WBC I suggest proceeding with surgical intervention, laparoscopic cholecystectomy possible open. We discussed risks including infection, bleeding, pain, damage to surrounding organs. Patient agreeable to plan. Hospitalist consult for preop clearance was ordered, per hospitalist renal function and electrolytes are stable, recommended preop EKG. Hospitalist states overall current risk is moderate given patient's medical/surgical history including CVA, history of esophageal tear obesity and hypertension. <Luis Alfredo Dawkins PA-C - Last Filed: 01/25/25 09:46> Gabriela Bolivar is a 34 year old female with history of morbid obesity, thrombosed cytopathy, prior CVA and TIA, with a subtle transient right-sided weakness, HTN, who presents with abdominal pain in the right upper quadrant for 3 days. She has been having recurrent episodes of this pain for the past few months. Now patient is experiencing constant pain that is consistent even with pain medications. She currently he is denying any nausea or vomiting or fever/chills. On exam patient is tender in the right upper quadrant, positive Olsen sign. She is not distended, no guarding. Abdomen is soft. Patient found to have leukocytosis 12.9 when in the ED. there were no elevations in the patient's liver enzymes. Imaging was performed, CT does not suggest any acute pathology, no gallbladder wall thickening, no common bile duct dilation no surrounding inflammatory changes. On ultrasound patient was found to have sludge within the gallbladder. Given the patient's recurrent episodes of biliary colic, and acute presentation with associated elevations in WBC I suggest proceeding with surgical intervention, laparoscopic cholecystectomy possible open. We discussed risks including infection, bleeding, pain, damage to surrounding organs. Patient agreeable to plan. Hospitalist consult for preop clearance was ordered, per hospitalist renal function and electrolytes are stable, recommended preop EKG. Hospitalist states overall current risk is moderate given patient's medical/surgical history including CVA, history of esophageal tear obesity and hypertension. Patient seen and examined and I agree with the above assessment and plan. Patient is tender in the right upper quadrant with a positive Olsen sign suggestive of acute cholecystitis. We discussed options including observation versus laparoscopic or possible open cholecystectomy. After discussion of the procedure, risks, and alternatives, she consents to a laparoscopic or possible open cholecystectomy. <Zackery Estrella MD - Last Filed: 01/25/25 10:32> Quality Stroke Does the patient have a stroke diagnosis?: No <Zackery Estrella MD - Last Filed: 01/25/25 10:32> VTE Prior VTE?: No <Zackery Estrella MD - Last Filed: 01/25/25 10:32> VTE Risk Level:: Surgical - high <Luis Alfredo Dawkins PA-C - Last Filed: 01/25/25 09:46> VTE Device Contraindication: N/A - Device Ordered <Luis Alfredo Dawkins PA-C - Last Filed: 01/25/25 09:46> VTE Drug Contraindication: N/A - Med Ordered <Luis Alfredo Dawkins PA-C - Last Filed: 01/25/25 09:46> Procedures Date of Service Date of Service: 01/25/25 <Luis Alfredo Dawkins PA-C - Last Filed: 01/25/25 09:46> 01/25/25 <Zackery Estrella MD - Last Filed: 01/25/25 10:32>
[2025-01-25] MEDS: HYDROmorphone HCl 0.5 MG/0.5 ML SYRINGE IVPUSH ×3 (08:03→20:28)
[2025-01-25] MEDS: 0.9 % Sodium Chloride Flush 3 ML SYRINGE IVFLUSH ×2 (08:05→20:32)
--- NOTE | 2025-01-25 08:18 | PM.EVENT ---
Event Note Date of Service: 01/25/25 Event Note: 34-year-old female with past medical history esophageal tear with repair, dental abscess healed, concussion (03/11), bronchitis, hypertension, morbid obesity, TIA, thrombocytosis, COVID, hyperlipidemia no longer taking statin, hypertension, depression/anxiety, allergic rhinitis, tubal ligation, C section X2 has been admitted by surgery for possible cholecystectomy. Hospitalist has been requested for consultation for preop clearance. Biliary colic Abdominal CT showing sludge Plan is for cholecystectomy Patient remains NPO Mild bradycardia EKG with sinus bradycardia Not on beta-blockers Ranged from 50-74 History of TIA 2021 No physical deficits Depression/anxiety Continue home medications Morbid obesity. BMI 50.1 Discussed importance of weight management as this may be contributing to worsening of other comorbidities Medication reconciliation remains pending Overall current risk, moderate noting pt's medical/ surgical history to include CVA, hx of esophageal tear, morbid obesity and HTN. Time Spent With Patient Time: Total time managing care of this patient today ____ minutes.
[2025-01-25 09:37] LABS: Total Hemoglobin (HGBA1C) 2874.9888 umol/L
[2025-01-25 09:38] LABS: Estimated Average Glucose 111 mg/dL; Hemoglobin A1c % 5.5 % (<6.0)
[2025-01-25 09:57] LABS: Alanine Aminotransferase 23 U/L (0-31); Alkaline Phosphatase 64 U/L (39-117); Anion Gap 9 (12-20); Aspartate Amino Transferase 26 U/L (5-31); Bilirubin Total 0.5 mg/dL (0.0-1.0); Blood Urea Nitrogen 12 mg/dL (9-16); Calcium 8.3 mg/dL (8.4-10.2); Carbon Dioxide 29 mmol/L (22-29); Chloride 106 mmol/L (96-108); Cholesterol 192 mg/dL (<200); Creatinine Clr Calc Pharmacy 150.5; Estimated Glomerular Filt Rate > 60; Glucose Random 88 mg/dL (60-115); HDL Cholesterol 28 mg/dL (>40); Iron 47 mcg/dL (30-160); LDL Cholesterol Calculated 102 mg/dL (<100); Percent Iron Saturation 16 % (15-50); Sodium 140 mmol/L (135-145); Total Iron Binding Capacity 294 mcg/dL (228-428); Total Protein 6.7 g/dL (6.5-8.0); Triglycerides 310 mg/dL (<150); Unsaturated Iron Binding 247 ug/dL
[2025-01-25 10:13] LABS: Thyroid Stimulating Hormone 4.02 uIU/mL (0.32-4.0)
--- NOTE | 2025-01-25 11:16 | PHA.MEDREC ---
Pharmacy Consult ? Medication Reconciliation Pharmacy has completed the medication reconciliation. Spoke to patient and she confirmed the med list. Per [facility] (patient's preferred pharmacy), pt hasn't filled the amlodipine since 08/2023 and escitalopram since 05/2023 but patient confirmed she's still taking them so they were left in med list.
--- NOTE | 2025-01-25 11:58 | MHC.CM.PN ---
pt is independnt will not need services when dcd has own ride home dc plan home n/s
[2025-01-25] MEDS: Lactated Ringers 1,000 ML 80 ML IVCONT (12:16)
--- NOTE | 2025-01-25 13:59 | P.CONAN_ITS ---
[facility] Active Problems Active Problems: All Active Problems Biliary colic (Acute) Shortness of breath (Acute) Palpitations (Acute) History of CVA (cerebrovascular accident) (Acute) Allergic rhinitis (Acute) Depression with anxiety (Acute) Morbid obesity (Acute) Thrombocytopathy (Chronic) Transient cerebral ischemia (Acute) Past Medical History Medical History Allergic rhinitis Depression with anxiety COVID Morbid obesity Hyperlipidemia Esophageal tear Thrombocytopathy Transient cerebral ischemia MCL sprain of right knee Right knee sprain Hypertension Functional capacity: independent ambulation Patient : No Family History Family History Other No family history of cerebrovascular accident (CVA) Family history of problems with anesthesia: No Surgical History Surgical History (Updated 01/25/25 @ 12:05 by Julita Apodaca RN) History of tubal ligation History of tonsillectomy Delivery by section History of Problems with Anesthesia: No Social History Social History Household Members: Children and Friend(s) Housing: Other Housing Other:: on search for housing Are you a primary career services assistant to a significant other at home: No Do you presently have visiting nurse or other home services: No Alcohol intake: never Patient Tobacco Use Status: Never used Tobacco Use of substances other than those prescribed or required for medical reasons: No Currently Displaying Signs/Symptoms of Drug Intoxication Withdrawal: No Have you been hit, kicked, punched, or otherwise hurt by someone within the past year? If so, by whom?: No Do you feel safe in your current relationship?: No Current Relationship Is there a partner from a previous relationship who is making you feel unsafe now?: No Are you made to feel afraid or neglected: No Are you DNR?: No Advance Directives: No Advance Directives Information Provided: Yes Do you have a plan to hurt others: No Plan Recently lost weight without trying: No Nutrition Risks: No Nutritional Risk Patient : No FDLMP: 01/13/25 : No Poor oral hygiene: No service: No Current occupational status: unemployed Current occupation: rt handed Meds Allergies Allergy/AdvReac Type Severity Reaction Status Date / Time Sulfa (Sulfonamide Allergy Severe anaphylaxis Verified 01/24/25 16:27 Antibiotics) codeine [CODEINE] Allergy Intermediate Rash Verified 01/24/25 16:27 hydrocodone [Vicodin] Allergy Intermediate Rash Verified 01/24/25 16:27 Codeine Phosphate Allergy Unknown Rash Uncoded 01/24/25 16:27 DTap vaccine Allergy Unknown Unknown Uncoded 01/24/25 16:27 From VICODIN Allergy Unknown Rash Uncoded 01/24/25 16:27 Active Medications: Current Medications Al Hydroxide/Mg Hydroxide (Magnesium Hydrox/Alum Hydrox 30 Ml Oral.Susp) 30 ml PO Q4H PRN PRN Reason: Heartburn Enoxaparin Sodium (Enoxaparin Sodium 40 Mg/0.4 Ml Syringe) 40 mg SUBCUT Q24H [facility] Last Admin: 01/25/25 04:06 Dose: 40 mg Hydromorphone HCl (Hydromorphone Hcl 0.5 Mg/0.5 Ml Syringe) 0.5 mg IVPUSH Q3H PRN; Protocol PRN Reason: Pain, Severe (Pain Scale 7-10) Last Admin: 01/25/25 08:03 Dose: 0.5 mg Lactated Ringer's (Lr) 1,000 mls @ 125 mls/hr IVCONT .Q8H [facility] Last Admin: 01/25/25 12:49 Dose: Not Given Acetaminophen (Ofirmev) 1,000 mg in 100 mls @ 400 mls/hr IV Q6H PRN PRN Reason: Pain, Mild (Pain Scale 1-3) Piperacillin Sod/Tazobactam (Sod 3.375 gm/ Sodium Chloride) 50 mls @ 100 mls/hr IV Q6H [facility] Last Infusion: 01/25/25 10:50 Dose: Infused Lactated Ringer's (Lr) 1,000 mls @ 80 mls/hr IVCONT .[id number] [facility] Last Admin: 01/25/25 12:16 Dose: 80 mls/hr Magnesium Hydroxide (Milk Of Magnesia 30 Ml Oral.Susp) 30 ml PO DAILY PRN PRN Reason: Constipation Melatonin (Melatonin 3 Mg Tablet) 6 mg PO BEDTIME PRN PRN Reason: Insomnia Ondansetron HCl (Ondansetron Hcl 4 Mg/2 Ml Vial) 4 mg IVPUSH QID PRN PRN Reason: Nausea Oxycodone HCl (Oxycodone Hcl Immed Release 5 Mg Tablet) 5 mg PO Q6H PRN PRN Reason: Pain, Moderate(Pain Scale 4-6) Sodium Chloride (0.9 % Sodium Chloride Flush 3 Ml Syringe) 3 ml IVFLUSH QSHIFT [facility] Last Admin: 01/25/25 08:05 Dose: 3 ml Home Medications ?Medication ?Instructions ?Recorded ?Confirmed ?Last Taken ?Type escitalopram oxalate 10 mg tablet 1.5 tab PO DAILY 02/12/22 01/25/25 01/24/25 History fluticasone propionate 50 2 spray intranasal DAILY PRN ear 02/12/22 01/25/25 02/11/22 History mcg/actuation nasal pressure spray,suspension ferrous sulfate 325 mg (65 mg 325 mg PO DAILY 01/25/25 01/25/25 01/24/25 History iron) tablet lidocaine 5 % topical patch 2 patch topical DAILY PRN Pain 01/25/25 01/25/25 Unknown History (Lidoderm) Exam Height,Weight and Vital Signs: Height 5 ft 6 in Weight 310 lb 10.101 oz Last Vital Signs Temp 97.6 F 01/25/25 12:07 Pulse 57 01/25/25 12:07 Resp 16 01/25/25 12:07 BP 110/68 01/25/25 12:07 Pulse Ox 95 01/25/25 12:07 O2 Del Method Room Air 01/25/25 12:07 Pertinent Lab Results Pertinent Lab Results: Laboratory Tests 01/24/25 01/24/25 01/24/25 16:13 16:54 16:55 WBC 12.9 H RBC 4.59 Hgb 11.8 L Hct 36.1 L MCV 78.6 L MCH 25.7 L MCHC 32.7 RDW 14.1 Plt Count 489 H MPV 9.2 L Immature Gran % (Auto) 0.5 H Neut % (Auto) 68.5 Lymph % (Auto) 24.3 Wolfe % (Auto) 3.8 Eos % (Auto) 2.5 Baso % (Auto) 0.4 Lymph # (Auto) 3.1 Wolfe # (Auto) 0.5 Eos # (Auto) 0.3 Baso # (Auto) 0.1 Abs Immat Gran (auto) 0.06 H Absolute Neuts (auto) 8.9 H Absolute Nucleated RBC 0.000 Nucleated RBC % (auto) 0.0 Sodium 137 Potassium 3.6 Chloride 106 Carbon Dioxide 25 Anion Gap 10 L BUN 14 Creatinine 0.71 Estim Creat Clear Calc 155.6 Estimated GFR > 60 Random Glucose 115 Estimat Average Glucose Hemoglobin A1c % Calcium 8.6 Magnesium 1.9 Iron TIBC % Saturation Unsat Iron Binding Total Bilirubin 0.3 Direct Bilirubin 0.1 AST 21 ALT 22 Alkaline Phosphatase 72 Total Protein 7.2 Albumin 4.2 Triglycerides Cholesterol LDL Cholesterol, Calc HDL Cholesterol Lipase 20 TSH Urine Color Yellow Urine Appearance Clear Urine pH 5.5 Ur Specific [place] >= 1.030 H Urine Protein Negative Urine Glucose (UA) Negative Urine Ketones Negative Urine Blood Negative Urine Nitrite Negative Ur Leukocyte Esterase Negative Urine Test NEGATIVE 01/25/25 08:38 WBC RBC Hgb Hct MCV MCH MCHC RDW Plt Count MPV Immature Gran % (Auto) Neut % (Auto) Lymph % (Auto) Wolfe % (Auto) Eos % (Auto) Baso % (Auto) Lymph # (Auto) Wolfe # (Auto) Eos # (Auto) Baso # (Auto) Abs Immat Gran (auto) Absolute Neuts (auto) Absolute Nucleated RBC Nucleated RBC % (auto) Sodium 140 Potassium 4.0 Chloride 106 Carbon Dioxide 29 Anion Gap 9 L BUN 12 Creatinine 0.75 Estim Creat Clear Calc 150.5 Estimated GFR > 60 Random Glucose 88 Estimat Average Glucose 111 Hemoglobin A1c % 5.5 Calcium 8.3 L Magnesium Iron 47 TIBC 294 % Saturation 16 Unsat Iron Binding 247 Total Bilirubin 0.5 Direct Bilirubin AST 26 ALT 23 Alkaline Phosphatase 64 Total Protein 6.7 Albumin 4.0 Triglycerides 310 H Cholesterol 192 LDL Cholesterol, Calc 102 H HDL Cholesterol 28 L Lipase TSH 4.02 H Urine Color Urine Appearance Urine pH Ur Specific [place] Urine Protein Urine Glucose (UA) Urine Ketones Urine Blood Urine Nitrite Ur Leukocyte Esterase Urine Test Airway Mallampati Class: IV TM Dist: <=3cm Neck ROM: Full Loose/Missing/Broken Teeth: No Heart: RRR Lungs: CTA Assessment and Plan Assessment Anesthesia Assessment: Anesthesia Plan Discussed Final Anesthetic Review Family History of Problems with Anesthesia: No History of Problems with Anesthesia: No NPO: Yes ASA Class: III Patient Risk: Intermediate Procedure Risk: Intermediate Anesthetic Plan Anesthetic Plan: GA Disposition: Standard PACU
--- NOTE | 2025-01-25 15:20 | W.PM.OPN ---
Operative Note Operative Note Date of Service: 01/25/25 Narrative: Preoperative diagnosis: Acute cholecystitis, cholelithiasis Postoperative diagnosis: Same Procedure: Laparoscopic cholecystectomy Surgeon: Zackery Estrella MD Fur Glazer: Jyoti Rios PA-C; Luis Alfredo Dawkins PA-C, DORA Pelayo Anesthesia: General endotracheal Indications for procedure: 34-year-old female patient found have complaints of abdominal pain for the past week located mainly in the right upper quadrant associated with nausea and vomiting. The pain seemed to increase in severity over the past 24 hours and she subsequently presented to the emergency department and was found to have evidence of acute cholecystitis. She presents today for laparoscopic or possible open cholecystectomy. Operative findings: Markedly distended gallbladder with evidence of adhesions from prior inflammation. Findings consistent with chronic and acute cholecystitis. Specimen: gallbladder Estimated blood loss: Less than 5 mL Complications: None Procedure details: Patient was brought to the OR and placed in a supine position. After administering general anesthesia the patient's abdomen was prepped with ChloraPrep and draped in a sterile fashion. A surgical time-out was called the consent confirmed. Patient received preoperative antibiotics and Venodyne boots were in place. Local anesthesia consisting of 0.5% Sensorcaine without epinephrine was infiltrated in a periumbilical region. A 5 mm incision was made above the umbilicus in a transverse fashion. The Veress needle was then inserted while elevating abdominal cavity with towel clips. After positive drop test the abdomen was insufflated to a pressure of 15 mm of mercury. The Veress needle was then removed and a 5 mm trocar inserted. The camera was inserted in the abdomen explored. A 12 mm trocar was then placed in the epigastrium. Two 5 mm trocars placed in the right upper quadrant by the occupational therapy assistant. The patient was placed in reverse Trendelenburg positioning and rotated to the left. The gallbladder was grasped with the fundus and retracted cephalad by the occupational therapy assistant. The infundibulum was then grasped and retracted away from the liver bed, also by the occupational therapy assistant. The Dolphin dissected was then used by the surgeon to dissect the peritoneum off the infundibulum to reveal the junction with the cystic duct. Cystic artery was noted slightly medial and posterior to the cystic duct. After obtaining a critical view the cystic duct was doubly clipped and divided. The cystic artery was then doubly clipped and divided. The gallbladder was then dissected off the liver bed using electrocautery with an L hook. Hemostasis was assured all times using the electrocautery. When the gallbladder is completely dissected off the liver bed was placed in an Endo-Catch bag and brought out through the epigastric incision. The gallbladder was sent to pathology for further examination. The abdomen was then re-examined. The liver bed was irrigated and suctioned dry. No bleeding or bile leak could be identified. CO2 was then evacuated and all trocars removed. Fascia was closed at the epigastric incision using a [id number] 0 Polysorb suture. Skin was closed in all incisions using a subcuticular 4 0 Polysorb suture by both the surgeon and occupational therapy assistant. Sterile dressings consisting of Steri-Strips, 2 x 2 gauze, and Tegaderm were then applied. The patient tolerated the procedure well. Sponge instrument and needle counts reported as correct. The patient was transferred to PACU in stable condition.
[2025-01-25] MEDS: fentaNYL citrate/PF 100 MCG/2 ML VIAL 25 MCG IVPUSH ×4 (16:05→16:20)
[2025-01-25] MEDS: Ketorolac Tromethamine 15 MG/ML VIAL IVPUSH (16:33)
[2025-01-25] MEDS: Acetaminophen 1,000 MG/100 ML PIGGYBACK 400 MG IV (16:40)
[2025-01-26] MEDS: Lactated Ringers 1,000 ML 125 ML IVCONT (04:32)
[2025-01-26] MEDS: oxyCODONE HCl Immed Release 5 MG TABLET PO (04:41)
[2025-01-26 05:29] LABS: MANUAL DIFF FLAG NO
[2025-01-26 05:49] LABS: Basophils Percent Auto 0.3 % (0-2); Hematocrit 35.6 % (37.0-47.0); Hemoglobin 11.2 g/dl (12.0-16.0); Imm Gran Abs Auto 0.12 X10*3/uL (0.00-0.03); Imm Gran Pct Auto 0.8 % (0.0-0.4); Lymphocytes Percent Auto 6.7 % (20-40); Mean Corpuscular HGB Conc 31.5 g/dl (31.0-35.0); Mean Corpuscular Hemoglobin 25.2 pg (27.0-33.0); Mean Corpuscular Volume 80.2 fL (80.0-98.0); Mean Platelet Volume 9.6 fL (9.4-12.3); Monocytes Absolute Auto 0.3 X10*3/uL (0.1-1.2); Monocytes Percent Auto 2.2 % (2-11); Neutrophils Absolute Auto 13.7 x10*3/uL (2.0-8.3); Platelet Count 492 X10*3/uL (160-400); Red Blood Count 4.44 X10*6/uL (4.20-5.50); Red Cell Distribution Width 13.9 % (11.0-16.0); White Blood Count 15.2 X10*3/uL (4.8-10.8)
[2025-01-26 05:59] LABS: Alanine Aminotransferase 208 U/L (0-31); Albumin Level 4.1 g/dL (3.5-5.0); Alkaline Phosphatase 106 U/L (39-117); Aspartate Amino Transferase 193 U/L (5-31); Bilirubin Direct 0.2 mg/dL (0.0-0.5); Bilirubin Total 0.5 mg/dL (0.0-1.0); Total Protein 6.8 g/dL (6.5-8.0)
--- NOTE | 2025-01-26 07:06 | P.PNGS_ITS ---
Subjective Subjective Date of Service: 01/26/25 <[facility] - Last Filed: 01/26/25 07:37> 01/26/25 <Luis Alfredo Dawkins PA-C - Last Filed: 01/26/25 09:56> 01/26/25 <Zackery Estrella MD - Last Filed: 01/26/25 11:24> Interval history: The patient is a 34 year old female s/p cholecystectomy. Overall she she is doing well. She reports having mild abdominal pain primarily around the incision sites, rating it a 3/10. She has not had a bowel movement yet and is requesting a stool softener. She states in the past she has needed them after prior surgeries. She has been out of bed but mostly stays in her room. She is tolerating solid foods well. She denies any fever, chills, nausea, vomiting, chest pain or shortness of breath. <[facility] Last Filed: 01/26/25 07:37> Physical Exam 2 Vital Signs: Vital Signs: Last Vital Signs Temp 99.0 F 01/25/25 23:21 Pulse 77 01/25/25 23:21 Resp 16 01/25/25 23:21 BP 117/58 L 01/25/25 23:21 Pulse Ox 95 01/25/25 23:21 O2 Del Method Room Air 01/25/25 23:21 O2 Flow Rate 3 01/25/25 16:38 BMI result Body Mass Index 50.1 <[facility] Last Filed: 01/26/25 07:37> Const: General: comfortable and no acute distress <[facility] Last Filed: 01/26/25 07:37> Orientation/consciousness: patient oriented x3 <[facility] Last Filed: 01/26/25 07:37> Resp: Effort & Inspection: normal respiratory effort <[facility] Last Filed: 01/26/25 07:37> Auscultation: clear to auscultation bilaterally <[facility] Last Filed: 01/26/25 07:37> Cardio: Rate: regular rate <[facility] Last Filed: 01/26/25 07:37> Rhythm: regular rhythm <[facility] Filed: 01/26/25 07:37> Heart sounds: S1 normal heart sound present and S2 normal heart sound present <[facility] Filed: 01/26/25 07:37> GI: Palpation (GI): Soft to palpation, Tenderness to palpation present (GI) and Other GI palpation findings present (Mild pain to palpation) <[facility] Filed: 01/26/25 07:37> Skin: General skin exam: other (Incision sites are clean, dry and intact, with no signs of infection) <[facility] Last Filed: 01/26/25 07:37> Neuro: General: patient oriented x3 <[facility] Filed: 01/26/25 07:37> Objective Data Active Medications Al Hydroxide/Mg Hydroxide (Magnesium Hydrox/Alum Hydrox 30 Ml Oral.Susp) 30 ml PO Q4H PRN PRN Reason: Heartburn Amlodipine Besylate (Amlodipine Besylate 10 Mg Tablet) 10 mg PO DAILY [facility]; Protocol Cyclobenzaprine HCl (Cyclobenzaprine Hcl 10 Mg Tablet) 10 mg PO BEDTIME PRN PRN Reason: muscle spasm Enoxaparin Sodium (Enoxaparin Sodium 40 Mg/0.4 Ml Syringe) 40 mg SUBCUT Q24H [facility] Last Admin: 01/25/25 04:06 Dose: 40 mg Documented By: JEREMIE Escitalopram Oxalate (Escitalopram Oxalate 5 Mg Tablet) 15 mg PO DAILY [facility] Ferrous Sulfate (Ferrous Sulfate 324 Mg Tablet.Dr) 324 mg PO DAILY [facility] Fluticasone Propionate (Fluticasone Propionate Nasal 16 Gm [place]) 2 spray NOSTRIL-B DAILY PRN PRN Reason: ear pressure Hydromorphone HCl (Hydromorphone Hcl 0.5 Mg/0.5 Ml Syringe) 0.5 mg IVPUSH Q3H PRN; Protocol PRN Reason: Pain, Severe (Pain Scale 7-10) Last Admin: 01/25/25 20:28 Dose: 0.5 mg Documented By: MIRNA Lactated Ringer's (Lr) 1,000 mls @ 125 mls/hr IVCONT .Q8H [facility] Last Admin: 01/26/25 04:32 Dose: 125 mls/hr Documented By: MIRNA Acetaminophen (Ofirmev) 1,000 mg in 100 mls @ 400 mls/hr IV Q6H PRN PRN Reason: Pain, Mild (Pain Scale 1-3) Losartan Potassium (Losartan Potassium 25 Mg Tablet) 25 mg PO DAILY [facility]; Protocol Magnesium Hydroxide (Milk Of Magnesia 30 Ml Oral.Susp) 30 ml PO DAILY PRN PRN Reason: Constipation Melatonin (Melatonin 3 Mg Tablet) 6 mg PO BEDTIME PRN PRN Reason: Insomnia Naloxone HCl (Naloxone Hcl 0.4 Mg/Ml Vial) 0.04 mg IVPUSH Q5M PRN PRN Reason: Excessive sedation or RR < 8 Naloxone HCl (Naloxone Hcl 0.4 Mg/Ml Vial) 0.04 mg IVPUSH Q5M PRN PRN Reason: Excessive sedation or RR < 8 Ondansetron HCl (Ondansetron Hcl 4 Mg/2 Ml Vial) 4 mg IVPUSH QID PRN PRN Reason: Nausea Oxycodone HCl (Oxycodone Hcl Immed Release 5 Mg Tablet) 5 mg PO Q6H PRN PRN Reason: Pain, Moderate(Pain Scale 4-6) Last Admin: 01/26/25 04:41 Dose: 5 mg Documented By: MIRNA Sodium Chloride (0.9 % Sodium Chloride Flush 3 Ml Syringe) 3 ml IVFLUSH QSHIFT [facility] Last Admin: 01/25/25 20:32 Dose: 3 ml Documented By: MIRNA <[facility] - Last Filed: 01/26/25 07:37> Labs CBC & Chem 7: 01/26/25 05:09 01/25/25 08:38 <[facility] - Last Filed: 01/26/25 07:37> Labs: Laboratory Results - last 24 hr 01/25/25 01/26/25 08:38 05:09 MCV 80.2 MCH 25.2 L MCHC 31.5 RDW 13.9 Plt Count 492 H MPV 9.6 Immature Gran % (Auto) 0.8 H Neut % (Auto) 90.0 H Lymph % (Auto) 6.7 L [place] % (Auto) 2.2 Eos % (Auto) 0.0 Baso % (Auto) 0.3 Lymph # (Auto) 1.0 L [place] # (Auto) 0.3 Eos # (Auto) 0.0 Baso # (Auto) 0.0 Abs Immat Gran (auto) 0.12 H Absolute Neuts (auto) 13.7 H Absolute Nucleated RBC 0.000 Nucleated RBC % (auto) 0.0 Anion Gap 9 L Estim Creat Clear Calc 150.5 Estimated GFR > 60 Random Glucose 88 Estimat Average Glucose 111 Hemoglobin A1c % 5.5 Calcium 8.3 L Iron 47 TIBC 294 % Saturation 16 Unsat Iron Binding 247 Total Bilirubin 0.5 0.5 Direct Bilirubin 0.2 AST 26 193 H ALT 23 208 H Alkaline Phosphatase 64 106 Total Protein 6.7 6.8 Albumin 4.0 4.1 Triglycerides 310 H Cholesterol 192 LDL Cholesterol, Calc 102 H HDL Cholesterol 28 L TSH 4.02 H <[facility] - Last Filed: 01/26/25 07:37> Procedures Date of Service Date of Service: 01/26/25 <[facility] - Last Filed: 01/26/25 07:37> 01/26/25 <Luis Alfredo Dawkins PA-C - Last Filed: 01/26/25 09:56> 01/26/25 <Zackery Estrella MD - Last Filed: 01/26/25 11:24> Progress Note: A&P Assessment and plan (1) S/P laparoscopic cholecystectomy: Status: Acute <[facility] Last Filed: 01/26/25 07:37> Assessment and Plan: The patient is doing well today, with a primary complaint of mild abdominal pain around the incision sites. She states she took pain medicine this morning which has helped relieve the pain. She is also requesting a stool softener as she has not had a bowel movement. She states she has needed this in the past for prior surgeries. She is ambulating well, and tolerating solid foods. Labs show a WBC of 15.2, likely attributable to her surgery. Her Hgb/Hct is 11.2/35.6 which is consistent with past values. She denies any fever, chills, nausea, vomiting, chest pain or shortness of breath. Continue Oxycodone Hcl 5 mg PO Q6H PRN Start stool softener <[facility] Last Filed: 01/26/25 07:37> 34-year-old female postop day 1 s/p laparoscopic cholecystectomy. The patient is doing well today, with a primary complaint of mild abdominal pain around the incision sites. She states she took pain medicine this morning which has helped relieve the pain. She is also requesting a stool softener as she has not had a bowel movement. She states she has needed this in the past for prior surgeries. She is ambulating well, and tolerating solid foods. Labs show a WBC of 15.2, likely attributable to her surgery. Her Hgb/Hct is 11.2/35.6 which is consistent with past values. She denies any fever, chills, nausea, vomiting, chest pain or shortness of breath. Continue pain regimen Start stool softener Patient is seen and evaluated independently. I agree with the above plan. Patient is stable, feels ready for discharge, will plan for discharge later today. Discussed return precautions including new onset fever, increased drainage from incision site, worsening pain. Will send stool softener for home <Luis Alfredo Dawkins PA-C - Last Filed: 01/26/25 09:56> Time Spent With Patient Time: Total time managing care of this patient today ____ minutes. <[facility] - Last Filed: 01/26/25 07:37> Quality Stroke Does the patient have a stroke diagnosis?: No <[facility] Last Filed: 01/26/25 07:37> VTE Prior VTE?: No <[facility] Last Filed: 01/26/25 07:37> VTE Risk Level:: Surgical - high <[facility] Last Filed: 01/26/25 07:37> VTE Device Contraindication: N/A - Device Ordered <[facility] Last Filed: 01/26/25 07:37> VTE Drug Contraindication: N/A - Med Ordered <[facility] Last Filed: 01/26/25 07:37>
[2025-01-26 07:25] VITALS: BP 108/59; PULSE 66; RESP 16; TEMP 36.4; O2SAT 92
[2025-01-26] MEDS: Losartan Potassium 25 MG TABLET PO (08:01)
[2025-01-26] MEDS: Escitalopram Oxalate 5 MG TABLET 15 MG PO (08:01)
[2025-01-26] MEDS: Ferrous Sulfate 324 MG TABLET.DR PO (08:01)
[2025-01-26] MEDS: amLODIPine Besylate 10 MG TABLET PO (08:01)
[2025-01-26] MEDS: 0.9 % Sodium Chloride Flush 3 ML SYRINGE IVFLUSH (08:03)
--- NOTE | 2025-01-26 09:25 | HO.POSTANES ---
Post Anesthesia Evaluation Post Anesthesia Evaluation Date of Service: 01/26/25 Vital Signs: Vital Signs Temp Pulse Resp BP Pulse Ox O2 Del Method 01/26/25 07:25 97.6 F 66 16 108/59 L 92 Room Air 01/25/25 23:21 99.0 F 77 16 117/58 L 95 Room Air 01/25/25 22:00 18 Anesthesia: General Endotracheal-GETA Mental Status: Awake Pain Control: Satisfactory Nausea/Vomiting: None Hydration: Adequate Anesthesia-Related Issues: No Anes. Related Issues
--- NOTE | 2025-01-26 09:26 | HO.POSTANES ---
Post Anesthesia Evaluation Post Anesthesia Evaluation Date of Service: 01/26/25 Vital Signs: Vital Signs Temp Pulse Resp BP Pulse Ox O2 Del Method 01/26/25 07:25 97.6 F 66 16 108/59 L 92 Room Air 01/25/25 23:21 99.0 F 77 16 117/58 L 95 Room Air 01/25/25 22:00 18 Anesthesia: General Endotracheal-GETA Mental Status: Awake Nausea/Vomiting: None Hydration: Adequate Anesthesia-Related Issues: No Anes. Related Issues
--- NOTE | 2025-01-26 10:27 | P.DS_ITS ---
DS: Providers Provider Date of Service: 01/26/25 Date of admission: 01/25/25 03:32 Date of discharge: 01/26/25 Primary care physician: Roya Physician Admitting clinician: Zackery Estrella Attending physician on admission: Zackery Estrella Consults: 01/25/25 03:29 Consult to Hospitalist Routine Comment: Consulting Provider: [facility] [place] [facility] Reason For Exam: cholecystitis, thrombocytopathy, TIA, preop eval Attending physician on discharge: Zackery Estrella DS: Diagnosis Discharge Diagnosis (1) S/P laparoscopic cholecystectomy: Status: Acute DS: Summary Hospital Course Hospital Course: Admission HPI: Gabriela Bolivar is a 34 year old female with history of morbid obesity, thrombosed cytopathy, prior CVA and TIA, with a subtle transient right-sided weakness, HTN, who presents with abdominal pain in the right upper quadrant for 3 days. patient states this pain has been intermittent for the past few months and if often happens after meals. Patient states that this pain is a 10/10 and has not gone away like with previous episodes. She endorses decreased appetite over the past 2 days. She also reports more frequent and higher volume recently Denies any nausea or vomiting. Denies fever, chills. To the emergency department on 01/24/2025, she is found to have leukocytosis, 12.9. No evidence of liver enzyme elevation. On CT scan, patient was found to have a gallbladder within normal limits without biliary ductal dilation. Abdominal ultrasound significant for gallbladder sludge, no evidence of wall thickening and no sonographic Olsen's sign. Patient was admitted for possible laparoscopic cholecystectomy. She was started on IV Zosyn and IV fluids. Hospitalist consult for preop clearance was also ordered. Patient states current medications include amlodipine and ?another med to help my blood pressure?. She states she has allergies to Vicodin and codeine. Surgical history includes 2 prior C-sections Hospital course: Patient was brought to the operating room on the afternoon of 01/25/2025 for laparoscopic cholecystectomy. Patient tolerated the procedure well and remained on the med surg floor overnight. Her diet was resumed. Pain was well controlled with medication. Patient was seen on morning rounds on the morning of 01/26/2025. Patient was doing well tolerating diet, able to ambulate about the room. Her abdominal exam was soft and benign aside from incisional site tenderness. Incision site dressings remain intact appear clean and dry. Patient felt ready to go home. She would like a stool softener sent to help facilitate bowel movements. Time Attestation Discharge Coordination Time (in mins): 30 Quality: Safe Use of Opioids Does Pt have an Active Cancer Diagnosis on the Problem List?: No Quality: Stroke Does the patient have a stroke diagnosis?: No Physical Exam Vital Signs: Vital Signs: Last Vital Signs Temp 97.6 F 01/26/25 07:25 Pulse 66 01/26/25 07:25 Resp 16 01/26/25 07:25 BP 108/59 L 01/26/25 07:25 Pulse Ox 92 01/26/25 07:25 O2 Del Method Room Air 01/26/25 07:25 O2 Flow Rate 3 01/25/25 16:38 BMI result Body Mass Index 50.1 Const: General: comfortable and no acute distress Orientation/consciousness: patient oriented x3 Resp: Effort & Inspection: normal respiratory effort and able to speak in complete sentences GI: Other: Incision site dressings in place, appear clean and dry Inspection: No distended Palpation (GI): Soft to palpation, not firm, Tenderness to palpation present (GI) (Incisional), no guarding and not rigid Skin: General skin exam: no rashes or lesions noted Neuro: General: patient oriented x3 Extrem: General: Yes full ROM DS: Data Data Completed and Pending Pending studies at discharge: Pending at discharge 01/25/25 15:14 Surgical [PTH] Routine Labs on day of discharge: Laboratory Results - last 24 hr 01/26/25 05:09 WBC 15.2 H RBC 4.44 Hgb 11.2 L Hct 35.6 L MCV 80.2 MCH 25.2 L MCHC 31.5 RDW 13.9 Plt Count 492 H MPV 9.6 Immature Gran % (Auto) 0.8 H Neut % (Auto) 90.0 H Lymph % (Auto) 6.7 L [place] % (Auto) 2.2 Eos % (Auto) 0.0 Baso % (Auto) 0.3 Lymph # (Auto) 1.0 L [place] # (Auto) 0.3 Eos # (Auto) 0.0 Baso # (Auto) 0.0 Abs Immat Gran (auto) 0.12 H Absolute Neuts (auto) 13.7 H Absolute Nucleated RBC 0.000 Nucleated RBC % (auto) 0.0 Total Bilirubin 0.5 Direct Bilirubin 0.2 AST 193 H ALT 208 H Alkaline Phosphatase 106 Total Protein 6.8 Albumin 4.1 Discharge Plan Discharge Anticipated Discharge Date/Time: 01/26/25 10:06 Patient Disposition: Home, Self-Care Discharge Diagnosis: Acute cholecystitis Referrals: Luis Alfredo Dawkins PA-C [Physician Drawer In Hand] - 1 Week Physician,None [Primary Care Provider] - 1 Week Discharge Medications: New docusate sodium [Colace] 100 mg capsule 100 mg PO BID Qty: 30 1RF oxycodone 5 mg tablet 5 mg PO Q6H PRN (Reason: pain) Qty: 20 0RF Rx Instructions: Partial Fill upon patient request. Continued cyclobenzaprine 10 mg tablet 10 mg PO BEDTIME PRN (Reason: muscle spasm) Qty: 10 0RF amlodipine [Norvasc] 10 mg tablet 10 mg PO DAILY Qty: 30 0RF fluticasone propionate 50 mcg/actuation spray,suspension 2 spray intranasal DAILY PRN (Reason: ear pressure) escitalopram oxalate 10 mg tablet 1.5 tab PO DAILY acetaminophen 325 mg capsule 650 mg PO Q6H PRN (Reason: pain) Qty: 20 0RF losartan 50 mg tablet 25 mg PO DAILY Qty: 90 0RF ferrous sulfate 325 mg (65 mg iron) tablet 325 mg PO DAILY lidocaine [Lidoderm] 5 % adhesive patch,medicated 2 patch topical DAILY PRN (Reason: Pain) Rx Instructions: leave on most painful area for up to 12 hrs Discharge Orders: Discharge Order (Routine); Ordered 01/26/25 Ordered By: Luis Alfredo Dawkins Activity on Discharge: No heavy lifting Stand Alone Forms: Patient Portal Discharge page Print Language: Fijian Activity Restrictions/Additional Instructions: Please reach out to the office or be seen at the emergency department if you develop: -Fever >101.5 -Increasing pain or swelling of the area -Increased bleeding from the incision site or the incision begins to separate -If you are concerned for incision site infection such as redness, warmth, discharge. Some yellow/pink tinged discharge is normal -You develop nausea or vomiting If your incision site is sore, you may apply ice to the area for short periods of time (no more than 20 minutes at a time, followed by 20 minutes off). You were prescribed oxycodone to assist with pain management as needed. You can additionally use OTC ibuprofen or acetaminophen as needed for pain. You can remove the dressings at home, they do not need to be redressed. Steri strips can remain in place and will likely fall on their own or in the shower. No heavy lifting >15-20 pounds No strenuous activity. Do not use creams, lotion, ointment on the incision sites You will follow up with Dr. Estrella in the office in 1 week, you can call the office to schedule the appointment ) Care Plan Goals: Return to baseline level of health Health Concerns: Biliary colic Acute cholecystitis s/p laparoscopic cholecystectomy Postop pain Plan of Treatment: S/p laparoscopic cholecystectomy Follow-up in the office in [address] Estrella Assessment: Patient doing well
--- NOTE | 2025-01-26 10:30 | MHC.CM.PN ---
pt dcd home self care
== END 2025-01-26 10:45 | disposition home or self-care (01) | DRG 263 ==
LOC: HO.ED 01-25 03:26 → HO.EDOVER 01-25 03:56 → HO.S3 01-25 04:24
PROVIDERS: Nurse Practitioner Family; Physician Assistant; Admitting Provider Surgery; Emergency Provider Emergency Medicine; Visit Provider Surgery
PROC: 0FT44ZZ Resection of Gallbladder, Percutaneous Endoscopic Approach (ICD-10-PCS; CPT 47562; principal; 2025-01-25 13:30)
DX: K80.12 Calculus of gallbladder with acute and chronic cholecystitis without obstruction (principal); K76.0 Fatty (change of) liver, not elsewhere classified; Z68.43 Body mass index [BMI] 50.0-59.9, adult; K82.8 Other specified diseases of gallbladder; E66.01 Morbid (severe) obesity due to excess calories; Z71.3 Dietary counseling and surveillance; Z86.73 Personal history of transient ischemic attack (TIA), and cerebral infarction without residual deficits; D75.839 Thrombocytosis, unspecified; F32.A Depression, unspecified; F41.9 Anxiety disorder, unspecified; R00.1 Bradycardia, unspecified; Z79.899 Other long term (current) drug therapy
CPT/HCPCS: 47562; 36415; 74177; 76705; 80048; 80053; 80061; 80076; 81003; 81025; 83036; 83540; 83690; 83735; 84443; 85025; 88304; 93005; 99221; 99285; J0131; J0330; J1100; J1171; J1650; J1885; J2003; J2250; J2270; J2405; J2543; J2704; J2795; J3010; J7120; Q9967

== ENCOUNTER → 2025-01-24 16:26 | Outpatient (BNV) | payer OTHER, SELFPAY | PROVIDERS: Emergency Provider Emergency Medicine; Visit Provider Radiology Diagnostic Radiology | DX: R10.11 Right upper quadrant pain (principal) | CPT/HCPCS: 74177 ==

== ENCOUNTER 2025-01-25 03:32 | Outpatient (BNV) | payer OTHER, SELFPAY | END 2025-01-25 07:38 | PROVIDERS: Admitting Provider Surgery; Emergency Provider Emergency Medicine; Visit Provider Internal Medicine Cardiovascular Disease | DX: R00.1 Bradycardia, unspecified (principal) | CPT/HCPCS: 93010 ==

== ENCOUNTER → 2025-01-25 03:32 | Outpatient (BNV) | payer OTHER, SELFPAY | PROVIDERS: Admitting Provider Surgery; Emergency Provider Emergency Medicine; Visit Provider Nurse Practitioner Family | DX: K80.50 Calculus of bile duct without cholangitis or cholecystitis without obstruction (principal) | CPT/HCPCS: 99223; 99499 ==

== ENCOUNTER → 2025-01-25 03:32 | Outpatient (BNV) | payer OTHER, SELFPAY | PROVIDERS: Admitting Provider Surgery; Emergency Provider Emergency Medicine | DX: K80.50 Calculus of bile duct without cholangitis or cholecystitis without obstruction (principal) | CPT/HCPCS: 47562 ==

== ENCOUNTER 2025-08-17 19:48 | Emergency (ER) | payer OTHER, SELFPAY ==
[2025-08-17 20:09] VITALS: BP 203/100; PULSE 78; RESP 18; TEMP 36.8; O2SAT 98; BMI 48.7
--- NOTE | 2025-08-17 20:11 | ED_ITS ---
HPI - General Adult General Chief complaint: Abdominal Pain Stated complaint: lower back and stomach pain Related Data Home Medications ?Medication ?Instructions ?Recorded ?Confirmed escitalopram oxalate 10 mg tablet 1.5 tab PO DAILY 01/25/25 fluticasone propionate 50 2 spray intranasal DAILY PRN ear 02/12/22 01/25/25 mcg/actuation nasal pressure spray,suspension ferrous sulfate 325 mg (65 mg 325 mg PO DAILY 01/25/25 01/25/25 iron) tablet lidocaine 5 % topical patch 2 patch topical DAILY PRN Pain 01/25/25 01/25/25 (Lidoderm) Previous Rx's ?Medication ?Instructions ?Recorded amlodipine 10 mg tablet (Norvasc) 10 mg PO DAILY #30 t abs 07/02/21 cyclobenzaprine 10 mg tablet 10 mg PO BEDTIME PRN musc le spasm 04/23/22 #10 tabs acetaminophen 325 mg capsule 650 mg (2 x 325 mg) PO Q6 H PRN 04/26/23 pain #20 caps losartan 50 mg tablet 25 mg (1/2 x 50 mg) PO DAILY #90 10/12/24 tabs docusate sodium 100 mg capsule 100 mg PO BID #30 caps 01/26/25 (Colace) oxycodone 5 mg tablet 5 mg PO Q6H PRN pain #20 tab s 01/26/25 Allergies Allergy/AdvReac Type Severity Reaction Status Date / Time Sulfa (Sulfonamide Allergy Severe anaphylaxis Verified 08/17/25 20:12 Antibiotics) codeine (CODEINE) Allergy Intermediate Rash Verified 08/17/25 20:12 hydrocodone (Vicodin) Allergy Intermediate Rash Verified 08/17/25 20:12 Codeine Phosphate Allergy Unknown Rash Uncoded 01/24/25 16:27 DTap vaccine Allergy Unknown Unknown Uncoded 01/24/25 16:27 From VICODIN Allergy Unknown Rash Uncoded 01/24/25 16:27 [facility], [facility] Past Medical History Medical History (Updated 08/18/25 @ 16:05 by Naseem Bhagat) Allergic rhinitis Depression with anxiety COVID Morbid obesity Hyperlipidemia Esophageal tear Thrombocytopathy Transient cerebral ischemia MCL sprain of right knee Right knee sprain Hypertension Surgical History (Updated 02/03/25 @ 00:02 by Brain Johnson) History of tubal ligation History of tonsillectomy Delivery by section Family History Family History Other No family history of cerebrovascular accident (CVA) Social History Social History Household Members: Children and Friend(s) Housing: Other Housing Other:: on search for housing Are you a primary care team assistant to a significant other at home: No Do you presently have visiting nurse or other home services: No Alcohol intake: never Comment: ambulating with a steady gait Patient Tobacco Use Status: Never used Tobacco Advance Directives: No Advance Directives Information Provided: No Do you have a plan to hurt others: No Plan service: No Current occupational status: unemployed Current occupation: rt handed Physical Exam ED Vital Signs: Vital Signs - 24 hr 08/17/25 20:09 Temperature 98.2 F Pulse Rate 78 Respiratory Rate 18 Blood Pressure 203/100 H Pulse Oximetry 98 Oxygen Delivery Method Room Air BMI result Body Mass Index 48.7 Course Course Course Narrative: RME, this is a rapid medical exam performed by Gabriele Bhagat please refer to primary provider for complete H&P- 34-year-old female presents for evaluation of abdominal pain with nausea but no vomiting. She is status post cholecystectomy. Plan for screening labs and viral testing. Medical Decision Making Lab Data 08/17/25 20:32 08/17/25 20:32 Labs: Lab Results 08/17/25 Range/Units 20:32 WBC 12.2 H (4.8-10.8) X10*3/uL RBC 4.78 (4.20-5.50) X10*6/uL Hgb 12.0 (12.0-16.0) g/dl Hct 37.0 (37.0-47.0) % MCV 77.4 L (80.0-98.0) fL MCH 25.1 L (27.0-33.0) pg MCHC 32.4 (31.0-35.0) g/dl RDW 14.3 (11.0-16.0) % Plt Count 481 H (160-400) X10*3/uL MPV 9.1 L (9.4-12.3) fL Immature Gran % (Auto) 0.7 H (0.0-0.4) % Neut % (Auto) 69.3 (45-73) % Lymph % (Auto) 23.5 (20-40) % Glades % (Auto) 4.3 (2-11) % Eos % (Auto) 1.8 (0-4) % Baso % (Auto) 0.4 (0-2) % Lymph # (Auto) 2.9 (1.2-4.9) X10*3/uL Glades # (Auto) 0.5 (0.1-1.2) X10*3/uL Eos # (Auto) 0.2 (0.0-0.4) X10*3/uL Baso # (Auto) 0.1 (0.0-0.2) X10*3/uL Abs Immat Gran (auto) 0.09 H (0.00-0.03) X10*3/uL Absolute Neuts (auto) 8.5 H (2.0-8.3) x10*3/uL Absolute Nucleated RBC 0.000 (0.0-0.012) X10*3/uL Nucleated RBC % (auto) 0.0 (0.0-0.2) /100WBC Sodium 140 (135-145) mmol/L Potassium 3.6 (3.3-5.1) mmol/L Chloride 104 (96-108) mmol/L Carbon Dioxide 27 (22-29) mmol/L Anion Gap 13 (12-20) BUN 11 (9-16) mg/dL Creatinine 0.79 (0.5-1.4) mg/dL Estim Creat Clear Calc 140.3 Estimated GFR > 60 Random Glucose 106 (60-115) mg/dL Calcium 8.6 (8.4-10.2) mg/dL Total Bilirubin 0.5 (0.0-1.0) mg/dL Direct Bilirubin 0.1 (0.0-0.5) mg/dL AST 22 (5-31) U/L ALT 25 (0-31) U/L Alkaline Phosphatase 80 (39-117) U/L Total Protein 7.8 (6.5-8.0) g/dL Albumin 4.5 (3.5-5.0) g/dL Lipase 18 (8-78) U/L Beta HCG, Quant < 2 mIU/mL Influenza Type A (PCR) NEGATIVE (Negative) Influenza Type B (PCR) NEGATIVE (Negative) RSV RNA Qual (PCR) NEGATIVE (Negative) SARS-CoV-2 RNA (RT-PCR) NEGATIVE (Negative) Discharge Plan Discharge Clinical Impression: Back pain Patient Disposition: Left W/O Completing Treatment Prescriptions: No Action cyclobenzaprine 10 mg tablet 10 mg PO BEDTIME PRN (Reason: muscle spasm) Qty: 10 0RF amlodipine [Norvasc] 10 mg tablet 10 mg PO DAILY Qty: 30 0RF fluticasone propionate 50 mcg/actuation spray,suspension 2 spray intranasal DAILY PRN (Reason: ear pressure) escitalopram oxalate 10 mg tablet 1.5 tab PO DAILY acetaminophen 325 mg capsule 650 mg PO Q6H PRN (Reason: pain) Qty: 20 0RF losartan 50 mg tablet 25 mg PO DAILY Qty: 90 0RF ferrous sulfate 325 mg (65 mg iron) tablet 325 mg PO DAILY lidocaine [Lidoderm] 5 % adhesive patch,medicated 2 patch topical DAILY PRN (Reason: Pain) Rx Instructions: leave on most painful area for up to 12 hrs docusate sodium [Colace] 100 mg capsule 100 mg PO BID Qty: 30 1RF oxycodone 5 mg tablet 5 mg PO Q6H PRN (Reason: pain) Qty: 20 0RF Rx Instructions: Partial Fill upon patient request. Discharge Date/Time: 08/18/25 01:28
[2025-08-17 20:38] LABS: MANUAL DIFF FLAG NO
[2025-08-17 20:47] LABS: Hematocrit 37.0 % (37.0-47.0); Hemoglobin 12.0 g/dl (12.0-16.0); Imm Gran Abs Auto 0.09 X10*3/uL (0.00-0.03); Imm Gran Pct Auto 0.7 % (0.0-0.4); Lymphocytes Absolute Auto 2.9 X10*3/uL (1.2-4.9); Mean Corpuscular HGB Conc 32.4 g/dl (31.0-35.0); Mean Corpuscular Hemoglobin 25.1 pg (27.0-33.0); Mean Corpuscular Volume 77.4 fL (80.0-98.0); NRBC Abs Auto 0.000 X10*3/uL (0.0-0.012); NRBC Pct Auto 0.0 /100WBC (0.0-0.2); Platelet Count 481 X10*3/uL (160-400); Red Blood Count 4.78 X10*6/uL (4.20-5.50); White Blood Count 12.2 X10*3/uL (4.8-10.8)
[2025-08-17 20:59] LABS: Alanine Aminotransferase 25 U/L (0-31); Albumin Level 4.5 g/dL (3.5-5.0); Alkaline Phosphatase 80 U/L (39-117); Anion Gap 13 (12-20); Aspartate Amino Transferase 22 U/L (5-31); Blood Urea Nitrogen 11 mg/dL (9-16); Calcium 8.6 mg/dL (8.4-10.2); Carbon Dioxide 27 mmol/L (22-29); Chloride 104 mmol/L (96-108); Creatinine Clr Calc Pharmacy 140.3; Estimated Glomerular Filt Rate > 60; Lipase 18 U/L (8-78); Potassium 3.6 mmol/L (3.3-5.1); Sodium 140 mmol/L (135-145); Total Protein 7.8 g/dL (6.5-8.0)
[2025-08-17 21:15] LABS: Resp Syncy Virus RNA Qual PCR NEGATIVE (Negative); SARS COV2 PCR INHOUSE NEGATIVE (Negative)
== END 2025-08-18 01:28 | disposition left against medical advice (07) ==
PROVIDERS: Physician Assistant; Emergency Provider Emergency Medicine
DX: M54.50 Low back pain, unspecified (principal); R11.0 Nausea; I10 Essential (primary) hypertension; E78.5 Hyperlipidemia, unspecified; Z90.49 Acquired absence of other specified parts of digestive tract; Z86.73 Personal history of transient ischemic attack (TIA), and cerebral infarction without residual deficits; Z79.899 Other long term (current) drug therapy; Z03.818 Encounter for observation for suspected exposure to other biological agents ruled out
CPT/HCPCS: 80048; 80076; 83690; 84702; 85025; 87637; 99281; 99283